=== PATIENT | female | born 1950 | race Caucasian/White ===

== ENCOUNTER 2016-05-08 12:15 | Observation (INO) | payer MEDICARE ==
[~2016-05-08] VITALS: Ht 160 cm; Wt 77.1 kg
[~2016-05-08 12:15] MED LIST: BUMEX2 MG PO; CYMBALTA60 MG PO; EFFEXOR75 MG PO; METHADONE 10 MG10 MG PO; METHADONE5 MG PO; MS CONTIN30 MG; NEURONTIN600 MG PO; NEXIUM40 MG PO; REGLAN5 MG PO; SENNA LAXATIVE8.6 MG PO; SONATA10 MG PO; SYNTHROID88 MCG PO; VALIUM5 MG PO
[2016-05-08 12:53] LABS: BASOPHILS 0.6 % (0.0-2.0); EOSINOPHILS 1.5 % (0-7); HEMATOCRIT 42.7 % (36.0-48.0); HEMOGLOBIN 14.3 g/dL (12-16); IMMATURE GRANULOCYTES 0.2 % (0-5); LYMPHOCYTES 42.2 % (15-50); MCH 30.4 pg (26.0-34.0); MCHC 33.5 g/dL (31.0-37.0); MCV 90.9 fL (80.0-100.0); MEAN PLATELET VOLUME 10.8 fL (7.4-10.4); MONOCYTES 9.5 % (2-11); RDW 13.1 % (11.5-14.5); WBC 6.5 10x3/uL (4.8-10.8)
[2016-05-08 13:05] LABS: PLATELET COUNT 309 10x3/uL (130-400)
[2016-05-08 13:08] LABS: ALBUMIN 3.4 g/dL (3.4-5.0); ALKALINE PHOSPHATASE 213 U/L (46-116); ALT (SGPT) 34 U/L (10-68); CALC OSMOLALITY 273 mosm/kg (275-300); CALCIUM 8.4 mg/dL (8.5-10.1); CARBON DIOXIDE 25.5 mmol/L (21.0-32.0); CHLORIDE - SERUM 103 mmol/L (98-107); CREATININE - SERUM 0.8 mg/dL (0.6-1.3); GLUCOSE 114 mg/dL (74-106); POTASSIUM - SERUM 5.2 mmol/L (3.5-5.1); SODIUM 135 mmol/L (136-145); UREA NITROGEN 22 mg/dL (7-18); eGFR NON AFRICAN AMERICAN 76 mL/min (90-120)
[2016-05-08 14:37] LABS: APPEARANCE HAZY (CLEAR); BACTERIA FEW /hpf (NONE SEEN); BILIRUBIN NEGATIVE (NEGATIVE); COLOR YELLOW (YELLOW); EPITHELIAL CELLS 0-5 /hpf (0-5); GLUCOSE NEGATIVE (NEGATIVE); KETONE SMALL mg/dL (NEGATIVE); LEUKOCYTE ESTERASE TRACE (NEGATIVE); NITRITE NEGATIVE (NEGATIVE); PROTEIN NEGATIVE (NEGATIVE); UROBILINOGEN NORMAL (NORMAL); WHITE CELLS - URINE 0-5 /hpf (0-5)
[2016-05-08 14:38] LABS: HYALINE CAST 0-5 /lpf (NONE SEEN); MUCUS <1+ /lpf (NONE SEEN)
--- NOTE | 2016-05-08 18:10 | NUR ---
TO ROOM 2216 FROM ER VIA WHEELCHAIR.ASSESSMENT PER ADMIT PACK.ORIENTAION TO ROOM.CALL LIGHT IN REACH.
[2016-05-08] MEDS ORDERED: REMERON15 MG PO (18:16)
[2016-05-08 18:21] VITALS: BMI 30.1
--- NOTE | 2016-05-08 19:30 | NUR ---
ASSESSMENT PER FLOWSHEET. IV TO LEFT UPPER ARM OF NS AT 125CC'S/HR SITE CLEAR. PEG TUBE CLAMPED. PT ABLE TO EAT AND DRINK WITHOUT PROBLEMS. SR UP X2 CALL LIGHT WITHIN REACH.
--- NOTE | 2016-05-08 20:45 | NUR ---
OFFERED PT HER SS ENEMA. PT REFUSED AT THIS TIME. UP WITH MINIMIAL ASSIST TO BR VOIDS WELL.
[2016-05-08 21:00] VITALS: BP 114/64
--- NOTE | 2016-05-08 22:00 | NUR ---
RESTING QUIETLY DENIES NEEDS. SR UP X2 CALL LIGHT WITHIN REACH.
--- NOTE | 2016-05-08 23:48 | NUR ---
PT REQUESTING HER PAIN MEDICATION. STATES TAKES MS CONTIN 30 MG THREE TIMES A DAY. CURRENT ORDER SHOWS DAILY. NOTIFIED DR. MAC OF PT'S REQUEST FOR PAIN MED. ORDERS REC'D AND MS CONTIN 30MG CHANGED TO TID START TONIGHT. NOTIFIED PR INTERNSH[employer] TO PULL MED.
--- NOTE | 2016-05-08 23:49 | NUR ---
DR. MAC MADE AWARE OF PT'S REFUSAL OF SS ENEMA.
--- NOTE | 2016-05-09 00:08 | NUR ---
HEEL CURVER CARON RN HERE TO PULL MEDICATION. MS CONTIN 30MG PO GIVEN FOR PAIN CONTROL. PT RATES PAIN #8 ACHING AND CRAMPING.
[2016-05-09 01:00] VITALS: BP 99/43
[2016-05-09 05:00] VITALS: BP 130/56
--- NOTE | 2016-05-09 07:30 | NUR ---
AWAKE ALERT COLOR ADQ SKIN WARM AND DRY RESP EVEN AND UNLABORED AT PRESENT CONT TO C/O ABD PAIN AT PRESENT.
[2016-05-09 08:08] VITALS: BP 124/46
--- NOTE | 2016-05-09 09:00 | NUR ---
MEDS GIVEN SIDRA WELL AT PRESENT LAYING QUIETLY IN BED AT PRESENT.
--- NOTE | 2016-05-09 10:00 | NUR ---
LAYING QUIETLY IN BED AT PRESENT STATES PAIN STILL A 10 AT PRESENT.
[2016-05-09 11:00] VITALS: Ht 160 cm; Wt 77.1 kg
[2016-05-09 11:52] VITALS: BP 109/50
--- NOTE | 2016-05-09 12:00 | NUR ---
CALLED ABOUT WANTING TO BE CONNECTED TO SUCTION STATES ABD HARD AND CRAMPING .G-TUBE CONNECTED TO LIWS.
--- NOTE | 2016-05-09 13:00 | NUR ---
G/T CONNECTED TO WALL SUCTION LOW RET ORANGE PT STATES ABD CONT TO CRAMP STILL.
--- NOTE | 2016-05-09 14:25 | NUR ---
QUIET IN ROOM AT PRESENT N/C AT PRESENT.
--- NOTE | 2016-05-09 15:26 | NUR ---
Patient Name: SHEFALI MALDONADO Admission Status: ER Accout number: [id number] Admission Date: 05-09-2016 : 1950 Admission Diagnosis: Attending: ISRA Current LOS: 1 Anticipated DC Date: 05-11-2016 Planned Disposition: Home or Self Care Primary Insurance: MEDICARE A & B Discharge Planning Comments: CM MET WITH PATIENT REGARDING D/C NEEDS AND PLANS. PATIENT STATED SHE LIVES ALONE AND HER DAUGHTER WILL DRIVE HER HOME AT DISCHARGE. PATIENT STATED THAT SHE HAS 2 STEPS WITH RAILS TO ENTER HOME AND NO STAIRS INSIDE. PATIENT IS INDEPENDENT WITH HER CARE AND HAS NO DME AT HOME. PATIENTS PCP IS DR. ESCALANTE AND USES [facility]. PATIENT HAD HOME HEALTH ABOUT A YEAR AGO WITH [facility] AND WANTS TO USE THEM IF HOME HEALTH IS NEEDED AT DISCHARGE. CM WILL CONTINUE TO FOLLOW PATIENT WITH D/C NEEDS AND PLANS. PCP [facility]- [phone] GEOVANI CARRILLO (DAUGHTER) [phone] Rover Tender: Digna Isabel Is the patient Alert and Oriented? Yes 0 * How many steps to enter\exit or inside your home? 2 W/RAILS 0 * PCP DR. ESCALANTE 0 * [facility]acy [facility] 0 * Preadmission Environment Home Alone 0 * ADLs Independent 0 * Equipment None 0 * List name and contact numbers for known caregivers / representatives who currently or will assist patient after discharge: GEOVANI CARRILLO (DAUGHTER) [phone] 0 * Community resources currently utilized None 0 * Additional services required to return to the preadmission environment? Yes 0 * Can the patient safely return to the preadmission environment? Yes 0 * Has this patient been hospitalized within the prior 30 days at any hospital? No 0 Grand Total: 0
[2016-05-09 15:40] VITALS: BP 156/49
--- NOTE | 2016-05-09 16:42 | NUR ---
STATUS REMAINS UNCHGD AT PRESENT G-TUBE CONNECTED TO LIWS AT PRESENT PT UP TO B/R STATES HAD SMALLB.
--- NOTE | 2016-05-09 20:00 | NUR ---
ASSESSMENT PER FLOWSHEET. RESTING QUIETLY IN BED IV PATENT LEFT UPPER ARM OF NS AT 125CC'S/HR
[2016-05-09 21:00] VITALS: BP 135/71
--- NOTE | 2016-05-09 22:00 | NUR ---
MEDS GIVEN PER MAR.
--- NOTE | 2016-05-10 | NUR ---
EYES CLOSED RESPIRATIONS WITH EASE AND UNLABORED.
[2016-05-10 05:00] VITALS: BP 137/51
--- NOTE | 2016-05-10 05:30 | NUR ---
MEDS GIVEN PER MAR. NO CHANGES IN ASSESSMENT
[2016-05-10 05:51] LABS: BASOPHILS 0.5 % (0.0-2.0); HEMATOCRIT 41.5 % (36.0-48.0); HEMOGLOBIN 13.7 g/dL (12-16); IMMATURE GRANULOCYTES 0.2 % (0-5); LYMPHOCYTES 39.6 % (15-50); MCH 30.2 pg (26.0-34.0); MCV 91.6 fL (80.0-100.0); MEAN PLATELET VOLUME 12.2 fL (7.4-10.4); NEUTROPHILS 49.7 % (40-80); RBC 4.53 10x6/uL (4.00-5.40); RDW 13.5 % (11.5-14.5); WBC 5.5 10x3/uL (4.8-10.8)
[2016-05-10 05:52] LABS: PLATELET COUNT 152 10x3/uL (130-400)
[2016-05-10 06:14] LABS: CALC OSMOLALITY 281 mosm/kg (275-300); CALCIUM 8.7 mg/dL (8.5-10.1); CARBON DIOXIDE 23.3 mmol/L (21.0-32.0); CHLORIDE - SERUM 109 mmol/L (98-107); CREATININE - SERUM 0.7 mg/dL (0.6-1.3); GLUCOSE 93 mg/dL (74-106); SODIUM 142 mmol/L (136-145); UREA NITROGEN 11 mg/dL (7-18); eGFR NON AFRICAN AMERICAN 88 mL/min (90-120)
[2016-05-10 08:14] VITALS: BP 108/43
--- NOTE | 2016-05-10 08:52 | NUR ---
CM REASSESSMENT NOTE: PATIENT IS DISCHARGING TODAY AND HER DAUGHTER WILL DRIVE HER HOME. PATIENT STATED SHE HAS NO NEEDS FOR DISCHARGE BUT JUST NEEDS HER PAIN MED NOW. CM NOTIFIED PATIENTS NURSE OF THE REQUEST.
--- NOTE | 2016-05-10 10:01 | NUR ---
PT SEEN AND ASSESSED. NO COMPLAINTS AT PRESENT. PEG TUBE NOTED WITH NO DRAINAGE NOTED TO SITE. AMBULATION IN ROOM AND MATUTE. DISCHARGED WITH BELONGINGS
== END 2016-05-10 10:02 | disposition home or self-care (01) ==
LOC: OBSVTIME → D.ER 12:15 → OBSVTIME 16:57 → D.MS 16:57 → OBSVTIME 17:39 → D.MS 17:39 → D.ER 17:39 → OBSVTIME 17:40 → D.MS 05-09 11:22 → D.SDCHOLD 05-09 11:22 → D.MS 05-09 14:55 → OBSVTIME 05-09 14:55 → D.MS 05-10 10:02
PROVIDERS: Emergency Medicine; ADMIT Family Medicine
DX: K56.69 Other intestinal obstruction (principal); K31.84 Gastroparesis; Z93.1 Gastrostomy status

== ENCOUNTER 2016-07-31 11:54 | Inpatient (IN) | payer MEDICARE ==
[~2016-07-31] VITALS: Ht 160 cm; Wt 79.4 kg
[~2016-07-31 11:54] MED LIST changes: -MS CONTIN30 MG; +MS CONTIN30 MG PO; +REMERON15 MG PO
[2016-07-31 14:26] LABS: BASOPHILS 0.5 % (0.0-2.0); EOSINOPHILS 1.5 % (0-7); HEMATOCRIT 41.9 % (36.0-48.0); HEMOGLOBIN 14.2 g/dL (12-16); IMMATURE GRANULOCYTES 0.1 % (0-5); LYMPHOCYTES 47.2 % (15-50); MCH 31.1 pg (26.0-34.0); MCHC 33.9 g/dL (31.0-37.0); MCV 91.9 fL (80.0-100.0); MEAN PLATELET VOLUME 10.2 fL (7.4-10.4); MONOCYTES 7.3 % (2-11); NEUTROPHILS 43.4 % (40-80); RBC 4.56 10x6/uL (4.00-5.40); RDW 13.2 % (11.5-14.5); WBC 7.6 10x3/uL (4.8-10.8)
[2016-07-31 14:34] LABS: PLATELET COUNT 279 10x3/uL (130-400)
[2016-07-31 15:30] LABS: INR 0.98 (0.85-1.17); PROTIME 12.9 SECONDS (11.6-15.0)
[2016-07-31 15:40] LABS: ALBUMIN 3.5 g/dL (3.4-5.0); BILIRUBIN - TOTAL 0.31 mg/dL (0.2-1.3); C-REACTIVE PROTEIN 2.8 mg/dL (0.0-0.9); CALCIUM 8.8 mg/dL (8.5-10.1); CARBON DIOXIDE 28.1 mmol/L (21.0-32.0); MAGNESIUM - SERUM 2.2 mg/dL (1.8-2.4); POTASSIUM - SERUM 4.1 mmol/L (3.5-5.1); PROTEIN - SERUM 7.5 g/dL (6.4-8.2)
--- NOTE | 2016-07-31 20:30 | NUR ---
RECEIVED PATIENT AWAKE AND ALERT FROM ER VIA STRETCHER ACCOMPANIED BY ER NURSE MJ TO ROOM 1221. TRANSFERRED SELF TO BED WITHOUT DIFFICULTY. INTRODUCED SELF. NGT TO Tamra PARK. UP TO THE BATHROOM--VOIDED. DR. MAC HERE TO SEE PT.
--- NOTE | 2016-07-31 20:48 | NUR ---
INITIAL ASSESSMENT AND V/S TAKEN. ADULT HISTORY DONE. MIDLINE IV CATH TO R UPPER ARM. NGT TO LOW INTERMITTENT SUCTION WITH GREENISH GASTRIC SECRETIONS.
[2016-07-31 20:49] VITALS: BP 147/84; BMI 31.0
--- NOTE | 2016-07-31 21:43 | NUR ---
IVF--D5NS+20mEq KCl STARTED @ 100cc/hr. IV SITE OK. REGLAN 5mg IV GIVEN. SEE E-MAR.
--- NOTE | 2016-07-31 22:06 | NUR ---
PAIN LEVEL "10"/10 FROM ABD. DILAUDID 1mg IV GIVEN. ATIVAN 1mg IV GIVEN ALSO FOR SLEEP. SEE E-MAR.
--- NOTE | 2016-08-01 00:30 | NUR ---
CALL LIGHT ANSWERED. ASSISTED TO THE BATHROOM. V/S CHECKED.
[2016-08-01 00:42] VITALS: BP 164/77
--- NOTE | 2016-08-01 02:28 | NUR ---
CALL LIGHT ANSWERED. PAIN LEVEL 8/10 FROM ABD. DILAUDID 1mg IV GIVEN FOR PAIN CONTROL. ZOFRAN 4mg IV GIVEN FOR NAUSEA. NGT TO LIS WITH GREENISH-BROWN GASTRIC SECRETIONS.
--- NOTE | 2016-08-01 03:15 | NUR ---
REGLAN 5mg IV GIVEN ORDERED. SEE E-MAR.
[2016-08-01 03:17] VITALS: BP 133/71
--- NOTE | 2016-08-01 06:23 | NUR ---
HIGH PRESSURE BOILER OPERATOR HERE TO DRAW AM LAB.
[2016-08-01 06:58] LABS: BASOPHILS 0.7 % (0.0-2.0); EOSINOPHILS 2.5 % (0-7); HEMATOCRIT 38.9 % (36.0-48.0); HEMOGLOBIN 12.7 g/dL (12-16); IMMATURE GRANULOCYTES 0.4 % (0-5); LYMPHOCYTES 41.8 % (15-50); MCH 30.3 pg (26.0-34.0); MCHC 32.6 g/dL (31.0-37.0); MCV 92.8 fL (80.0-100.0); MONOCYTES 9.8 % (2-11); NEUTROPHILS 44.8 % (40-80); PLATELET COUNT 232 10x3/uL (130-400); RBC 4.19 10x6/uL (4.00-5.40); RDW 13.1 % (11.5-14.5)
[2016-08-01 07:00] LABS: WBC 5.6 10x3/uL (4.8-10.8)
--- NOTE | 2016-08-01 07:00 | NUR ---
BEDSIDE SHIFT REPORT GIVEN TO PAM BLANKENSHIP.
[2016-08-01 07:30] VITALS: BP 142/59
--- NOTE | 2016-08-01 07:30 | NUR ---
PT WAS RECEIVED THIS AM LYING IN BED. C/O NG TUBE LEAKING. VASILIY AND I BOTH LOOKED AT THIS AND COULD NOT IDENTIFY WHERE IT WAS LEAKING. NG INTACT R NARES AND HOOKED UP TO INTERMITTENT SUCTION. SECURED TO NOSE WITH ATTACHMENT DEVICE. GEN- AWAKE AND ALERT. LUNGS- CLEAR. HEART- RRR. ABD-SOFT, BS-HYPOACTIVE. EXT- WARM AND DRY, NO EDEMA. BED IS LOW, SIDE RAILS UP X 2.
[2016-08-01 07:51] LABS: ANION GAP 10.5 mmol/L (8-16); BILIRUBIN - TOTAL 0.36 mg/dL (0.2-1.3); CALCIUM 8.3 mg/dL (8.5-10.1); CARBON DIOXIDE 29.4 mmol/L (21.0-32.0); CREATININE - SERUM 0.9 mg/dL (0.6-1.3); POTASSIUM - SERUM 3.9 mmol/L (3.5-5.1); PROTEIN - SERUM 6.5 g/dL (6.4-8.2)
[2016-08-01 07:52] LABS: ALBUMIN 2.6 g/dL (3.4-5.0)
--- NOTE | 2016-08-01 09:59 | NUR ---
PT IS RESTING IN BED. 0900 MEDS GIVEN. PT C/O PAIN AND ALSO WANTS SOMETHING FOR NAUSEA. I TOLD HER I WILL GIVE HER THOSE AFTER GIVING THESE IV MEDS AND LETTING THEM INFUSE. SHE AGREED.
--- NOTE | 2016-08-01 10:08 | NUR ---
RECHECKED PTS PAIN LEVEL . SHE STATES IT IS BETTER AND IS A 4/10. DR STANTON HOMICIDE DETECTIVE, IS HERE TO SEE PT. NEW ORDERS NOTED.
--- NOTE | 2016-08-01 10:34 | NUR ---
PT REQUESTED PAIN AND NAUSEA MEDICINE. GIVEN TO HER. STATES HER PAIN IS A 9 IN HER LEFT UPPER ABD. BED IS LOW, SIDE RAILS UP X 2 AND CALL LIGHT IN REACH.
[2016-08-01 10:46] VITALS: Ht 160 cm; Wt 79.4 kg
--- NOTE | 2016-08-01 12:09 | NUR ---
PTS NG WAS CLAMPED AND PT UP WALKING IN HALLWAY. SHE WALKED ABOUT 200 FT. TOLERATED WELL. LINENS WERE CHANGED.
--- NOTE | 2016-08-01 13:57 | NUR ---
PT IS LYING IN BED. OFFERS NO COMPLAINTS NG TUBE INTACT AND ON INTERMITTENT SUCTION. IV PATENT R UPPER ARM. BED IS LOW, SIDE RAILS UP X 2 AND CALL LIGHT IN REACH.
[2016-08-01 14:01] LABS: APPEARANCE HAZY (CLEAR); BILIRUBIN NEGATIVE (NEGATIVE); COLOR YELLOW (YELLOW); GLUCOSE NEGATIVE (NEGATIVE); KETONE NEGATIVE (NEGATIVE); LEUKOCYTE ESTERASE 1+ (NEGATIVE); NITRITE NEGATIVE (NEGATIVE); PROTEIN TRACE mg/dL (NEGATIVE); SPECIFIC GRAVITY 1.015 (1.005-1.020); UROBILINOGEN NORMAL (NORMAL)
[2016-08-01 14:02] LABS: BACTERIA FEW /hpf (NONE SEEN); MUCUS <1+ /lpf (NONE SEEN)
--- NOTE | 2016-08-01 15:34 | NUR ---
PT STATES HER PAIN IS BETTER . RATES PAIN A 4-5.
--- NOTE | 2016-08-01 16:16 | NUR ---
PT CALLED ME TO HER ROOM AND STATES HER NG CAME APART. HANYGED CHRISTINE AND HER GOWN AND HOOKED IT BACK UP.
--- NOTE | 2016-08-01 17:17 | NUR ---
PT ASSISTED UP TO BATHROOM. VOIDED. PT BACK TO BED. REMOVED NOSE CLAMP HOLDING NG AND CLEANED HER NOSE AND REPLACED. NG INTACT R NARES TO INTERMITTENT SUCTION. IV PATENT R UPPER ARM. BED IS LOW, SIDE RAILS UP X 2 AND CALL LIGHT IN REACH.
[2016-08-01 19:10] VITALS: BP 135/72
--- NOTE | 2016-08-01 19:10 | NUR ---
AWAKE DURING INITIAL ROUNDS. RE-INTRODUCED SELF. V/S AND ASSESSMENT DONE. NGT ON R NARE TO LOW INTERMITTENT SUCTION WITH GREENISH GASTRIC SECRETIONS. IVF TO R UPPER ARM WITH MIDLINE CATH. IV SITE OK.
--- NOTE | 2016-08-01 19:55 | NUR ---
NGT CLAMPED. PT AMBULATED IN THE MATUTE UP TO THE NURSERY AND BACK TO HER ROOM. NGT RESUMED TO LOW INTERMITTENT SUCTION.
--- NOTE | 2016-08-01 19:57 | NUR ---
AMBULATING [facility].
--- NOTE | 2016-08-01 20:21 | NUR ---
ATIVAN 1mg IV GIVEN PER PT's REQUEST FOR SLEEP. REGLAN 5mg IV GIVEN ORDERED. SEE E-MAR.
--- NOTE | 2016-08-01 23:15 | NUR ---
SUCTION CANISTER REPLACED.
[2016-08-01 23:16] VITALS: BP 104/60
--- NOTE | 2016-08-01 23:16 | NUR ---
V/S STABLE. DENIES NEEDS AT THIS TIME.
--- NOTE | 2016-08-02 02:04 | NUR ---
EYES CLOSED. LEFT UNDISTURBED.
--- NOTE | 2016-08-02 03:02 | NUR ---
CALL LIGHT ANSWERED. PAIN LEVEL 10/10 FROM ABD. DILAUDID 1mg IV GIVEN FOR PAIN CONTROL.
[2016-08-02 03:08] VITALS: BP 125/64
--- NOTE | 2016-08-02 06:01 | NUR ---
SLEPT FAIRLY WELL DURING THE NIGHT. CONTINUING PLAN OF CARE.
[2016-08-02 06:52] LABS: BASOPHILS 0.4 % (0.0-2.0); HEMATOCRIT 36.3 % (36.0-48.0); HEMOGLOBIN 11.7 g/dL (12-16); IMMATURE GRANULOCYTES 0.3 % (0-5); LYMPHOCYTES 33.2 % (15-50); MCH 30.4 pg (26.0-34.0); MCHC 32.2 g/dL (31.0-37.0); MCV 94.3 fL (80.0-100.0); MEAN PLATELET VOLUME 11.2 fL (7.4-10.4); MONOCYTES 9.1 % (2-11); PLATELET COUNT 217 10x3/uL (130-400); RBC 3.85 10x6/uL (4.00-5.40); RDW 13.3 % (11.5-14.5)
[2016-08-02 07:18] LABS: ALBUMIN 2.6 g/dL (3.4-5.0); ALKALINE PHOSPHATASE 137 U/L (46-116); ALT (SGPT) 25 U/L (10-68); BILIRUBIN - TOTAL 0.31 mg/dL (0.2-1.3); CALC OSMOLALITY 289 mosm/kg (275-300); CALCIUM 7.9 mg/dL (8.5-10.1); CARBON DIOXIDE 28.8 mmol/L (21.0-32.0); CHLORIDE - SERUM 111 mmol/L (98-107); CREATININE - SERUM 0.7 mg/dL (0.6-1.3); GLUCOSE 101 mg/dL (74-106); POTASSIUM - SERUM 4.1 mmol/L (3.5-5.1); PROTEIN - SERUM 5.7 g/dL (6.4-8.2); SODIUM 146 mmol/L (136-145); eGFR NON AFRICAN AMERICAN 88 mL/min (90-120)
[2016-08-02 07:19] LABS: UREA NITROGEN 11 mg/dL (7-18)
[2016-08-02 07:30] VITALS: BP 139/77
--- NOTE | 2016-08-02 07:30 | NUR ---
RECEIVED IN BED. AWAKE. ASKING FOR PAIN MED. NG TUBE TO LOW INTERMIT SUCTION. NOTED 400ML'S IN CANISTER. NIGHT NURSE CHANGED CANISTER BEFORE LEAVING THIS AM. ABD WITH +BS X4. LUNGS AUSCULTATED CLEAR BILAT. MOVES AD MIGUEL IN ROOM/BATHROOM.
--- NOTE | 2016-08-02 09:11 | NUR ---
WAITING ON URINE SPEC FOR CULTURE BEFORE ROCEPHIN GIVEN PER REQUEST OF DR ESCALANTE
--- NOTE | 2016-08-02 09:40 | NUR ---
UP WALKING IN MATUTE AND AROUND TO NURSERY WINDOWS. NOTED 400 IN SUCTION CONTAINER. DARK BROWN APPEARANCE.
[2016-08-02 13:25] VITALS: BP 136/72
--- NOTE | 2016-08-02 13:42 | NUR ---
LYING ON BED. EYES CLOSED. RESP NON-LABORED. NG REMAINS ON LOW INTERMIT SUCTION. IV SITE WITOUT EDEMA OR ERYTHEMA. PT REPORTS SMALL BM FROM SUPPOSITORY
--- NOTE | 2016-08-02 14:18 | NUR ---
Patient Name: SHEFALI MALDONADO Admission Status: ER Accout number: [id number] Admission Date: 07-31-2016 : 1950 Admission Diagnosis: Attending: ISRA Current LOS: 2 Anticipated DC Date: 08-05-2016 Planned Disposition: Home Primary Insurance: MEDICARE A & B Discharge Planning Comments: CM MET WITH PATIENT AND DISCUSSED DISCHARGE PLANNING / NEEDS. PATIENT STATES THAT HER DISCHARGE PLAN IS TO RETURN HOME. STATES THE HOME ENVIORNMENT IS SAFE. STATES THAT SHE HAS TWO STEPS TO ENTER/EXIT THE HOME AND THERE ARE HAND RAILS. STATES SHE WAS INDEPENDENT WITH ALL ADL'S AND IADL'S PRIOR TO HOSPITALIZATION. STATES THE ONLY ASSISTANCE SHE REQUIRED WAS TRANSPORTATION WHICH WAS PROVIDED BY HER DAUGHTER, YUMIKO FOSS [phone] OR HER FRIEND STEVE GUTIERREZ (COULD NOT RECALL HER PHONE NUMBER AT THIS TIME). STATES SHE WILL CALL HER DAUGHTER UPON DISCHARGE FOR TRANSPORTATION HOME. DENIES THE NEED FOR HOME HEALTH SERVICES OR OTHER COMMUNITY RESOURCES AT THIS TIME. CM WILL CONTINUE TO FOLLOW AND ASSIST NEEDED WITH DISCHARGE PLANNING / NEEDS. Is the patient Alert and Oriented? Yes * How many steps to enter\exit or inside your home? 2 w/rails * PCP Keon * Pharmacy [facility] * Preadmission Environment Home Alone * ADLs Independent * Equipment None * List name and contact numbers for known caregivers / representatives who currently or will assist patient after discharge: Daughter, Yumiko Foss [phone] Friend, Steve Gutierrez (did not recall phone number at this time) * Community resources currently utilized None * Additional services required to return to the preadmission environment? No * Can the patient safely return to the preadmission environment? Yes * Has this patient been hospitalized within the prior 30 days at any hospital? No Insurance Agent: Maggy Cowan
--- NOTE | 2016-08-02 14:30 | NUR ---
Called to look at midline. On arrival, right upper arm midline partially pulled out and leaking, Removed remainder of midline with cath intact at 15 cm. Peripheral started in left forearm with 22 gauge. Halima Mcwilliams RN
--- NOTE | 2016-08-02 16:15 | NUR ---
UP TO BATHROOM. NO PROBLEMS NOTED. PT STATES SHE HAS TO GET UP TO WASH HER TEETH. MOVES ABOUT IN ROOM AD MIGUEL
--- NOTE | 2016-08-02 18:14 | NUR ---
NOTED SUCTION CONTAINER HAVING SCHOOL AGE PROGRAM TEACHER COLORED FLUID (GREEN). AMT GREATLY DECREASED FROM 1100 TODAY.
--- NOTE | 2016-08-02 19:30 | NUR ---
PT RADIO DISPATCHER LIGHT, REQUESTS DILAUDID, INFORMED PT THAT I WILL BE IN THERE IN JUST A FEW MINUTES, PT VERBALIZES UNDERSTANDING
[2016-08-02 19:35] VITALS: BP 138/74
--- NOTE | 2016-08-02 19:35 | NUR ---
ASSESSMENT PER FLOW SHEET, VS OBTAINED, IV IN UPPER LEFT ARM INTACT WITH NO REDNESS OR EDEMA INFUSING D5NS WITH KCL AT 100 ML/HR PER MD ORDERS, SEE EMAR, NGT TO LOW INTERMITTENT SUCTION, RETAPED TO NOSE, PT REPORTS SMALL BM EARLIER TODAY, REQUESTS SUPPOSITORY IN THE MORNING, DENIES FLATUS, VOIDING WITH NO DIFFICULTY, STATES "I USUALLY DON'T PEE MUCH ANYWAY", PT C/O ABD AND BACK CRAMPING, ADM DILAUDID SIVP PER MD ORDERS, C/O SLIGHT NAUSEA, ADM ZOFRAN SIVP PER MD ORDERS, SEE EMAR, PT INST TO USE CALL LIGHT WHEN NEEDING TO GET UP TO VOID, PT VERBALIZES UNDERSTANDING, PT ASKED ABOUT THE ATIVAN, INFORMED PT THAT I WILL BE IN AROUND 8:30 PM TO GET HER UP TO WALK, AND THEN I WILL ADM THE ATIVAN WHEN SHE IS BACK IN BED, PT VERBALIZES UNDERSTANDING, DENIES FURTHER NEEDS
--- NOTE | 2016-08-02 20:45 | NUR ---
PT AMB IN MATUTE, GAIT STEADY, WITH THIS NURSE, PT TO NSY WINDOW AND BACK TO ROOM
--- NOTE | 2016-08-02 20:58 | NUR ---
PT BACK IN BED, NGT RECONNECTED AT LOW INTERMITTENT SUCTION, ADM 2100 MED AND ATIVAN SIVP PER MD ORDERS, SEE EMAR, PT REPOSITIONED SELF IN BED, PT LEIGHANN VELIZ NEEDS
--- NOTE | 2016-08-02 21:39 | NUR ---
NEW BAG OF D5NS WITH KCL HUNG IV INFUSING VIA PUMP AT 100 ML/HR, SEE EMAR
--- NOTE | 2016-08-02 22:30 | NUR ---
PT RESTING WITH EYES CLOSED, RESP QUIET, NO DISTRESS NOTED, LEFT UNDISTURBED AT THIS TIME
[2016-08-02 23:27] VITALS: BP 148/68
--- NOTE | 2016-08-02 23:27 | NUR ---
PT AUTO CAMP ATTENDANT LIGHT, C/O BACK PAIN, ADM DILAUDID SIVP PER MD ORDERS, SEE EMAR, VS OBTAINED, PT REQUESTED AIR TO BE ADJ, DENIES FURTHER NEEDS
--- NOTE | 2016-08-03 00:27 | NUR ---
PT RESTING WITH EYES CLOSED, RESP QUIET, NO DISTRESS NOTED, LEFT UNDISTURBED AT THIS TIME
--- NOTE | 2016-08-03 02:00 | NUR ---
PT CITY TAX AUDITOR LIGHT, IV BEEPING, IV PUMP UNPLUGGED, PUMP PLUGGED BACK IN, PT DENIES FURTHER NEEDS
[2016-08-03 03:28] VITALS: BP 160/78
--- NOTE | 2016-08-03 03:28 | NUR ---
PT CAREER RESOURCE TECHNICIAN LIGHT, C/O ABD CRAMPING, ADM DILAUDID AND REGLAN SIVP PER MD ORDERS, SEE EMAR, VS OBTAINED, I&O'S COLLECTED, NGT CONTINUES AT LOW INTERMITTENT SUCTION, PT DENIES FURTHER NEEDS
--- NOTE | 2016-08-03 04:25 | NUR ---
PT RESTING WITH EYES CLOSED, RESP QUIET, NO DISTRESS NOTED, LEFT UNDISTURBED AT THIS TIME
[2016-08-03 06:29] LABS: BASOPHILS 0.3 % (0.0-2.0); EOSINOPHILS 6.4 % (0-7); HEMATOCRIT 34.3 % (36.0-48.0); HEMOGLOBIN 11.2 g/dL (12-16); IMMATURE GRANULOCYTES 0.2 % (0-5); LYMPHOCYTES 37.1 % (15-50); MCH 30.4 pg (26.0-34.0); MCHC 32.7 g/dL (31.0-37.0); MEAN PLATELET VOLUME 10.7 fL (7.4-10.4); MONOCYTES 7.9 % (2-11); NEUTROPHILS 48.1 % (40-80); PLATELET COUNT 234 10x3/uL (130-400); RBC 3.69 10x6/uL (4.00-5.40); WBC 5.9 10x3/uL (4.8-10.8)
--- NOTE | 2016-08-03 06:43 | NUR ---
NEW BAG OF D5NS WITH KCL HUNG VIA PUMP INFUSING AT 100 ML/HR, PT REQUESTS PAIN MED, INFORMED PT THAT IT WAS NOT DUE YET, AND THAT IT WILL BE ADM WHEN DUE, PT VERBALIZES UNDERSTANDING, DENIES FURTHER NEEDS AT THIS TIME
[2016-08-03 06:45] LABS: ALBUMIN 2.4 g/dL (3.4-5.0); ALKALINE PHOSPHATASE 124 U/L (46-116); ALT (SGPT) 21 U/L (10-68); CALC OSMOLALITY 285 mosm/kg (275-300); CALCIUM 8.3 mg/dL (8.5-10.1); CARBON DIOXIDE 28.3 mmol/L (21.0-32.0); CHLORIDE - SERUM 110 mmol/L (98-107); CREATININE - SERUM 0.6 mg/dL (0.6-1.3); GLUCOSE 107 mg/dL (74-106); POTASSIUM - SERUM 3.5 mmol/L (3.5-5.1); PROTEIN - SERUM 5.8 g/dL (6.4-8.2); SODIUM 145 mmol/L (136-145); eGFR NON AFRICAN AMERICAN > 90 mL/min (90-120)
[2016-08-03 06:54] LABS: UREA NITROGEN 5 mg/dL (7-18)
--- NOTE | 2016-08-03 07:00 | NUR ---
SHIFT REPORT TO PATTIE SILVA RN
[2016-08-03 07:30] VITALS: BP 163/84
--- NOTE | 2016-08-03 08:44 | NUR ---
X-RAY IS HERE TO GET PT FOR IMAGING STUDY. TRANSPORTED BY WHEELCHAIR. NG CLAMPED AND IV SALINE LOCKED FOR TRANSPORT.
--- NOTE | 2016-08-03 08:58 | NUR ---
PT IS BACK FROM X-RAY. PT IS INSTRUCTED THAT SHE NEEDS TO WALK. PT IS NOW WALKING IN HALLWAYS.
--- NOTE | 2016-08-03 09:30 | NUR ---
PT'S IV WAS INITIATED AGAIN, HER NG WAS HOOKED BACK UP TO LOW INTERMITTENT SUCTION. 0900 MEDS WERE GIVEN.
--- NOTE | 2016-08-03 10:00 | NUR ---
PT HAD SMALL BOWEL MOVEMENT POST SUPP.
--- NOTE | 2016-08-03 10:20 | NUR ---
PT HAS SOME VISITORS TO COME SEE HER.
--- NOTE | 2016-08-03 10:48 | NUR ---
DUCOLAX SUPP GIVEN.
--- NOTE | 2016-08-03 10:53 | NUR ---
PT IS SLEEPING. BED IS LOW, SIDE RAILS UP X 2 AND CALL LIGHT IN REACH.
--- NOTE | 2016-08-03 11:00 | NUR ---
Nutrition Follow Up: Spoke with nursing who reported that pt continues having increased NGT output. Pt remains NPO x 3 days. I<O. +BM 08/02/16. Labs reviewed. Meds noted including D5NS KCl @ 100 ml/hr providing 408 kcal/d, RegXiomara hilario. NGT to LIS. Pt continues not meeting est. nutritional needs. Rec advancing diet as soon as medically feasible. If diet is unable to advance within 24-48 hours rec start nutrition support. RD will continue to monitor pt progress.
--- NOTE | 2016-08-03 11:47 | NUR ---
PT REQUEST PAIN MED. STATES HER PAIN IS A 10. SHE HAS PAIN IN HER STOMACH AND HER BACK. SHE HAS CHRONIC BACK PAIN AND TAKES 3 MORPHINE TABLETS A DAY.
--- NOTE | 2016-08-03 13:45 | NUR ---
PT STATES FEELING A LITLE SICK AT STOM[place]. MEDICATED SEE EMAR SLOW IV PUSH
--- NOTE | 2016-08-03 13:56 | NUR ---
PT STATES SHE THINKS THE MEDICATION IS WORKING. DENIES FURTHER NEEDS ORANGE CAP PLACED ON IV. CALL LIGHT IN REACH, BED LOW, SIDE RAILS UP X 2
--- NOTE | 2016-08-03 16:00 | NUR ---
PT HAD ANOTHER BM. STATES WAS SMALL.
--- NOTE | 2016-08-03 17:23 | NUR ---
WALKED IN PTS ROOM TO CHANGE THE ADHESIVE HOLDING HER NG IN PLACE AND PT WAS CRYING. SHE STATES THAT SHE HAS A CLOSE FRIEND THAT IS DYING. SHE REQUEST TO HAVE SOMETHING FOR HER NERVES. GAVE HER ATIVAN 1 MG.
--- NOTE | 2016-08-03 18:40 | NUR ---
PT IS RESTING IN BED. PT IS CALM NOW. BED IS LOW SIDE RAILS UP X 2 AND CALL LIGHT IN REACH. IV PATENT LEFT UPPER ARM. NG INTACT R NARES AND SECURED.
[2016-08-03 19:28] VITALS: BP 128/64
--- NOTE | 2016-08-03 19:28 | NUR ---
ASSESSMENT PER FLOW SHEET, VS OBTAINED, IV IN UPPER LEFT ARM INTACT INFUSING D5NS WITH KCL AT 100 ML/HR, NGT IN PLACE AT LOW INTERMITTENT SUCTION, PT REPORTS A YELLOWISH LOOSE BM TODAY, DENIES FLATUS, VOIDING WITH NO DIFFICULTY, PT C/O ABD AND BACK CRAMPING, WILL ADM PAIN MED
--- NOTE | 2016-08-03 19:42 | NUR ---
ADM SRAVANTHI SOLIZ PER MD ORDERS, SEE EMAR, PT DENIES FURTHER NEEDS AT THIS TIME
--- NOTE | 2016-08-03 20:33 | NUR ---
PT TALKING ON CELL PHONE AT THIS TIME, INFORMED PT THAT I WILL BE BACK IN A FEW MINUTES TO GET HER UP TO AMB, PT VERBALIZES UNDERSTANDING
--- NOTE | 2016-08-03 20:48 | NUR ---
NGT CLAMPED OFF, PT UP WITH ASSISTANCE, AMB TO NSY WINDOW AND BACK TO ROOM, PT BACK TO BED, NGT UNCLAMPED AND RECONNECTED, PT INQUIRES ABOUT THE ATIVAN, INFORMED PT THAT IT WILL NOT BE DUE TILL AROUND 11:30 PM SINCE SHE TOOK IT EARLIER WHEN SHE FOUND OUT HER BEST FRIEND WASN'T DOING TOO WELL, PT VERBALIZES UNDERSTANDING, DENIES FURTHER NEEDS
--- NOTE | 2016-08-03 21:31 | NUR ---
MARISSA GAY RN TO ROOM, ADM BRADLEY PER MD ORDERS, SEE EMAR
--- NOTE | 2016-08-03 22:23 | NUR ---
PT RESTING WITH EYES CLOSED, RESP QUIET, NO DISTRESS NOTED, LEFT UNDISTURBED AT THIS TIME
[2016-08-03 23:29] VITALS: BP 141/81
--- NOTE | 2016-08-03 23:29 | NUR ---
PT CANOE BUILDER LIGHT, PT REQUESTED ATIVAN, ADM ATIVAN SIVP PER MD ORDERS, VS OBTAINED, PT DENIES FURTHER NEEDS
--- NOTE | 2016-08-04 00:27 | NUR ---
PT RESTING WITH EYES CLOSED, RESP QUIET, NO DISTRESS NOTED, LEFT UNDISTURBED AT THIS TIME
--- NOTE | 2016-08-04 02:19 | NUR ---
PT RESTING WITH EYES CLOSED, RESP QUIET, NO DISTRESS NOTED, LEFT UNDISTURBED AT THIS TIME
--- NOTE | 2016-08-04 03:05 | NUR ---
CURRENT POTASSIUM CH. INFUSION COMPLETE. OLD BAG DOWN, NEW BAG UP TO PRESENT TUBING. REGLAN 5MG/1ML GIVEN PER ORDERS. SEE EMAR. PT REQUESTS PAIN MEDICATION @ 0330 WHEN AVAILABLE. ADV PT NURSE WILL RETURN WITH MEDICATION AT THAT TIME. PT UP TO VOID WITH NO ASSISTANCE AND BACK TO BED. PT DENIES FURTHER NEEDS. WILL CONT. POC.
[2016-08-04 03:39] VITALS: BP 122/51
--- NOTE | 2016-08-04 03:39 | NUR ---
PT ARTIST AND REPERTOIRE MANAGER LIGHT, C/O ABD AND BACK CRAMPING, VS OBTAINED, ADM DILAUDID SIVP PER MD ORDERS, SEE EMAR, I&O'S COLLECTED, DENIES FURTHER NEEDS
--- NOTE | 2016-08-04 04:22 | NUR ---
PT RESTING WITH EYES CLOSED, RESP QUIET, NO DISTRESS NOTED, LEFT UNDISTURBED AT THIS TIME
--- NOTE | 2016-08-04 06:08 | NUR ---
PT AWAKE, LAB JUST FINISHED BLOOD DRAW, PT DENIES NEEDS AT THIS TIME
[2016-08-04 06:17] LABS: BASOPHILS 0.6 % (0.0-2.0); EOSINOPHILS 7.7 % (0-7); HEMATOCRIT 34.5 % (36.0-48.0); HEMOGLOBIN 11.4 g/dL (12-16); IMMATURE GRANULOCYTES 0.2 % (0-5); LYMPHOCYTES 39.8 % (15-50); MCH 30.2 pg (26.0-34.0); MCV 91.5 fL (80.0-100.0); MEAN PLATELET VOLUME 10.3 fL (7.4-10.4); MONOCYTES 6.8 % (2-11); NEUTROPHILS 44.9 % (40-80); PLATELET COUNT 227 10x3/uL (130-400); RBC 3.77 10x6/uL (4.00-5.40); RDW 12.8 % (11.5-14.5); WBC 5.3 10x3/uL (4.8-10.8)
[2016-08-04 06:53] LABS: ALBUMIN 2.3 g/dL (3.4-5.0); ALKALINE PHOSPHATASE 123 U/L (46-116); ALT (SGPT) 19 U/L (10-68); CALC OSMOLALITY 277 mosm/kg (275-300); CALCIUM 8.3 mg/dL (8.5-10.1); CARBON DIOXIDE 26.2 mmol/L (21.0-32.0); CHLORIDE - SERUM 109 mmol/L (98-107); CREATININE - SERUM 0.7 mg/dL (0.6-1.3); GLUCOSE 107 mg/dL (74-106); POTASSIUM - SERUM 3.5 mmol/L (3.5-5.1); PROTEIN - SERUM 5.7 g/dL (6.4-8.2); SODIUM 141 mmol/L (136-145); UREA NITROGEN 4 mg/dL (7-18); eGFR NON AFRICAN AMERICAN 88 mL/min (90-120)
--- NOTE | 2016-08-04 06:58 | NUR ---
DR ESCALANTE TO ROOM FOR EVALUATION
--- NOTE | 2016-08-04 07:00 | NUR ---
SHIFT REPORT TO PATTIE SILVA RN
[2016-08-04 07:15] VITALS: BP 149/69
--- NOTE | 2016-08-04 07:30 | NUR ---
DR ESCALANTE HERE TO SEE PT. ORDERED NG TO BE CLAMPED. CONTINUE NPO. CONTINUE AMBULATION AND SENNA LAXATIVE THAT PT STATES WORKS FOR HER.
--- NOTE | 2016-08-04 07:40 | NUR ---
PT WAS RECEIVED LYING IN BED. SHE IS REQUESTING HER DILAUDID PAIN MED. SHE STATES HER PAIN IS A 10. THIS WAS GIVEN. GEN- AWAKE AND ALERT. NG TUBE INTACT IN R NARES. NG IS TO LIS. BROWN DRAINAGE NOTED. ONLY 350 CC NOTE IN LAST 12 H. LUNGS- CLEAR. HEART- RRR. ABD- SOFT WITH GENERALIZED TENDERNESS. FEW BS+. EXT- NO EDEMA. PT IS AMBULATORY IN HER ROOM AND IN HALLWAY. NG WAS CLAMPED PER DR ROWLEY ORDERS. PT IS VOIDING WITHOUT DIFFICULTY. HAS HAD SEVERAL SMALL BOWEL MOVEMENTS. BED IS LOW, SIDE RAILS UP X 2 AND CALL LIGHT IN REACH.
--- NOTE | 2016-08-04 10:25 | NUR ---
up walking in bhagat after sponge bath and linen change.
--- NOTE | 2016-08-04 11:07 | NUR ---
PT UP AMBULATING IN HALLWAY. TOLERATED WELL. PT IS BACK TO BED.
--- NOTE | 2016-08-04 11:24 | NUR ---
PT REQUEST PAIN MED. STATES SHE IS HURTING REALLY BAD. PAIN IS RATED A 10. PAIN IS IN BACK AND STOMACH.
--- NOTE | 2016-08-04 12:00 | NUR ---
PT ATE A REGULAR SOFT DIET. TOLERATED WELL. SHE IS SITTING UP ON SIDE OF THE BED.
--- NOTE | 2016-08-04 12:15 | NUR ---
PT TRIED TO VOID. SHE COULD NOT VOID AT THIS TIME.
--- NOTE | 2016-08-04 12:30 | NUR ---
AMBULATING IN HALLWAY. SHE STATES SHE IS DRINKING FLUID AND WALKING SO SHE WILL HOPEFULLY GO TO THE BATHROOM.
--- NOTE | 2016-08-04 13:10 | NUR ---
PT IS AMBULATING IN THE HALLWAY AGAIN. HOPING SHE WILL HAVE A BM.
--- NOTE | 2016-08-04 15:20 | NUR ---
RECEIVED TO ROOM 2217 FROM [facility] FROM . ORIENTED TO ROOM AND CALL LIGHT SYSTEM. CALL LIGHT IN REACH. WILL CONTINUE WITH PLAN OF CARE.
--- NOTE | 2016-08-04 15:39 | NUR ---
MRS MALDONADO WAS GIVEN HER REGLAN AND HER DILAUDID BEFORE TRANSFER. PT WAS TAKEN BY WHEELCHAIR WITH ALL OF HER BELONGINGS TO 2216.
--- NOTE | 2016-08-04 17:19 | NUR ---
SPOKE WITH DR. MAC ABOUT PATIENT'S CONCERN FOR A BOWEL MOVEMENT AND HER REQUEST FOR A SUPPOSIORY. NEW ORDERS RECEIVED.
--- NOTE | 2016-08-04 18:50 | NUR ---
IV SITED TO THE RIGHT UPPER ARM. 22G IV FLUSHED WITH 10CC OF NS, SECURED WITH OP-SITE AND TAPE. BED IN LOW POSITION AND CALL LIGHT WITHIN REACH. WILL CONTINUE TO MONITOR.
--- NOTE | 2016-08-04 18:59 | NUR ---
IV TO LEFT UPPERARM WITH REDNESS AND SWELLING. DC'D WITH TIP INTACT. RESITED TO RIGHT UPPERARM WITH 22 GA X1 STICK PER CARLOS VANESSA.
[2016-08-04 20:00] VITALS: BP 142/58
[2016-08-05] VITALS: BP 128/55
--- NOTE | 2016-08-05 00:08 | NUR ---
UP TO RESTROOM, SIDRA WELL, DENIES NEEDS, SAFETY MEASURES IN PLACE, CL IN REACH
--- NOTE | 2016-08-05 03:39 | NUR ---
PATIENT RESTING WITH EYES CLOSED, BUT AWAKE. STATES PAIN IS A 7/10 BUT SQL SERVER DBA DEVELOPER JUST PROVIDED PAIN MEDICATION. NG TUBE TO LEFT NARE. IV TO RIGHT UPPER ARM PATENT WITH NO REDNESS OR SWELLING. HOB 10 DEGREES. SRX1. CALL LIGHT WITHIN REACH.
[2016-08-05 04:00] VITALS: BP 147/64
[2016-08-05 07:08] LABS: BASOPHILS 0.6 % (0-2); EOSINOPHILS 9.9 % (0-7); HEMATOCRIT 36.2 % (36.0-48.0); HEMOGLOBIN 12.3 g/dL (12-16); IMMATURE GRANULOCYTES 0.4 % (0-5); LYMPHOCYTES 40.7 % (15-50); MCH 30.8 pg (26.0-34.0); MCV 90.5 fL (80.0-100.0); MEAN PLATELET VOLUME 10.3 fL (7.4-10.4); MONOCYTES 6.3 % (2-11); NEUTROPHILS 42.1 % (40-80); PLATELET COUNT 233 10x3/uL (130-400); RDW 12.8 % (11.5-14.5)
--- NOTE | 2016-08-05 07:10 | NUR ---
REPORT RECEIVED FROM AADC PLANS STAFF OFFICER NURSE. CALL LIGHT IN REACH.
[2016-08-05 07:20] LABS: ALBUMIN 2.6 g/dL (3.4-5.0); ALKALINE PHOSPHATASE 141 U/L (46-116); ALT (SGPT) 23 U/L (10-68); BILIRUBIN - TOTAL 0.54 mg/dL (0.2-1.3); CALC OSMOLALITY 275 mosm/kg (275-300); CALCIUM 8.3 mg/dL (8.5-10.1); CARBON DIOXIDE 28.5 mmol/L (21.0-32.0); CHLORIDE - SERUM 107 mmol/L (98-107); CREATININE - SERUM 0.6 mg/dL (0.6-1.3); GLUCOSE 103 mg/dL (74-106); POTASSIUM - SERUM 3.4 mmol/L (3.5-5.1); PROTEIN - SERUM 6.2 g/dL (6.4-8.2); SODIUM 140 mmol/L (136-145); UREA NITROGEN 4 mg/dL (7-18); eGFR NON AFRICAN AMERICAN > 90 mL/min (90-120)
[2016-08-05 08:17] VITALS: BP 137/65
--- NOTE | 2016-08-05 09:22 | NUR ---
ASSESSMENT COMPLETED. AM MEDS ADMINISTERED PER ORDER. [place] HAT PLACED IN BR FOR MEASUREMENT OF URINE. NGT DC'D WITH TIP INTACT. DR. ESCALANTE WAS IN ROOM TO ASSESS AND SPEAK WITH PATIENT. EXPRESSED IMPORTANCE OF WALKING HALLS AT LEAST 3 TIMES A DAY. VERBALIZED UNDERSTANDING. CALL LIGHT IN REACH. PASSWORD OBTAINED. WILL CONTINUE WITH PLAN OF CARE.
--- NOTE | 2016-08-05 11:26 | NUR ---
DILAUDID IV PER C/O PAIN OF 10. ORAL MEDS ALSO ADMINISTERED.
[2016-08-05 11:45] VITALS: BP 129/62
--- NOTE | 2016-08-05 12:10 | NUR ---
DC INSTRUCTIONS EXPLAINED TO PATIENT AND . VERBALIZED UNDERSTANDING. RX FOR ASPIRIN CALLED IN TO [facility] [address]. DC'D TO VEHICLE WITH . REFUSED WC.
--- NOTE | 2016-08-05 13:12 | NUR ---
REGLAN PO. AMBULATED IN HALLWAY AGAIN.
--- NOTE | 2016-08-05 15:10 | NUR ---
PATIENT IN BED WITH NO COMPLAINTS AT THIS TIME. IV INTACT. CALL LIGHT WITHIN REACH.
--- NOTE | 2016-08-05 15:15 | NUR ---
MORPHINE AND REGLAN PO PER ORDER. CALL LIGHT IN REACH.
[2016-08-05 15:54] VITALS: BP 146/55
--- NOTE | 2016-08-05 17:06 | NUR ---
STATES PAIN HAS DECREASED TO A 7. ALSO STATES SHE HAD A LOOSE STOOL. SUPPER IN ROOM.
--- NOTE | 2016-08-05 18:45 | NUR ---
NO CHANGES IN INITIAL ASSESSMENT. AMBULATING IN HALLWAY. WILL CONTINUE WITH PLAN OF CARE.
[2016-08-05 20:00] VITALS: BP 156/70
--- NOTE | 2016-08-05 20:00 | NUR ---
ASSESSMENT COMPLETED, NO ACUTE DISTRESS NOTED, DENIES NEEDS AT THIS TIME,FALL PRECAUTIONS IN PLACE, CL IN REACH, WILL MONITOR
--- NOTE | 2016-08-05 20:38 | NUR ---
MEDS GIVEN PER MAR ALONG WITH PRN ATIVAN PER REQUEST FOR ANXIETY/SLEEP, SIDRA WELL, DENIES OTHER NEEDS, SR'S UP, CL IN REACH
--- NOTE | 2016-08-05 22:10 | NUR ---
RESTING WITH EYES CLOSED, NO DISTRESS NOTED, FALL PRECAUTIONS IN PLACE, CL IN REACH
[2016-08-06] VITALS: BP 157/68
--- NOTE | 2016-08-06 01:11 | NUR ---
RESTING WITH EYES CLOSED, RESP WITH EASE, CL IN REACH
--- NOTE | 2016-08-06 03:30 | NUR ---
RESTING WITH EYES CLOSED, RESP WITH EASE, NO DISTRESS NOTED, SR'S UP, CL IN REACH
[2016-08-06 04:00] VITALS: BP 161/60
--- NOTE | 2016-08-06 05:36 | NUR ---
MEDS GIVEN PER MAR, SIDRA WELL, DENIES NEEDS, CL IN REACH
--- NOTE | 2016-08-06 07:00 | NUR ---
REPORT RECEIVED FROM NURSE CLINICAL NURSE. CALL LIGHT IN REACH.
[2016-08-06 08:55] VITALS: BP 156/79
--- NOTE | 2016-08-06 09:13 | NUR ---
ASSESSMENT COMPLETED. AM MEDS ADMINISTERED. HAS AMBULATED IN HALLWAY. CALL LIGHT IN REACH. WILL CONTINUE WITH PLAN OF CARE.
--- NOTE | 2016-08-06 11:05 | NUR ---
AMBULATING IN HALLWAY AND TOLERATING IT WELL. NO DISTRESS NOTES.
--- NOTE | 2016-08-06 12:42 | NUR ---
MIRNA SAENZ. WAITING ON DOCTOR SO SHE CAN SEE IF SHE WILL BE ABLE TO GET DC'D.
[2016-08-06 12:48] VITALS: BP 157/73
--- NOTE | 2016-08-06 14:45 | NUR ---
PATIENT IN BED WITH IV INTACT. ASKING ABOUT PHYSICIAN DISCHARGING HER. EXPLAINED THAT WE WOULD HAVE TO WAIT UNTIL PHYSICIAN COMES IN AND ORDERS HER DISCHARGE. VERBALIZED UNDERSTANDING. CALL LIGHT WITHIN REACH.
--- NOTE | 2016-08-06 16:16 | NUR ---
IV DC'D WITH TIP INTACT.
--- NOTE | 2016-08-06 16:39 | NUR ---
DC INSTRUCTIONS EXPLAINED TO PATIENT. MORPHINE AND REGLAN PO. VERBALIZED UNDERSTANDING. DC'D TO VEHICLE. REFUSES WC.
== END 2016-08-06 16:42 | disposition home or self-care (01) | DRG 390 ==
LOC: D.ER 11:54 → D.WS 18:52 → D.MS 08-04 15:21
PROVIDERS: Emergency Medicine; Family Medicine; Nurse Practitioner Family; ADMIT Family Medicine
PROC: 0D9670Z Drainage of Stomach with Drainage Device, Via Natural or Artificial Opening (ICD-10-PCS; principal; 2016-07-31)
PROC: 05HB33Z Insertion of Infusion Device into Right Basilic Vein, Percutaneous Approach (ICD-10-PCS; 2016-07-31)
PROC: B54MZZA Ultrasonography of Right Upper Extremity Veins, Guidance (ICD-10-PCS; 2016-07-31)
DX: K56.7 Ileus, unspecified (principal); F11.90 Opioid use, unspecified, uncomplicated; K56.60 Unspecified intestinal obstruction; K31.84 Gastroparesis; E03.9 Hypothyroidism, unspecified; G89.29 Other chronic pain

== ENCOUNTER 2016-09-01 13:05 | Inpatient (IN) | payer MEDICARE ==
[~2016-09-01] VITALS: Ht 160 cm; Wt 79.4 kg
[2016-09-01 14:39] LABS: BASOPHILS 0.4 % (0-2); EOSINOPHILS 1.1 % (0-7); HEMATOCRIT 48.4 % (36.0-48.0); HEMOGLOBIN 16.3 g/dL (12-16); IMMATURE GRANULOCYTES 0.4 % (0-5); MCH 30.4 pg (26.0-34.0); MCHC 33.7 g/dL (31.0-37.0); MCV 90.1 fL (80.0-100.0); MEAN PLATELET VOLUME 10.7 fL (7.4-10.4); MONOCYTES 6.8 % (2-11); NEUTROPHILS 61.3 % (40-80); RBC 5.37 10x6/uL (4.00-5.40); WBC 8.2 10x3/uL (4.8-10.8)
[2016-09-01 14:40] LABS: PLATELET COUNT 304 10x3/uL (130-400)
[2016-09-01 15:23] LABS: ALBUMIN 3.5 g/dL (3.4-5.0); ALKALINE PHOSPHATASE 293 U/L (46-116); ALT (SGPT) 38 U/L (10-68); CALC OSMOLALITY 281 mosm/kg (275-300); CALCIUM 9.6 mg/dL (8.5-10.1); CARBON DIOXIDE 27.3 mmol/L (21.0-32.0); CHLORIDE - SERUM 105 mmol/L (98-107); CREATININE - SERUM 0.8 mg/dL (0.6-1.3); GLUCOSE 115 mg/dL (74-106); PROTEIN - SERUM 8.1 g/dL (6.4-8.2); SODIUM 140 mmol/L (136-145); UREA NITROGEN 18 mg/dL (7-18); eGFR NON AFRICAN AMERICAN 76 mL/min (90-120)
[2016-09-01] MEDS ORDERED: TEMAZEPAM30 MG PO (19:28)
[2016-09-01 20:00] VITALS: BP 129/74
--- NOTE | 2016-09-01 21:00 | NUR ---
PRN ZOFRAN GIVEN FOR C/O NAUSEA ALONG WITH ROUTINE MEDS, SIDRA WELL, CL IN REACH
[2016-09-02] VITALS (7 sets, daily range): BP systolic 101–151; BP diastolic 56–74; Ht 160 cm; Wt 79.4 kg
[2016-09-02 07:02] LABS: HEMATOCRIT 42.6 % (36.0-48.0); HEMOGLOBIN 14.2 g/dL (12-16); MCH 30.2 pg (26.0-34.0); MCHC 33.3 g/dL (31.0-37.0); MCV 90.6 fL (80.0-100.0); MEAN PLATELET VOLUME 11.1 fL (7.4-10.4); PLATELET COUNT 307 10x3/uL (130-400)
[2016-09-02 07:07] LABS: WBC 5.6 10x3/uL (4.8-10.8)
[2016-09-02 07:15] LABS: APPEARANCE CLEAR (CLEAR); BILIRUBIN NEGATIVE (NEGATIVE); COLOR DK YELLOW (YELLOW); GLUCOSE NEGATIVE (NEGATIVE); KETONE NEGATIVE (NEGATIVE); LEUKOCYTE ESTERASE TRACE (NEGATIVE); NITRITE NEGATIVE (NEGATIVE); PROTEIN TRACE mg/dL (NEGATIVE); SPECIFIC GRAVITY 1.015 (1.005-1.020); UROBILINOGEN NORMAL (NORMAL)
[2016-09-02 07:16] LABS: BACTERIA FEW /hpf (NONE SEEN); EPITHELIAL CELLS 0-5 /hpf (0-5); RED CELLS - URINE 0-5 /hpf (0-5)
[2016-09-02 07:29] LABS: ANION GAP 11.2 mmol/L (8-16); BILIRUBIN - TOTAL 0.85 mg/dL (0.2-1.3); CALCIUM 8.9 mg/dL (8.5-10.1); POTASSIUM - SERUM 4.2 mmol/L (3.5-5.1); PROTEIN - SERUM 7.1 g/dL (6.4-8.2)
--- NOTE | 2016-09-02 07:50 | NUR ---
PT AOX4 RESP EVEN AND NONLABORED IV TO RIGHT UPPER ARM PATENT AND INTACT PT DENIES NEEDS AT THIS TIME. SRX2 BED AT LOWEST SETTING CALL LIGHT WITHIN REACH WILL CONTINUE TO MONITOR
[2016-09-02 07:57] LABS: LYMPHOCYTES 73 % (15-50); MONOCYTES 2 % (2-11); NEUTROPHILS 25 % (40-80); PLATELET ESTIMATE NORMAL
--- NOTE | 2016-09-02 19:45 | NUR ---
PATIENT C/O 01/23 HEADACHE AND STATED THAT THE "MEDICINE IS NOT WORKING" PATIENT REQUESTED HER SLEEPING PILL THAT SHE USUALLY TAKES AT HOME. PATIENT'S BED IS IN THE LOWEST POSITION AND HER CALL LIGHT IS WITHIN REACH. I TOLD THE PATIENT THAT I WOULD PAGE THE DOCTOR PROGRAM MANAGER SLP AND ENCOURAGED HER TO CALL IF SHE HAS FURTHER NEEDS.
--- NOTE | 2016-09-02 20:15 | NUR ---
REQUESTED PERMISSION FROM [employer]ARD[employer] SALES REPRESENTATIVE TO CALL PHYSICAIN REGUARDING PATIENT'S SLEEPING PILL. PAGED DR. MAC (PHOTO RETOUCHER FOR DR. ESCALANTE) IN REGUARDS TO PATIENT'S MEDICATION.
[2016-09-03] VITALS: BP 155/69
--- NOTE | 2016-09-03 01:29 | NUR ---
ADMINSITERED METER RECORD CLERK 0.4 BOLUS DOSE TO PATIENT FOR 10/10 PAIN.
[2016-09-03 04:00] VITALS: BP 146/62
[2016-09-03 05:39] LABS: BASOPHILS 0.7 % (0-2); EOSINOPHILS 1.4 % (0-7); HEMATOCRIT 36.2 % (36.0-48.0); HEMOGLOBIN 11.9 g/dL (12-16); IMMATURE GRANULOCYTES 0.4 % (0-5); MCH 29.9 pg (26.0-34.0); MCHC 32.9 g/dL (31.0-37.0); MEAN PLATELET VOLUME 10.9 fL (7.4-10.4); MONOCYTES 6.1 % (2-11); NEUTROPHILS 58.4 % (40-80); PLATELET COUNT 251 10x3/uL (130-400); RBC 3.98 10x6/uL (4.00-5.40); WBC 5.6 10x3/uL (4.8-10.8)
[2016-09-03 06:02] LABS: ALBUMIN 2.5 g/dL (3.4-5.0); ALKALINE PHOSPHATASE 462 U/L (46-116); ALT (SGPT) 201 U/L (10-68); BILIRUBIN - TOTAL 0.58 mg/dL (0.2-1.3); CALC OSMOLALITY 287 mosm/kg (275-300); CHLORIDE - SERUM 109 mmol/L (98-107); CREATININE - SERUM 0.6 mg/dL (0.6-1.3); GLUCOSE 77 mg/dL (74-106); POTASSIUM - SERUM 4.1 mmol/L (3.5-5.1); PROTEIN - SERUM 5.7 g/dL (6.4-8.2); SODIUM 144 mmol/L (136-145); UREA NITROGEN 17 mg/dL (7-18); eGFR NON AFRICAN AMERICAN > 90 mL/min (90-120)
--- NOTE | 2016-09-03 08:00 | NUR ---
PT AOX4 RESP EVEN AND NONLABORED PT DENIES NEEDS AT THIS TIME IV TO RIGHT UPPER ARM PATENT AND INTACT NG TUBE TO RIGHT NARE PATENT AND INTACT AT THIS TIME SRX2 BED AT LOWEST SETTING CALL LIGHT WITHIN REACH WILL CONTINUE TO MONITOR
[2016-09-03 08:14] VITALS: BP 148/77
[2016-09-03 12:41] VITALS: BP 162/69
[2016-09-03 15:20] VITALS: BP 146/72
[2016-09-03 20:00] VITALS: BP 150/69
[2016-09-04 04:00] VITALS: BP 155/60
--- NOTE | 2016-09-04 04:10 | NUR ---
EYES CLOSED RESPPIRATIONS WITH EASE AND UNLABORED. SR UP X2 CALL LIGHT WITHIN REACH.
[2016-09-04 05:38] LABS: EOSINOPHILS 4.1 % (0-7); HEMATOCRIT 36.9 % (36.0-48.0); HEMOGLOBIN 12.3 g/dL (12-16); IMMATURE GRANULOCYTES 0.3 % (0-5); LYMPHOCYTES 35.4 % (15-50); MCHC 33.3 g/dL (31.0-37.0); MEAN PLATELET VOLUME 10.8 fL (7.4-10.4); MONOCYTES 6.5 % (2-11); NEUTROPHILS 52.7 % (40-80); PLATELET COUNT 231 10x3/uL (130-400); WBC 5.9 10x3/uL (4.8-10.8)
[2016-09-04 06:07] LABS: ALBUMIN 2.7 g/dL (3.4-5.0); ALKALINE PHOSPHATASE 417 U/L (46-116); CALCIUM 8.2 mg/dL (8.5-10.1); CARBON DIOXIDE 22.8 mmol/L (21.0-32.0); CHLORIDE - SERUM 107 mmol/L (98-107); CREATININE - SERUM 0.5 mg/dL (0.6-1.3); GLUCOSE 78 mg/dL (74-106); POTASSIUM - SERUM 3.6 mmol/L (3.5-5.1); PROTEIN - SERUM 5.8 g/dL (6.4-8.2); SODIUM 143 mmol/L (136-145); eGFR NON AFRICAN AMERICAN > 90 mL/min (90-120)
[2016-09-04 06:19] LABS: ALT (SGPT) 145 U/L (10-68); CALC OSMOLALITY 282 mosm/kg (275-300); UREA NITROGEN 10 mg/dL (7-18)
[2016-09-04 09:45] VITALS: BP 148/70
--- NOTE | 2016-09-04 09:57 | NUR ---
Patient Name: SHEFALI MALDONADO Admission Status: ER Accout number: [id number] Admission Date: 09-01-2016 : 1950 Admission Diagnosis: Attending: ISRA Current LOS: 3 Anticipated DC Date: 09-07-2016 Planned Disposition: Home Primary Insurance: MEDICARE A & B Discharge Planning Comments: CM MET WITH PATIENT REGARDING D/C NEEDS AND PLANS. PATIENT STATED SHE LIVES ALONE AND IT IS SAFE. PATIENTS SON (SHAHLA) LIVES NEXT DOOR. THERE ARE 2 STEPS W/RAILS TO ENTER HER HOME AND NO STAIRS ONCE INSIDE. PATIENTS DAUGHTER (GEOVANI) WILL DRIVE HER HOME AT DISCHARGE. PATIENT IS INDEPENDENT WITH HER CARE AND HAS NO DME AT HOME. PATIENTS PCP IS DR. ESCALANTE AND PHARMACY IS [facility] AT [place]. PATIENT DOES NOT WANT HOME HEALTH AT THIS TIME. CM WILL CONTINUE TO FOLLOW PATIENT WITH D/C NEEDS AND PLANS. PCP DR[facility] [place]- [phone] GEOVANI COOPER (DAUGHTER) [phone] Frame Wirer: Digna Isabel
[2016-09-04 12:59] VITALS: BP 145/71
--- NOTE | 2016-09-04 14:40 | NUR ---
LYING SUPINE WITH EYES CLOSED. NG TUBE PATENT AND CLAMPED. DOOR OPEN AND CALL LIGHT IN REACH. RESPIRATIONS EVEN AND NON LABORED. WILL CONTINUE WITH PLAN OF CARE.
[2016-09-04 17:02] VITALS: BP 152/65
[2016-09-04 19:00] VITALS: BP 154/72
--- NOTE | 2016-09-04 19:45 | NUR ---
ASSISTED PATIENT TO THE RESTROOM. PATIENT IS STABLE AND GAIT WNL. PATIENT DENIES OTHER NEEDS AT THIS TIME. ASSESSMENT COMPLETE. BED IN LOWEST POSITION AND CALL LIGHT WITHIN REACH. ENCOURAGED THE PATIENT TO CALL IF SHE HAS FURTHER NEEDS.
[2016-09-05 04:00] VITALS: BP 149/73
[2016-09-05 06:33] LABS: ALBUMIN 2.6 g/dL (3.4-5.0); ALKALINE PHOSPHATASE 353 U/L (46-116); BILIRUBIN - TOTAL 0.59 mg/dL (0.2-1.3); CHLORIDE - SERUM 104 mmol/L (98-107); CREATININE - SERUM 0.4 mg/dL (0.6-1.3); GLUCOSE 92 mg/dL (74-106); POTASSIUM - SERUM 3.3 mmol/L (3.5-5.1); PROTEIN - SERUM 5.9 g/dL (6.4-8.2); SODIUM 143 mmol/L (136-145); eGFR NON AFRICAN AMERICAN > 90 mL/min (90-120)
[2016-09-05 06:34] LABS: ALT (SGPT) 100 U/L (10-68); CALC OSMOLALITY 281 mosm/kg (275-300); CARBON DIOXIDE 29.5 mmol/L (21.0-32.0); UREA NITROGEN 5 mg/dL (7-18)
--- NOTE | 2016-09-05 07:45 | NUR ---
SLEEPING AT THIS TIME WITH RESPIRATIONS EVEN AND NON LABORED. NG TUBE REMAINS CLAMPED. SURVEY RODMAN IN USE FOR PAIN CONTROL. CALL LIGHT IN REACH AND DOOR OPEN. WILL CONTINUE WITH PLAN OF CARE.
[2016-09-05 07:58] LABS: BASOPHILS 0.6 % (0-2); EOSINOPHILS 3.5 % (0-7); HEMATOCRIT 36.1 % (36.0-48.0); HEMOGLOBIN 12.3 g/dL (12-16); IMMATURE GRANULOCYTES 0.2 % (0-5); LYMPHOCYTES 40.3 % (15-50); MCH 30.2 pg (26.0-34.0); MCHC 34.1 g/dL (31.0-37.0); MCV 88.7 fL (80.0-100.0); MEAN PLATELET VOLUME 10.5 fL (7.4-10.4); NEUTROPHILS 45.4 % (40-80); PLATELET COUNT 227 10x3/uL (130-400); RBC 4.07 10x6/uL (4.00-5.40); RDW 12.7 % (11.5-14.5); WBC 5.2 10x3/uL (4.8-10.8)
[2016-09-05] MEDS ORDERED: MILK OF MAGNESI30 ML PO (08:15)
[2016-09-05 08:32] VITALS: BP 132/56
--- NOTE | 2016-09-05 08:36 | NUR ---
SCHEDULED MEDICATIONS ADMINISTERED AT THIS TIME AND ELECTROLYTE PROTOCOL INITIATED FOR A POTASSIUM OF 3.1. MEDICATIONS TAKEN WITHOUT DIFFICULTY AND ASSESSMENT PERFORMED. NG REMOVED PER ORDER AND PT TOLERATED WITHOUT COMPLAINTS. CALL LIGHT IN REACH. WILL CONTINUE WITH PLAN OF CARE.
--- NOTE | 2016-09-05 08:53 | NUR ---
CM REASSESSMENT NOTE: PATIENT IS DISCHARGING HOME TODAY-DAUGHTER DRIVING HER. PATIENT REFUSED HOME HEALTH AND STATED SHE HAD NO OTHER NEEDS FOR DISCHARGE.
--- NOTE | 2016-09-05 09:40 | NUR ---
AMBULATED WITH PT AROUND NURSES STATION. PT REQUIRED MINIMAL ASSISTANCE. WILL CONTINUE WITH PLAN OF CARE.
[2016-09-05 12:30] VITALS: BP 142/74
== END 2016-09-05 14:15 | disposition home or self-care (01) | DRG 390 ==
LOC: D.ER 13:05 → D.MS 18:35
PROVIDERS: Emergency Medicine; Family Medicine; ADMIT Family Medicine
PROC: 0D9670Z Drainage of Stomach with Drainage Device, Via Natural or Artificial Opening (ICD-10-PCS; principal; 2016-09-01)
DX: K56.69 Other intestinal obstruction (principal)

== ENCOUNTER 2016-09-27 12:12 | Inpatient (IN) | payer MEDICARE ==
[~2016-09-27] VITALS: Ht 160 cm; Wt 76.0 kg
[~2016-09-27 12:12] MED LIST changes: +MILK OF MAGNESI30 ML PO; +TEMAZEPAM30 MG PO
[2016-09-27 13:35] LABS: BASOPHILS 0.6 % (0-2); EOSINOPHILS 0.5 % (0-7); HEMATOCRIT 51.8 % (36.0-48.0); HEMOGLOBIN 17.4 g/dL (12-16); IMMATURE GRANULOCYTES 0.5 % (0-5); LYMPHOCYTES 24.7 % (15-50); MCH 30.1 pg (26.0-34.0); MCHC 33.6 g/dL (31.0-37.0); MCV 89.6 fL (80.0-100.0); MEAN PLATELET VOLUME 11.5 fL (7.4-10.4); MONOCYTES 7.4 % (2-11); NEUTROPHILS 66.3 % (40-80); PLATELET COUNT 273 10x3/uL (130-400); RBC 5.78 10x6/uL (4.00-5.40); RDW 13.1 % (11.5-14.5); WBC 10.8 10x3/uL (4.8-10.8)
[2016-09-27 14:00] LABS: ALBUMIN 3.7 g/dL (3.4-5.0); ANION GAP 17.2 mmol/L (8-16); BILIRUBIN - TOTAL 0.6 mg/dL (0.2-1.3); CARBON DIOXIDE 23.6 mmol/L (21.0-32.0); CREATININE - SERUM 1.6 mg/dL (0.6-1.3); POTASSIUM - SERUM 4.8 mmol/L (3.5-5.1); PROTEIN - SERUM 7.9 g/dL (6.4-8.2)
[2016-09-27 18:51] LABS: APPEARANCE CLEAR (CLEAR); BACTERIA MODERATE /hpf (NONE SEEN); BILIRUBIN NEGATIVE (NEGATIVE); COLOR DK YELLOW (YELLOW); EPITHELIAL CELLS 0-5 /hpf (0-5); GLUCOSE NEGATIVE (NEGATIVE); KETONE NEGATIVE (NEGATIVE); LEUKOCYTE ESTERASE TRACE (NEGATIVE); NITRITE NEGATIVE (NEGATIVE); PROTEIN TRACE mg/dL (NEGATIVE); RED CELLS - URINE 0-5 /hpf (0-5); SPECIFIC GRAVITY 1.025 (1.005-1.020); UROBILINOGEN NORMAL (NORMAL); WHITE CELLS - URINE 0-5 /hpf (0-5)
--- NOTE | 2016-09-27 19:56 | NUR ---
ADMITTED TO ROOM 2218 A 66 Y/O W/FE PER SERVICES DR. REED WITH DX.SBO/ARF. ALLERGY=STEROIDS AND IMITREX. IV SALINE LOCKED TO RT UPPER ARM INTACT.ZAVALA TO BS DRAINAGE NGT PATENT AND CLAMPED.
[2016-09-27 20:00] VITALS: BP 165/83
--- NOTE | 2016-09-27 20:15 | NUR ---
ASSESSMENT PER ADMIT PACKET.
--- NOTE | 2016-09-27 20:49 | NUR ---
IV FLUIDS OF NS HUNG TO RUN PIANO MACHINE OPERATOR. PIANO MACHINE OPERATOR OF MORPHINE STARTED WITH SETTINGS AT 1MG Q10MIN W/10MG Q4H L/O INSTRUCTED PT ON USEAGE. CONNECTED NGT TO LIWS. YELLOW BROWN DRAINAGE WITH SEDIMENTS RETURNED. C/O NAUSEA. ZOFRAN 4MG IVP GIVEN FOR NAUSEA. NOTIFIED PHARMACY NEED FOR CORRECT IV FLUIDS D5LR W/20MEQ KCL. NONE MADE FOR PATIENT RE FAXED ORDERS TO PHARMACY AND STARTED ORDERS NEEDED.
--- NOTE | 2016-09-27 22:30 | NUR ---
PT C/O OF PAIN AT IV SITE. IV SWOLLEN IV REMOVED NUMEROUS ATTEMPTS MADE TO RESITE WITHOUT SUCCESS.NOTIFIED LOTTERY MANAGER AND ICU AND MED FOR HELP WITH IV. LOTTERY MANAGER CANDACE OROZCO MADE ONE ATTEMPT UNSUCCESSFUL.
--- NOTE | 2016-09-27 23:00 | NUR ---
A NURSE FROM ER DPET FINALLY CAME AND STARTED IV IN LEFT CHEST AREA #22G. IV FLUIDS AND FOOD SERVICE TECHNICIAN RESUMED.
[2016-09-27 23:16] VITALS: BP 165/83; BMI 29.6
[2016-09-28] VITALS: BP 156/72
[2016-09-28 04:00] VITALS: BP 149/67
[2016-09-28 06:12] LABS: BASOPHILS 0.7 % (0-2); EOSINOPHILS 1.2 % (0-7); HEMATOCRIT 42.1 % (36.0-48.0); HEMOGLOBIN 14.2 g/dL (12-16); IMMATURE GRANULOCYTES 0.3 % (0-5); LYMPHOCYTES 33.2 % (15-50); MCH 30.1 pg (26.0-34.0); MCHC 33.7 g/dL (31.0-37.0); MCV 89.2 fL (80.0-100.0); MEAN PLATELET VOLUME 11.4 fL (7.4-10.4); MONOCYTES 11.2 % (2-11); NEUTROPHILS 53.4 % (40-80); PLATELET COUNT 263 10x3/uL (130-400); RBC 4.72 10x6/uL (4.00-5.40); RDW 13.3 % (11.5-14.5)
[2016-09-28 06:13] LABS: APTT 25.1 SECONDS (22.8-39.4); INR 1.14 (0.85-1.17); PROTIME 14.5 SECONDS (11.6-15.0)
[2016-09-28 06:13] LABS: WBC 6.8 10x3/uL (4.8-10.8)
[2016-09-28 06:14] LABS: CALCIUM 8.4 mg/dL (8.5-10.1); CARBON DIOXIDE 24.1 mmol/L (21.0-32.0)
[2016-09-28 06:19] LABS: CREATININE - SERUM 1.1 mg/dL (0.6-1.3)
[2016-09-28 06:22] LABS: ANION GAP 15.1 mmol/L (8-16); POTASSIUM - SERUM 4.2 mmol/L (3.5-5.1)
--- NOTE | 2016-09-28 07:40 | NUR ---
ASSESSMENT PER FLOW SHEET.PT WITHOUT DISTRESS.STATES PAIN 6/10 SCALE TO ABDOMEN,ALLERGIST USE INSTRUCTED.NGT LIWS WITH BROWNISH ,GREEN DRAINAGE IN CANISTER.ZAVALA TO GRAVITY WITH CLEAR,YELLOW URINE IN DRAINAGE BAG.CALL LIGHT IN REACH
[2016-09-28 08:05] VITALS: BP 155/64
--- NOTE | 2016-09-28 11:16 | NUR ---
* Is the patient Alert and Oriented? Yes 0 * How many steps to enter\\exit or inside your home? 2 0 * PCP [facility] 0 * Pharmacy [facility] 0 * Preadmission Environment Home Alone 0 * ADLs Independent 0 * Equipment None 0 * List name and contact numbers for known caregivers / representatives who currently or will assist patient after discharge: "FRIENDS" 0 * Community resources currently utilized None 0 * Additional services required to return to the preadmission environment? No 0 * Can the patient safely return to the preadmission environment? Yes 0 * Has this patient been hospitalized within the prior 30 days at any hospital? No 0 Grand Total: 0 Patient Name: SHEFALI MALDONADO Admission Status: ER Accout number: [id number] Admission Date: 09-27-2016 : 1950 Admission Diagnosis: Attending: MARGUERITE Current LOS: 1 Anticipated DC Date: Planned Disposition: Home Primary Insurance: MEDICARE A & B Discharge Planning Comments: CM met with patient to assess discharge planning needs. Patient states her discharge plan is to return home where she lives alone. She states she has 3 friends who can take her home. She states her home is safe to return too. She has 2 stairs with a rail. She denies she needs at this time. CM will continue to follow and assist as needed. PCP: [facility] Pharmacy: [facility] Counter Manager: Elsy Enriquez
--- NOTE | 2016-09-28 11:30 | NUR ---
AGREEABLE TO SHAHIDA ENEMA NOW.SHE STILL WANTING BARRIUM ENEMA.STATES THAT FLEETS DO NOT WORK.MONITOR FOR STOOLS.
--- NOTE | 2016-09-28 12:00 | NUR ---
SOFT FROTHY ORANGE/ YELLOW STOOL,MODERATE [place].
--- NOTE | 2016-09-28 12:01 | HP ---
PATIENT: SHEFALI GASPAR MEDICAL RECORD: [id number] ACCOUNT: [id number] LOCATION:[facility] : [birth year] ADMISSION DATE: 09/27/16 HISTORY AND PHYSICAL EXAMINATION DATE OF ADMISSION: 09/27/2016. SURGEON: Margie Reed MD CHIEF COMPLAINT: Abdominal pain and vomiting. HISTORY OF PRESENT ILLNESS: Ms. Gaspar is a 66-year-old female who is well known to my service. She has had multiple admissions in the past for small bowel obstruction. She started having similar symptoms 2 days prior, acute onset of abdominal pain with nausea, vomiting, intolerance to p.o. intake. Her pain is diffuse across the abdomen. She described it as sharp and stabbing. It is nonradiating, currently 09/23. The patient has a long complex history of multiple abdominal surgeries, now ultimately with a total abdominal colectomy and ileorectal anastomosis. PAST MEDICAL HISTORY: Hypothyroidism, gastric ulcer disease, constipation, recurrent partial small-bowel obstruction, depression and chronic pain. PAST SURGICAL HISTORY: Cholecystectomy, total abdominal hysterectomy, bilateral salpingo-oophorectomy, appendectomy, multiple exploratory laparotomies with adhesiolysis, total abdominal colectomy, history of PEG tube, history of neck surgery and back surgery. ALLERGIES: TO SUMATRIPTAN AND STEROIDS. HOME MEDICATIONS: Include Cymbalta, senna, Reglan, Neurontin, Synthroid, Nexium, MS Contin, Remeron, temazepam. FAMILY HISTORY: Cardiovascular disease in her parents, her mother also had cancer. Her sister has lung disease. SOCIAL HISTORY: She is a nonsmoker, nondrinker. REVIEW OF SYSTEMS: A 10-point review of systems was obtained. Pertinent positives and negatives as per the HPI. PHYSICAL EXAMINATION: VITAL SIGNS: Temperature 98.4, respirations 16, heart rate 103, blood pressure 165/83, satting 96% on room air. GENERAL: This is a well-developed, well-nourished female in moderate distress. PSYCHIATRIC: She is alert and oriented times 3. EYES: Extraocular muscles intact. Conjunctivae are pale. EARS, NOSE AND THROAT: She has poor dentition. Mucous membranes dry. CARDIOVASCULAR: Normal sinus rhythm. RESPIRATORY: Clear to auscultation bilaterally. ABDOMEN: Firm, moderately distended and tympanitic. No guarding. No rebound. No peritoneal signs. No palpable hernia defects. SKIN: Warm and dry with normal turgor. MUSCULOSKELETAL: She has got normal movement of all extremities. She is neurovascularly intact. Skin is warm and dry. Normal turgor. HISTORY AND PHYSICAL [id number] SHEFALI GASPAR NEUROLOGIC: GCS 15. No focal deficits. LABORATORY DATA: White count 10,000, hemoglobin 17, hematocrit 52, platelet count 273. Sodium 137, potassium 4.8, chloride 101, CO2 of 23, BUN 38, creatinine 1.6. IMAGING: Abdominal x-ray was personally reviewed. There are air-filled loops of bowel dilated throughout the abdomen. The patient has an ileorectal anastomosis. I believe, there is air-fluid levels all the way to the ileorectal anastomosis consistent with ileus versus partial small-bowel obstruction. IMPRESSION: A 66-year-old female with recurrent partial small-bowel obstruction and acute renal failure. PLAN: 1. Admit to med-surg, Dr. Reed. 2. IV fluid resuscitation. 3. NG tube to low intermittent wall suction. 4. Insert Knapp to monitor ins and outs as well as monitor creatinine for acute renal failure. 5. IV antiemetics. 6. IV narcotics for pain control. 7. Serial abdominal exams. 8. Repeat abdominal x-ray. TRANSINT:[id number] Voice Confirmation ID: [id number] DOCUMENT ID: [id number] MARGIE REED MD at 1201 CC: [id number] DICTATION DATE: 09/28/16 0952 CORE JAVA SOFTWARE ENGINEER: 09/28/16 1119 ADM IN [place] [id number] [place] [address]
[2016-09-28 12:55] VITALS: BP 154/57
[2016-09-28 13:18] VITALS: Ht 160 cm; Wt 76.0 kg
[2016-09-28 15:53] VITALS: BP 144/54
--- NOTE | 2016-09-28 17:17 | NUR ---
PAIN CONTROLLED WITH ROR ENGINEER.STILL ONLY 1 STOOL AFTER FLEETS ENEMA. 350CC OF GREEN/YELLOW DRAINAGE IN NGT CANISTER.REMAINS WITHOUT CHANGE.CONT PLAN OF CARE
[2016-09-28 19:00] VITALS: BP 158/63
--- NOTE | 2016-09-29 01:41 | NUR ---
PT RESTING QUIETLY, EYES CLOSED. RESP EVEN, UNLABORED. NO DISTRESS NOTED. CONTINUE PATIENT SERVICE ASSOCIATE'S PLAN OF CARE.
[2016-09-29 04:00] VITALS: BP 160/69
--- NOTE | 2016-09-29 05:15 | NUR ---
PATIENT LAYING IN BED, COMPLAINT OF HEADACHE. COOL RAG PLACED ON FOREHEAD.
[2016-09-29 05:20] LABS: BASOPHILS 0.4 % (0-2); EOSINOPHILS 2.7 % (0-7); HEMOGLOBIN 12.7 g/dL (12-16); IMMATURE GRANULOCYTES 0.2 % (0-5); LYMPHOCYTES 37.3 % (15-50); MCH 29.7 pg (26.0-34.0); MCHC 32.6 g/dL (31.0-37.0); MEAN PLATELET VOLUME 11.5 fL (7.4-10.4); MONOCYTES 9.4 % (2-11); RBC 4.27 10x6/uL (4.00-5.40); RDW 13.2 % (11.5-14.5)
[2016-09-29 05:28] LABS: MCV 91.3 fL (80.0-100.0); PLATELET COUNT 210 10x3/uL (130-400); WBC 4.8 10x3/uL (4.8-10.8)
[2016-09-29 05:31] LABS: INR 1.14 (0.85-1.17); PROTIME 14.5 SECONDS (11.6-15.0)
[2016-09-29 05:40] LABS: CALC OSMOLALITY 284 mosm/kg (275-300); CALCIUM 8.4 mg/dL (8.5-10.1); CARBON DIOXIDE 30.4 mmol/L (21.0-32.0); CHLORIDE - SERUM 107 mmol/L (98-107); CREATININE - SERUM 0.7 mg/dL (0.6-1.3); GLUCOSE 109 mg/dL (74-106); POTASSIUM - SERUM 3.8 mmol/L (3.5-5.1); SODIUM 142 mmol/L (136-145); UREA NITROGEN 16 mg/dL (7-18); eGFR NON AFRICAN AMERICAN 88 mL/min (90-120)
--- NOTE | 2016-09-29 06:07 | NUR ---
PAGED DR ESCALANTE FOR TYLENOL REQUEST FOR HEADACHE
--- NOTE | 2016-09-29 07:20 | NUR ---
ASSESSMENT PER FLOW SHEET.STATES SHE DIDNT SLEEP LAST NIGHT.SHE ALSO C/O HEADACHE 9/10 SCALE AND REQUEST ATIVAN ORDERED.NGT TO RIGHT NARE IN PLACE WITH MINIMAL GREEN DRAINAGE IN CANISTER.ZAVALA TO GRAVITY WITH YELLOW URINE IN COLLECTION CANISTER.CALL LIGHT IN REACH
[2016-09-29 08:00] VITALS: BP 134/54
--- NOTE | 2016-09-29 10:48 | NUR ---
ZAVALA CATHETER DC ORDERED.400 CC OF YELLOW URINE IN DRAINAGE BAG.CATH TIP INTACT.PT TOLERATED WELL.
[2016-09-29 11:03] VITALS: BP 134/55
[2016-09-29 15:01] VITALS: BP 141/69
--- NOTE | 2016-09-29 15:26 | NUR ---
REMAINS WITHOUT NEEDS.C/O SOME NAUSEA AND HEADACHE.MONITOR FOR NEEDS
--- NOTE | 2016-09-29 16:57 | NUR ---
WANTING ATIVAN WHEN AVAILABLE.STATES SHE WANTS TO SLEEP TONIGHT.SHE IS WITHOUT SIGNS OF PAIN.250CC OF GREEN DRAINAGE IN NGT CANISTER.WITHOUT CHANGE FROM INITIAL ASSESSMENT.CONT PLAN OF CARE.
--- NOTE | 2016-09-29 18:31 | NUR ---
PT VOIDED 300CC OF YELLOW URINE IN BEDPAN.
[2016-09-29 20:00] VITALS: BP 122/71
--- NOTE | 2016-09-29 22:55 | NUR ---
PATIENT HAD PULLED OUT HER IV FROM HER RIGHT BREAST AND HAD THE NG TUBE UNSECURED. NG TUBE RESECURED AND 3 ATTEMPTS TO START A NEW PIV UNSUCCESSFULLY. ICU WAS CALLED AND A NURSE WAS REQUESTED FOR STARTING A NEW PIV
[2016-09-30 00:11] VITALS: BP 155/64
--- NOTE | 2016-09-30 01:06 | NUR ---
NEW PIV IN RIGHT AUX/BREAST. 22G
--- NOTE | 2016-09-30 03:56 | NUR ---
PATIENT RESTING WITH EYES CLOSED AND NO VISIBLE SIGNS OF DISTRESS. BED IN LOWEST POSITION AND CALL LIGHT WITHIN REACH.
[2016-09-30 04:00] VITALS: BP 149/68
[2016-09-30 06:38] LABS: BASOPHILS 0.4 % (0-2); EOSINOPHILS 5.2 % (0-7); HEMATOCRIT 38.8 % (36.0-48.0); HEMOGLOBIN 12.9 g/dL (12-16); IMMATURE GRANULOCYTES 0.2 % (0-5); LYMPHOCYTES 37.5 % (15-50); MCH 29.8 pg (26.0-34.0); MCHC 33.2 g/dL (31.0-37.0); MCV 89.6 fL (80.0-100.0); MEAN PLATELET VOLUME 11.3 fL (7.4-10.4); MONOCYTES 8.6 % (2-11); NEUTROPHILS 48.1 % (40-80); PLATELET COUNT 144 10x3/uL (130-400); RBC 4.33 10x6/uL (4.00-5.40); RDW 12.8 % (11.5-14.5); WBC 5.6 10x3/uL (4.8-10.8)
[2016-09-30 06:47] LABS: CALC OSMOLALITY 275 mosm/kg (275-300); CALCIUM 8.3 mg/dL (8.5-10.1); CARBON DIOXIDE 27.6 mmol/L (21.0-32.0); CHLORIDE - SERUM 104 mmol/L (98-107); CREATININE - SERUM 0.6 mg/dL (0.6-1.3); GLUCOSE 104 mg/dL (74-106); POTASSIUM - SERUM 3.8 mmol/L (3.5-5.1); SODIUM 139 mmol/L (136-145); eGFR NON AFRICAN AMERICAN > 90 mL/min (90-120)
[2016-09-30 06:50] LABS: UREA NITROGEN 7 mg/dL (7-18)
--- NOTE | 2016-09-30 07:10 | NUR ---
REPORT RECEIVED FROM CHANNEL DEVELOPMENT DIRECTOR NURSE. CALL LIGHT IN REACH.
--- NOTE | 2016-09-30 08:07 | NUR ---
ASSESSMENT COMPLETED. NGT CANNISTER REPLACED D/T IT BEING FULL. ATTEMPTING TO PULL AND PUSH ON NGT. EXPLAINED TO PATIENT THAT SHE CANNOT MESS WITH THE TUBE BECAUSE SHE CAN MESS SOMETHING UP. I CHECKED THE PLACEMENT OF THE NGT TUBE AND IT WAS IN PLACE. EXPLAINED THIS TO PATIENT BUT SHE CONTINUED TO SAY THAT SHE WAS GOING TO TAKE THE TAPE OFF AND MOVE IT. I TOLD THE PATIENT I WOULD HAVE TO CALL THE PHYSICIAN IF SHE CONTINUED TO TRY TO MANIPULATE TUBING AND SHE STATED "I DON'T CARE." I ATTEMPTED TO EXPLAIN THE IMPORTANCE OF HER NOT BOTHERING THE TUBE ONE MORE TIME BUT PATIENT DID NOT EVEN ACKNOWLEDGE ME AT THIS TIME. ALSO EXPLAINED IMPORTANCE OF SCDs BUT SHE REFUSED. WILL CONTINUE TO MONITOR PATIENT. CALL LIGHT IN REACH. WILL CONTINUE WITH PLAN OF CARE.
--- NOTE | 2016-09-30 08:38 | NUR ---
AM MEDS ADMINISTERED. ATIVAN 1 MG SIVP PER C/O ANXIETY. IV TUBING CHANGED PER HOSPITAL POLICY.
[2016-09-30 08:59] VITALS: BP 147/63
--- NOTE | 2016-09-30 09:40 | NUR ---
LYING IN BED WITH EYES CLOSED. RESP EVEN AND UNLABORED. CALL LIGHT IN REACH.
--- NOTE | 2016-09-30 11:21 | NUR ---
WILL NOT GIVE TYLENOL BECAUSE PATIENT HAS EXCEEDED LIMIT FOR 24 HOURS. CALL LIGHT IN REACH.
--- NOTE | 2016-09-30 13:00 | NUR ---
RESTING QUIETLY IN BED WITH EYES CLOSED HOLDING ONTO NG TUBE. NG TUBE TO LIS.
[2016-09-30 13:13] VITALS: BP 149/78
--- NOTE | 2016-09-30 13:27 | NUR ---
RESTING WITH EYES CLOSED. RESP EVEN AND UNLABORED. CALL LIGHT IN REACH.
--- NOTE | 2016-09-30 15:33 | NUR ---
CONTINUES TO PULL NGT OUT MORE AND MORE. I ADVANCED IT BACK. VERY ANXIOUS. ATIVAN 1 MG SIVP. CALL LIGHT IN REACH.
--- NOTE | 2016-09-30 16:53 | NUR ---
IV ABX NFUSING. NEW BAG OF PRIMARY FLUIDS ALSO INITIATED.
[2016-09-30 17:43] VITALS: BP 153/72
--- NOTE | 2016-09-30 18:01 | NUR ---
NO CHANGES IN INITIAL ASSESSMENT. STILL REFUSES SCDs. CALL LIGHT IN REACH. WILL CONTINUE WITH PLAN OF CARE.
--- NOTE | 2016-09-30 18:55 | NUR ---
HAS HEARING AIDE BATTERY STUCK IN HER LEFT EAR. TOO FAR DOWN TO TRY TO SCOOP OUT. DR. NILESH SMITH. WAITING HEEL BRUSHER BACK.
[2016-09-30 20:00] VITALS: BP 149/83
--- NOTE | 2016-09-30 20:22 | NUR ---
DR GALLOWAY INFORMED OF BATTERY IN LEFT EAR. HE STATED HE WILL BE LOOK AT IT IN THE MORNING.
--- NOTE | 2016-09-30 22:57 | NUR ---
2240-SEEN FOR STOREKEEPER ENGINEERING NOTE. NG TO NARE STILL TO LIS. STATES NOT PASSING GAS. BOWEL SOUNDS HYPOACTIVE. STATES LITTLE NAUSEA TODAY BUT NO EMESIS. CALL LIGHT IN REACH
[2016-10-01] VITALS: BP 154/69
[2016-10-01 04:00] VITALS: BP 131/64
[2016-10-01 07:13] LABS: BASOPHILS 0.5 % (0-2); EOSINOPHILS 9.9 % (0-7); HEMATOCRIT 36.4 % (36.0-48.0); HEMOGLOBIN 12.1 g/dL (12-16); LYMPHOCYTES 44.7 % (15-50); MCH 29.8 pg (26.0-34.0); MCHC 33.2 g/dL (31.0-37.0); MCV 89.7 fL (80.0-100.0); MEAN PLATELET VOLUME 10.9 fL (7.4-10.4); MONOCYTES 9.1 % (2-11); NEUTROPHILS 35.8 % (40-80); RBC 4.06 10x6/uL (4.00-5.40); RDW 12.8 % (11.5-14.5)
[2016-10-01 07:14] LABS: PLATELET COUNT 188 10x3/uL (130-400); WBC 3.9 10x3/uL (4.8-10.8)
--- NOTE | 2016-10-01 07:15 | NUR ---
REPORT RECEIVED FROM ADMINISTRATION PROFESSIONAL NURSE. CALL LIGHT IN REACH.
[2016-10-01 07:26] LABS: CALC OSMOLALITY 280 mosm/kg (275-300); CALCIUM 8.3 mg/dL (8.5-10.1); CARBON DIOXIDE 28.6 mmol/L (21.0-32.0); CHLORIDE - SERUM 108 mmol/L (98-107); CREATININE - SERUM 0.6 mg/dL (0.6-1.3); GLUCOSE 108 mg/dL (74-106); POTASSIUM - SERUM 3.8 mmol/L (3.5-5.1); SODIUM 142 mmol/L (136-145); eGFR NON AFRICAN AMERICAN > 90 mL/min (90-120)
[2016-10-01 07:27] LABS: UREA NITROGEN 4 mg/dL (7-18)
[2016-10-01 09:02] VITALS: BP 166/56
--- NOTE | 2016-10-01 09:15 | NUR ---
ASSESSMENT COMPLETED. REFUSES SCDs. NGT TO SUCTION. CALL LIGHT IN REACH. WILL CONTINUE WITH PLAN OF CARE.
--- NOTE | 2016-10-01 10:37 | NUR ---
AM MEDS ADMINISTERED. CALL LIGHT IN REACH.
--- NOTE | 2016-10-01 11:40 | NUR ---
ZOFRAN AND ATIVAN PER C/O NAUSEA AND ANXIETY. ALSO IV TYLENOL ADMINISTERED PER ORDER. CALL LIGHT IN REACH.
--- NOTE | 2016-10-01 12:06 | NUR ---
NEW VIAL OF MORPHINE INITIATED FOR FIRST PRESS OPERATOR FOR PAIN CONTROL.
[2016-10-01 12:44] VITALS: BP 167/71
--- NOTE | 2016-10-01 13:27 | NUR ---
RESTING QUIETLY ON RIGHT SIDE WITH EYES CLOSED. NG TO LIS. COLLEGE OR UNIVERSITY BUSINESS MANAGER MORPHINE IN USE FOR PAIN CONTROL.
--- NOTE | 2016-10-01 14:04 | NUR ---
DR. GALLOWAY ON FLOOR TO SEE PATIENT.
--- NOTE | 2016-10-01 16:03 | NUR ---
DR. GALLOWAY ATTEMPTED TO REMOVE BATTERY FROM LEFT EAR BUT UNABLE TO. WILL CONSULT DR. BLANCO.
[2016-10-01 17:19] VITALS: BP 151/99
--- NOTE | 2016-10-01 17:39 | NUR ---
TO HOLDING AREA VIA BED. BATTERY OUT OF EAR PER DR. BLANCO. BACK TO ROOM. ATIVAN IVP. OTHER EVENING MEDS ADMINISTERED ALSO. CALL LIGHT IN REACH.
--- NOTE | 2016-10-01 18:16 | NUR ---
NO CHANGES IN INITIAL ASSESSMENT. CALL LIGHT IN REACH. STILL REFUSES SCDs. WILL CONTINUE WITH PLAN OF CARE.
[2016-10-01 20:00] VITALS: BP 160/65
[2016-10-02] VITALS: BP 155/67
[2016-10-02 04:00] VITALS: BP 158/67
--- NOTE | 2016-10-02 04:48 | NUR ---
PAGED DR. MAC (DIE TRIMMER FOR DR. ESCALANTE) IN REGARDS TO PAIN MEDICATION FOR PATIENT.
--- NOTE | 2016-10-02 04:58 | NUR ---
PAGED DR. GALLOWAY (ELECTRICAL AND RADIO MOCK UP MECHANIC FOR DR. REED) IN REGARDS TO PATIENT'S PAIN MEDICATION.
[2016-10-02 06:39] LABS: BASOPHILS 0.6 % (0-2); EOSINOPHILS 10.9 % (0-7); HEMATOCRIT 36.7 % (36.0-48.0); HEMOGLOBIN 12.4 g/dL (12-16); IMMATURE GRANULOCYTES 0.2 % (0-5); LYMPHOCYTES 46.8 % (15-50); MCH 29.9 pg (26.0-34.0); MCHC 33.8 g/dL (31.0-37.0); MCV 88.4 fL (80.0-100.0); MEAN PLATELET VOLUME 11.1 fL (7.4-10.4); MONOCYTES 8.7 % (2-11); NEUTROPHILS 32.8 % (40-80); PLATELET COUNT 212 10x3/uL (130-400); RBC 4.15 10x6/uL (4.00-5.40); RDW 12.8 % (11.5-14.5)
[2016-10-02 06:40] LABS: WBC 4.9 10x3/uL (4.8-10.8)
[2016-10-02 06:51] LABS: CALC OSMOLALITY 277 mosm/kg (275-300); CALCIUM 8.1 mg/dL (8.5-10.1); CARBON DIOXIDE 28.2 mmol/L (21.0-32.0); CHLORIDE - SERUM 108 mmol/L (98-107); CREATININE - SERUM 0.6 mg/dL (0.6-1.3); GLUCOSE 98 mg/dL (74-106); SODIUM 141 mmol/L (136-145); UREA NITROGEN 5 mg/dL (7-18); eGFR NON AFRICAN AMERICAN > 90 mL/min (90-120)
--- NOTE | 2016-10-02 07:20 | NUR ---
PATIENT RECEIVED IN MID PATEL POSITION RESTING WITH EYES CLOSED. RESPIRATIONS EVEN AND UNLABORED. SIDE RAILS UP X2. BED IN LOW POSITION. CALL LIGHT IN REACH.
--- NOTE | 2016-10-02 07:50 | NUR ---
NGT TUBE D/C PER ORDER. TIP INTACT. FLEET ENEMA ADMINISTERED PER ORDERS. PATEINT TOLERATED BOTH WELL. DENIES NEEDS. SIDE RAILS UP X2. BED IN LOW POSITION. CALL LIGHT IN REACH.
[2016-10-02 08:00] VITALS: BP 147/68
--- NOTE | 2016-10-02 08:19 | NUR ---
SCHEDULED MEDICATION ADMINISTERED. SIDE RAILS UP X2. BED IN LOW POSITION. CALL LIGHT IN REACH.
--- NOTE | 2016-10-02 10:35 | NUR ---
PATIENT OFF FLOOR TO CT VIA WHEELCHAIR
--- NOTE | 2016-10-02 10:49 | NUR ---
PATIENT BACK TO ROOM FROM CT VIA WHEELCHAIR
--- NOTE | 2016-10-02 11:06 | NUR ---
ATIVAN ADMINISTERED PER PRN ORDER PER PATIENT REQUEST. IVF INFUSING TO LEFT MIDLINE WITHOUT DIFFICULTY. SIDE RAILS UP X2. BED IN LOW POSITION. CALL LIGHT IN REACH.
[2016-10-02 11:35] VITALS: BP 145/72
--- NOTE | 2016-10-02 11:35 | NUR ---
PATIENT IN MID PATEL POSITION RESTING WITH EYES CLOSED. RESPIRATIONS EVEN AND UNLABORED. SIDE RAILS UP X2. BED IN LOW POSITION. CALL LIGHT IN REACH.
--- NOTE | 2016-10-02 12:50 | NUR ---
PATIENT IN BED CRYING STATES "I HURT SO BAD." MORPHINE ADMINISTERED PER PRN ORDER. REFUSES SCDS. NO FURTHER NEEDS VOICED. SIDE RAILS UP X2. BED IN LOW POSITION. CALL LIGHT IN REACH.
--- NOTE | 2016-10-02 14:50 | NUR ---
PATIENT IN BED CRYING STATES "I HURT REAL BAD." 2MG MORPHINE ADMINISTERED IM PER PRN ORDER. STATES "THIS SHOT ISN'T WORKING GOOD THE IV MEDICINE DID. WHY CAN'T IT GO THROUGH MY IV?" INFORMED PATIENT NURSES COULD ONLY ADMINISTER THE MEDICATIONS THE WAY THE DOCTORS ORDER IT. REQUESTING PHYSICIAN BE PAGED IN REGARDS TO CHANGING PAIN MEDICATION. WILL NOTIFY PHYSICIAN PER PATIENT REQUEST.
--- NOTE | 2016-10-02 15:00 | NUR ---
PHYSICIAN NOTIFIED OF PATIENT REQUEST TO CHANGE PAIN MEDICATION. NO NEW ORDERS AT THIS TIME.
[2016-10-02 15:24] VITALS: BP 136/68
--- NOTE | 2016-10-02 15:30 | NUR ---
PATIENT CRYING, STATES " I WANT MY DILAUDID IV " D/W PATIENT OTHER METHODS OF PAIN MANAGEMENT SUCH DISTRACTION, MUSIC, READING, ETC. ALSO D/W PATIENT IMPORTANCE OF AMBULATION. AFTER SPENDING APPROX 10 MINUTES IN ROOM PATIENT AGREES TO AMBULATE WITH NURSE.SHE THEN AMBULATED 500 FEET REQUIRING STANDBY ASSIST ONLY. NO GUARDING OR C/O ABDOMINAL PAIN DURING AMBULATION. UPON RETURN TO PATIENT'S ROOM SHE BEGAN SOBBING AGAIN STATING "JUST WANT MY DILAUDID BACK". AFTER LONG DISCUSSION WITH PATIENT SHE VERBALIZED UNDERSTANDING PLAN OF CARE AND STOPPED SOBBING. SHE THEN RATED HER PAIN A 3 ON A 0-10 SCALE. BED LOW, CL IN REACH.
--- NOTE | 2016-10-02 16:10 | NUR ---
ORDERED MS CONTIN ADMINISTERED PER PRN ORDER. EXPLAINED TO PATIENT THAT HER NORMAL HOME PAIN MEDICATION HAD BEEN RESTARTED. STATES UNDERSTANDING. SIDE RAILS UP X2. BED IN LOW POSITION. CALL LIGHT IN REACH.
--- NOTE | 2016-10-02 20:00 | NUR ---
ASSESSMENT PER FLOWSHEET. IV PATENT LEFT AC MIDLINE WITH D5LR W/20MEQ KCL INFUSING AT 75CC'S/HR. SITE A LITTLE RED WITH DRIED BLOOD. REFUSES SCD'S.
[2016-10-02 21:00] VITALS: BP 132/60
--- NOTE | 2016-10-02 21:18 | NUR ---
REQUESTING NERVE MED. ATIVAN 1MG IVP GIVEN FOR ANXIETY. SCHEDULED MS CONTIN 30MG PO GIVEN SEE JUN.
[2016-10-03] VITALS: BP 113/54
--- NOTE | 2016-10-03 | NUR ---
EYES CLOSED RESPIRATIONS WITH EASE AND UNLABORED. REQUESTING MORE ATIVAN INFORMED TIME LIMIT TOO EARLY FOR ATIVAN.
--- NOTE | 2016-10-03 03:31 | NUR ---
TEARFUL ANXIOUS. ATIVAN 1MG IVP GIVEN FOR ANXIETY.
[2016-10-03 04:00] VITALS: BP 144/72
--- NOTE | 2016-10-03 05:07 | NUR ---
EYES CLOSED RESPIRATIONS WITH EASE AND UNLABORED.
[2016-10-03 06:44] LABS: BASOPHILS 0.5 % (0-2); EOSINOPHILS 10.9 % (0-7); HEMATOCRIT 39.2 % (36.0-48.0); IMMATURE GRANULOCYTES 0.2 % (0-5); LYMPHOCYTES 46.6 % (15-50); MCH 30.2 pg (26.0-34.0); MCHC 33.2 g/dL (31.0-37.0); MEAN PLATELET VOLUME 11.1 fL (7.4-10.4); MONOCYTES 7.5 % (2-11); NEUTROPHILS 34.3 % (40-80); PLATELET COUNT 183 10x3/uL (130-400); RBC 4.31 10x6/uL (4.00-5.40); RDW 13.1 % (11.5-14.5); WBC 4.1 10x3/uL (4.8-10.8)
[2016-10-03 07:10] LABS: CALC OSMOLALITY 280 mosm/kg (275-300); CALCIUM 8.4 mg/dL (8.5-10.1); CARBON DIOXIDE 29.5 mmol/L (21.0-32.0); CHLORIDE - SERUM 106 mmol/L (98-107); CREATININE - SERUM 0.5 mg/dL (0.6-1.3); GLUCOSE 107 mg/dL (74-106); SODIUM 142 mmol/L (136-145); UREA NITROGEN 8 mg/dL (7-18); eGFR NON AFRICAN AMERICAN > 90 mL/min (90-120)
--- NOTE | 2016-10-03 08:00 | NUR ---
PT AOX4 RESP EVEN AND NONLABORED PT DENIES NEEDS AT THIS TIME IV TO RIGHT ARM PATENT AND INTACT SRX2 BED AT LOWEST SETTING CALL LIGHT WITHIN REACH WILL CONTINUE TO MONITOR
[2016-10-03 08:17] VITALS: BP 128/62
--- NOTE | 2016-10-03 10:04 | PN ---
PATIENT:SHEFALI MALDONADO MEDICAL RECORD: [id number] LOCATION:D.MS [facility] ADMISSION DATE: 09/27/16 PROGRESS NOTE DATE OF SERVICE: 10/01/2016 CHIEF COMPLAINT: "There is a battery stuck on my ear." SUBJECTIVE: The patient has 2 separate issues, one is bowel obstruction. The NG tube is sumping. She had a bowel movement 2 days ago. She has not passed any flatus or had a bowel movement since then. The pain is in the left upper quadrant. Palpation aggravates. Nothing alleviates. Her symptoms are mild. This is a progress note addendum. For the typed portion of the progress note including the past medical and surgical history, allergies, home medications and social history, please see the typed portion in the chart. She had a hearing aid battery stuck in her left ear. I tried to remove it with some tweezers and was unable to do so. I then put some Dermabond on a Q-tip and stuck it in there and tried to get the Dermabond and the Q-tip to stick to the battery so that I could withdraw the battery. I tried this several times and this was unsuccessful. We will consult Dr. Nuñez tomorrow. PHYSICAL EXAMINATION: GENERAL: The patient does not appear acutely ill. She does not appear chronically ill. VITAL SIGNS: Reviewed. HEAD: External ears appear normal. EYES: Extraocular movements are intact. NECK: Trachea is midline. CHEST: No intercostal retractions. PULMONARY: Nonlabored, no stridor. ABDOMEN: Nontender. EXTREMITIES: No peripheral cyanosis. INTEGUMENT: No rash. No ulcerations. PSYCHIATRIC: Normal affect. NEUROLOGIC: Nonfocal. No lethargy. The patient answers questions appropriately. Moves all extremities well. BACK: No thoracic kyphosis. LYMPHATIC: No lymphangitic streaking of the exposed extremities. IMPRESSION: 1. Hearing aid battery in the left ear. 2. Small bowel obstruction. PLAN: Continue NG suction. Consult Dr. Nuñez tomorrow. TRANSINT:[id number] Voice Confirmation ID: [id number] DOCUMENT ID: [id number] PROGRESS NOTE [id number] JOELSHEFALI Penny JOSE M GALLOWAY MD at 1004 CC: [id number] DICTATION DATE: 10/01/16 161 BARRER AND TACKER: 10/01/16 2131 ADM IN [facility] [address] [facility], [facility]
[2016-10-03 12:32] VITALS: BP 135/68
--- NOTE | 2016-10-03 15:18 | NUR ---
NUTRITION MONITORING & EVAL CHART REVIEWED. PT NPO AFTER MN FOR PROCEDURE. WILL MONITOR DIET ADVANCEMENT WHEN RESUMED. RD FOLLOWING
[2016-10-03 16:03] VITALS: BP 126/64
[2016-10-03 20:00] VITALS: BP 127/67
--- NOTE | 2016-10-03 20:00 | NUR ---
ASSESSMENT PER FLOWSHEET. LEFT AC MIDLINE IV PORT SALINE LOCKED. BED ALARM BOX ON SR UP X2 CALL LIGHT WITHIN REACH.
--- NOTE | 2016-10-03 20:46 | NUR ---
PATIENT TEARFUL STATES I AM GOING TO SURGERY IN THE MORNING AND NO ONE WILL BE WITH ME. MY FAMILY IS ON A CRUISE AND CAN'T BE HERE. PT REQUESTING ANXIETY MED. ATIVAN 1MG IVP GIVEN FOR ANXIETY. INFORMED ABOUT NPO STATUS AFTER MIDNIGHT. PERMITS ARE SIGNED AND ON CHART. MEDS GIVEN PER JUN.
--- NOTE | 2016-10-03 22:00 | NUR ---
PATIENT TOOK BATH AND LINENS WERE CHANGED.
[2016-10-04] VITALS: BP 146/72
--- NOTE | 2016-10-04 | NUR ---
EYES CLOSED RESPIRATIONS WITH EASE AND UNLABORED. NPO AT THIS TIME FOR SURGERY IN AM.
--- NOTE | 2016-10-04 02:00 | NUR ---
EYES CLOSED RESPIRATIONS WITH EASE AND UNLABORED.
[2016-10-04 04:00] VITALS: BP 109/57
--- NOTE | 2016-10-04 07:55 | NUR ---
PT AOX4 RESP EVEN AND NONLABORED PT DENIES NEEDS AT THIS TIME IV TO LEFT AC PATENT AND INTACT SRX2 BED AT LOWEST SETTING CALL LIGHT WITHIN REACH WILL CONTINUE TO MONITOR
[2016-10-04 09:04] VITALS: BP 124/70
--- NOTE | 2016-10-04 12:52 | NUR ---
PT FALLING ASLEEP DURING PAIN ASSESMENT AFTER DILAUDID ADMIN
--- NOTE | 2016-10-04 13:06 | NUR ---
ANESTHESIA CONSULTED ABOUT THE PATIENTS THROAT PAIN. NO MORE TREATMENT ORDERED IN RR
[2016-10-04 13:20] VITALS: BP 118/50
--- NOTE | 2016-10-04 13:45 | NUR ---
MIDLINE IV CATHETER REMOVED WITH 15CM CATHETER INTACT AT THIS TIME PRESSURE BANDAGE APPLIED AT SITE AT THIS TIME
[2016-10-04 16:30] VITALS: BP 138/63
[2016-10-04 20:00] VITALS: BP 147/84
[2016-10-05 04:39] VITALS: BP 123/64
[2016-10-05 05:27] LABS: BASOPHILS 0.3 % (0-2); EOSINOPHILS 5.5 % (0-7); HEMATOCRIT 38.1 % (36.0-48.0); HEMOGLOBIN 12.7 g/dL (12-16); LYMPHOCYTES 27.5 % (15-50); MCH 30.2 pg (26.0-34.0); MCHC 33.3 g/dL (31.0-37.0); MCV 90.7 fL (80.0-100.0); MEAN PLATELET VOLUME 10.9 fL (7.4-10.4); MONOCYTES 8.3 % (2-11); NEUTROPHILS 58.4 % (40-80); PLATELET COUNT 221 10x3/uL (130-400); RDW 13.5 % (11.5-14.5); WBC 6.5 10x3/uL (4.8-10.8)
[2016-10-05 05:32] LABS: CALC OSMOLALITY 277 mosm/kg (275-300); CALCIUM 8.2 mg/dL (8.5-10.1); CARBON DIOXIDE 33.4 mmol/L (21.0-32.0); CHLORIDE - SERUM 103 mmol/L (98-107); GLUCOSE 114 mg/dL (74-106); MAGNESIUM - SERUM 1.9 mg/dL (1.8-2.4); SODIUM 140 mmol/L (136-145); UREA NITROGEN 6 mg/dL (7-18)
[2016-10-05 05:35] LABS: CREATININE - SERUM 0.7 mg/dL (0.6-1.3); POTASSIUM - SERUM 3.2 mmol/L (3.5-5.1); eGFR NON AFRICAN AMERICAN 88 mL/min (90-120)
--- NOTE | 2016-10-05 07:50 | NUR ---
PT AOX4 RESP EVEN AND NONLABORED PT DENIES NEEDS AT THIS TIME IV TO LEFT INFUSIPORT PATENT AND INTACT AT THIS TIME SRX2 BED AT LOWEST SETTING CALL LIGHT WITHIN REACH WILL CONTINUE TO MONITOR
--- NOTE | 2016-10-05 08:32 | OP ---
PATIENT NAME: SHEFALI MALDONADO MEDICAL RECORD: [id number] :48 LOCATION:D.MS [facility] ADMISSION DATE:09/27/16 SURGEON: MARGIE REED MD DATE OF OPERATION: 10/04/2016 SURGEON: Margie Reed MD. PREOPERATIVE DIAGNOSES: 1. Vascular access insufficiency. 2. Small bowel obstruction. 3. History of total abdominal colectomy. POSTOPERATIVE DIAGNOSES: 1. Vascular access insufficiency. 2. Small bowel obstruction. 3. History of total abdominal colectomy. PROCEDURES PERFORMED: 1. Ultrasound-guided left internal jugular tunneled PowerPort. 2. Immediate interpretation of fluoroscopy. 3. Flexible sigmoidoscopy. ANESTHESIA: General. COMPLICATIONS: None. SPECIMENS: None. First case is clean. Second case is contaminated. OPERATIVE COURSE: After consent was obtained, the patient was taken to the operating room and placed in the supine position on the operating table. Next, general anesthesia was given via endotracheal intubation after timeout was performed that confirmed the correct patient and procedure. The left chest and neck were prepped and draped in typical sterile fashion. A 30 cc of local anesthetic was injected in the left chest wall and neck. Left subclavian vein could not be cannulated. At this time, the ultrasound probe was used. The internal jugular vein was identified and under ultrasound guidance, the internal jugular vein was cannulated, blood was aspirated. Under fluoroscopy, a wire was advanced through the needle and placed at the atriocaval junction. The needle was removed. A stab incision was made with 11-blade scalpel. Skin incision was made on the left chest wall. Dissection continued to the level of the pectoralis fascia using electrocautery. A pocket was created. The tunneler was then used to tunnel from the incision site to the needle stick site. Under fluoroscopy, the guidewire and breakaway sheath were advanced over the wire. The wire and dilator were removed. The catheter was advanced to the atriocaval junction under fluoroscopy, the breakaway sheath was removed. The catheter was secured to the pectoralis fascia using interrupted 2-0 Prolene suture. The port was accessed, blood was aspirated, it was then flushed with 5000 units of heparin and 30 cc of saline. Subcutaneous tissue was then closed using 3-0 Vicryl sutures. Skin was closed with 4-0 Stratafix, Mastisol and Steri-Strips. The port was accessed and sterile Tegaderm dressing was placed. At this time, this procedure was terminated. All needle and instrument counts were correct. No complications occurred. The patient was repositioned in lithotomy. Flexible sigmoidoscopy was performed. The scope was advanced into the rectum and the OPERATIVE REPORT [id number] SHEFALI MALDONADO rectum was insufflated. The scope was advanced to the ileorectal anastomosis. There was an obvious J pouch construction, the blind end with no obstruction. The anastomosis was patent. The small bowel was intubated for several centimeters and there did not appear any recurrence of mass consistent with the CT scan findings. No biopsies were obtained. The rectum was decompressed. The scope was removed. At this time, the procedure was terminated. At the end of the case, all needle and instrument counts were correct. No complications occurred. The patient was extubated and transferred to the PACU in stable condition. TRANSINT:[id number] Voice Confirmation ID: [id number] DOCUMENT ID: [id number] MARGIE REED MD at 0832 CC: [id number] DICTATION DATE: 10/04/16 1227 BLOW MOLDER: 10/04/161954 [facility] IN [facility] [address] [place] [address]
[2016-10-05 09:36] VITALS: BP 135/64
[2016-10-05 11:39] LABS: PHOSPHOROUS 3.1 mg/dL (2.5-4.9)
[2016-10-05 11:49] VITALS: BP 132/66
--- NOTE | 2016-10-05 12:33 | NUR ---
NUTRITION MONITORING & EVAL CHART REVIEWED. TPN STARTED PER MD CONSULT. PHOS ADDED TO AM LABS. RD FOLLOWING
--- NOTE | 2016-10-05 12:48 | NUR ---
CM REASSESSMENT NOTE: CHRIS CALLED [facility] FOR TRANSFER PER DR. REED. DR. REED STATED IT IS PATIENTS REQUEST FOR DR. BLACK. CHRIS SPOKE WITH PHOEBE (ACCESS NURSE) REGARDING TRANSFER. PHOEBE TOOK DR. ENCINAS PHONE NUMBER WELL CHRIS AND STATED SHE WOULD CALL BACK WITH AN ANSWER.
--- NOTE | 2016-10-05 15:42 | NUR ---
CM REASSESSMENT NOTE: DR. BLACK'S NURSE SPOKE WITH CONSTANCE REGARDING PATIENTS ACCEPTANCE FOR SURGERY. NURSE STATED A HOSPITALIST WOULD HAVE TO ACCEPT PATIENT FIRST. CM SPOKE WITH PHOEBE (ACCESS NURSE) AND SHE STATED HOSPITALIST USUALLY DOES NOT ACCEPT SURGERY PATIENTS BUT SHE WOULD ASK AND TOOK CALL BACK NUMBER TO OUR FLOOR. PHOEBE CALLED BACK AND SPOKE WITH CONSTANCE AND STATED THE HOSPITALIST WOULD NOT ACCEPT PATIENT THAT SHE (PHOEBE) WOULD CALL DR. BLACK'S OFFICE AND SPEAK TO CONSULTING MARINE ENGINEER.
--- NOTE | 2016-10-05 16:10 | NUR ---
RECEIVED CALL FROM Chano OLIVEIRA FOR DR. BLACK [facility]. STATES THEY ARE VERY FAMILIAR WITH THIS PATIENT AND AT THIS TIME WOULD RECOMMEND COMFORT CARE AND NO OPERATION. DUE TO THIS REASON DR. BLACK AND HOSPITALIST DECLINED ACCEPTANCE OF TRANSFER TO [facility]. D/W DR. REED AND PATIENT.
--- NOTE | 2016-10-05 16:49 | NUR ---
CM REASSESSMENT NOTE: DR. BLACK AND DR. REED AGREED PATIENT NEEDED HOSPICE. DR. REED ORDERED HOSPICE CONSULT FOR AM. [facility] WAS NOTIFIED AND REFERRAL SENT. AIRPLANE ELECTRICAL REPAIRER (CONSTANCE OROZCO) CALLED FAMILY AND LEFT MESSAGE TO CALL HER.
--- NOTE | 2016-10-05 18:10 | NUR ---
NG TUBE INSERTED BY ROWAN, RECEIVING 4OOML OF COFFEE BROWN GASTRIC CONTENTS AT THIS TIME. PT TOLERATED WITHOUT DIFFICULTY AT THIS TIME
[2016-10-05 20:54] VITALS: BP 138/63
[2016-10-06] VITALS: BP 92/37
--- NOTE | 2016-10-06 02:45 | NUR ---
ASSESSED AT THE BEGINNING OF THE SHIFT. SHE IS ALERT AND CALLS THE NURSES STATION BUT DOES HAVE SOME CONFUSION PER HER ANSWERS. THERE IS AN NG TUBE TO LIS WHICH IS WORKING WELL. AT HS WHEN HER PAIN MED AND MOM WERE GIVEN IT WAS TRROUGH THE TUBE AND THE SUCTION WAS CUT OFF FOR ABUT 45 MIN. THE HOB IS 30 DEGREES. THERE IS A PAIN PATCH ON HER SHOULDER. WE ARE ASSITING HER FOR THE BATHROOM WHEN SHE CALLS. HER LEFT PORT HAS ALL HER IV'S GING TO IT. THERE IS TPN, D5LR WITH K AND LIPIDS. THE BED IS LOW, RAILS UP X'S 2 WITH THE CALL LIGHT AT HAND.
[2016-10-06 04:00] VITALS: BP 111/48
[2016-10-06 06:25] LABS: BASOPHILS 0.2 % (0-2); EOSINOPHILS 8.7 % (0-7); HEMATOCRIT 36.5 % (36.0-48.0); HEMOGLOBIN 12.2 g/dL (12-16); IMMATURE GRANULOCYTES 0.2 % (0-5); MCH 30.2 pg (26.0-34.0); MCHC 33.4 g/dL (31.0-37.0); MCV 90.3 fL (80.0-100.0); MEAN PLATELET VOLUME 11.1 fL (7.4-10.4); MONOCYTES 10.3 % (2-11); NEUTROPHILS 45.6 % (40-80); PLATELET COUNT 215 10x3/uL (130-400); RBC 4.04 10x6/uL (4.00-5.40); RDW 13.5 % (11.5-14.5); WBC 5.2 10x3/uL (4.8-10.8)
[2016-10-06 07:03] LABS: CALC OSMOLALITY 277 mosm/kg (275-300); CALCIUM 8.1 mg/dL (8.5-10.1); CHLORIDE - SERUM 103 mmol/L (98-107); CREATININE - SERUM 0.8 mg/dL (0.6-1.3); GLUCOSE 114 mg/dL (74-106); MAGNESIUM - SERUM 2.1 mg/dL (1.8-2.4); POTASSIUM - SERUM 3.5 mmol/L (3.5-5.1); SODIUM 140 mmol/L (136-145); UREA NITROGEN 7 mg/dL (7-18); eGFR NON AFRICAN AMERICAN 76 mL/min (90-120)
--- NOTE | 2016-10-06 07:25 | NUR ---
PATIENT RECEIVED ALERT IN MID PATEL POSITION. NO SIGNS OF DISTRESS NOTED. NGT TO LIWS. DENIES NEEDS. SIDE RAILS UP X2. BED IN LOW POSITION. CALL LIGHT IN REACH.
--- NOTE | 2016-10-06 08:20 | NUR ---
ALERT IN BED RESTING QUIETLY. NO SIGNS OF DISTRESS NOTED. NGT CLAMPED. SCHEDULED MEDICATION ADMINISTERED. SIDE RAILS UP X2. BED IN LOW POSITION. CALL LIGHT IN REACH.
[2016-10-06 08:56] VITALS: BP 103/55
--- NOTE | 2016-10-06 09:05 | NUR ---
NGT TO OTIS
[2016-10-06 12:36] VITALS: BP 139/62
--- NOTE | 2016-10-06 12:52 | NUR ---
ALERT IN BED. NO SIGNS OF DISTRESS NOTED. ATIVAN ADMINISTERED PER PRN ORDER PER PATIENT REQUEST. NO FURTHER NEEDS VOICED. SIDE RAILS UP X2. BED IN LOW POSITION. CALL LIGHT IN REACH.
--- NOTE | 2016-10-06 15:09 | NUR ---
ALERT IN BED WITH GUEST AT BEDSIDE. NO SIGNS OF DISTRESS NOTED. SCHEDULED MEDICATION ADMINISTERED. NGT CLAMPED FOR PO MEDICATION. DENIES FURTHER NEEDS. SIDE RAILS UP X2. BED IN LOW POSITION. CALL LIGHT IN REACH.
[2016-10-06 16:15] VITALS: BP 131/52
--- NOTE | 2016-10-06 17:30 | NUR ---
ALERT IN BED. NO SIGNS OF DISTRESS NOTED. STATES SHE JUST HAD A BM. DENIES NEEDS. BED IN LOW POSITION. CALL LIGHT IN REACH.
[2016-10-07] VITALS: BP 111/60
[2016-10-07 04:00] VITALS: BP 114/66
--- NOTE | 2016-10-07 05:13 | NUR ---
PATIENT SLEEPING SUPINE IN BED. HOB 20 DEGREES. RR EVEN AND UNLABORED. 0 S/S OF DISTRESS. NG TUBE TO RIGHT NARE. SRX1. BED LOW. CALL LIGHT WITHIN REACH.
[2016-10-07 06:17] LABS: BASOPHILS 0.2 % (0-2); EOSINOPHILS 15.5 % (0-7); HEMATOCRIT 35.7 % (36.0-48.0); HEMOGLOBIN 11.7 g/dL (12-16); IMMATURE GRANULOCYTES 0.2 % (0-5); LYMPHOCYTES 41.5 % (15-50); MCH 29.8 pg (26.0-34.0); MCHC 32.8 g/dL (31.0-37.0); MCV 90.8 fL (80.0-100.0); MEAN PLATELET VOLUME 10.5 fL (7.4-10.4); MONOCYTES 8.4 % (2-11); NEUTROPHILS 34.2 % (40-80); PLATELET COUNT 225 10x3/uL (130-400); RBC 3.93 10x6/uL (4.00-5.40); RDW 13.5 % (11.5-14.5); WBC 4.2 10x3/uL (4.8-10.8)
[2016-10-07 06:36] LABS: CALC OSMOLALITY 281 mosm/kg (275-300); CALCIUM 8.1 mg/dL (8.5-10.1); CARBON DIOXIDE 31.2 mmol/L (21.0-32.0); CHLORIDE - SERUM 105 mmol/L (98-107); CREATININE - SERUM 0.8 mg/dL (0.6-1.3); GLUCOSE 126 mg/dL (74-106); MAGNESIUM - SERUM 2.2 mg/dL (1.8-2.4); PHOSPHOROUS 4.8 mg/dL (2.5-4.9); POTASSIUM - SERUM 3.8 mmol/L (3.5-5.1); SODIUM 141 mmol/L (136-145); UREA NITROGEN 9 mg/dL (7-18); eGFR NON AFRICAN AMERICAN 76 mL/min (90-120)
--- NOTE | 2016-10-07 07:35 | NUR ---
PATIENT RECEIVED ALERT IN RIGHT LATERAL POSITION. NO SIGNS OF DISTRESS NOTED. DENIES NEEDS. SIDE RAILS UP X2. BED IN LOW POSITION. CALL LIGHT IN REACH.
--- NOTE | 2016-10-07 08:40 | NUR ---
ALERT IN BED. NO SIGNS OF DISTRESS NOTED. SCHEDULED MEDICATION ADMINISTERED. NGT CLAMPED. DENIES NEEDS. SIDE RAILS UP X1. BED IN LOW POSITION. CALL LIGHT IN REACH.
[2016-10-07 09:48] VITALS: BP 143/70
--- NOTE | 2016-10-07 12:30 | NUR ---
ALERT IN HIGH PATEL POSITION. NO SIGNS OF DISTRESS NOTED. TOLERATING CLEAR LIQUID DIET. SIDE RAILS UP X2. BED IN LOW POSITION. CALL LIGHT IN REACH.
[2016-10-07 13:02] VITALS: BP 153/94
--- NOTE | 2016-10-07 14:50 | NUR ---
ALERT IN BED. SCHEDULED MEDICATION ADMINISTERED. PRN ATIVAN ADMINISTERED PER PATIENT REQUEST. NO FURTHER NEEDS VOICED. SIDE RAILS UP X2. BED IN LOW POSITION. CALL LIGHT IN REACH.
--- NOTE | 2016-10-07 16:00 | NUR ---
PATIENT IN RIGHT LATERAL POSITION RESTING WITH EYES CLOSED. RESPIRATIONS EVEN AND UNLABORED. SIDE RAILS UP X1. BED IN LOW POSITION. CALL LIGHT IN REACH.
[2016-10-07 16:02] VITALS: BP 142/47
--- NOTE | 2016-10-07 18:15 | NUR ---
PATIENT IN LOW PATEL POSITION RESTING WITH EYES CLOSED. RESPIRATIONS EVEN AND UNLABORED. SIDE RAILS UP X1. BED IN LOW POSITION. CALL LIGHT IN REACH.
[2016-10-07 23:14] VITALS: BP 125/49
--- NOTE | 2016-10-08 04:22 | NUR ---
PT IS SITTING WITH HOB UP AT 30 DEGREES ASLEEP WITH EASY RESPIRTIONS AND NO DISTRESS NOTED. THE BED IS LOW, RAILS UP X'S 2 WITH THE CALL LIGHT AT HAND.
[2016-10-08 05:06] VITALS: BP 113/49
[2016-10-08 05:35] LABS: BASOPHILS 0.2 % (0-2); EOSINOPHILS 8.8 % (0-7); HEMATOCRIT 38.3 % (36.0-48.0); HEMOGLOBIN 12.5 g/dL (12-16); IMMATURE GRANULOCYTES 0.2 % (0-5); LYMPHOCYTES 25.2 % (15-50); MCH 29.6 pg (26.0-34.0); MCHC 32.6 g/dL (31.0-37.0); MCV 90.8 fL (80.0-100.0); MEAN PLATELET VOLUME 10.8 fL (7.4-10.4); MONOCYTES 8.9 % (2-11); NEUTROPHILS 56.7 % (40-80); PLATELET COUNT 225 10x3/uL (130-400); RBC 4.22 10x6/uL (4.00-5.40); RDW 13.5 % (11.5-14.5); WBC 6.3 10x3/uL (4.8-10.8)
[2016-10-08 05:42] LABS: CALC OSMOLALITY 277 mosm/kg (275-300); CALCIUM 8.3 mg/dL (8.5-10.1); CARBON DIOXIDE 32.6 mmol/L (21.0-32.0); CHLORIDE - SERUM 103 mmol/L (98-107); CREATININE - SERUM 0.7 mg/dL (0.6-1.3); GLUCOSE 122 mg/dL (74-106); SODIUM 139 mmol/L (136-145); UREA NITROGEN 9 mg/dL (7-18); eGFR NON AFRICAN AMERICAN 88 mL/min (90-120)
--- NOTE | 2016-10-08 07:25 | NUR ---
PATIENT RECEIVED IN MID PATEL POSITION ALERT AND RESTING QUIETLY. RESPIRATIONS EVEN AND UNLABORED. SIDE RAILS UP X2. BED IN LOW POSITION. CALL LIGHT IN REACH.
--- NOTE | 2016-10-08 08:55 | NUR ---
PATIENT ALERT IN BED. NO SIGNS OF DISTRESS NOTED. SCHEDULED MEDICATION ADMINISTERED. NGT D/C PER ORDERS. TIP INTACT. WELL TOLERATED. SIDE RAILS UP X1. BED IN LOW POSITION. CALL LIGHT IN REACH.
[2016-10-08 09:11] VITALS: BP 156/59
--- NOTE | 2016-10-08 11:30 | NUR ---
ALERT IN HIGH PATEL POSITION. NO SIGNS OF DISTRESS NOTED. ICE WATER PROVIDED. RATES PAIN 2/10. DENIES NAUSEA. SIDE RAILS UP X1. BED IN LOW POSITION. CALL LIGHT IN REACH.
[2016-10-08 12:20] VITALS: BP 98/45
--- NOTE | 2016-10-08 16:05 | NUR ---
PATIENT ALERT IN BED WATCHING TV. NO SIGNS OF DISTRESS NOTED. SCHEDULED MEDICATION ADMINISTERED. DENIES NEEDS. SIDE RAILS UP X1. BED IN LOW POSITION. CALL LIGHT IN REACH.
[2016-10-08 16:23] VITALS: BP 140/60
[2016-10-08 19:00] VITALS: BP 132/58
--- NOTE | 2016-10-08 19:34 | NUR ---
PATIENT HAS REFUSED HER TREATMENT FOR 1900, SHE HAS REFUSED FOR SEVERAL DAYS.
--- NOTE | 2016-10-08 22:31 | NUR ---
ASSISTED TO RESTROOM, NO DISTRESS NOTED, IV INFUSING, DENIES PAIN OR NEEDS, SR'S UP, CL IN REACH
--- NOTE | 2016-10-09 00:25 | NUR ---
PATIENT IS STILL REFUSING TXS
[2016-10-09 04:00] VITALS: BP 115/42
--- NOTE | 2016-10-09 04:01 | NUR ---
CAME IN TO DRAW BLOOD FROM PORT. RETURN WAS A LIGHT PINK COLOR. FELT AROUND PORT AREA, SOME MINIMAL BUBBLE/CRACKLES WAS NOTED, THE SUROUNDING AREA WAS WAS SPONGY. NO DISCOMFORT WAS NOTED BY THE PATIENT BEFORE HAND. RN'S WERE NOTIFIED AND GEOVANI DEACCESSED THE SITE. D5LR+20mEq KCl@35 AND TPN@40 WERE INFUSING AT THE TIME. ALL FLUIDS WERE STOPPED IMMEDIATELY. RN WANTED TO WAIT AND RECHECK THE SITE IN 30 MINUTES TO INSURE SOME OF THE FLUID HAS ABSORBED IN.
[2016-10-09 06:50] LABS: BASOPHILS 0.6 % (0-2); EOSINOPHILS 14.6 % (0-7); HEMATOCRIT 37.8 % (36.0-48.0); HEMOGLOBIN 12.4 g/dL (12-16); IMMATURE GRANULOCYTES 0.2 % (0-5); LYMPHOCYTES 42.9 % (15-50); MCH 29.9 pg (26.0-34.0); MCHC 32.8 g/dL (31.0-37.0); MCV 91.1 fL (80.0-100.0); MEAN PLATELET VOLUME 11.1 fL (7.4-10.4); MONOCYTES 10.6 % (2-11); NEUTROPHILS 31.1 % (40-80); PLATELET COUNT 245 10x3/uL (130-400); RBC 4.15 10x6/uL (4.00-5.40); RDW 13.4 % (11.5-14.5)
[2016-10-09 06:55] LABS: WBC 4.7 10x3/uL (4.8-10.8)
[2016-10-09 06:59] LABS: CALC OSMOLALITY 275 mosm/kg (275-300); CALCIUM 8.1 mg/dL (8.5-10.1); CHLORIDE - SERUM 104 mmol/L (98-107); CREATININE - SERUM 0.7 mg/dL (0.6-1.3); GLUCOSE 110 mg/dL (74-106); POTASSIUM - SERUM 4.4 mmol/L (3.5-5.1); SODIUM 138 mmol/L (136-145); UREA NITROGEN 10 mg/dL (7-18); eGFR NON AFRICAN AMERICAN 88 mL/min (90-120)
--- NOTE | 2016-10-09 08:21 | NUR ---
SCHEDULED MEDICATIONS ADMINISTERED AT THIS TIME. ASSESSMENT PERFORMED PER FLOWSHEET. PORT TO LEFT CHEST WITH SWELLING AROUND SITE DUE TO PORT INFILTRATION DURING PROTEIN PURIFICATION SCIENTIST. PORT RE-ACCESSED BY PROTEIN PURIFICATION SCIENTIST AND FLUSHES WITHOUT DIFFICULTY OR PAIN, BUT WILL NOT DRAW. PT IS UP AD MIGUEL. CALL LIGHT IN REACH, WILL CONTINUE WITH PLAN OF CARE.
[2016-10-09 08:31] VITALS: BP 131/42
[2016-10-09 12:32] VITALS: BP 140/63
--- NOTE | 2016-10-09 14:49 | NUR ---
Patient Name: SHEFALI MALDONADO Admission Status: ER Accout number: [id number] Admission Date: 09-27-2016 : 1950 Admission Diagnosis:UNSPECIFIED INTESTINAL OBSTRUCTION Attending: MARGUERITE Current LOS: 12 Anticipated DC Date: Planned Disposition: Home Primary Insurance: MEDICARE A & B Discharge Planning Comments: hospice met with patient today and patient stated "NO" Patient being discharged home today with her son (Reese) to drive her home. Patient states that her granddaughter will be staying with her and her son lives right down the road. Patient denies any HH or CM needs. Copyright Manager: Elsy Enriquez
--- NOTE | 2016-10-09 16:10 | NUR ---
DISCHARGE PAPERWORK REVIEWED WITH PT AT THIS TIME. LEFT CHEST PORT DE-ACCESSED. WILL D/C HOME WITH SON.
== END 2016-10-09 16:15 | disposition home or self-care (01) | DRG 389 ==
LOC: D.ER 12:12 → D.MS 17:19
PROVIDERS: Emergency Medicine; ADMIT Surgery
PROC: 0D9670Z Drainage of Stomach with Drainage Device, Via Natural or Artificial Opening (ICD-10-PCS; principal; 2016-09-27)
PROC: 0T9B70Z Drainage of Bladder with Drainage Device, Via Natural or Artificial Opening (ICD-10-PCS; 2016-09-27)
PROC: 09C4XZZ Extirpation of Matter from Left External Auditory Canal, External Approach (ICD-10-PCS; 2016-10-01)
PROC: 0JHF3XZ Insertion of Tunneled Vascular Access Device into Left Upper Arm Subcutaneous Tissue and Fascia, Percutaneous Approach (ICD-10-PCS; 2016-10-04)
PROC: 05HA33Z Insertion of Infusion Device into Left Brachial Vein, Percutaneous Approach (ICD-10-PCS; 2016-10-04)
PROC: B51N1ZA Fluoroscopy of Left Upper Extremity Veins using Low Osmolar Contrast, Guidance (ICD-10-PCS; 2016-10-04)
PROC: 0DJD8ZZ Inspection of Lower Intestinal Tract, Via Natural or Artificial Opening Endoscopic (ICD-10-PCS; 2016-10-04)
PROC: B54NZZA Ultrasonography of Left Upper Extremity Veins, Guidance (ICD-10-PCS; 2016-10-04)
DX: K56.69 Other intestinal obstruction (principal); N17.9 Acute kidney failure, unspecified; F41.8 Other specified anxiety disorders; G89.29 Other chronic pain; E03.9 Hypothyroidism, unspecified; K31.84 Gastroparesis; F17.200 Nicotine dependence, unspecified, uncomplicated; T16.2XXA Foreign body in left ear, initial encounter; X58.XXXA Exposure to other specified factors, initial encounter

== ENCOUNTER 2016-10-18 07:46 | Observation (INO) | payer MEDICARE ==
[2016-10-18] VITALS (11 sets, daily range): BP systolic 122–147; BP diastolic 50–102; Ht 160 cm; Wt 78.5 kg
[~2016-10-18] VITALS: Ht 160 cm; Wt 78.5 kg
--- NOTE | ~2016-10-18 | HEMODYNAMI ---
PATIENT:SHEFALI MALDONADO MEDICAL RECORD: [id number] : 48 LOCATION:DFRANCIS ADMISSION DATE: 10/18/16 Generatedon:10/18/201611:06 Patient name: SHEFALI MALDONADO Patient #: [id number] SSN: : 1 04/20/1949 Date of study: 10/18/2016 Page: Of Hemodynamic Procedure Report Patient Data Patient Demographics Procedure consent was obtained First Name: SHEFALI Gender: Female Last Name: JOEL : 1950 [facility] Initial: G Age: 66 year(s) Patient #: [id number] Race: Unknown Additional ID: [id number] Contact details [address]: [address] [place] [address] State: [place] City: [place] Zip code: [address] Admission Admission Data Admission Date: 10/18/2016 Admission Time: 7:46 Weight (lbs.): 165 Weight (kg.): 74.84 Procedure Procedure Types Cath Procedure Peripheral Cath Diagnostic Procedure Cath Peripheral Gastric G Tube Placement Procedure Description Procedure Date Procedure Date: 10/18/2016 Procedure Start Time: 10:21 Procedure Staff Name Function Martín Ozuna MD Performing Physician Lokesh Johnson RT Scrub Sallie Santana RN Nurse Christina Jerez RT Cement Sack Breaker Christina Jerez RT Monitor Bharathi Gavin MD Additional personnel Procedure Data Cath Procedure Fluoroscopy Diagnostic fluoroscopy Total fluoroscopy Time: 0 time: 0 min min Diagnostic fluoroscopy Total fluoroscopy dose: 191 dose: 191 mGy mGy Contrast Material Contrast Material Type Amount (ml) Isovue 300 35 Procedure Medications Medication Administration Route Dosage Glucagon I.V. 1 mg Oxygen NC 6 l/min Hemodynamics Rest Heart Rate: 80 (bpm) Snapshots Pre Cath Intra NCS Post Cath Vital Signs Time Heart Resp SPO2 NIBP (mmHg) Rhythm Pain Sedation Rate (ipm) (%) Status Level (bpm) 10:04:48 79 14 100 153/66(85) NSR 0 (11) 10(A) , No pain 10:09:12 85 14 100 137/62(101) NSR 0 (11) 10(A) , No pain 10:13:37 82 11 100 146/63(111) NSR 0 (11) 10(A) , No pain 10:17:51 81 12 98 119/61(86) NSR 0 (11) 10(A) , No pain 10:22:03 81 11 98 126/73(85) NSR 0 (11) 10(A) , No pain 10:26:19 82 14 98 126/60(86) NSR 0 (11) 10(A) , No pain 10:30:39 91 12 94 126/61(89) NSR 0 (11) 10(A) , No pain 10:34:53 90 13 98 110/56(86) NSR 0 (11) 10(A) , No pain 10:39:11 87 13 98 123/48(77) NSR 0 (11) 10(A) , No pain 10:43:25 88 13 98 118/64(92) NSR 0 (11) 10(A) , No pain 10:47:39 89 12 98 134/70(95) NSR 0 (11) 10(A) , No pain 10:51:59 88 12 99 117/52(112) NSR 0 (11) 10(A) , No pain 10:57:10 86 12 99 135/62(105) NSR 0 (11) 10(A) , No pain 11:01:30 82 8 137/67(97) NSR 0 (11) 10(A) , No pain 11:05:49 83 11 140/73(118) NSR 0 (11) 10(A) , No pain Medications Time Medication Route Dose Verified Delivered Reason Notes Effective ness by by 10:05:46 Oxygen NC 6 Bharathi Rigginsrell l/min Romaine Gavin MD 10:25:55 Glucagon I.V. 1 mg Sallie Sallie for smooth Esther Esther muscle RN RN relaxation Procedure Log Time Note 9:38:16 Patient Weight : 165 kg 9:51:18 Time tracking: Regular hours 9:51:34 Patient received from Outpatients to IR Alert and oriented. Tansferred to table in Supine position. 9:51:37 Correct patient and procedure confirmed by team. 9:51:39 Signed procedure consent form obtained from patient. 9:51:58 H&P Date Dictated: 10/18/2016 Within 30 days and on chart.. 9:52:04 Pre-procedure instructions explained to patient. 9:52:05 Pre-op teaching completed and patient verbalized understanding. 9:52:08 Family in waiting room. 9:52:11 Patient NPO since Midnight. 9:52:25 - 9:52:36 Use device set IR Diagnostic 9:52:40 Sterile Angiographic Pack opened to sterile field. 9:52:42 Bag Decanter opened to sterile field. 10:03:25 ECG and BP/O2 sat monitors applied to patient. 10:03:25 Vital chart was started 10:03:26 Baseline sample Acquired. 10:03:29 Full Disclosure recording started 10:03:33 - 10:04:49 see anesthesia notes for monitoring of patient during procedure 10:04:53 - 10:05:46 Oxygen 6 l/min NC was administered by Bharathi Gavin MD; ; 10:17:01 Terumo 5FR ANGLED 65CM glide catheter opened to sterile field. 10:18:54 Physician arrived 10:19:50 --------ALL STOP TIME OUT------ 10:19:51 Final Timeout: patient, procedure, and site verified with staff and physician. All members of the team are in agreement. 10:21:31 Physical assessment completed. ASA score P 3 - A patient with severe systemic disease as per Bharathi Gavin MD. 10:21:39 Sedation plan: TIVA Propofol 10:21:47 Procedure started. 10:22:06 Terumo ANGLE 180L glide wire opened to sterile field. 10:25:55 Glucagon 1 mg I.V. was administered by Sallie Santana RN; for smooth muscle relaxation; 10:43:07 DILATOR, VESSEL 14/20 opened to sterile field. 10:43:08 STOPCOCK 3-WAY LARGE BORE opened to sterile field. 10:43:23 Sycamore Sci Amplatz Super Stiff 75CM guide wire opened to sterile field. 10:45:[address] Peel-A-Way Introducer 22Fr opened to sterile field. 10:53:39 Procedure ended.(Physican Out) 10:55:30 Contrast amount:Isovue 300 35ml. 10:55:41 Fluoroscopy time 00.00 minutes. 10:55:47 Fluoroscopy dose: 191 mGy 10:55:47 Flurop Dose total: 191 10:55:49 Sharps counted by scrub and verified by R.N. 10:55:51 Procedure and supply charges have been captured, reviewed, submitted an d are correct. 11:06:13 Vital chart was stopped Device Usage Item Name Manufacture Quantity Catalog Hospital Part Current Minimal Lot# / Number Charge Number Stock Stock Serial# Code Sterile Cardinal 1 [id number] 5 Angiographic Health Pack Bag Decanter Microtek 1 [id number] 05667 [id number] 5 [employer] Terumo 5FR Terumo 1 [id number] 038560 5 ANGLED 65CM glide catheter Terumo ANGLE Terumo 1 [id number] 254439 138426 5 180L glide wire DILATOR, [employer] 1 [id number] 691677 032444 225009 5 [id number] VESSEL 14/20 STOPCOCK [employer] 1 [id number] 010400 2621 452164 5 [id number] 3-WAY LARGE BORE Sycamore Sci Sycamore 1 [id number] 832972 278977 640662 5 Amplatz Scientific Super Stiff 75CM guide wire Peel-A-Way [employer] 1 [id number] 169637 322719 620924 5 Introducer 22Fr Signature Audit [place] Stage Time Signature Unsigned Intra-Procedure 10/18/2016 Christina Jerez 11:06:10 AM RT(R) Signatures Monitor : Christina Jerez RT Signature : Date : Time : [facility] [address] [place] [address]
[2016-10-18 08:53] LABS: BASOPHILS 0.8 % (0-2); EOSINOPHILS 2.7 % (0-7); HEMATOCRIT 41.2 % (36.0-48.0); HEMOGLOBIN 13.8 g/dL (12-16); IMMATURE GRANULOCYTES 0.2 % (0-5); LYMPHOCYTES 38.7 % (15-50); MCH 29.9 pg (26.0-34.0); MCHC 33.5 g/dL (31.0-37.0); MCV 89.4 fL (80.0-100.0); MEAN PLATELET VOLUME 10.9 fL (7.4-10.4); NEUTROPHILS 48.6 % (40-80); RBC 4.61 10x6/uL (4.00-5.40); RDW 13.8 % (11.5-14.5)
[2016-10-18 08:58] LABS: PLATELET COUNT 319 10x3/uL (130-400)
[2016-10-18 09:02] LABS: ANION GAP 11.8 mmol/L (8-16); APTT 30.6 SECONDS (22.8-39.4); CALCIUM 9.1 mg/dL (8.5-10.1); CREATININE - SERUM 0.9 mg/dL (0.6-1.3); INR 0.99 (0.85-1.17); POTASSIUM - SERUM 3.8 mmol/L (3.5-5.1); PROTIME 12.9 SECONDS (11.6-15.0)
--- NOTE | 2016-10-18 11:26 | NUR ---
RECEIVED PT VIA BED ACCOMPANIED BY FAMILY MEMBER. PT IS LETHARGIC. ON O2 AT 2L VIA NC. IV SEEN TO LEFT CHEST INFUSAPORT. CLEAN, DRY, AND INTACT DRESSING SEEN TO LEFT UPPER ABDOMEN AREA WHERE PT HAD PROCEDURE THIS AM. PT IS ABLE TO STATE NAME, , WHERE SHE IS, AND WHAT YEAR IT IS. FREQUENT VITAL SIGNS STARTED ORDERED. WILL CONTINUE TO MONITOR AND CONTINUE WITH PLAN OF CARE.
--- NOTE | 2016-10-18 11:26 | NUR ---
1100- RECEIVED REPORT FROM YOAN. AWAITING PT ARRIVAL.
--- NOTE | 2016-10-18 12:04 | NUR ---
ISABEL FIORE RN WITH DR. CUNNINGHAM IS HERE ON UNIT. NEW VERBAL ORDERS RECEIVED PER DR. CUNNINGHAM. ORDERS PUT IN DIRECTED. WILL CONTINUE TO MONITOR.
--- NOTE | 2016-10-18 17:15 | NUR ---
IDANIA GARCIA, NEWSPAPER VENDOR AND TOM PARDO RN PLACED ZAVALA BAG HOOKED TO G-TUBE FOR DECOMPRESSION ORDERED. WILL CONTINUE TO MONITOR.
--- NOTE | 2016-10-18 17:41 | NUR ---
1630- ISABEL WITH DR. CUNNINGHAM IS ON UNIT STATING PT CAN HAVE FULL LIQUID DIET.
--- NOTE | 2016-10-18 19:20 | NUR ---
PT RESTING IN ROOM. C/O PAIN IN STOMACH FROM G TUBE PLACEMENT. MORPHINE 4MG GIVEN. NO S/S OF DISTRESS WILL CONTINUE TO MONITOR
--- NOTE | 2016-10-18 21:39 | NUR ---
PT ASKING FOR ATIVAN IV TO HELP HER SLEEP. TEMAZEPAN 30MG PO QHS PRN IS WHAT SHE TAKES AT HOME. SPOKE TO DR. REED AND HE SAID RESUME HOME MEDS. ORDER FOR TEMAZEPAM 30 MG PO QHS PRN FOR SLEEP PUT IN.
[2016-10-19] VITALS: BP 120/57
--- NOTE | 2016-10-19 03:12 | NUR ---
PT SLEEPING ON HER BACK RESPIRATIONS EVEN AND UNLABORED. NO S/S OF DISTRESS. WILL CONTINUE TO MONITOR
[2016-10-19 04:34] VITALS: BP 137/52
--- NOTE | 2016-10-19 07:01 | NUR ---
PT RESTING IN BED. INFORMED PT MY SHIFT IS OVER. PT DENIES ANY NEEDS
--- NOTE | 2016-10-19 07:44 | NUR ---
AM ROUNDING DONE WITH PATIENT APPEARING TO BE ASLEEP. RESP ARE EVEN AND NON LABORED. ON ROOM AIR. WILL ASSESS PATIENT SHORTLY.
[2016-10-19 08:19] VITALS: BP 135/59
--- NOTE | 2016-10-19 12:27 | NUR ---
1145-SALINE FLUSH THEN HEPARIN FLUSH TO LEFT IP. COOMBS NEEDLE REMOVED WITHOUT PROBLEMS, COVERED WITH CLEAN 2 X 2 AND OPSITE. VERBRAL AND WRITTEN DISCHARGE INST. GIVEN TO PATIENT. D/C PER WHEELCHAIR.
== END 2016-10-19 11:50 | disposition home or self-care (01) ==
LOC: D.OPS 07:46 → D.RAD 10:00 → D.OPS 10:00 → OBSVTIME 11:21 → D.M2 11:21
PROVIDERS: ADMIT General Practice
DX: R13.10 Dysphagia, unspecified (principal); G89.18 Other acute postprocedural pain; M54.9 Dorsalgia, unspecified; G89.29 Other chronic pain

== ENCOUNTER 2016-11-22 08:42 | Inpatient (IN) | payer MEDICARE ==
[~2016-11-22] VITALS: Ht 160 cm; Wt 74.8 kg
[2016-11-22 11:31] LABS: EOSINOPHILS 1.4 % (0-7); HEMATOCRIT 41.5 % (36.0-48.0); HEMOGLOBIN 14.3 g/dL (12-16); IMMATURE GRANULOCYTES 0.2 % (0-5); MCH 30.6 pg (26.0-34.0); MCHC 34.5 g/dL (31.0-37.0); MCV 88.9 fL (80.0-100.0); MEAN PLATELET VOLUME 11.2 fL (7.4-10.4); MONOCYTES 8.8 % (2-11); NEUTROPHILS 43.6 % (40-80); RBC 4.67 10x6/uL (4.00-5.40); RDW 14.3 % (11.5-14.5); WBC 5.1 10x3/uL (4.8-10.8)
[2016-11-22 11:32] LABS: PLATELET COUNT 251 10x3/uL (130-400)
[2016-11-22 11:38] LABS: INR 1.06 (0.85-1.17); PROTIME 13.7 SECONDS (11.6-15.0)
[2016-11-22] MEDS ORDERED: MIRALAX17 GM PO (11:42)
[2016-11-22 11:54] LABS: ALBUMIN 3.2 g/dL (3.4-5.0); ALKALINE PHOSPHATASE 249 U/L (46-116); ALT (SGPT) 36 U/L (10-68); BILIRUBIN - TOTAL 0.36 mg/dL (0.2-1.3); MAGNESIUM - SERUM 1.9 mg/dL (1.8-2.4); PROTEIN - SERUM 7.5 g/dL (6.4-8.2)
[2016-11-22 11:59] LABS: CALC OSMOLALITY 270 mosm/kg (275-300); CARBON DIOXIDE 18.8 mmol/L (21.0-32.0); CHLORIDE - SERUM 101 mmol/L (98-107); CREATININE - SERUM 0.5 mg/dL (0.6-1.3); GLUCOSE 100 mg/dL (74-106); POTASSIUM - SERUM 4.2 mmol/L (3.5-5.1); SODIUM 135 mmol/L (136-145); UREA NITROGEN 16 mg/dL (7-18); eGFR NON AFRICAN AMERICAN > 90 mL/min (90-120)
[2016-11-22 12:00] LABS: CALCIUM 8.9 mg/dL (8.5-10.1)
[2016-11-22 12:24] VITALS: BP 123/58
[2016-11-22 13:52] VITALS: BP 123/58; BMI 29.2
[2016-11-22 16:34] VITALS: BP 108/44
[2016-11-22 20:00] VITALS: BP 130/54
--- NOTE | 2016-11-22 20:00 | NUR ---
ASSESSMENT PER FLOWSHEET.IV PATENT LEFT INFUSAPORT OF D5LR INFUSING AT 100CC'S/HR SITE CLEAR. GTUBE CONNECTED TO GRAVITY OF A ZAVALA BAG. PT REMAINS NPO.
--- NOTE | 2016-11-22 22:25 | NUR ---
C/O ABDOMINAL PAIN RATES PAIN LEVEL #8. DILAUDID 1 MG IVP GIVEN FOR PAIN CONTROL
[2016-11-23] VITALS: BP 120/56
--- NOTE | 2016-11-23 | NUR ---
EYES CLOSED RESPIRATIONS WITH EASE AND UNLABORED.
--- NOTE | 2016-11-23 02:20 | NUR ---
AWAKE REQUESTING PAIN MED FOR ABDOMINAL DISCOMFORT RATES PAIN LEVEL #6. DILAUDID 1MG IVP GIVEN FOR PAIN CONTROL.
[2016-11-23 04:00] VITALS: BP 138/51
--- NOTE | 2016-11-23 05:15 | NUR ---
AWAKE UP AD MIGUEL TO BR VOIDS WELL.
--- NOTE | 2016-11-23 05:56 | NUR ---
NO CHANGES IN ASSESSMENT.
--- NOTE | 2016-11-23 06:21 | NUR ---
C/O ABDOMINAL PAIN RATES PAIN LEVEL #5-6. DILAUDID 1MG IVP GIVEN FOR PAIN CONTROL.REMAINS NPO FOR CT SCAN ABDOMEN/PELVIS WITH CONTRAST.
[2016-11-23 06:23] LABS: BASOPHILS 1.2 % (0-2); EOSINOPHILS 3.9 % (0-7); HEMATOCRIT 36.1 % (36.0-48.0); HEMOGLOBIN 12.3 g/dL (12-16); IMMATURE GRANULOCYTES 1.2 % (0-5); LYMPHOCYTES 58.1 % (15-50); MCHC 34.1 g/dL (31.0-37.0); MEAN PLATELET VOLUME 12.3 fL (7.4-10.4); MONOCYTES 9.4 % (2-11); NEUTROPHILS 26.2 % (40-80); PLATELET COUNT 212 10x3/uL (130-400); RDW 14.1 % (11.5-14.5); WBC 4.2 10x3/uL (4.8-10.8)
[2016-11-23 06:34] LABS: ALBUMIN 2.4 g/dL (3.4-5.0); ALKALINE PHOSPHATASE 202 U/L (46-116); ALT (SGPT) 33 U/L (10-68); CALC OSMOLALITY 276 mosm/kg (275-300); CALCIUM 8.2 mg/dL (8.5-10.1); CHLORIDE - SERUM 105 mmol/L (98-107); CREATININE - SERUM 0.6 mg/dL (0.6-1.3); GLUCOSE 97 mg/dL (74-106); PROTEIN - SERUM 5.9 g/dL (6.4-8.2); SODIUM 138 mmol/L (136-145); UREA NITROGEN 15 mg/dL (7-18); eGFR NON AFRICAN AMERICAN > 90 mL/min (90-120)
--- NOTE | 2016-11-23 08:15 | NUR ---
ASSESSMENT PER FLOW SHEET.PT WITHOUT DISTRESS.REQUEST PAIN MEDS WHEN TIME.DOOR OPEN TO MONITOR.CALL LIGHT IN REACH
[2016-11-23 08:26] VITALS: BP 129/53
[2016-11-23 12:57] VITALS: BP 135/61
--- NOTE | 2016-11-23 14:16 | NUR ---
Patient Name: SHEFALI MALDONADO Admission Status: Elective Accout number: [id number] Admission Date: 11-22-2016 : 1950 Admission Diagnosis:OTHER INTESTINAL OBSTRUCTION Attending: ISRA Current LOS: 1 Anticipated DC Date: Planned Disposition: Home Primary Insurance: MEDICARE A & B Discharge Planning Comments: CM met with patient to assess discharge planning needs. Patient lives independently home alone, but her son lives next door on the same property. Patient denies any DME or HH services and states that she does not need anything at the present time. Patient states that her daughter Yumiko Foss will her canal driver home. There are 2 steps into the home and patient denies any trouble with them. CM will continue to follow and assist as needed PCP: Boris Tolbert's Yumiko Foss (daughter) [phone] Commercial Helicopter Pilot: Elsy Enriquez * Is the patient Alert and Oriented? Yes 0 * How many steps to enter\exit or inside your home? 2 0 * PCP BORIS 0 * Pharmacy [facility] 0 * Preadmission Environment Home with Family 0 * ADLs Independent 0 * Equipment None 0 * List name and contact numbers for known caregivers / representatives who currently or will assist patient after discharge: YUMIKO FOSS (DAUGHTER) [phone] SON LIVES ON SAME PROPERTY 0 * Community resources currently utilized None 0 * Additional services required to return to the preadmission environment? No 0 * Can the patient safely return to the preadmission environment? Yes 0 * Has this patient been hospitalized within the prior 30 days at any hospital? No 0 Grand Total: 0
[2016-11-23 14:43] VITALS: Ht 160 cm; Wt 74.8 kg
[2016-11-23 16:11] VITALS: BP 139/56
--- NOTE | 2016-11-23 18:48 | NUR ---
REMAINS WITHOUT CHANGE FROM INITIAL ASSESSMENT.CONT PLAN OF CARE
--- NOTE | 2016-11-23 19:57 | NUR ---
AWAKE, ALERT AND ORIENTED X'S 4. PATIENT DENIES NEEDS. WATCHING TV. ZAVALA CATHETER DRAINING TO GRAVITY. BED IN LOWEST POSITION, CALL LIGHT IN REACH.
[2016-11-23 20:00] VITALS: BP 128/56
[2016-11-24] VITALS: BP 135/54
[2016-11-24 04:00] VITALS: BP 139/86
--- NOTE | 2016-11-24 07:45 | NUR ---
ASSESSMENT PER FLOW SHEET.PT WITHOUT DISTRESS.DENIES NEEDDS,BUT COMPLAINS OF CHRONIC BACK PAIN. SHE STATES WHEN SHE SMALL BACK PAIN IT MAKES HER ABDOMEN HURT. CALL LIGHT IN REACH. PAIN MEDS GIVEN PER MILTON BENNETT NURSE THIS AM.
[2016-11-24 07:53] VITALS: BP 132/56
--- NOTE | 2016-11-24 11:58 | NUR ---
PROT FLUSHED,NEEDLE DC'D.DISCHARGE INSTRUCTIONS,STATES UNDERSTANDING. TOLERATING FL DIET WITHOUT EMESIS.[facility] SOFT REGULAR DIET ORDERED FOR LUNCH.PT DECLINES TO STAY.
--- NOTE | 2016-11-24 12:03 | NUR ---
LEFT UNIT VIA WHEELCHAIR FOR TRANSPORT HOME
== END 2016-11-24 12:03 | disposition home or self-care (01) | DRG 390 ==
LOC: D.RAD 08:42 → D.ER 08:42 → EDSTATUS 09:00 → D.RAD 09:00 → D.MS 10:52
PROVIDERS: Emergency Medicine; ADMIT Family Medicine
DX: K56.69 Other intestinal obstruction (principal); F41.9 Anxiety disorder, unspecified; F32.9 Major depressive disorder, single episode, unspecified

== ENCOUNTER → 2017-06-04 12:04 | Outpatient (CLI) | payer MEDICARE ==
[2016-11-23 14:43] VITALS: BMI 29.2
--- NOTE | ~2017-06-04 | HEMODYNAMI ---
PATIENT:SHEFALI MALDONADO MEDICAL RECORD: [id number] : [birth year] LOCATION:D.OPS ADMISSION DATE: 06/04/17 Generatedon:06/04/201713:35 Patient name: SHEFALI MALDONADO Patient #: [id number] SSN: : 1 04/20/1949 Date of study: 06/04/2017 Page: Of Hemodynamic Procedure Report Patient Data Patient Demographics Procedure consent was obtained First Name: SHEFALI Gender: Female Last Name: JOEL : 1950 Middle Initial: BRENDA Age: 67 year(s) Patient #: [id number] Race: Unknown Additional ID: [id number] Contact details [address]: [address] [place] [address] State: [place] City: [place] Zip code: [address] Admission Admission Data Admission Date: 06/04/2017 Admission Time: 12:04 Procedure Procedure Types Cath Procedure Peripheral Cath Diagnostic Procedure Gastric J- Tube Replacement/Exchange Procedure Description Procedure Date Procedure Date: 06/04/2017 Procedure Start Time: 13:12 Procedure Staff Name Function Lokesh Johnson RT Monitor Martín Ozuna MD Performing Physician Jaqui Velez RT Scrub Kaylynn Mcfarland RN Nurse Carlos Carl Procedure Data Cath Procedure Fluoroscopy Diagnostic fluoroscopy Total fluoroscopy Time: 0.8 time: 0.8 min min Diagnostic fluoroscopy Total fluoroscopy dose: 26 dose: 26 mGy mGy Contrast Material Contrast Material Type Amount (ml) Isovue 300 10 Procedure Medications Medication Administration Route Dosage Zofran 8 mg Hemodynamics Rest Pre Cath Intra NCS Post Cath Medications Time Medication Route Dose Verified Delivered Reason Notes Effectiven ess by by 13:20:58 Zofran IM 8 mg Eileen Pickering MD Procedure Log Time Note 12:47:20 Lokesh Johnson RT (R) (CV) sent for patient. Start room use. 12:47:27 Time tracking: Regular hours 12:47:33 Plan of Care:Hemodynamics will remain stable., Cardiac rhythm will remain stable., Comfort level will be maintained., Respiratory function will remain adequate., Patient/ family verbilizes understanding of procedure., Procedure tolerated without complication., Recovers from procedure without complications.. 12:47:43 Patient received from Outpatients to IR Alert and oriented. Tansferred to table in Supine position. 12:47:45 Correct patient and procedure confirmed by team. 12:47:47 Signed procedure consent form obtained from patient. 12:47:48 ECG and BP/O2 sat monitors applied to patient. 12:47:55 - 12:47:55 Full Disclosure recording started 12:47:58 Pre-op teaching completed and patient verbalized understanding. 12:47:58 Pre-procedure instructions explained to patient. 12:48:01 Family unavailable. 12:48:03 Patient NPO since Midnight. 12:48:09 Use device set IR Diagnostic 12:48:11 Sterile Angiographic Pack opened to sterile field. 12:48:12 Bag Decanter ([id number]) opened to sterile field. 12:48:32 Left abdomen area was prepped with chlora-prep and draped in sterile fashion 13:05:41 Physician arrived 13:05:42 --------ALL STOP TIME OUT------ 13:05:46 Final Timeout: patient, procedure, and site verified with staff and physician. All members of the team are in agreement. 13:05:50 Left abdomen site verified by team. 13:05:57 Sedation plan: Local Anesthetic Medication:Lidocaine 13:11:09 AMPLATZ Super Stiff 75cm wire ([id number]) opened to sterile field. 13:12:10 Procedure started. 13:12:16 Local anesthetic to Abdominal area with Lidocaine 1% by Martín Ozuna MD.INITIAL ACCESS ONLY 13:14:18 GASTROSTOMY 18Fr Tri-Funnel Tube ([id number]) opened to sterile field. 13:19:30 Procedure ended.(Physican Out) 13:20:58 GIVEN RIGHT GLUTEAL 13:20:58 Zofran 8 mg IM was administered by Carlos Arellano; NAUSEA; 13:24:22 Fluoroscopy time 00.80 minutes. 13:24:31 Fluoroscopy dose: 26 mGy 13:24:31 Flurop Dose total: 26 13:27:34 Contrast amount:Isovue 300 10ml. 13:27:36 Sharps counted by scrub and verified by R.N. 13:27:37 Insertion/operative site no bleeding no hematoma. 13:27:43 Post Abdominal area:stable 13:27:47 Post procedure instruction explained to patient.Patient verbalizes understanding. 13:28:01 Report given to Other. 13:28:05 Patient transfered to Other with Ambulatory. 13:28:46 Full Disclosure recording stopped Device Usage Item Name Manufacture Quantity Catalog Hospital Part Current Minimal Lot# / Number Charge Number Stock Stock Serial# Code Sterile [place] 1 [id number] 5 Angiographic Health Pack Bag Decanter Microtek 1 [id number] 5 (2001S) [employer] AMPLATZ Milligan 1 [id number] [id number] 5 [id number] Super Stiff Scientific 75cm wire ([id number]) GASTROSTOMY Bard 1 [id number] 5 18Fr Tri-Funnel Tube ([id number]) Signature Audit [place] Stage Time Signature Unsigned Intra-Procedure 06/04/2017 Lokesh 1:35:21 PM Elizabeth RT (R) (CV) Signatures Monitor : Lokesh Signature : Elizabeth RT Date : Time : [address] [address]
[~2017-06-04 12:04] MED LIST changes: +MIRALAX17 GM PO
== END | disposition home or self-care (01) ==
LOC: D.OPS 12:04 → D.SP 13:00 → D.OPS 13:00
DX: Z43.1 Encounter for attention to gastrostomy (principal); K59.09 Other constipation; Z01.812 Encounter for preprocedural laboratory examination

== ENCOUNTER 2017-06-24 09:09 | Inpatient (IN) | payer MEDICARE ==
[~2017-06-24] VITALS: Ht 160 cm; Wt 74.8 kg
--- NOTE | ~2017-06-24 | HP ---
PATIENT: SHEFALI MALDONADO MEDICAL RECORD: [id number] ACCOUNT: [id number] LOCATION:D.MS [facility] : [birth year] ADMISSION DATE: 06/24/17 HISTORY AND PHYSICAL EXAMINATION DATE OF ADMISSION: 06/24/2017. CHIEF COMPLAINT: Abdominal pain, nausea, and vomiting. HISTORY OF PRESENT ILLNESS: This is a 67-year-old white female with multiple abdominal surgeries and has had a history of small bowel obstructions. She presented to the ER today with acute onset at 2:00 a.m. today with worsening abdominal pain, nausea, and vomiting. She states her PEG tube came out 5 days ago and she put it back in herself. Evaluation in the Emergency Department, CT of abdomen and pelvis shows small-bowel obstruction, most likely due to adhesions and near complete colostomy with small bowel to sigmoid anastomosis. Her lab work looks pretty stable. She is admitted for small-bowel obstruction. PAST MEDICAL AND SURGICAL HISTORY: Degenerative disk disease, irritable bowel syndrome, depression, hypothyroidism, osteoarthritis, and skin cancer. PAST SURGICAL HISTORY: Colon resection, neck surgery, back surgery, G-tube placement, IV port placement, cholecystectomy, hernia repair, appendectomy, hysterectomy, exploratory laparoscopy times 3. ALLERGIES: SUMATRIPTAN and STEROIDS. HOME MEDICATIONS: Duloxetine 60 mg a day, zolpidem 10 mg at bedtime, Synthroid 88 mcg once a day, gabapentin 600 mg twice a day, Nexium 40 mg once a day, Reglan 5 mg t.i.d., morphine IR 30 t.i.d., senna p.r.n. constipation, and milk of magnesia daily. FAMILY HISTORY: Heart disease and cancers. HABITS: No alcohol, tobacco, or drugs. REVIEW OF SYSTEMS: GENERAL: No major weight changes. HEENT: No sinus or allergy problems. RESPIRATORY: No history of emphysema or asthma. CARDIAC: No history of coronary artery disease. GASTROINTESTINAL: See above history with multiple surgeries, adhesions, and small bowel obstructions. GENITOURINARY: No significant problems there. MUSCULOSKELETAL: Has chronic pain in her back and neck. NEUROLOGIC: She has headaches at times. PSYCHIATRIC: Has depression and anxiety. PHYSICAL EXAMINATION: VITAL SIGNS: Temperature 98.5, pulse 105, respirations 17, blood pressure 139/83, no acute distress, but complaining of pain. HEENT: Grossly within normal limits. NECK: Supple. HEART: Regular rate and rhythm. LUNGS: Fairly clear. HISTORY AND PHYSICAL [id number] HILL,SHEFALI GREEN ABDOMEN: With pain across the middle. No guarding, no rebound, no mass. PEG tube is in place and is hooked up to low intermittent suction. EXTREMITIES: No edema. LABORATORY DATA: CBC with a white count of 12,800, hemoglobin 15.2, hematocrit 42.5, and 80% polys. Basic metabolic panel is unremarkable. Alkaline phosphatase is elevated 267, lipase low at 48. Urinalysis unremarkable. ASSESSMENT: 1. Small-bowel obstruction. 2. Chronic pain. 3. Multiple abdominal surgeries with adhesions. PLAN: IV fluids, PEG tube to gravity, pain control, surgery consult, n.p.o. Other tests and procedures as warranted. TRANSINT:[id number] Voice Confirmation ID: [id number] DOCUMENT ID: [id number] DINO WHITE MD at 0826 CC: [id number] DICTATION DATE: 06/24/171955 CALENDER WIND UP TENDER: 06/24/172150 ADM IN [facility] [address] [id number]
[2017-06-24 10:15] LABS: APPEARANCE CLEAR (CLEAR); BILIRUBIN NEGATIVE (NEGATIVE); COLOR YELLOW (YELLOW); GLUCOSE NEGATIVE (NEGATIVE); KETONE NEGATIVE (NEGATIVE); NITRITE NEGATIVE (NEGATIVE); PROTEIN NEGATIVE (NEGATIVE); UROBILINOGEN NORMAL (NORMAL)
[2017-06-24 10:18] LABS: BACTERIA MODERATE /hpf (NONE SEEN); CALCIUM OXALATE CRYSTALS 0-5 /hpf (NONE SEEN); EPITHELIAL CELLS 0-5 /hpf (0-5); MUCUS <1+ /lpf (NONE SEEN); RED CELLS - URINE 0-5 /hpf (0-5); WHITE CELLS - URINE 0-5 /hpf (0-5)
[2017-06-24 10:40] LABS: BASOPHILS 0.2 % (0-2); EOSINOPHILS 0.2 % (0-7); HEMATOCRIT 42.4 % (36.0-48.0); HEMOGLOBIN 15.2 g/dL (12-16); IMMATURE GRANULOCYTES 0.2 % (0-5); LYMPHOCYTES 13.8 % (15-50); MCH 32.8 pg (26.0-34.0); MCHC 35.8 g/dL (31.0-37.0); MCV 91.6 fL (80.0-100.0); MEAN PLATELET VOLUME 10.3 fL (7.4-10.4); MONOCYTES 5.3 % (2-11); NEUTROPHILS 80.3 % (40-80); PLATELET COUNT 249 10x3/uL (130-400); RBC 4.63 10x6/uL (4.00-5.40); RDW 12.7 % (11.5-14.5); WBC 12.8 10x3/uL (4.8-10.8)
[2017-06-24 10:58] LABS: ALKALINE PHOSPHATASE 267 U/L (46-116); ALT (SGPT) 50 U/L (10-68); BILIRUBIN - TOTAL 0.49 mg/dL (0.2-1.3); CALC OSMOLALITY 275 mosm/kg (275-300); CALCIUM 8.7 mg/dL (8.5-10.1); CARBON DIOXIDE 28.1 mmol/L (21.0-32.0); CHLORIDE - SERUM 104 mmol/L (98-107); CREATININE - SERUM 0.6 mg/dL (0.6-1.3); GLUCOSE 116 mg/dL (74-106); POTASSIUM - SERUM 3.5 mmol/L (3.5-5.1); PROTEIN - SERUM 6.2 g/dL (6.4-8.2); SODIUM 137 mmol/L (136-145); UREA NITROGEN 15 mg/dL (7-18); eGFR NON AFRICAN AMERICAN > 90 mL/min (90-120)
[2017-06-24 11:00] LABS: LIPASE 48 U/L (73-393)
[2017-06-24 16:07] VITALS: BP 115/57
[2017-06-24] MEDS ORDERED: AMBIEN10 MG PO (19:49)
[2017-06-24 23:18] VITALS: BP 136/58
[2017-06-25 03:42] VITALS: BP 136/58; BMI 29.2
[2017-06-25 04:00] VITALS: BP 128/60
[2017-06-25] MEDS ORDERED: BUMETANIDE0.5 MG PO (05:10)
[2017-06-25 05:17] LABS: BASOPHILS 0.6 % (0-2); EOSINOPHILS 0.9 % (0-7); HEMATOCRIT 42.2 % (36.0-48.0); HEMOGLOBIN 14.3 g/dL (12-16); IMMATURE GRANULOCYTES 0.2 % (0-5); LYMPHOCYTES 35.9 % (15-50); MCH 31.8 pg (26.0-34.0); MCHC 33.9 g/dL (31.0-37.0); MEAN PLATELET VOLUME 10.8 fL (7.4-10.4); MONOCYTES 6.2 % (2-11); NEUTROPHILS 56.2 % (40-80); PLATELET COUNT 247 10x3/uL (130-400); RBC 4.49 10x6/uL (4.00-5.40)
[2017-06-25 05:28] LABS: WBC 6.4 10x3/uL (4.8-10.8)
[2017-06-25 05:38] LABS: CALC OSMOLALITY 279 mosm/kg (275-300); CALCIUM 8.5 mg/dL (8.5-10.1); CARBON DIOXIDE 26.9 mmol/L (21.0-32.0); CHLORIDE - SERUM 106 mmol/L (98-107); CREATININE - SERUM 0.7 mg/dL (0.6-1.3); GLUCOSE 90 mg/dL (74-106); POTASSIUM - SERUM 3.5 mmol/L (3.5-5.1); SODIUM 140 mmol/L (136-145); UREA NITROGEN 16 mg/dL (7-18); eGFR NON AFRICAN AMERICAN 88 mL/min (90-120)
[2017-06-25 08:25] VITALS: BP 116/58
[2017-06-25 13:51] VITALS: BMI 29.2
[2017-06-25 14:08] VITALS: BP 127/46
[2017-06-25 14:25] VITALS: Ht 160 cm; Wt 74.8 kg
[2017-06-25 16:47] VITALS: BP 149/61
[2017-06-25 20:00] VITALS: BP 139/62
[2017-06-26 04:00] VITALS: BP 146/69
[2017-06-26 05:03] LABS: BASOPHILS 0.6 % (0-2); HEMATOCRIT 39.9 % (36.0-48.0); HEMOGLOBIN 13.5 g/dL (12-16); IMMATURE GRANULOCYTES 0.2 % (0-5); LYMPHOCYTES 24.6 % (15-50); MCH 31.8 pg (26.0-34.0); MCHC 33.8 g/dL (31.0-37.0); MCV 93.9 fL (80.0-100.0); MEAN PLATELET VOLUME 10.5 fL (7.4-10.4); MONOCYTES 4.3 % (2-11); NEUTROPHILS 69.3 % (40-80); PLATELET COUNT 222 10x3/uL (130-400); RBC 4.25 10x6/uL (4.00-5.40); RDW 12.8 % (11.5-14.5); WBC 5.1 10x3/uL (4.8-10.8)
[2017-06-26 05:20] LABS: CALCIUM 8.1 mg/dL (8.5-10.1); CARBON DIOXIDE 23.2 mmol/L (21.0-32.0); CHLORIDE - SERUM 103 mmol/L (98-107); CREATININE - SERUM 0.6 mg/dL (0.6-1.3); POTASSIUM - SERUM 3.3 mmol/L (3.5-5.1); SODIUM 139 mmol/L (136-145); eGFR NON AFRICAN AMERICAN > 90 mL/min (90-120)
[2017-06-26 05:52] LABS: CALC OSMOLALITY 274 mosm/kg (275-300); GLUCOSE 65 mg/dL (74-106); UREA NITROGEN 9 mg/dL (7-18)
[2017-06-26 09:39] VITALS: BP 158/78
[2017-06-26 12:02] VITALS: BP 154/58
[2017-06-26 14:12] LABS: APPEARANCE CLEAR (CLEAR); BILIRUBIN NEGATIVE (NEGATIVE); COLOR YELLOW (YELLOW); GLUCOSE NEGATIVE (NEGATIVE); KETONE LARGE mg/dL (NEGATIVE); NITRITE NEGATIVE (NEGATIVE); PROTEIN NEGATIVE (NEGATIVE); UROBILINOGEN NORMAL (NORMAL)
[2017-06-26 16:17] VITALS: BP 134/70
[2017-06-26 20:00] VITALS: BP 157/68
[2017-06-27 04:00] VITALS: BP 154/77
[2017-06-27 08:08] VITALS: BP 152/64
[2017-06-27 09:33] LABS: BASOPHILS 0.5 % (0-2); HEMATOCRIT 37.9 % (36.0-48.0); HEMOGLOBIN 13.2 g/dL (12-16); IMMATURE GRANULOCYTES 0.2 % (0-5); LYMPHOCYTES 29.6 % (15-50); MCH 32.4 pg (26.0-34.0); MCHC 34.8 g/dL (31.0-37.0); MCV 92.9 fL (80.0-100.0); MEAN PLATELET VOLUME 10.7 fL (7.4-10.4); MONOCYTES 9.5 % (2-11); NEUTROPHILS 58.2 % (40-80); PLATELET COUNT 217 10x3/uL (130-400); RBC 4.08 10x6/uL (4.00-5.40); RDW 12.7 % (11.5-14.5); WBC 4.1 10x3/uL (4.8-10.8)
[2017-06-27 09:50] LABS: ALBUMIN 2.5 g/dL (3.4-5.0); ALKALINE PHOSPHATASE 217 U/L (46-116); ALT (SGPT) 40 U/L (10-68); BILIRUBIN - TOTAL 0.53 mg/dL (0.2-1.3); CALC OSMOLALITY 273 mosm/kg (275-300); CARBON DIOXIDE 28.6 mmol/L (21.0-32.0); CHLORIDE - SERUM 105 mmol/L (98-107); CREATININE - SERUM 0.6 mg/dL (0.6-1.3); GLUCOSE 87 mg/dL (74-106); MAGNESIUM - SERUM 1.8 mg/dL (1.8-2.4); POTASSIUM - SERUM 3.3 mmol/L (3.5-5.1); PROTEIN - SERUM 5.5 g/dL (6.4-8.2); SODIUM 139 mmol/L (136-145); eGFR NON AFRICAN AMERICAN > 90 mL/min (90-120)
[2017-06-27 09:51] LABS: UREA NITROGEN 4 mg/dL (7-18)
[2017-06-27 12:53] VITALS: BP 150/68
[2017-06-27 15:54] VITALS: BP 144/62
[2017-06-27 20:00] VITALS: BP 146/66
[2017-06-28] VITALS: BP 144/66
[2017-06-28 04:00] VITALS: BP 179/67
[2017-06-28 07:55] VITALS: BP 154/74
[2017-06-28 07:55] LABS: BASOPHILS 0.4 % (0-2); EOSINOPHILS 0.8 % (0-7); HEMATOCRIT 41.2 % (36.0-48.0); HEMOGLOBIN 14.4 g/dL (12-16); IMMATURE GRANULOCYTES 0.3 % (0-5); LYMPHOCYTES 25.8 % (15-50); MCH 32.4 pg (26.0-34.0); MCV 92.6 fL (80.0-100.0); MEAN PLATELET VOLUME 10.2 fL (7.4-10.4); MONOCYTES 8.3 % (2-11); NEUTROPHILS 64.4 % (40-80); PLATELET COUNT 221 10x3/uL (130-400); RBC 4.45 10x6/uL (4.00-5.40); RDW 12.6 % (11.5-14.5)
[2017-06-28 08:07] LABS: WBC 7.2 10x3/uL (4.8-10.8)
[2017-06-28 08:09] LABS: CALC OSMOLALITY 272 mosm/kg (275-300); CALCIUM 8.7 mg/dL (8.5-10.1); CARBON DIOXIDE 30.4 mmol/L (21.0-32.0); CHLORIDE - SERUM 101 mmol/L (98-107); CREATININE - SERUM 0.6 mg/dL (0.6-1.3); GLUCOSE 97 mg/dL (74-106); SODIUM 138 mmol/L (136-145); UREA NITROGEN 4 mg/dL (7-18); eGFR NON AFRICAN AMERICAN > 90 mL/min (90-120)
[2017-06-28 08:11] LABS: POTASSIUM - SERUM 2.9 mmol/L (3.5-5.1)
== END 2017-06-28 11:14 | disposition home or self-care (01) | DRG 389 ==
LOC: D.ER 09:09 → D.EDHOLD 15:04 → D.MS 15:04
PROVIDERS: Emergency Medicine; Family Medicine
DX: K56.600 Partial intestinal obstruction, unspecified as to cause (principal); F11.20 Opioid dependence, uncomplicated; G89.29 Other chronic pain; T40.2X5A Adverse effect of other opioids, initial encounter; E03.9 Hypothyroidism, unspecified; K58.1 Irritable bowel syndrome with constipation; M19.90 Unspecified osteoarthritis, unspecified site; Z93.1 Gastrostomy status

== ENCOUNTER 2017-08-01 13:52 | Emergency (ER) | payer MEDICARE ==
[2017-06-25 14:25] VITALS: BMI 29.2
[~2017-08-01 13:52] MED LIST changes: +AMBIEN10 MG PO; +BUMETANIDE0.5 MG PO
[2017-08-01 15:06] LABS: ALBUMIN 3.2 g/dL (3.4-5.0); ALKALINE PHOSPHATASE 181 U/L (46-116); ALT (SGPT) 22 U/L (10-68); AMYLASE - SERUM 39 U/L (25-115); BILIRUBIN - TOTAL 0.31 mg/dL (0.2-1.3); CALC OSMOLALITY 282 mosm/kg (275-300); CALCIUM 8.6 mg/dL (8.5-10.1); CHLORIDE - SERUM 107 mmol/L (98-107); CREATININE - SERUM 0.7 mg/dL (0.6-1.3); GLUCOSE 118 mg/dL (74-106); LIPASE 93 U/L (73-393); POTASSIUM - SERUM 3.9 mmol/L (3.5-5.1); SODIUM 141 mmol/L (136-145); UREA NITROGEN 14 mg/dL (7-18); eGFR NON AFRICAN AMERICAN 88 mL/min (90-120)
[2017-08-01 15:08] LABS: BASOPHILS 0.5 % (0-2); EOSINOPHILS 0.7 % (0-7); HEMATOCRIT 42.9 % (36.0-48.0); HEMOGLOBIN 14.5 g/dL (12-16); IMMATURE GRANULOCYTES 0.5 % (0-5); LYMPHOCYTES 30.2 % (15-50); MCHC 33.8 g/dL (31.0-37.0); MCV 94.7 fL (80.0-100.0); MEAN PLATELET VOLUME 10.6 fL (7.4-10.4); MONOCYTES 4.1 % (2-11); RBC 4.53 10x6/uL (4.00-5.40); RDW 12.6 % (11.5-14.5); WBC 6.2 10x3/uL (4.8-10.8)
[2017-08-01 15:13] LABS: PLATELET COUNT 269 10x3/uL (130-400)
[2017-08-01 17:09] LABS: APPEARANCE CLEAR (CLEAR); BILIRUBIN NEGATIVE (NEGATIVE); COLOR YELLOW (YELLOW); GLUCOSE NEGATIVE (NEGATIVE); KETONE NEGATIVE (NEGATIVE); NITRITE NEGATIVE (NEGATIVE); PROTEIN NEGATIVE (NEGATIVE); SPECIFIC GRAVITY 1.015 (1.005-1.020); UROBILINOGEN NORMAL (NORMAL)
[2017-08-01 17:10] LABS: RED CELLS - URINE 0-5 /hpf (0-5); WHITE CELLS - URINE 0-5 /hpf (0-5)
[2017-08-01 17:11] LABS: BACTERIA FEW /hpf (NONE SEEN); EPITHELIAL CELLS 0-5 /hpf (0-5)
== END 2017-08-01 19:21 | disposition home or self-care (01) ==
LOC: D.ER 13:52
PROVIDERS: Family Medicine
DX: R10.32 Left lower quadrant pain (principal); Z87.09 Personal history of other diseases of the respiratory system; I10 Essential (primary) hypertension

== ENCOUNTER → 2017-08-03 13:03 | Outpatient (CLI) | payer MEDICARE ==
[2017-06-25 14:25] VITALS: BMI 29.2
[~2017-08-03 13:03] MED LIST changes: +ROBAXIN500 MG PO; +VITAMIN D2000 UNIT PO
== END | disposition home or self-care (01) ==
LOC: D.US 13:00
DX: R10.2 Pelvic and perineal pain (principal); N39.43 Post-void dribbling

== ENCOUNTER 2017-08-23 09:16 | Inpatient (IN) | payer MEDICARE ==
[~2017-08-23] VITALS: Ht 160 cm; Wt 74.8 kg
[~2017-08-23 09:16] MED LIST changes: -ROBAXIN500 MG PO; -VITAMIN D2000 UNIT PO
[2017-08-23 10:43] LABS: APPEARANCE HAZY (CLEAR); BACTERIA MODERATE /hpf (NONE SEEN); BILIRUBIN NEGATIVE (NEGATIVE); CALCIUM OXALATE CRYSTALS 0-5 /hpf (NONE SEEN); COLOR DK YELLOW (YELLOW); GLUCOSE NEGATIVE (NEGATIVE); HYALINE CAST 0-5 /lpf (NONE SEEN); KETONE NEGATIVE (NEGATIVE); MUCUS <1+ /lpf (NONE SEEN); NITRITE NEGATIVE (NEGATIVE); PROTEIN NEGATIVE (NEGATIVE); RED CELLS - URINE RARE /hpf (0-5); SPECIFIC GRAVITY 1.025 (1.005-1.020); UROBILINOGEN NORMAL (NORMAL)
[2017-08-23 10:58] LABS: ALBUMIN 3.2 g/dL (3.4-5.0); CALC OSMOLALITY 271 mosm/kg (275-300); CALCIUM 9.2 mg/dL (8.5-10.1); CARBON DIOXIDE 27.1 mmol/L (21.0-32.0); CHLORIDE - SERUM 103 mmol/L (98-107); CREATININE - SERUM 0.7 mg/dL (0.6-1.3); GLUCOSE 108 mg/dL (74-106); PROTEIN - SERUM 7.9 g/dL (6.4-8.2); SODIUM 134 mmol/L (136-145); UREA NITROGEN 20 mg/dL (7-18); eGFR NON AFRICAN AMERICAN 88 mL/min (90-120)
[2017-08-23 11:04] LABS: ALKALINE PHOSPHATASE 227 U/L (46-116); ALT (SGPT) 48 U/L (10-68); POTASSIUM - SERUM 4.4 mmol/L (3.5-5.1)
[2017-08-23 11:05] LABS: BASOPHILS 0.8 % (0-2); EOSINOPHILS 1.1 % (0-7); HEMATOCRIT 42.6 % (36.0-48.0); HEMOGLOBIN 14.8 g/dL (12-16); IMMATURE GRANULOCYTES 0.2 % (0-5); LYMPHOCYTES 25.9 % (15-50); MCH 32.2 pg (26.0-34.0); MCHC 34.7 g/dL (31.0-37.0); MCV 92.6 fL (80.0-100.0); MEAN PLATELET VOLUME 11.4 fL (7.4-10.4); MONOCYTES 7.7 % (2-11); NEUTROPHILS 64.3 % (40-80); RDW 12.8 % (11.5-14.5); WBC 6.5 10x3/uL (4.8-10.8)
[2017-08-23 11:41] LABS: PLATELET COUNT 73 10x3/uL (130-400); PLATELET ESTIMATE NORMAL
[2017-08-23] MEDS ORDERED: VITAMIN D2000 UNIT PO (15:16)
[2017-08-23 15:18] VITALS: BP 127/45; BMI 29.2
[2017-08-23 16:23] VITALS: BP 127/45
[2017-08-23 22:16] VITALS: BP 144/56
[2017-08-24 05:26] VITALS: BP 125/56
[2017-08-24 05:36] LABS: BASOPHILS 1.1 % (0-2); EOSINOPHILS 2.4 % (0-7); HEMATOCRIT 35.6 % (36.0-48.0); HEMOGLOBIN 12.1 g/dL (12-16); IMMATURE GRANULOCYTES 0.2 % (0-5); LYMPHOCYTES 42.5 % (15-50); MCH 32.1 pg (26.0-34.0); MCV 94.4 fL (80.0-100.0); MEAN PLATELET VOLUME 10.3 fL (7.4-10.4); MONOCYTES 8.4 % (2-11); NEUTROPHILS 45.4 % (40-80); RBC 3.77 10x6/uL (4.00-5.40); RDW 12.7 % (11.5-14.5)
[2017-08-24 05:38] LABS: PLATELET COUNT 245 10x3/uL (130-400); WBC 4.5 10x3/uL (4.8-10.8)
[2017-08-24 05:51] LABS: CALC OSMOLALITY 283 mosm/kg (275-300); CALCIUM 7.8 mg/dL (8.5-10.1); CARBON DIOXIDE 26.8 mmol/L (21.0-32.0); CHLORIDE - SERUM 109 mmol/L (98-107); CREATININE - SERUM 0.7 mg/dL (0.6-1.3); GLUCOSE 96 mg/dL (74-106); POTASSIUM - SERUM 4.2 mmol/L (3.5-5.1); SODIUM 142 mmol/L (136-145); UREA NITROGEN 15 mg/dL (7-18); eGFR NON AFRICAN AMERICAN 88 mL/min (90-120)
[2017-08-24 08:03] VITALS: BP 101/48
[2017-08-24 12:17] VITALS: BMI 29.2
[2017-08-24 12:37] VITALS: Ht 160 cm; Wt 74.8 kg
[2017-08-24 12:58] VITALS: BP 130/53
[2017-08-24 16:52] VITALS: BP 110/49
[2017-08-24 21:32] VITALS: BP 134/62
[2017-08-25 05:48] LABS: BASOPHILS 0.6 % (0-2); EOSINOPHILS 1.9 % (0-7); HEMATOCRIT 35.5 % (36.0-48.0); HEMOGLOBIN 12.1 g/dL (12-16); IMMATURE GRANULOCYTES 0.2 % (0-5); LYMPHOCYTES 25.5 % (15-50); MCH 32.1 pg (26.0-34.0); MCHC 34.1 g/dL (31.0-37.0); MCV 94.2 fL (80.0-100.0); MONOCYTES 6.1 % (2-11); NEUTROPHILS 65.7 % (40-80); PLATELET COUNT 232 10x3/uL (130-400); RBC 3.77 10x6/uL (4.00-5.40); RDW 12.9 % (11.5-14.5); WBC 4.8 10x3/uL (4.8-10.8)
[2017-08-25 06:01] LABS: CALC OSMOLALITY 280 mosm/kg (275-300); CALCIUM 7.8 mg/dL (8.5-10.1); CARBON DIOXIDE 25.8 mmol/L (21.0-32.0); CHLORIDE - SERUM 109 mmol/L (98-107); CREATININE - SERUM 0.5 mg/dL (0.6-1.3); GLUCOSE 108 mg/dL (74-106); SODIUM 141 mmol/L (136-145); UREA NITROGEN 9 mg/dL (7-18); eGFR NON AFRICAN AMERICAN > 90 mL/min (90-120)
[2017-08-25 06:02] LABS: POTASSIUM - SERUM 3.4 mmol/L (3.5-5.1)
[2017-08-25 08:59] VITALS: BP 153/64
[2017-08-25 13:09] VITALS: BP 148/65
[2017-08-25 16:14] VITALS: BP 114/55
[2017-08-26 06:15] LABS: BASOPHILS 0.6 % (0-2); EOSINOPHILS 5.5 % (0-7); HEMATOCRIT 34.2 % (36.0-48.0); HEMOGLOBIN 11.7 g/dL (12-16); IMMATURE GRANULOCYTES 0.3 % (0-5); LYMPHOCYTES 45.1 % (15-50); MCH 32.2 pg (26.0-34.0); MCHC 34.2 g/dL (31.0-37.0); MCV 94.2 fL (80.0-100.0); MEAN PLATELET VOLUME 10.2 fL (7.4-10.4); MONOCYTES 11.6 % (2-11); NEUTROPHILS 36.9 % (40-80); PLATELET COUNT 230 10x3/uL (130-400); RBC 3.63 10x6/uL (4.00-5.40); RDW 12.7 % (11.5-14.5)
[2017-08-26 06:31] LABS: WBC 3.4 10x3/uL (4.8-10.8)
[2017-08-26 06:35] LABS: CALC OSMOLALITY 278 mosm/kg (275-300); CALCIUM 7.9 mg/dL (8.5-10.1); CARBON DIOXIDE 28.9 mmol/L (21.0-32.0); CHLORIDE - SERUM 110 mmol/L (98-107); CREATININE - SERUM 0.5 mg/dL (0.6-1.3); GLUCOSE 91 mg/dL (74-106); POTASSIUM - SERUM 3.3 mmol/L (3.5-5.1); SODIUM 141 mmol/L (136-145); eGFR NON AFRICAN AMERICAN > 90 mL/min (90-120)
[2017-08-26 06:43] LABS: UREA NITROGEN 6 mg/dL (7-18)
[2017-08-26 08:28] VITALS: BP 154/64
[2017-08-26 13:25] VITALS: BP 143/60
[2017-08-26 16:13] VITALS: BP 151/68
[2017-08-26 20:00] VITALS: BP 141/64
[2017-08-27] VITALS: BP 144/60
[2017-08-27 04:00] VITALS: BP 155/64
[2017-08-27 05:00] LABS: BASOPHILS 0.7 % (0-2); EOSINOPHILS 3.3 % (0-7); HEMATOCRIT 35.7 % (36.0-48.0); HEMOGLOBIN 12.3 g/dL (12-16); IMMATURE GRANULOCYTES 0.2 % (0-5); LYMPHOCYTES 35.4 % (15-50); MCH 31.9 pg (26.0-34.0); MCHC 34.5 g/dL (31.0-37.0); MCV 92.7 fL (80.0-100.0); MEAN PLATELET VOLUME 10.4 fL (7.4-10.4); MONOCYTES 9.5 % (2-11); NEUTROPHILS 50.9 % (40-80); PLATELET COUNT 249 10x3/uL (130-400); RBC 3.85 10x6/uL (4.00-5.40); RDW 12.6 % (11.5-14.5)
[2017-08-27 05:01] LABS: WBC 4.6 10x3/uL (4.8-10.8)
[2017-08-27 05:22] LABS: CALCIUM 8.2 mg/dL (8.5-10.1); CARBON DIOXIDE 29.5 mmol/L (21.0-32.0); CHLORIDE - SERUM 107 mmol/L (98-107); CREATININE - SERUM 0.5 mg/dL (0.6-1.3); GLUCOSE 95 mg/dL (74-106); SODIUM 143 mmol/L (136-145); eGFR NON AFRICAN AMERICAN > 90 mL/min (90-120)
[2017-08-27 05:25] LABS: CALC OSMOLALITY 281 mosm/kg (275-300); UREA NITROGEN 3 mg/dL (7-18)
[2017-08-27 05:26] LABS: POTASSIUM - SERUM 2.7 mmol/L (3.5-5.1)
[2017-08-27 08:12] VITALS: BP 130/25
[2017-08-27 12:00] VITALS: BP 150/65
[2017-08-27 14:33] LABS: CALC OSMOLALITY 279 mosm/kg (275-300); CALCIUM 8.2 mg/dL (8.5-10.1); CHLORIDE - SERUM 106 mmol/L (98-107); CREATININE - SERUM 0.4 mg/dL (0.6-1.3); GLUCOSE 98 mg/dL (74-106); POTASSIUM - SERUM 4.1 mmol/L (3.5-5.1); SODIUM 142 mmol/L (136-145); UREA NITROGEN 3 mg/dL (7-18); eGFR NON AFRICAN AMERICAN > 90 mL/min (90-120)
[2017-08-27 16:36] VITALS: BP 155/65
[2017-08-27 21:45] VITALS: BP 159/78
[2017-08-28 01:01] VITALS: BP 164/74
[2017-08-28 04:36] LABS: BASOPHILS 0.8 % (0-2); EOSINOPHILS 3.7 % (0-7); HEMATOCRIT 36.4 % (36.0-48.0); IMMATURE GRANULOCYTES 0.2 % (0-5); LYMPHOCYTES 32.9 % (15-50); MCH 32.9 pg (26.0-34.0); MCHC 35.7 g/dL (31.0-37.0); MCV 92.2 fL (80.0-100.0); MEAN PLATELET VOLUME 10.6 fL (7.4-10.4); MONOCYTES 9.1 % (2-11); NEUTROPHILS 53.3 % (40-80); PLATELET COUNT 240 10x3/uL (130-400); RBC 3.95 10x6/uL (4.00-5.40); RDW 12.4 % (11.5-14.5); WBC 4.9 10x3/uL (4.8-10.8)
[2017-08-28 04:51] LABS: CALCIUM 8.2 mg/dL (8.5-10.1); CARBON DIOXIDE 30.7 mmol/L (21.0-32.0); CHLORIDE - SERUM 106 mmol/L (98-107); CREATININE - SERUM 0.5 mg/dL (0.6-1.3); GLUCOSE 100 mg/dL (74-106); SODIUM 144 mmol/L (136-145); eGFR NON AFRICAN AMERICAN > 90 mL/min (90-120)
[2017-08-28 05:30] LABS: CALC OSMOLALITY 283 mosm/kg (275-300); POTASSIUM - SERUM 2.8 mmol/L (3.5-5.1); UREA NITROGEN 4 mg/dL (7-18)
[2017-08-28 08:16] VITALS: BP 145/54
[2017-08-28 13:02] VITALS: BP 144/61
[2017-08-28 16:50] VITALS: BP 143/69
[2017-08-28 21:07] VITALS: BP 145/64
[2017-08-29 01:17] VITALS: BP 154/74
[2017-08-29 04:44] VITALS: BP 134/64
[2017-08-29 05:01] LABS: BASOPHILS 0.5 % (0-2); EOSINOPHILS 3.4 % (0-7); HEMATOCRIT 39.2 % (36.0-48.0); HEMOGLOBIN 13.6 g/dL (12-16); IMMATURE GRANULOCYTES 0.2 % (0-5); LYMPHOCYTES 29.7 % (15-50); MCH 32.1 pg (26.0-34.0); MCHC 34.7 g/dL (31.0-37.0); MCV 92.5 fL (80.0-100.0); NEUTROPHILS 58.2 % (40-80); PLATELET COUNT 262 10x3/uL (130-400); RBC 4.24 10x6/uL (4.00-5.40); RDW 12.7 % (11.5-14.5)
[2017-08-29 05:15] LABS: CALC OSMOLALITY 283 mosm/kg (275-300); CALCIUM 8.5 mg/dL (8.5-10.1); CHLORIDE - SERUM 104 mmol/L (98-107); CREATININE - SERUM 0.6 mg/dL (0.6-1.3); GLUCOSE 104 mg/dL (74-106); SODIUM 144 mmol/L (136-145); UREA NITROGEN 5 mg/dL (7-18); eGFR NON AFRICAN AMERICAN > 90 mL/min (90-120)
[2017-08-29 05:16] LABS: WBC 6.2 10x3/uL (4.8-10.8)
[2017-08-29 05:28] LABS: POTASSIUM - SERUM 2.6 mmol/L (3.5-5.1)
[2017-08-29 08:00] VITALS: BP 159/68
[2017-08-29 12:53] VITALS: BP 149/78
[2017-08-29 15:10] LABS: CALC OSMOLALITY 284 mosm/kg (275-300); CALCIUM 8.3 mg/dL (8.5-10.1); CARBON DIOXIDE 31.5 mmol/L (21.0-32.0); CHLORIDE - SERUM 107 mmol/L (98-107); CREATININE - SERUM 0.6 mg/dL (0.6-1.3); GLUCOSE 121 mg/dL (74-106); SODIUM 144 mmol/L (136-145); UREA NITROGEN 4 mg/dL (7-18); eGFR NON AFRICAN AMERICAN > 90 mL/min (90-120)
[2017-08-29 15:20] LABS: POTASSIUM - SERUM 3.1 mmol/L (3.5-5.1)
[2017-08-29 16:04] VITALS: BP 132/67
[2017-08-29 20:15] VITALS: BP 145/68
[2017-08-30 01:48] VITALS: BP 154/64
[2017-08-30 04:53] VITALS: BP 153/70
[2017-08-30 06:05] LABS: BASOPHILS 0.7 % (0-2); EOSINOPHILS 6.2 % (0-7); HEMOGLOBIN 12.7 g/dL (12-16); IMMATURE GRANULOCYTES 0.2 % (0-5); LYMPHOCYTES 46.4 % (15-50); MCH 31.6 pg (26.0-34.0); MCHC 33.4 g/dL (31.0-37.0); MEAN PLATELET VOLUME 11.1 fL (7.4-10.4); MONOCYTES 8.2 % (2-11); NEUTROPHILS 38.3 % (40-80); PLATELET COUNT 262 10x3/uL (130-400); RBC 4.02 10x6/uL (4.00-5.40); RDW 13.4 % (11.5-14.5)
[2017-08-30 06:06] LABS: MCV 94.5 fL (80.0-100.0); WBC 4.5 10x3/uL (4.8-10.8)
[2017-08-30 06:26] LABS: CALC OSMOLALITY 286 mosm/kg (275-300); CALCIUM 8.5 mg/dL (8.5-10.1); CARBON DIOXIDE 27.4 mmol/L (21.0-32.0); CHLORIDE - SERUM 111 mmol/L (98-107); CREATININE - SERUM 0.6 mg/dL (0.6-1.3); GLUCOSE 87 mg/dL (74-106); SODIUM 146 mmol/L (136-145); UREA NITROGEN 4 mg/dL (7-18); eGFR NON AFRICAN AMERICAN > 90 mL/min (90-120)
[2017-08-30 06:27] LABS: POTASSIUM - SERUM 3.9 mmol/L (3.5-5.1)
[2017-08-30] MEDS ORDERED: ROBAXIN500 MG PO (07:42)
[2017-08-30 08:32] VITALS: BP 130/67
== END 2017-08-30 13:16 | disposition home or self-care (01) | DRG 389 ==
LOC: D.ER 09:16 → D.MS 13:54 → D.EDHOLD 13:54 → D.MS 14:36
PROVIDERS: Emergency Medicine; Family Medicine
DX: K56.7 Ileus, unspecified (principal); S32.059A Unspecified fracture of fifth lumbar vertebra, initial encounter for closed fracture; F11.20 Opioid dependence, uncomplicated; K21.9 Gastro-esophageal reflux disease without esophagitis; F41.8 Other specified anxiety disorders; G89.29 Other chronic pain; M54.5 Low back pain; Z93.1 Gastrostomy status; X50.0XXA Overexertion from strenuous movement or load, initial encounter

== ENCOUNTER 2017-09-09 16:53 | Inpatient (IN) | payer MEDICARE ==
[~2017-09-09] VITALS: Ht 160 cm; Wt 75.8 kg
--- NOTE | ~2017-09-09 | OP ---
PATIENT NAME: SHEFALI MALDONADO MEDICAL RECORD: [id number] :[birth year] LOCATION:D.MS [facility]2223 ADMISSION DATE:09/09/17 SURGEON: MJ STEEL MD DATE OF OPERATION: 09/14/2017 PREOPERATIVE DIAGNOSES: Lumbar spinal stenosis and foraminal stenosis at L4-L5 bilaterally. PROCEDURE: Lumbar laminectomy, medial facetectomy and foraminotomy, sublaminar decompression with bilateral foraminotomies with METRx retractor. DESCRIPTION AND TECHNIQUE: After induction of general endotracheal anesthesia, the patient was rolled prone on Go frame. Lumbar spine was prepped and draped in usual sterile fashion. Fluoroscopic x-ray and spinal needle localized the L4-L5 interspace. A stab incision was created with #11 blade. A series of dilators were used to advance a METRx retractor to the L4-L5 interspace. Flow was confirmed with fluoroscopic x-ray. A Midas Javier drill and microscope were used to perform laminotomy, medial facetectomy and foraminotomy at L4-L5. Next, hypertrophied ligamentum flavum was removed with Cloward rongeurs and the foraminotomy was carried out as well. The METRx was tilted to the opposite side. The spinous process was undermined with Midas-Javier drill and hypertrophied ligamentum flavum was removed within the central canal. This was within the opposite foramen. L4 and L5 nerve roots were decompressed well on both sides. Meticulous hemostasis was maintained throughout the wound. Wound was irrigated with copious amounts of lukewarm saline irrigant solution. The retractors removed. The fascia was closed with 2-0 Vicryl suture. Subdermal layer was closed with 3-0 Vicryl suture. Skin was closed with missael. A sterile dressing was applied to the wound. The patient was awakened in good condition and taken to recovery. All counts were reported as correct. Estimated blood loss was minimal. TRANSINT:[id number] Voice Confirmation ID: [id number] DOCUMENT ID: [id number] MJ STEEL MD at 2234 CC: [id number] DICTATION DATE: 11/05/17 1122 CREATIVE ASSISTANT: 11/05/17 1153 DIS IN 09/16/[address] [place] [address]
--- NOTE | ~2017-09-09 | HP ---
PATIENT: SHEFALI MALDONADO MEDICAL RECORD: [id number] ACCOUNT: [id number] LOCATION:D.MS De And[facility]2223 : [birth year] ADMISSION DATE: 09/09/17 HISTORY AND PHYSICAL EXAMINATION ADMITTING PHYSICIAN: Freddie Herbert MD REASON FOR ADMISSION: Abdominal pain, nausea, and leg pains. HISTORY OF PRESENT ILLNESS: The patient is a 67-yearold female who was discharged a week ago coming into the hospital for recurrent ileus. States she had multiple these. Says that she has a G-tube placed to allow suction when this occurs. She had multiple abdominal surgeries and states that she developed onset of discomfort in her mid abdomen this morning, she tried to tough it out. It became worse, developed nausea. States she also has a compression fracture of lumbar spine that occurred [address] Johnson planned a kyphoplasty this week. She has had no fever or dysuria. She denies shortness of breath or chest pain. PAST MEDICAL HISTORY: Multiple small bowel obstructions and the last was on 06/24/2017 and then 08/28/2017, degenerative disc disease, osteoporosis, recent lumbar compression fracture, IBS, depression, hypothyroidism, osteoarthritis, and history of skin cancer. PAST SURGICAL HISTORY: ACF, colon resection. She has had back surgery, lumbar disc. G-tube placement, IV port placement, history of cholecystectomy, hernia repair, appendectomy, exploratory laparotomy times 3, and hysterectomy. ALLERGIES: STEROIDS AND SUMATRIPTAN. HOME MEDICATIONS: Zolpidem 10 mg at bedtime for sleep, Synthroid 0.088 mg daily, Cymbalta 60 mg a day, gabapentin 600 mg b.i.d., Nexium 40 mg a day, Reglan 5 mg t.i.d., morphine IR 30 mg t.i.d., Senokot p.r.n. constipation, milk of magnesia daily. FAMILY HISTORY: Positive for father having multiple bowel obstructions, has a history of colon cancer in the family and heart disease. SOCIAL HISTORY: She is a nonsmoker and a nondrinker, does not use illicit drugs. REVIEW OF SYSTEMS: GENERAL: No fever or fatigue. HEENT: No recent visual change, sinus congestion. RESPIRATORY: Severe cough. CARDIAC: No chest pain, claudication or edema. GASTROINTESTINAL: Nausea as mentioned above with no recent stooling. Denies vomiting, has had some vague abdominal pain periumbilically. GENITOURINARY: No dysuria. MUSCULOSKELETAL: Has chronic cervical and lumbar back pain, which has been worse recently after her compression fracture. NEUROLOGICAL: She has chronic headaches but no recent motor or sensory deficits. No history of stroke or seizures. PSYCHIATRIC: Has depression and anxiety. HISTORY AND PHYSICAL [id number] SHEFALI MALDONADO PHYSICAL EXAMINATION: VITAL SIGNS: Weight of 165 pounds, height 160 cm, BMI is 29.2, temperature is 98 degrees Fahrenheit orally, pulse 89 and regular, respirations 20, blood pressure 102/77 with a sat 97% on room air. GENERAL: She is alert and oriented, in no acute distress. EYES: Clear. NECK: No bruits or masses. CHEST: Clear without wheeze or rales. HEART: Regular rate and rhythm. ABDOMEN: Mildly distended with G-tube in place at suction, has brisk return of gastric contents. She does have active bowel sounds. EXTREMITIES: No CC&E. NEUROLOGICAL: Grossly intact. Gait was not tested. PSYCHIATRIC: She admits to depressed mood. Denies suicidal ideations. LABORATORY DATA: White count 6400 with normal diff, H&H of 14 and 40.8. Electrolytes are normal. BUN is 19, glucose is 112, BUN is low at 3.0. Lipase is normal. Urinalysis is hazy, blood trace, leukocyte esterase, moderate bacteria. IMAGING: CT abdomen and pelvis shows small-bowel obstruction in the area of the mid abdomen, very similar to her previous exam. Postoperative changes noted. Percutaneous gastrostomy tube in good position. Also, nonobstructing stones in both kidneys. ASSESSMENT: 1. Recurrent small bowel obstruction. 2. Bilateral renal calculi, asymptomatic. 3. Bacteriuria. 4. Depression and anxiety. 5. Osteoarthritis. 6. Lumbar compression fracture. 7. Narcotic dependency. 8. Intractable low back pain. PLAN: The patient will be admitted and NG tube will be placed to suction. Certainly compression fracture may be playing a role on her current ileus. We will consider having Dr. Johnson see the patient while hospitalized. Further workup pending clinical course. TRANSINT:[id number] Voice Confirmation ID: [id number] DOCUMENT ID: [id number] JACINDA GIBBS MD at 0756 CC: [id number] DICTATION DATE: 09/09/172237 GREEN CHAIN MARKER: 09/10/17 0525 ADM IN [facility] [address] [facility], [facility]
[~2017-09-09 16:53] MED LIST changes: +ROBAXIN500 MG PO; +VITAMIN D2000 UNIT PO
[2017-09-09 18:07] LABS: APPEARANCE HAZY (CLEAR); BILIRUBIN NEGATIVE (NEGATIVE); COLOR YELLOW (YELLOW); GLUCOSE NEGATIVE (NEGATIVE); KETONE NEGATIVE (NEGATIVE); NITRITE NEGATIVE (NEGATIVE); PROTEIN NEGATIVE (NEGATIVE); SPECIFIC GRAVITY 1.015 (1.005-1.020); UROBILINOGEN NORMAL (NORMAL)
[2017-09-09 18:11] LABS: EPITHELIAL CELLS 0-5 /hpf (0-5); RED CELLS - URINE 0-5 /hpf (0-5); WHITE CELLS - URINE 0-5 /hpf (0-5)
[2017-09-09 18:12] LABS: AMORPHOUS SEDIMENT >1+ /lpf (NONE SEEN); BACTERIA MODERATE /hpf (NONE SEEN); HYALINE CAST RARE /lpf (NONE SEEN)
[2017-09-09 18:53] LABS: BASOPHILS 0.5 % (0-2); EOSINOPHILS 1.1 % (0-7); HEMATOCRIT 40.8 % (36.0-48.0); IMMATURE GRANULOCYTES 0.6 % (0-5); MCH 31.8 pg (26.0-34.0); MCHC 34.3 g/dL (31.0-37.0); MCV 92.7 fL (80.0-100.0); MONOCYTES 6.5 % (2-11); NEUTROPHILS 55.3 % (40-80); RDW 12.2 % (11.5-14.5); WBC 6.4 10x3/uL (4.8-10.8)
[2017-09-09 18:54] LABS: PLATELET COUNT 150 10x3/uL (130-400)
[2017-09-09 19:09] LABS: ALKALINE PHOSPHATASE 187 U/L (46-116); ALT (SGPT) 22 U/L (10-68); AMYLASE - SERUM 47 U/L (25-115); CALC OSMOLALITY 276 mosm/kg (275-300); CALCIUM 8.5 mg/dL (8.5-10.1); CARBON DIOXIDE 27.8 mmol/L (21.0-32.0); CHLORIDE - SERUM 102 mmol/L (98-107); CREATININE - SERUM 0.7 mg/dL (0.6-1.3); GLUCOSE 112 mg/dL (74-106); LIPASE 65 U/L (73-393); POTASSIUM - SERUM 4.7 mmol/L (3.5-5.1); PROTEIN - SERUM 6.4 g/dL (6.4-8.2); SODIUM 137 mmol/L (136-145); UREA NITROGEN 19 mg/dL (7-18); eGFR NON AFRICAN AMERICAN 88 mL/min (90-120)
[2017-09-09 23:12] VITALS: BP 145/76; BMI 29.6
[2017-09-10 04:00] VITALS: BP 135/59
[2017-09-10 07:21] LABS: BASOPHILS 0.8 % (0-2); EOSINOPHILS 2.5 % (0-7); LYMPHOCYTES 43.9 % (15-50); MCHC 34.1 g/dL (31.0-37.0); MCV 93.6 fL (80.0-100.0); MEAN PLATELET VOLUME 10.8 fL (7.4-10.4); MONOCYTES 8.3 % (2-11); NEUTROPHILS 44.5 % (40-80); RBC 4.38 10x6/uL (4.00-5.40); RDW 12.4 % (11.5-14.5)
[2017-09-10 07:25] LABS: PLATELET COUNT 210 10x3/uL (130-400); WBC 3.6 10x3/uL (4.8-10.8)
[2017-09-10 07:33] LABS: ALBUMIN 2.9 g/dL (3.4-5.0); ALKALINE PHOSPHATASE 178 U/L (46-116); ALT (SGPT) 20 U/L (10-68); CALC OSMOLALITY 278 mosm/kg (275-300); CALCIUM 8.1 mg/dL (8.5-10.1); CARBON DIOXIDE 27.5 mmol/L (21.0-32.0); CHLORIDE - SERUM 106 mmol/L (98-107); CREATININE - SERUM 0.7 mg/dL (0.6-1.3); GLUCOSE 92 mg/dL (74-106); PHOSPHOROUS 3.7 mg/dL (2.5-4.9); POTASSIUM - SERUM 4.6 mmol/L (3.5-5.1); PROTEIN - SERUM 6.1 g/dL (6.4-8.2); SODIUM 139 mmol/L (136-145); UREA NITROGEN 16 mg/dL (7-18); eGFR NON AFRICAN AMERICAN 88 mL/min (90-120)
[2017-09-10 08:00] VITALS: BP 144/72
[2017-09-10 12:27] VITALS: BMI 29.5
[2017-09-10 16:04] VITALS: Ht 160 cm; Wt 75.8 kg
[2017-09-10 17:05] VITALS: BP 159/60
[2017-09-11 01:35] VITALS: BP 140/62
[2017-09-11 04:00] VITALS: BP 137/56
[2017-09-11 13:26] VITALS: BP 157/69
[2017-09-11 18:26] VITALS: BP 110/58
[2017-09-11 20:00] VITALS: BP 149/71
[2017-09-12 04:00] VITALS: BP 156/69
[2017-09-12 10:03] VITALS: BP 120/66
[2017-09-12 13:35] VITALS: BP 118/52
[2017-09-12 16:54] VITALS: BP 165/72
[2017-09-12 20:00] VITALS: BP 157/73
[2017-09-13 04:00] VITALS: BP 151/71
[2017-09-13 05:44] LABS: EOSINOPHILS 1.4 % (0-7); HEMATOCRIT 35.8 % (36.0-48.0); HEMOGLOBIN 12.6 g/dL (12-16); IMMATURE GRANULOCYTES 0.4 % (0-5); LYMPHOCYTES 46.5 % (15-50); MCH 31.5 pg (26.0-34.0); MCHC 35.2 g/dL (31.0-37.0); MCV 89.5 fL (80.0-100.0); MEAN PLATELET VOLUME 10.5 fL (7.4-10.4); MONOCYTES 8.8 % (2-11); NEUTROPHILS 41.9 % (40-80); RDW 11.9 % (11.5-14.5)
[2017-09-13 06:01] LABS: PLATELET COUNT 266 10x3/uL (130-400)
[2017-09-13 06:04] LABS: CALC OSMOLALITY 275 mosm/kg (275-300); CALCIUM 8.2 mg/dL (8.5-10.1); CARBON DIOXIDE 26.4 mmol/L (21.0-32.0); CHLORIDE - SERUM 105 mmol/L (98-107); CREATININE - SERUM 0.5 mg/dL (0.6-1.3); GLUCOSE 92 mg/dL (74-106); POTASSIUM - SERUM 3.2 mmol/L (3.5-5.1); SODIUM 139 mmol/L (136-145); UREA NITROGEN 8 mg/dL (7-18); eGFR NON AFRICAN AMERICAN > 90 mL/min (90-120)
[2017-09-13 08:02] VITALS: BP 156/62
[2017-09-13 15:52] VITALS: BP 150/71
[2017-09-13 20:00] VITALS: BP 151/80
[2017-09-14] VITALS: BP 157/71
[2017-09-14 04:00] VITALS: BP 138/62
[2017-09-14 07:57] VITALS: BP 157/56
[2017-09-14 13:06] VITALS: BP 123/65
[2017-09-14 15:46] VITALS: BP 160/59
[2017-09-14 20:00] VITALS: BP 165/72
[2017-09-15] VITALS: BP 99/63
[2017-09-15 04:00] VITALS: BP 126/74
[2017-09-15 09:04] VITALS: BP 142/54
[2017-09-15 13:23] VITALS: BP 137/58
[2017-09-15 16:58] VITALS: BP 143/73
[2017-09-15 19:36] VITALS: BP 139/89
[2017-09-16] VITALS: BP 131/60
[2017-09-16 04:00] VITALS: BP 135/58
[2017-09-16 08:33] VITALS: BP 143/51
[2017-09-16 11:57] VITALS: BP 131/53
== END 2017-09-16 17:53 | disposition home health service (06) | DRG 516 ==
LOC: D.ER 16:53 → D.EDHOLD 21:04 → D.MS 21:04
PROVIDERS: Emergency Medicine; Family Medicine; Neurological Surgery
PROC: 01NB0ZZ Release Lumbar Nerve, Open Approach (ICD-10-PCS; principal; 2017-09-14 08:30)
DX: M48.061 Spinal stenosis, lumbar region without neurogenic claudication (principal); K56.600 Partial intestinal obstruction, unspecified as to cause; M48.56XA Collapsed vertebra, not elsewhere classified, lumbar region, initial encounter for fracture; N20.0 Calculus of kidney; F41.8 Other specified anxiety disorders; F17.200 Nicotine dependence, unspecified, uncomplicated; K58.9 Irritable bowel syndrome, unspecified; E03.9 Hypothyroidism, unspecified; M81.0 Age-related osteoporosis without current pathological fracture; Z93.1 Gastrostomy status; K59.09 Other constipation; K31.84 Gastroparesis; T40.605A Adverse effect of unspecified narcotics, initial encounter; R51 Headache

== ENCOUNTER 2017-09-25 13:35 | Inpatient (IN) | payer MEDICARE ==
[~2017-09-25] VITALS: Ht 160 cm; Wt 72.6 kg
[2017-09-25] VITALS (12 sets, daily range): BP systolic 117–163; BP diastolic 42–75
--- NOTE | ~2017-09-25 | HP ---
PATIENT: SHEFALI MALDONADO MEDICAL RECORD: [id number] ACCOUNT: [id number] LOCATION:D.MS De Anda2225 : 48 ADMISSION DATE: 09/25/17 HISTORY AND PHYSICAL EXAMINATION DATE OF ADMISSION: 09/25/2017 CHIEF COMPLAINT: Abdominal pain, nausea, and vomiting. HISTORY OF PRESENT ILLNESS: This 67-year-old female with a history of chronic recurrent ileus/obstructions was recently discharged from the hospital after she underwent lumbar laminectomy. She states she only had a small BM after her surgery. She has been having worsening "extreme" abdominal pain, got worse this morning. She reports some blood with BM. She had some nausea and vomiting. She is readmitted now for abdominal pain/obstruction. PAST MEDICAL HISTORY: She has been in and out of the hospital with recurrent ileus/obstruction. She has had a G-tube placed to allow suction when this occurs. She has had multiple abdominal surgeries. She has had multiple small bowel obstructions. She has a history of degenerative disc disease,, osteoporosis, recent lumbar compression fracture, IBS, depression, hypothyroidism, osteoarthritis, and history of skin cancer. PAST SURGICAL HISTORY: Anterior cervical fusion, lumbar laminectomy, colon resection and G-tube placement, IV port placement, history of cholecystectomy, hernia repair, appendectomy, exploratory laparotomy 3 times, and hysterectomy. ALLERGIES: REPORTEDLY TO STEROIDS AND SUMATRIPTAN. HOME MEDICATIONS: Robaxin 500 mg two 4 times a day, Cymbalta 60 mg once a day, gabapentin 600 mg twice a day, MS Contin 30 mg t.i.d., Ambien 10 mg at bedtime, Bumex 0.5 mg once a day, Nexium 40 mg once a day, milk of magnesia 30 mL twice a day, Reglan 5 mg t.i.d., senna laxative 1 at bedtime, levothyroxine 88 mcg once a day, and vitamin D3 2000 units once a day. FAMILY HISTORY: Father had multiple bowel obstructions, history of colon cancer in the family, and heart disease. SOCIAL HISTORY: She denies tobacco, alcohol, or drugs. REVIEW OF SYSTEMS: GENERAL: No fever. HEENT: No significant problems there. RESPIRATORY: She has occasional cough. CARDIAC: No chest pain or palpitations. GASTROINTESTINAL: See above history. GENITOURINARY: No significant problems there. MUSCULOSKELETAL: Chronic neck and back pain. NEUROLOGIC: She reports chronic headaches. No history of stroke or seizures. PSYCHIATRIC: Has depression and anxiety. PHYSICAL EXAMINATION: VITAL SIGNS: Temperature 97.8, pulse 18, respirations 117/42, O2 sat 96%. GENERAL: She is awake, alert, complaining of pain. HEENT: Grossly within normal limits. HISTORY AND PHYSICAL [id number] SHEFALI MALDONADO NECK: Supple. HEART: Regular rate and rhythm. LUNGS: Clear. ABDOMEN: Mildly distended. G-tube in place. She has active bowel sounds. EXTREMITIES: No edema. NEUROLOGIC: Grossly intact. LABORATORY DATA: CBC essentially normal except platelet counts 125,000. Basic metabolic panel is okay. Liver functions okay except alkaline phosphatase elevated. Urinalysis is contaminated. CT abdomen and pelvis, extensive postsurgical changes consistent with prior bowel resections. G-tube is in good position. Findings suggest bowel obstruction/ileus. ASSESSMENT: 1. Recurrent small-bowel obstruction. 2. Chronic pain. 3. Narcotic dependency. PLAN: We will admit. She was given 1 dose of Rocephin in the ER for her urine, but she had 5-10 epithelial cells. We will control her pain. We will set the G-tube up for suction. Other tests and procedures as warranted. TRANSINT:[id number] Voice Confirmation ID: [id number] DOCUMENT ID: [id number] DINO WHITE MD at 1854 CC: [id number] DICTATION DATE: 09/25/172100 CATERING ASSOCIATE: 09/25/17 2330 ADM IN [place] [address] [place] [address]
[2017-09-25 14:06] LABS: APPEARANCE CLEAR (CLEAR); BACTERIA MODERATE /hpf (NONE SEEN); BILIRUBIN NEGATIVE (NEGATIVE); COLOR DK YELLOW (YELLOW); GLUCOSE NEGATIVE (NEGATIVE); KETONE NEGATIVE (NEGATIVE); NITRITE NEGATIVE (NEGATIVE); PROTEIN NEGATIVE (NEGATIVE); SPECIFIC GRAVITY 1.025 (1.005-1.020); UROBILINOGEN NORMAL (NORMAL)
[2017-09-25 14:07] LABS: MUCUS >1+ /lpf (NONE SEEN)
[2017-09-25 15:08] LABS: BASOPHILS 0.9 % (0-2); EOSINOPHILS 9.2 % (0-7); HEMATOCRIT 38.5 % (36.0-48.0); HEMOGLOBIN 13.4 g/dL (12-16); IMMATURE GRANULOCYTES 0.9 % (0-5); LYMPHOCYTES 29.2 % (15-50); MCH 31.1 pg (26.0-34.0); MCHC 34.8 g/dL (31.0-37.0); MCV 89.3 fL (80.0-100.0); MONOCYTES 5.8 % (2-11); RBC 4.31 10x6/uL (4.00-5.40); RDW 11.8 % (11.5-14.5); WBC 5.3 10x3/uL (4.8-10.8)
[2017-09-25 15:16] LABS: PLATELET COUNT 125 10x3/uL (130-400)
[2017-09-25 15:37] LABS: ALBUMIN 2.8 g/dL (3.4-5.0); ALKALINE PHOSPHATASE 150 U/L (46-116); ALT (SGPT) 22 U/L (10-68); AMYLASE - SERUM 46 U/L (25-115); BILIRUBIN - TOTAL 0.23 mg/dL (0.2-1.3); CALC OSMOLALITY 277 mosm/kg (275-300); CALCIUM 8.7 mg/dL (8.5-10.1); CARBON DIOXIDE 28.5 mmol/L (21.0-32.0); CHLORIDE - SERUM 103 mmol/L (98-107); CREATININE - SERUM 0.7 mg/dL (0.6-1.3); GLUCOSE 110 mg/dL (74-106); LIPASE 73 U/L (73-393); POTASSIUM - SERUM 4.2 mmol/L (3.5-5.1); SODIUM 138 mmol/L (136-145); UREA NITROGEN 15 mg/dL (7-18); eGFR NON AFRICAN AMERICAN 88 mL/min (90-120)
[2017-09-26] VITALS (7 sets, daily range): BP systolic 122–158; BP diastolic 41–69; Ht 160 cm; Wt 72.6 kg
[2017-09-26 06:50] LABS: BASOPHILS 0.9 % (0-2); EOSINOPHILS 3.4 % (0-7); HEMATOCRIT 35.7 % (36.0-48.0); HEMOGLOBIN 12.3 g/dL (12-16); IMMATURE GRANULOCYTES 0.5 % (0-5); LYMPHOCYTES 42.9 % (15-50); MCH 31.2 pg (26.0-34.0); MCHC 34.5 g/dL (31.0-37.0); MCV 90.6 fL (80.0-100.0); MEAN PLATELET VOLUME 10.6 fL (7.4-10.4); NEUTROPHILS 44.3 % (40-80); RBC 3.94 10x6/uL (4.00-5.40); RDW 12.1 % (11.5-14.5); WBC 5.5 10x3/uL (4.8-10.8)
[2017-09-26 06:55] LABS: PLATELET COUNT 230 10x3/uL (130-400)
[2017-09-26 07:05] LABS: ALBUMIN 2.5 g/dL (3.4-5.0); ALKALINE PHOSPHATASE 169 U/L (46-116); ALT (SGPT) 27 U/L (10-68); CALC OSMOLALITY 284 mosm/kg (275-300); CARBON DIOXIDE 28.1 mmol/L (21.0-32.0); CHLORIDE - SERUM 108 mmol/L (98-107); CREATININE - SERUM 0.7 mg/dL (0.6-1.3); GLUCOSE 92 mg/dL (74-106); MAGNESIUM - SERUM 2.3 mg/dL (1.8-2.4); PHOSPHOROUS 3.2 mg/dL (2.5-4.9); POTASSIUM - SERUM 4.4 mmol/L (3.5-5.1); PROTEIN - SERUM 5.7 g/dL (6.4-8.2); SODIUM 143 mmol/L (136-145); UREA NITROGEN 12 mg/dL (7-18); eGFR NON AFRICAN AMERICAN 88 mL/min (90-120)
[2017-09-27 00:41] VITALS: BP 119/56
[2017-09-27 04:38] VITALS: BP 154/70
[2017-09-27 05:53] LABS: BASOPHILS 1.4 % (0-2); EOSINOPHILS 3.6 % (0-7); HEMATOCRIT 34.9 % (36.0-48.0); HEMOGLOBIN 11.8 g/dL (12-16); IMMATURE GRANULOCYTES 0.3 % (0-5); LYMPHOCYTES 47.5 % (15-50); MCH 30.8 pg (26.0-34.0); MCHC 33.8 g/dL (31.0-37.0); MCV 91.1 fL (80.0-100.0); MEAN PLATELET VOLUME 10.4 fL (7.4-10.4); MONOCYTES 8.4 % (2-11); NEUTROPHILS 38.8 % (40-80); PLATELET COUNT 284 10x3/uL (130-400); RBC 3.83 10x6/uL (4.00-5.40); RDW 12.2 % (11.5-14.5); WBC 3.6 10x3/uL (4.8-10.8)
[2017-09-27 06:18] LABS: ALBUMIN 2.3 g/dL (3.4-5.0); ALKALINE PHOSPHATASE 149 U/L (46-116); ALT (SGPT) 26 U/L (10-68); BILIRUBIN - TOTAL 0.33 mg/dL (0.2-1.3); CALCIUM 8.3 mg/dL (8.5-10.1); CARBON DIOXIDE 27.8 mmol/L (21.0-32.0); CHLORIDE - SERUM 105 mmol/L (98-107); CREATININE - SERUM 0.6 mg/dL (0.6-1.3); GLUCOSE 84 mg/dL (74-106); PROTEIN - SERUM 5.8 g/dL (6.4-8.2); SODIUM 139 mmol/L (136-145); eGFR NON AFRICAN AMERICAN > 90 mL/min (90-120)
[2017-09-27 06:19] LABS: CALC OSMOLALITY 274 mosm/kg (275-300); POTASSIUM - SERUM 3.7 mmol/L (3.5-5.1); UREA NITROGEN 6 mg/dL (7-18)
[2017-09-27 08:41] VITALS: BP 160/69
[2017-09-27 11:29] VITALS: BP 147/67
[2017-09-27 20:00] VITALS: BP 130/52
[2017-09-28 01:20] VITALS: BP 131/69
[2017-09-28 05:02] LABS: BASOPHILS 1.2 % (0-2); EOSINOPHILS 4.5 % (0-7); HEMATOCRIT 36.2 % (36.0-48.0); HEMOGLOBIN 12.3 g/dL (12-16); IMMATURE GRANULOCYTES 0.3 % (0-5); LYMPHOCYTES 41.8 % (15-50); MCH 30.8 pg (26.0-34.0); MCV 90.5 fL (80.0-100.0); MEAN PLATELET VOLUME 10.2 fL (7.4-10.4); MONOCYTES 7.1 % (2-11); NEUTROPHILS 45.1 % (40-80); PLATELET COUNT 293 10x3/uL (130-400); RDW 12.1 % (11.5-14.5); WBC 3.4 10x3/uL (4.8-10.8)
[2017-09-28 05:27] VITALS: BP 127/49
[2017-09-28 05:33] LABS: ALBUMIN 2.5 g/dL (3.4-5.0); ALKALINE PHOSPHATASE 155 U/L (46-116); ALT (SGPT) 25 U/L (10-68); CALCIUM 8.3 mg/dL (8.5-10.1); CARBON DIOXIDE 25.9 mmol/L (21.0-32.0); CHLORIDE - SERUM 105 mmol/L (98-107); CREATININE - SERUM 0.5 mg/dL (0.6-1.3); POTASSIUM - SERUM 3.4 mmol/L (3.5-5.1); SODIUM 141 mmol/L (136-145); eGFR NON AFRICAN AMERICAN > 90 mL/min (90-120)
[2017-09-28 05:37] LABS: CALC OSMOLALITY 275 mosm/kg (275-300); GLUCOSE 70 mg/dL (74-106); UREA NITROGEN 4 mg/dL (7-18)
[2017-09-28 08:58] VITALS: BP 149/62
[2017-09-28 12:45] VITALS: BP 137/50
[2017-09-28 20:00] VITALS: BP 152/62
[2017-09-29] VITALS: BP 146/64
[2017-09-29 04:00] VITALS: BP 155/65
[2017-09-29 07:52] LABS: BASOPHILS 1.5 % (0-2); EOSINOPHILS 1.5 % (0-7); HEMATOCRIT 37.1 % (36.0-48.0); LYMPHOCYTES 48.9 % (15-50); MCH 31.3 pg (26.0-34.0); MCV 89.2 fL (80.0-100.0); MEAN PLATELET VOLUME 10.1 fL (7.4-10.4); MONOCYTES 8.5 % (2-11); NEUTROPHILS 39.6 % (40-80); PLATELET COUNT 297 10x3/uL (130-400); RBC 4.16 10x6/uL (4.00-5.40); RDW 12.1 % (11.5-14.5); WBC 4.1 10x3/uL (4.8-10.8)
[2017-09-29 08:00] LABS: CALC OSMOLALITY 274 mosm/kg (275-300); CALCIUM 9.5 mg/dL (8.5-10.1); CARBON DIOXIDE 26.8 mmol/L (21.0-32.0); CHLORIDE - SERUM 105 mmol/L (98-107); GLUCOSE 95 mg/dL (74-106); POTASSIUM - SERUM 3.5 mmol/L (3.5-5.1); SODIUM 139 mmol/L (136-145); UREA NITROGEN 3 mg/dL (7-18); eGFR NON AFRICAN AMERICAN 88 mL/min (90-120)
[2017-09-29 08:03] LABS: CREATININE - SERUM 0.7 mg/dL (0.6-1.3)
[2017-09-29 08:45] VITALS: BP 145/45; BP 157/75
[2017-09-29] MEDS ORDERED: CARAFATE1 G/10 ML PO (09:02)
[2017-09-29] MEDS ORDERED: ANUSOL-HC25 MG RC (09:03)
== END 2017-09-29 13:05 | disposition home health service (06) | DRG 389 ==
LOC: D.ER 13:35 → D.MS 18:22 → D.EDHOLD 18:22 → D.MS 19:06
PROVIDERS: Family Medicine; Internal Medicine Gastroenterology
PROC: 0DJD8ZZ Inspection of Lower Intestinal Tract, Via Natural or Artificial Opening Endoscopic (ICD-10-PCS; 2017-09-28)
PROC: 0DB78ZX Excision of Stomach, Pylorus, Via Natural or Artificial Opening Endoscopic, Diagnostic (ICD-10-PCS; principal; 2017-09-28 14:30)
DX: K56.7 Ileus, unspecified (principal); F11.20 Opioid dependence, uncomplicated; K64.8 Other hemorrhoids; F41.9 Anxiety disorder, unspecified; K59.00 Constipation, unspecified; K29.60 Other gastritis without bleeding; K64.4 Residual hemorrhoidal skin tags; K21.9 Gastro-esophageal reflux disease without esophagitis; K44.9 Diaphragmatic hernia without obstruction or gangrene

== ENCOUNTER → 2017-12-18 20:37 | Outpatient (CLI) | payer MEDICARE ==
[2017-09-26 19:01] VITALS: BMI 28.3
[~2017-12-18 20:37] MED LIST changes: +ANUSOL-HC25 MG RC; +CARAFATE1 G/10 ML PO; +PERMETHRIN60 GM TOPICAL
== END | disposition home or self-care (01) ==
LOC: D.MAMMO 15:15
DX: Z12.31 Encounter for screening mammogram for malignant neoplasm of breast (principal)

== ENCOUNTER → 2017-12-19 08:57 | Outpatient (CLI) | payer MEDICARE ==
[2017-09-26 19:01] VITALS: BMI 28.3
--- NOTE | ~2017-12-19 | HEMODYNAMI ---
PATIENT:SHEFALI MALDONADO MEDICAL RECORD: [id number] : 48 LOCATION:[facility] ADMISSION DATE: 12/19/17 Generatedon:12/19/201712:26 Patient name: SHEFALI MALDONADO Patient #: [id number] SSN: : 1 04/20/1949 Date of study: 12/19/2017 Page: Of Hemodynamic Procedure Report Patient Data Patient Demographics Procedure consent was obtained First Name: SHEFALI Gender: Female Last Name: JOEL : 1950 Middle Initial: BRENDA Age: 67 year(s) Patient #: [id number] Race: Unknown Additional ID: [id number] Contact details Address: [address] [place] [address] State: [place] City: [place] Zip code: [address] Past Medical History Allergies: No known allergies Admission Admission Data Admission Date: 12/19/2017 Admission Time: 8:57 Procedure Procedure Types Cath Procedure Peripheral Cath Diagnostic Procedure Miscellaneous Procedure Description Procedure Date Procedure Date: 12/19/2017 Procedure Start Time: 12:21 Procedure Staff Name Function Martín Ozuna MD Performing Physician Lokesh Johnson RT Scrub Christina Jerez RT Monitor Kaylynn Mcfarland RN Nurse Procedure Data Cath Procedure Fluoroscopy Diagnostic fluoroscopy Total fluoroscopy Time: 0.3 time: 0.3 min min Diagnostic fluoroscopy Total fluoroscopy dose: 22 dose: 22 mGy mGy Contrast Material Contrast Material Type Amount (ml) Isovue 300 20 Hemodynamics Rest Pre Cath Intra NCS Post Cath Procedure Log Time Note 12:14:59 Lokesh Johnson RT (R) (CV) sent for patient. Start room use. 12:15:14 Patient received from Other to IR Alert and oriented. Tansferred to table in Supine position. 12:15:16 Correct patient and procedure confirmed by team. 12:15:18 Signed procedure consent form obtained from patient. 12:15:19 Full Disclosure recording started 12:15:21 Pre-procedure instructions explained to patient. 12:15:22 Pre-op teaching completed and patient verbalized understanding. 12:15:41 Patient allergic to No known allergies 12:15:55 Is patient on blood thinner?No 12:20:37 Left abdomen area was prepped with chlora-prep and draped in sterile fashion 12:20:39 Physician arrived 12:20:47 --------ALL STOP TIME OUT------ 12:20:48 Final Timeout: patient, procedure, and site verified with staff and physician. All members of the team are in agreement. 12:21:03 Procedure started. 12:21:08 Local anesthetic to Abdominal area with Lidocaine 1% by Martín Ozuna MD.INITIAL ACCESS ONLY 12:22:38 AMPLATZ Super Stiff 75cm wire ([id number]) opened to sterile field. 12:22:59 GASTROSTOMY 18Fr Tri-Funnel Tube ([id number]) opened to sterile field. 12:23:28 Use device set IR Diagnostic 12:23:30 Sterile Angiographic Pack opened to sterile field. 12:23:31 Bag Decanter () opened to sterile field. 12:25:11 g tube replaced with 18fr tri funnel 12:25:20 Procedure ended.(Physican Out) 12:25:54 Fluoroscopy time 00.30 minutes. 12:25:59 Flurop Dose total: 22 12:25:59 Fluoroscopy dose: 22 mGy 12:26:07 Contrast amount:Isovue 300 20ml. 12:26:11 Procedure and supply charges have been captured, reviewed, submitted and are correct. Device Usage Item Name Manufacture Quantity Catalog Hospital Part Current Minimal Lot# / Number Charge Number Stock Stock Serial# Code AMPLATZ [place] 1 [id number] 5 Super Stiff Scientific 75cm wire ([id number]) GASTROSTOMY Bard 1 [id number] 5 18Fr Tri-Funnel Tube ([id number]) Sterile Cardinal [address] [id number] [id number] 5 Angiographic Health Pack Bag Decanter Microtek [id number] 5 () [employer] Signature Audit [place] Stage Time Signature Unsigned Intra-Procedure 12/19/2017 Christina Jerez 12:26:51 PM RT(R) Signatures Monitor : Christina Jerez RT Signature : Date : Time : [address] [place] [address]
== END | disposition home or self-care (01) ==
LOC: D.SP 08:57 → D.RAD 11:00
DX: K56.609 Unspecified intestinal obstruction, unspecified as to partial versus complete obstruction (principal); Z43.1 Encounter for attention to gastrostomy; Z01.812 Encounter for preprocedural laboratory examination

== ENCOUNTER 2017-12-31 14:52 | Inpatient (IN) | payer MEDICARE ==
[~2017-12-31] VITALS: Ht 160 cm; Wt 72.6 kg
[~2017-12-31 14:52] MED LIST changes: -PERMETHRIN60 GM TOPICAL
[2017-12-31 15:36] LABS: BASOPHILS 0.6 % (0-2); HEMATOCRIT 43.8 % (36.0-48.0); IMMATURE GRANULOCYTES 0.3 % (0-5); LYMPHOCYTES 34.4 % (15-50); MCH 32.6 pg (26.0-34.0); MCHC 34.2 g/dL (31.0-37.0); MCV 95.2 fL (80.0-100.0); MONOCYTES 6.9 % (2-11); NEUTROPHILS 56.8 % (40-80); PLATELET COUNT 265 10x3/uL (130-400); RDW 14.1 % (11.5-14.5); WBC 7.3 10x3/uL (4.8-10.8)
[2017-12-31 15:58] LABS: ALKALINE PHOSPHATASE 138 U/L (46-116); ALT (SGPT) 26 U/L (10-68); AMYLASE - SERUM 39 U/L (25-115); BILIRUBIN - TOTAL 0.54 mg/dL (0.2-1.3); CALC OSMOLALITY 281 mosm/kg (275-300); CALCIUM 9.2 mg/dL (8.5-10.1); CARBON DIOXIDE 31.9 mmol/L (21.0-32.0); CHLORIDE - SERUM 100 mmol/L (98-107); CREATININE - SERUM 0.7 mg/dL (0.6-1.3); GLUCOSE 111 mg/dL (74-106); LIPASE 116 U/L (73-393); POTASSIUM - SERUM 4.5 mmol/L (3.5-5.1); SODIUM 139 mmol/L (136-145); UREA NITROGEN 20 mg/dL (7-18); eGFR NON AFRICAN AMERICAN 88 mL/min (90-120)
[2017-12-31 19:30] VITALS: BP 129/83
[2017-12-31 20:30] VITALS: BP 129/50
[2017-12-31 21:30] VITALS: BP 133/56
[2018-01-01 03:39] VITALS: BP 138/61; BMI 28.4
[2018-01-01 07:32] LABS: BASOPHILS 0.5 % (0-2); EOSINOPHILS 1.4 % (0-7); HEMATOCRIT 40.6 % (36.0-48.0); HEMOGLOBIN 13.4 g/dL (12-16); IMMATURE GRANULOCYTES 0.2 % (0-5); MCH 32.1 pg (26.0-34.0); MCV 97.1 fL (80.0-100.0); MEAN PLATELET VOLUME 10.5 fL (7.4-10.4); MONOCYTES 5.4 % (2-11); NEUTROPHILS 64.5 % (40-80); PLATELET COUNT 252 10x3/uL (130-400); RBC 4.18 10x6/uL (4.00-5.40); RDW 14.5 % (11.5-14.5); WBC 6.3 10x3/uL (4.8-10.8)
[2018-01-01 07:47] LABS: ALBUMIN 2.8 g/dL (3.4-5.0); ALKALINE PHOSPHATASE 135 U/L (46-116); ALT (SGPT) 28 U/L (10-68); CALC OSMOLALITY 284 mosm/kg (275-300); CALCIUM 8.4 mg/dL (8.5-10.1); CARBON DIOXIDE 28.2 mmol/L (21.0-32.0); CHLORIDE - SERUM 107 mmol/L (98-107); CREATININE - SERUM 0.8 mg/dL (0.6-1.3); GLUCOSE 101 mg/dL (74-106); POTASSIUM - SERUM 4.4 mmol/L (3.5-5.1); PROTEIN - SERUM 5.8 g/dL (6.4-8.2); SODIUM 142 mmol/L (136-145); UREA NITROGEN 17 mg/dL (7-18); eGFR NON AFRICAN AMERICAN 75 mL/min (90-120)
[2018-01-01 08:26] VITALS: BP 146/47
[2018-01-01 10:41] LABS: APPEARANCE CLEAR (CLEAR); COLOR DARK YELLOW (YELLOW); NITRITE NEGATIVE (NEGATIVE)
[2018-01-01 10:42] LABS: BILIRUBIN NEGATIVE (NEGATIVE); GLUCOSE NEGATIVE (NEGATIVE); KETONE NEGATIVE (NEGATIVE); PROTEIN NEGATIVE (NEGATIVE); UROBILINOGEN NORMAL (NORMAL)
[2018-01-01 14:56] VITALS: Ht 160 cm; Wt 72.6 kg
[2018-01-01 22:27] VITALS: BP 150/66
[2018-01-02 05:27] VITALS: BP 135/53
[2018-01-02 06:36] LABS: BASOPHILS 0.4 % (0-2); EOSINOPHILS 1.7 % (0-7); HEMATOCRIT 38.6 % (36.0-48.0); IMMATURE GRANULOCYTES 0.2 % (0-5); LYMPHOCYTES 41.1 % (15-50); MCH 32.2 pg (26.0-34.0); MCHC 33.7 g/dL (31.0-37.0); MCV 95.5 fL (80.0-100.0); MEAN PLATELET VOLUME 10.6 fL (7.4-10.4); MONOCYTES 6.8 % (2-11); NEUTROPHILS 49.8 % (40-80); PLATELET COUNT 244 10x3/uL (130-400); RBC 4.04 10x6/uL (4.00-5.40); RDW 13.8 % (11.5-14.5); WBC 4.8 10x3/uL (4.8-10.8)
[2018-01-02 07:13] LABS: ALBUMIN 2.7 g/dL (3.4-5.0); ALKALINE PHOSPHATASE 133 U/L (46-116); ALT (SGPT) 31 U/L (10-68); BILIRUBIN - TOTAL 0.65 mg/dL (0.2-1.3); CALC OSMOLALITY 277 mosm/kg (275-300); CALCIUM 7.9 mg/dL (8.5-10.1); CARBON DIOXIDE 26.2 mmol/L (21.0-32.0); CHLORIDE - SERUM 106 mmol/L (98-107); CREATININE - SERUM 0.6 mg/dL (0.6-1.3); GLUCOSE 70 mg/dL (74-106); POTASSIUM - SERUM 3.9 mmol/L (3.5-5.1); PROTEIN - SERUM 5.7 g/dL (6.4-8.2); SODIUM 141 mmol/L (136-145); UREA NITROGEN 10 mg/dL (7-18); eGFR NON AFRICAN AMERICAN > 90 mL/min (90-120)
[2018-01-02 08:43] VITALS: BP 147/62
[2018-01-02 12:40] VITALS: BP 129/49
[2018-01-02 16:46] VITALS: BP 147/96
[2018-01-02 20:00] VITALS: BP 145/59
[2018-01-03 04:30] VITALS: BP 145/58
[2018-01-03 05:59] LABS: BASOPHILS 0.3 % (0-2); EOSINOPHILS 0.3 % (0-7); HEMATOCRIT 41.1 % (36.0-48.0); HEMOGLOBIN 14.3 g/dL (12-16); IMMATURE GRANULOCYTES 0.1 % (0-5); LYMPHOCYTES 19.4 % (15-50); MCH 32.9 pg (26.0-34.0); MCHC 34.8 g/dL (31.0-37.0); MCV 94.7 fL (80.0-100.0); MEAN PLATELET VOLUME 10.3 fL (7.4-10.4); MONOCYTES 4.6 % (2-11); NEUTROPHILS 75.3 % (40-80); PLATELET COUNT 254 10x3/uL (130-400); RBC 4.34 10x6/uL (4.00-5.40); RDW 13.6 % (11.5-14.5)
[2018-01-03 06:00] LABS: WBC 6.9 10x3/uL (4.8-10.8)
[2018-01-03 06:22] LABS: CARBON DIOXIDE 21.8 mmol/L (21.0-32.0); CHLORIDE - SERUM 103 mmol/L (98-107); CREATININE - SERUM 0.7 mg/dL (0.6-1.3); SODIUM 138 mmol/L (136-145); eGFR NON AFRICAN AMERICAN 88 mL/min (90-120)
[2018-01-03 06:23] LABS: CALC OSMOLALITY 271 mosm/kg (275-300); GLUCOSE 57 mg/dL (74-106); POTASSIUM - SERUM 3.3 mmol/L (3.5-5.1); UREA NITROGEN 7 mg/dL (7-18)
[2018-01-03 09:10] VITALS: BP 151/60
[2018-01-03 11:58] VITALS: BP 164/58
[2018-01-03 17:36] VITALS: BP 130/61
[2018-01-03 20:00] VITALS: BP 112/79
[2018-01-04 03:00] VITALS: BP 151/55
[2018-01-04 07:06] LABS: BASOPHILS 0.3 % (0-2); EOSINOPHILS 0.7 % (0-7); HEMATOCRIT 41.5 % (36.0-48.0); HEMOGLOBIN 14.2 g/dL (12-16); IMMATURE GRANULOCYTES 0.1 % (0-5); LYMPHOCYTES 44.1 % (15-50); MCH 32.2 pg (26.0-34.0); MCHC 34.2 g/dL (31.0-37.0); MCV 94.1 fL (80.0-100.0); MEAN PLATELET VOLUME 10.5 fL (7.4-10.4); MONOCYTES 6.6 % (2-11); NEUTROPHILS 48.2 % (40-80); PLATELET COUNT 231 10x3/uL (130-400); RBC 4.41 10x6/uL (4.00-5.40); RDW 13.7 % (11.5-14.5); WBC 7.4 10x3/uL (4.8-10.8)
[2018-01-04 07:13] LABS: CALC OSMOLALITY 274 mosm/kg (275-300); CALCIUM 8.3 mg/dL (8.5-10.1); CARBON DIOXIDE 17.4 mmol/L (21.0-32.0); CHLORIDE - SERUM 104 mmol/L (98-107); CREATININE - SERUM 0.6 mg/dL (0.6-1.3); POTASSIUM - SERUM 3.4 mmol/L (3.5-5.1); SODIUM 140 mmol/L (136-145); UREA NITROGEN 6 mg/dL (7-18); eGFR NON AFRICAN AMERICAN > 90 mL/min (90-120)
[2018-01-04 07:28] LABS: GLUCOSE 55 mg/dL (74-106)
[2018-01-04 08:48] VITALS: BP 155/88
[2018-01-04 12:30] VITALS: BP 144/61
[2018-01-04 16:56] VITALS: BP 177/84
[2018-01-04 22:31] VITALS: BP 141/59
[2018-01-05 04:00] VITALS: BP 138/63
[2018-01-05 05:20] LABS: BASOPHILS 0.7 % (0-2); HEMATOCRIT 35.9 % (36.0-48.0); HEMOGLOBIN 12.5 g/dL (12-16); IMMATURE GRANULOCYTES 0.2 % (0-5); MCH 32.2 pg (26.0-34.0); MCHC 34.8 g/dL (31.0-37.0); MCV 92.5 fL (80.0-100.0); MEAN PLATELET VOLUME 9.9 fL (7.4-10.4); MONOCYTES 8.5 % (2-11); NEUTROPHILS 52.6 % (40-80); PLATELET COUNT 212 10x3/uL (130-400); RBC 3.88 10x6/uL (4.00-5.40); RDW 13.7 % (11.5-14.5)
[2018-01-05 05:26] LABS: WBC 4.6 10x3/uL (4.8-10.8)
[2018-01-05 05:36] LABS: CALC OSMOLALITY 274 mosm/kg (275-300); CALCIUM 8.1 mg/dL (8.5-10.1); CARBON DIOXIDE 20.8 mmol/L (21.0-32.0); CHLORIDE - SERUM 107 mmol/L (98-107); CREATININE - SERUM 0.6 mg/dL (0.6-1.3); POTASSIUM - SERUM 3.1 mmol/L (3.5-5.1); SODIUM 140 mmol/L (136-145); UREA NITROGEN 6 mg/dL (7-18); eGFR NON AFRICAN AMERICAN > 90 mL/min (90-120)
[2018-01-05 05:43] LABS: GLUCOSE 68 mg/dL (74-106)
[2018-01-05] MEDS ORDERED: PERMETHRIN60 GM TOPICAL (09:05)
[2018-01-05 09:13] VITALS: BP 154/73
== END 2018-01-05 15:06 | disposition home or self-care (01) | DRG 390 ==
LOC: D.ER 14:52 → D.EDHOLD 20:15 → D.MS 20:15
PROVIDERS: Family Medicine
DX: K56.609 Unspecified intestinal obstruction, unspecified as to partial versus complete obstruction (principal); E03.9 Hypothyroidism, unspecified; F41.8 Other specified anxiety disorders; G89.29 Other chronic pain; Z93.1 Gastrostomy status; M54.6 Pain in thoracic spine; K59.00 Constipation, unspecified

== ENCOUNTER 2018-01-31 11:37 | Emergency (ER) | payer MEDICARE ==
[~2018-01-31] VITALS: Ht 160 cm; Wt 72.7 kg
--- NOTE | ~2018-01-31 | HEMODYNAMI ---
PATIENT:SHEFALI MALDONADO MEDICAL RECORD: [id number] : [birth year] LOCATION:[facility] ADMISSION DATE: 01/31/18 Generatedon:01/31/201814:36 Patient name: SHEFALI MALDONADO Patient #: [id number] SSN: : 1 04/20/1949 Date of study: 01/31/2018 Page: Of Hemodynamic Procedure Report Patient Data Patient Demographics Procedure consent was obtained First Name: SHEFALI Gender: Female Last Name: JOEL : 1950 Middle Initial: BRENDA Age: 67 year(s) Patient #: [id number] Race: Unknown Additional ID: [id number] Contact details Address: [address] [place] [address] State: [place] City: [place] Zip code: [address] Past Medical History Allergies: No known allergies Admission Admission Data Admission Date: 01/31/2018 Admission Time: 11:37 Procedure Procedure Types Cath Procedure Peripheral Cath Diagnostic Procedure Gastric Procedure Description Procedure Date Procedure Date: 01/31/2018 Procedure Start Time: 14:18 Procedure Staff Name Function Jerrica Leon MD Performing Physician Lokesh Johnson RT Scrub Lokesh Johnson RT Monitor Amanda Gonzalez RN Nurse Procedure Data Cath Procedure Fluoroscopy Diagnostic fluoroscopy Total fluoroscopy Time: 1.9 time: 1.9 min min Diagnostic fluoroscopy Total fluoroscopy dose: 31 dose: 31 mGy mGy Contrast Material Contrast Material Type Amount (ml) Isovue 300 20 Hemodynamics Rest Pre Cath Intra NCS Post Cath Procedure Log Time Note 14:06:42 Lokesh Johnson RT (R) (CV) sent for patient. Start room use. 14:06:51 Time tracking: Regular hours (M-F 7:00 - 5:00) 14:06:57 Patient received from ED to IR Alert and oriented. Tansferred to table in Supine position. 14:07:00 Correct patient and procedure confirmed by team. 14:07:02 Signed procedure consent form obtained from patient. 14:07:04 Full Disclosure recording started 14:07:04 - 14:07:05 Pre-procedure instructions explained to patient. 14:07:06 Pre-op teaching completed and patient verbalized understanding. 14:07:22 Patient allergic to No known allergies 14:07:32 Left abdomen area was prepped with chlora-prep and draped in sterile fashion 14:13:46 Use device set IR Diagnostic 14:13:47 Bag Decanter (2002S) opened to sterile field. 14:13:48 Sterile Angiographic Pack opened to sterile field. 14:17:44 Physician arrived 14:17:45 --------ALL STOP TIME OUT------ 14:17:46 Final Timeout: patient, procedure, and site verified with staff and physician. All members of the team are in agreement. 14:17:50 Left abdomen site verified by team. 14:17:56 Sedation plan: Local Anesthetic Medication:Lidocaine 14:18:08 Procedure started. 14:18:14 Local anesthetic to Abdominal area with Lidocaine 1% by Jerrica Leon MD.INITIAL ACCESS ONLY 14:18:22 GLIDE WIRE ANGLE 180cm ([id number]) opened to sterile field. 14:33:08 DILATOR, VESSEL 12/20 opened to sterile field. 14:33:09 DILATOR, VESSEL 14/20 opened to sterile field. 14:33:15 GASTROSTOMY 18Fr Tri-Funnel Tube ([id number]) opened to sterile field. 14:33:22 Procedure ended.(Physican Out) 14:35:41 Fluoroscopy time 01.90 minutes. 14:35:45 Fluoroscopy dose: 31 mGy 14:35:45 Flurop Dose total: 31 14:35:50 Contrast amount:Isovue 300 20ml. 14:35:53 Insertion/operative site no bleeding no hematoma. 14:36:01 Post Abdominal area:stable 14:36:03 Post procedure instruction explained to patient.Patient verbalizes understanding. 14:36:05 Procedure and supply charges have been captured, reviewed, submitted an d are correct. 14:36:22 Report given to ED. 14:36:29 Patient transfered to ED with Stretcher. Device Usage Item Name Manufacture Quantity Catalog Hospital Part Current Minimal Lot# / Number Charge Number Stock Stock Serial# Code Bag Decanter Microtek 1 [id number] 5 () Medical Inc. Sterile Cardinal 1 [id number] [id number] 5 Angiographic Health Pack GLIDE WIRE Terumo 1 [id number] 062933 [id number] 5 ANGLE 180cm ([id number]) DILATOR, [employer] 1 [id number] 956876 [id number] 5 VESSEL 12/20 DILATOR, [employer] 1 [id number] [id number] 5 VESSEL 14/20 GASTROSTOMY Bard 1 [id number] [id number] 271116 5 18Fr Tri-Funnel Tube ([id number]) Signature Audit [place] Stage Time Signature Unsigned Intra-Procedure 01/31/2018 Lokesh 2:36:47 PM Libraield RT (R) (CV) Signatures Monitor : Lokesh Signature : Elizabeth RT Date : Time : [place] [place] [address]
[~2018-01-31 11:37] MED LIST changes: +PERMETHRIN60 GM TOPICAL
[2018-01-31 11:50] VITALS: Ht 160 cm; Wt 72.7 kg
[2018-01-31 15:01] VITALS: BP 147/60
== END 2018-01-31 15:01 | disposition home or self-care (01) ==
LOC: D.ER 11:37
DX: K94.3 Esophagostomy complications (principal); E07.9 Disorder of thyroid, unspecified; Z85.828 Personal history of other malignant neoplasm of skin

== ENCOUNTER 2018-04-18 11:14 | Inpatient (IN) | payer MEDICARE ==
[~2018-04-18] VITALS: Ht 160 cm; Wt 75.8 kg
[2018-04-18 12:29] LABS: ALBUMIN 3.5 g/dL (3.4-5.0); BILIRUBIN - TOTAL 0.4 mg/dL (0.2-1.3); CALCIUM 9.7 mg/dL (8.5-10.1); CARBON DIOXIDE 31.1 mmol/L (21.0-32.0); CREATININE - SERUM 1.9 mg/dL (0.6-1.3); POTASSIUM - SERUM 4.1 mmol/L (3.5-5.1); PROTEIN - SERUM 7.6 g/dL (6.4-8.2); TROPONIN-I 0.024 ng/mL (0.000-0.060)
[2018-04-18 12:37] LABS: HEMATOCRIT 50.6 % (36.0-48.0); HEMOGLOBIN 17.7 g/dL (12-16); MCH 32.7 pg (26.0-34.0); MCV 93.4 fL (80.0-100.0); MEAN PLATELET VOLUME 11.6 fL (7.4-10.4); PLATELET COUNT 352 10x3/uL (130-400); RBC 5.42 10x6/uL (4.00-5.40); RDW 12.8 % (11.5-14.5); WBC 14.1 10x3/uL (4.8-10.8)
[2018-04-18 13:06] LABS: BASOPHILS 1 % (0-2); LYMPHOCYTES 34 % (15-50); MONOCYTES 12 % (2-11); NEUTROPHILS 51 % (40-80); PLATELET ESTIMATE NORMAL
[2018-04-18 13:09] LABS: ROULEAUX OCC
[2018-04-18 16:37] VITALS: BP 129/61
[2018-04-18 17:00] VITALS: BP 129/61; BMI 29.6
[2018-04-18 20:00] VITALS: BP 134/62
[2018-04-19 06:14] LABS: BASOPHILS 0.5 % (0-2); EOSINOPHILS 0.7 % (0-7); HEMATOCRIT 43.7 % (36.0-48.0); HEMOGLOBIN 15.4 g/dL (12-16); IMMATURE GRANULOCYTES 0.2 % (0-5); LYMPHOCYTES 30.9 % (15-50); MCH 32.4 pg (26.0-34.0); MCHC 35.2 g/dL (31.0-37.0); MCV 91.8 fL (80.0-100.0); MEAN PLATELET VOLUME 11.9 fL (7.4-10.4); MONOCYTES 11.1 % (2-11); NEUTROPHILS 56.6 % (40-80); RBC 4.76 10x6/uL (4.00-5.40); RDW 12.7 % (11.5-14.5)
[2018-04-19 06:37] LABS: PLATELET COUNT 278 10x3/uL (130-400); WBC 8.3 10x3/uL (4.8-10.8)
[2018-04-19 08:45] VITALS: BP 116/55
[2018-04-19 10:00] LABS: ALBUMIN 2.6 g/dL (3.4-5.0); ANION GAP 10.8 mmol/L (8-16); BILIRUBIN - TOTAL 0.79 mg/dL (0.2-1.3); CALCIUM 8.2 mg/dL (8.5-10.1); CARBON DIOXIDE 36.3 mmol/L (21.0-32.0); CREATININE - SERUM 1.5 mg/dL (0.6-1.3); POTASSIUM - SERUM 3.1 mmol/L (3.5-5.1); PROTEIN - SERUM 6.4 g/dL (6.4-8.2)
[2018-04-19 12:34] VITALS: Ht 160 cm; Wt 75.8 kg
[2018-04-19 12:45] VITALS: BP 117/46
[2018-04-19 16:48] VITALS: BP 102/52; BP 129/50
[2018-04-19 20:04] LABS: APPEARANCE CLEAR (CLEAR); COLOR YELLOW (YELLOW)
[2018-04-19 20:05] LABS: BILIRUBIN NEGATIVE (NEGATIVE); EPITHELIAL CELLS OCC /hpf (0-5); GLUCOSE NEGATIVE (NEGATIVE); KETONE MODERATE mg/dL (NEGATIVE); NITRITE POSITIVE (NEGATIVE); PROTEIN NEGATIVE (NEGATIVE); SPECIFIC GRAVITY 1.015 (1.005-1.020); UROBILINOGEN NORMAL (NORMAL); WHITE CELLS - URINE 0-5 /hpf (0-5)
[2018-04-19 20:06] LABS: BACTERIA MANY /hpf (NONE SEEN)
[2018-04-19 20:28] VITALS: BP 113/40
[2018-04-20 00:46] VITALS: BP 107/62
[2018-04-20 05:24] VITALS: BP 118/61
[2018-04-20 08:31] LABS: BASOPHILS 0.3 % (0-2); HEMATOCRIT 38.9 % (36.0-48.0); IMMATURE GRANULOCYTES 0.2 % (0-5); LYMPHOCYTES 30.7 % (15-50); MCH 31.9 pg (26.0-34.0); MCHC 33.4 g/dL (31.0-37.0); MCV 95.6 fL (80.0-100.0); MEAN PLATELET VOLUME 11.2 fL (7.4-10.4); MONOCYTES 7.2 % (2-11); NEUTROPHILS 60.6 % (40-80); PLATELET COUNT 229 10x3/uL (130-400); RBC 4.07 10x6/uL (4.00-5.40); RDW 12.8 % (11.5-14.5); WBC 6.3 10x3/uL (4.8-10.8)
[2018-04-20 08:41] LABS: ANION GAP 16.4 mmol/L (8-16); CALCIUM 7.8 mg/dL (8.5-10.1); CARBON DIOXIDE 29.5 mmol/L (21.0-32.0)
[2018-04-20 08:50] LABS: CREATININE - SERUM 0.9 mg/dL (0.6-1.3); POTASSIUM - SERUM 2.9 mmol/L (3.5-5.1)
[2018-04-20 09:53] VITALS: BP 118/48
[2018-04-20 16:00] VITALS: BP 116/53
[2018-04-20 20:42] VITALS: BP 127/53
[2018-04-21 04:32] VITALS: BP 106/50
[2018-04-21 09:08] VITALS: BP 109/43
[2018-04-21 10:19] LABS: CALCIUM 7.6 mg/dL (8.5-10.1); CARBON DIOXIDE 29.1 mmol/L (21.0-32.0); CHLORIDE - SERUM 103 mmol/L (98-107); CREATININE - SERUM 0.8 mg/dL (0.6-1.3); SODIUM 137 mmol/L (136-145); eGFR NON AFRICAN AMERICAN 75 mL/min (90-120)
[2018-04-21 10:20] LABS: CALC OSMOLALITY 273 mosm/kg (275-300); GLUCOSE 116 mg/dL (74-106); POTASSIUM - SERUM 4.2 mmol/L (3.5-5.1); UREA NITROGEN 11 mg/dL (7-18)
[2018-04-21 11:26] LABS: BASOPHILS 0.4 % (0-2); EOSINOPHILS 2.6 % (0-7); HEMATOCRIT 37.2 % (36.0-48.0); HEMOGLOBIN 12.6 g/dL (12-16); IMMATURE GRANULOCYTES 0.2 % (0-5); LYMPHOCYTES 32.1 % (15-50); MCH 31.9 pg (26.0-34.0); MCHC 33.9 g/dL (31.0-37.0); MCV 94.2 fL (80.0-100.0); MEAN PLATELET VOLUME 11.1 fL (7.4-10.4); MONOCYTES 8.5 % (2-11); NEUTROPHILS 56.2 % (40-80); PLATELET COUNT 217 10x3/uL (130-400); RBC 3.95 10x6/uL (4.00-5.40); RDW 12.5 % (11.5-14.5)
[2018-04-21 16:10] VITALS: BP 102/37
[2018-04-21 21:13] VITALS: BP 151/42
[2018-04-22] VITALS: BP 106/56
[2018-04-22 03:00] VITALS: BP 100/52
[2018-04-22 07:15] LABS: ALKALINE PHOSPHATASE 175 U/L (46-116); ALT (SGPT) 38 U/L (10-68); BILIRUBIN - TOTAL 0.46 mg/dL (0.2-1.3); CALC OSMOLALITY 278 mosm/kg (275-300); CALCIUM 7.4 mg/dL (8.5-10.1); CHLORIDE - SERUM 108 mmol/L (98-107); CREATININE - SERUM 0.7 mg/dL (0.6-1.3); GLUCOSE 102 mg/dL (74-106); POTASSIUM - SERUM 4.7 mmol/L (3.5-5.1); PROTEIN - SERUM 4.7 g/dL (6.4-8.2); SODIUM 141 mmol/L (136-145); UREA NITROGEN 8 mg/dL (7-18); eGFR NON AFRICAN AMERICAN 88 mL/min (90-120)
[2018-04-22 08:06] VITALS: BP 107/53
[2018-04-22 12:40] VITALS: BP 126/53
[2018-04-22 14:37] LABS: BASOPHILS 0.7 % (0-2); EOSINOPHILS 3.3 % (0-7); HEMATOCRIT 37.7 % (36.0-48.0); HEMOGLOBIN 12.9 g/dL (12-16); IMMATURE GRANULOCYTES 0.7 % (0-5); LYMPHOCYTES 37.4 % (15-50); MCHC 34.2 g/dL (31.0-37.0); MCV 93.5 fL (80.0-100.0); MEAN PLATELET VOLUME 11.8 fL (7.4-10.4); MONOCYTES 7.5 % (2-11); NEUTROPHILS 50.4 % (40-80); PLATELET COUNT 186 10x3/uL (130-400); RBC 4.03 10x6/uL (4.00-5.40); RDW 12.7 % (11.5-14.5); WBC 4.5 10x3/uL (4.8-10.8)
[2018-04-22 16:05] VITALS: BP 141/70
[2018-04-22 19:00] VITALS: BP 130/64
[2018-04-23] VITALS: BP 130/62
[2018-04-23 05:55] VITALS: BP 128/65
[2018-04-23 06:04] LABS: BASOPHILS 0.6 % (0-2); EOSINOPHILS 4.7 % (0-7); HEMATOCRIT 36.6 % (36.0-48.0); HEMOGLOBIN 12.3 g/dL (12-16); IMMATURE GRANULOCYTES 0.2 % (0-5); LYMPHOCYTES 38.6 % (15-50); MCH 31.8 pg (26.0-34.0); MCHC 33.6 g/dL (31.0-37.0); MCV 94.6 fL (80.0-100.0); MEAN PLATELET VOLUME 11.1 fL (7.4-10.4); MONOCYTES 8.8 % (2-11); NEUTROPHILS 47.1 % (40-80); PLATELET COUNT 222 10x3/uL (130-400); RBC 3.87 10x6/uL (4.00-5.40); RDW 12.8 % (11.5-14.5); WBC 5.3 10x3/uL (4.8-10.8)
[2018-04-23 06:34] LABS: CALC OSMOLALITY 276 mosm/kg (275-300); CALCIUM 7.7 mg/dL (8.5-10.1); CARBON DIOXIDE 25.4 mmol/L (21.0-32.0); CHLORIDE - SERUM 106 mmol/L (98-107); CREATININE - SERUM 0.8 mg/dL (0.6-1.3); GLUCOSE 96 mg/dL (74-106); POTASSIUM - SERUM 4.4 mmol/L (3.5-5.1); SODIUM 139 mmol/L (136-145); UREA NITROGEN 9 mg/dL (7-18); eGFR NON AFRICAN AMERICAN 75 mL/min (90-120)
[2018-04-23 08:32] VITALS: BP 134/62
--- NOTE | 2018-04-23 09:14 | MORECARE ---
CASE MANAGEMENT DISCHARGE SUMMARY PATIENT: SHEFALI MALDONADO UNIT: [id number] ADM DATE: 04/18/18 AGE: 68 : 49 SEX: F ROOM/BED: D.2219 AUTHOR: IVONE,DOC PHYSICIAN: REFERRING PHYSICIAN: ERICKSON ESCALANTE MD DATE OF SERVICE: 04/23/18 Discharge Plan Patient Name: SHEFALI MALDONADO Facility: [facility]:[place] : 1950 Planned Disposition: Home Anticipated Discharge Date: Discharge Date: Expected LOS: Initial Reviewer: [email or web address] Initial Review Date: 04/18/2018 Generated: 04/23/18 10:14 am Comments DCP- Discharge Planning Updated by [email or web address]: Elsy Enriquez on 04/23/18 8:[address] Patient Name: SHEFALI MALDONADO Admission Status: ER Accout number: [id number] Admission Date: 04-18-2018 : 1950 Admission Diagnosis: Attending: ERICKSON ESCALANTE Current LOS: 5 Anticipated DC Date: Planned Disposition: Home Primary Insurance: MEDICARE A & B Discharge Planning Comments: CM met with patient to assess discharge planning needs. Patient stated that she lives independently at home where she plans to return today. Her daughter will be her bulk driver home. She does not use any DME and states her home is safe to return. She has 3 steps in her home. De does not want/need home health. CM will continue to follow and assist with DM planning needs as needed. IMM served and explained Distribution Engineer: Elsy Enriquez DCPIA - Discharge Planning Initial Assessment Updated by [email or web address]: Elsy Enriquez on 04/23/18 9:12 am * Is the patient Alert and Oriented? Yes * How many steps to enter\exit or inside your home? * PCP BORIS * Pharmacy [facility] * Preadmission Environment Home Alone * ADLs Independent * Equipment None * List name and contact numbers for known caregivers / representatives who currently or will assist patient after discharge: GEOVANI CARRILLO (DAUGHTER) [phone] * Verbal permission to speak to the caregivers and representatives has been obtained from the patient. N/A * Community resources currently utilized None * Additional services required to return to the preadmission environment? No * Can the patient safely return to the preadmission environment? Yes * Has this patient been hospitalized within the prior 30 days at any hospital? No Coverage Notice Reviewer: [email or web address] Carin Enriquez Notice Issued Date-Time: 04/23/2018 9:00 Notice Type: IM Discharge Notice Notice Delivered To: Patient Relationship to Patient: Stereoptician Name: Delivery Method: HAND - Hand Delivered Ebony Days: Prior Verbal Notification: Recipient Understood Notice: Yes Recipient Signature: Yes Med Rec Note Co-signed by Attending: Coverage Notice Comment: Patient Name: SHEFALI MALDONADO Page 24400 at 0914 All edits/amendments must be made on the electronic document DICTATION DATE: 04/23/18912 MANAGER DIABETES: BIENVENIDO 04/23/18912 RPT#: [id number] DC DATE: STATUS: ADM IN [facility] [address] [place] [address] END OF REPORT
== END 2018-04-23 11:35 | disposition home or self-care (01) | DRG 389 ==
LOC: D.ER 11:14 → D.EDHOLD 15:06 → D.MS 15:49
PROVIDERS: Family Medicine; ADMIT Family Medicine
PROC: 0D9670Z Drainage of Stomach with Drainage Device, Via Natural or Artificial Opening (ICD-10-PCS; principal; 2018-04-18)
DX: K56.609 Unspecified intestinal obstruction, unspecified as to partial versus complete obstruction (principal); N17.9 Acute kidney failure, unspecified; N39.0 Urinary tract infection, site not specified; E87.1 Hypo-osmolality and hyponatremia; E87.6 Hypokalemia; F32.9 Major depressive disorder, single episode, unspecified

== ENCOUNTER 2018-04-25 14:51 | Emergency (ER) | payer MEDICARE ==
[~2018-04-25] VITALS: Ht 160 cm; Wt 75.9 kg
[2018-04-25 14:54] VITALS: Ht 160 cm; Wt 75.9 kg
[2018-04-25 15:40] LABS: HEMATOCRIT 40.6 % (36.0-48.0); LYMPHOCYTES 42.1 % (15-50); MCH 32.6 pg (26.0-34.0); MCHC 34.5 g/dL (31.0-37.0); MCV 94.6 fL (80.0-100.0); MEAN PLATELET VOLUME 10.5 fL (7.4-10.4); NEUTROPHILS 50.9 % (40-80); PLATELET COUNT 230 10x3/uL (130-400); RBC 4.29 10x6/uL (4.00-5.40); RDW 13.1 % (11.5-14.5); WBC 6.3 10x3/uL (4.8-10.8)
[2018-04-25 16:04] LABS: ALBUMIN 2.7 g/dL (3.4-5.0); ALKALINE PHOSPHATASE 205 U/L (46-116); ALT (SGPT) 38 U/L (10-68); BILIRUBIN - TOTAL 0.35 mg/dL (0.2-1.3); CALC OSMOLALITY 276 mosm/kg (275-300); CALCIUM 8.3 mg/dL (8.5-10.1); CARBON DIOXIDE 30.2 mmol/L (21.0-32.0); CHLORIDE - SERUM 99 mmol/L (98-107); CREATININE - SERUM 0.7 mg/dL (0.6-1.3); GLUCOSE 112 mg/dL (74-106); POTASSIUM - SERUM 3.5 mmol/L (3.5-5.1); PROTEIN - SERUM 6.7 g/dL (6.4-8.2); SODIUM 137 mmol/L (136-145); UREA NITROGEN 17 mg/dL (7-18); eGFR NON AFRICAN AMERICAN 88 mL/min (90-120)
[2018-04-25 17:15] LABS: AMYLASE - SERUM 70 U/L (25-115); LIPASE 327 U/L (73-393)
[2018-04-25] MEDS ORDERED: CHRONULAC30 ML PO (18:53)
[2018-04-25 19:58] VITALS: BP 136/58
== END 2018-04-25 19:59 | disposition home or self-care (01) ==
LOC: D.ER 14:51
PROVIDERS: Family Medicine
DX: R10.84 Generalized abdominal pain (principal); K59.00 Constipation, unspecified; R11.2 Nausea with vomiting, unspecified

== ENCOUNTER 2018-04-28 13:33 | Inpatient (IN) | payer MEDICARE ==
[~2018-04-28] VITALS: Ht 160 cm; Wt 72.6 kg
[~2018-04-28 13:33] MED LIST changes: +CHRONULAC30 ML PO
[2018-04-28 14:48] LABS: APPEARANCE CLEAR (CLEAR); BILIRUBIN NEGATIVE (NEGATIVE); COLOR DK YELLOW (YELLOW); GLUCOSE NEGATIVE (NEGATIVE); KETONE NEGATIVE (NEGATIVE); NITRITE POSITIVE (NEGATIVE); PROTEIN 1+ mg/dL (NEGATIVE); UROBILINOGEN NORMAL (NORMAL)
[2018-04-28 14:50] LABS: BACTERIA MANY /hpf (NONE SEEN); EPITHELIAL CELLS 0-5 /hpf (0-5); MUCUS <1+ /lpf (NONE SEEN); RED CELLS - URINE 0-5 /hpf (0-5)
[2018-04-28 15:00] VITALS: BP 115/65
--- NOTE | 2018-04-28 15:30 | NUR ---
PATIENT AWAKE AND ALERT. NO NEEDS NOTED. WILL CONTINUE TO MONITOR. UPDATED ON PLAN OF CARE AND DELAYS IN CARE.
[2018-04-28 15:52] LABS: BASOPHILS 0.6 % (0-2); EOSINOPHILS 0.4 % (0-7); HEMATOCRIT 44.8 % (36.0-48.0); HEMOGLOBIN 15.3 g/dL (12-16); IMMATURE GRANULOCYTES 0.2 % (0-5); LYMPHOCYTES 31.4 % (15-50); MCH 32.1 pg (26.0-34.0); MCHC 34.2 g/dL (31.0-37.0); MCV 93.9 fL (80.0-100.0); MEAN PLATELET VOLUME 10.5 fL (7.4-10.4); MONOCYTES 6.5 % (2-11); NEUTROPHILS 60.9 % (40-80); PLATELET COUNT 274 10x3/uL (130-400); RBC 4.77 10x6/uL (4.00-5.40); RDW 12.8 % (11.5-14.5); WBC 4.8 10x3/uL (4.8-10.8)
[2018-04-28 15:53] LABS: ALBUMIN 2.8 g/dL (3.4-5.0); ALKALINE PHOSPHATASE 286 U/L (46-116); ALT (SGPT) 49 U/L (10-68); BILIRUBIN - TOTAL 0.32 mg/dL (0.2-1.3); CALC OSMOLALITY 277 mosm/kg (275-300); CALCIUM 8.8 mg/dL (8.5-10.1); CARBON DIOXIDE 18.3 mmol/L (21.0-32.0); CHLORIDE - SERUM 106 mmol/L (98-107); CREATININE - SERUM 0.7 mg/dL (0.6-1.3); GLUCOSE 129 mg/dL (74-106); POTASSIUM - SERUM 4.5 mmol/L (3.5-5.1); PROTEIN - SERUM 6.6 g/dL (6.4-8.2); SODIUM 137 mmol/L (136-145); UREA NITROGEN 18 mg/dL (7-18); eGFR NON AFRICAN AMERICAN 88 mL/min (90-120)
[2018-04-28 15:58] LABS: CREATINE KINASE 52 UL (21-215); TROPONIN-I 0.019 ng/mL (0.000-0.060)
--- NOTE | 2018-04-28 16:30 | NUR ---
PATIENT AWAKE AND ALERT, COLOR WNL FOR RACE, RESPIRATIONS EVEN AND UNLABORED. NO NEEDS NOTED. UPDATED ON PLAN OF CARE AND DELAYS IN CARE. WILL CONTINUE TO MONITOR.
[2018-04-28 16:49] VITALS: BP 117/57
[2018-04-28 17:01] VITALS: BP 127/53
--- NOTE | 2018-04-28 17:30 | NUR ---
NO NEEDS NOTED. WILL CONTINUE TO MONITOR.
[2018-04-28 18:07] VITALS: BP 140/56
[2018-04-28 21:02] VITALS: BP 128/59
[2018-04-28 23:19] VITALS: BP 128/59; BMI 28.4
[2018-04-29 00:43] VITALS: BP 132/49
[2018-04-29 05:00] VITALS: BP 130/80
[2018-04-29 05:48] LABS: BASOPHILS 0.5 % (0-2); EOSINOPHILS 1.4 % (0-7); IMMATURE GRANULOCYTES 0.4 % (0-5); LYMPHOCYTES 46.9 % (15-50); MCH 31.5 pg (26.0-34.0); MCHC 33.3 g/dL (31.0-37.0); MCV 94.5 fL (80.0-100.0); MEAN PLATELET VOLUME 10.3 fL (7.4-10.4); MONOCYTES 10.8 % (2-11); PLATELET COUNT 273 10x3/uL (130-400); RDW 12.9 % (11.5-14.5); WBC 5.6 10x3/uL (4.8-10.8)
[2018-04-29 06:01] LABS: CALC OSMOLALITY 279 mosm/kg (275-300); CALCIUM 7.7 mg/dL (8.5-10.1); CARBON DIOXIDE 20.7 mmol/L (21.0-32.0); CHLORIDE - SERUM 110 mmol/L (98-107); CREATININE - SERUM 0.6 mg/dL (0.6-1.3); GLUCOSE 92 mg/dL (74-106); SODIUM 140 mmol/L (136-145); UREA NITROGEN 16 mg/dL (7-18); eGFR NON AFRICAN AMERICAN > 90 mL/min (90-120)
[2018-04-29 06:16] LABS: POTASSIUM - SERUM 3.6 mmol/L (3.5-5.1)
[2018-04-29 06:55] LABS: RBC 3.81 10x6/uL (4.00-5.40)
--- NOTE | 2018-04-29 07:20 | NUR ---
REFUSED SCD STATED I CAN'T STAND THEM.
[2018-04-29 08:09] VITALS: BP 132/54
--- NOTE | 2018-04-29 11:34 | NUR ---
CHANGED PT REGULATORY PRODUCT MANAGER THIS MORNING, COST REPORT CLERK CAME BY AND ADVISED PT REGULATORY PRODUCT MANAGER TURNED OFF, TURNED PT REGULATORY PRODUCT MANAGER BACK ON, CONTINUE WITH PLAN OF CARE
[2018-04-29 12:09] VITALS: BP 139/54
--- NOTE | 2018-04-29 12:18 | NUR ---
SITTING UP ON SIDE OF BED. NO C/O AT THIS TIME. DENIES NEEDS.
[2018-04-29 12:43] VITALS: Ht 160 cm; Wt 72.6 kg
--- NOTE | 2018-04-29 12:51 | NUR ---
NUTRITION F/U STARTED PROCALAMINE @ 75 CC/HR. ([facility] OPT[facility] NEAREST 80 CC/HR.) RD FOLLOWING
--- NOTE | 2018-04-29 16:25 | NUR ---
CLAIR 22 NO SKIN ISSUES
[2018-04-29 20:00] VITALS: BP 151/58
[2018-04-30 05:59] VITALS: BP 143/68
[2018-04-30 08:24] VITALS: BP 146/80
[2018-04-30 10:45] LABS: BASOPHILS 0.6 % (0-2); EOSINOPHILS 1.2 % (0-7); HEMATOCRIT 35.3 % (36.0-48.0); IMMATURE GRANULOCYTES 0.2 % (0-5); LYMPHOCYTES 33.5 % (15-50); MCH 31.7 pg (26.0-34.0); MCV 93.1 fL (80.0-100.0); MEAN PLATELET VOLUME 10.1 fL (7.4-10.4); MONOCYTES 9.1 % (2-11); NEUTROPHILS 55.4 % (40-80); PLATELET COUNT 278 10x3/uL (130-400); RBC 3.79 10x6/uL (4.00-5.40); RDW 12.8 % (11.5-14.5); WBC 4.9 10x3/uL (4.8-10.8)
[2018-04-30 11:00] LABS: CALC OSMOLALITY 277 mosm/kg (275-300); CALCIUM 7.7 mg/dL (8.5-10.1); CARBON DIOXIDE 24.1 mmol/L (21.0-32.0); CHLORIDE - SERUM 109 mmol/L (98-107); CREATININE - SERUM 0.6 mg/dL (0.6-1.3); GLUCOSE 101 mg/dL (74-106); POTASSIUM - SERUM 3.2 mmol/L (3.5-5.1); SODIUM 140 mmol/L (136-145); eGFR NON AFRICAN AMERICAN > 90 mL/min (90-120)
[2018-04-30 11:01] LABS: UREA NITROGEN 9 mg/dL (7-18)
[2018-04-30 12:49] VITALS: BP 144/67
[2018-04-30 16:08] VITALS: BP 135/57
--- NOTE | 2018-04-30 18:11 | MORECARE ---
CASE MANAGEMENT DISCHARGE SUMMARY PATIENT: SHEFALI MALDONADO UNIT: [id number] ADM DATE: 04/28/18 AGE: 68 : 49 SEX: F ROOM/BED: D.2211 AUTHOR: IVONE,DOC PHYSICIAN: REFERRING PHYSICIAN: ERICKSON ESCALANTE MD DATE OF SERVICE: 04/30/18 Discharge Plan Patient Name: SHEFALI MALDONADO Facility: [facility]:[place] : 1950 Planned Disposition: Home Anticipated Discharge Date: 05/02/18 Discharge Date: Expected LOS: 4 Initial Reviewer: [email or web address] Initial Review Date: 04/30/2018 Generated: 04/30/18 7:11 pm Comments DCP- Discharge Planning Updated by [email or web address]: Digna Isabel on 04/30/18 5:[address] Patient Name: SHEFALI MALDONADO Admission Status: ER Accout number: [id number] Admission Date: 04-28-2018 : 1950 Admission Diagnosis: Attending: ERICKSON ESCALANTE Current LOS: 2 Anticipated DC Date: 05-02-2018 Planned Disposition: Home Primary Insurance: MEDICARE A & B Discharge Planning Comments: CM MET WITH PATIENT REGARDING D/C NEEDS AND PLANS. PATIENT STATED SHE LIVES ALONE AND HER DAUGHTER (GEOVANI) WILL STAY WITH HER FOR A FEW DAYS. PATIENTS DAUGHTER WILL DRIVE HER HOME WHEN DISCHARGED PER PATIENT. PATIENT HAS 3 STEPS TO ENTER HOME AND NO STAIRS INSIDE. PATIENT STATED SHE IS INDEPENDENT WITH HER CARE AND HAS NO DME AT HOME. PATIENTS PCP IS DR. ESCALANTE AND USES [facility] IN [place]. PATIENT REFUSED HOME HEALTH. CM WILL CONTINUE TO FOLLOW PATIENT WITH D/C NEEDS AND PLANS. PCP DR. ESCALANTE [facility] [place] GEOVANI CARRILLO (DAUGHTER) [phone] Valet Service Attendant: Digna Isabel DCPIA - Discharge Planning Initial Assessment Updated by [email or web address]: Digna Isabel on 04/30/18 6:05 pm * Is the patient Alert and Oriented? Yes * How many steps to enter\exit or inside your home? * PCP DR. ESCALANTE * Pharmacy [facility] [place] * Preadmission Environment Home Alone * ADLs Independent * Equipment None * List name and contact numbers for known caregivers / representatives who currently or will assist patient after discharge: GEOVANI CARRILLO (DAUGHTER) [phone] * Verbal permission to speak to the caregivers and representatives has been obtained from the patient. Yes * Community resources currently utilized None * Additional services required to return to the preadmission environment? Yes * Can the patient safely return to the preadmission environment? Yes * Has this patient been hospitalized within the prior 30 days at any hospital? Yes Patient Name: SHEFALI MALDONADO Page 27118 at 1811 All edits/amendments must be made on the electronic document DICTATION DATE: 04/30/181810 TRACTOR TECHNICIAN: BIENVENIDO 04/30/181810 RPT#: [id number] DC DATE: STATUS: ADM IN [facility] [address] [place] [address] END OF REPORT
[2018-04-30 20:00] VITALS: BP 119/77
--- NOTE | 2018-04-30 21:00 | NUR ---
PT SITTING UP IN BED, NO SIGNS OF DISTRESS. ALERT AND ORIENTED. NG TUBE TO LEFT NARE. IV LEFT PORT INFUSING PROCAL @ 75, NS @ 75 W/ DILAUDID HAM TRIMMER. PT ABLE TO USE BEDSIDE COMMODE W/O ASSIST. GAVE PT ATIVAN REQUESTED TO HELP SLEEP. NO OTHER NEEDS OR COMPLAINTS AT THIS TIME. CL IN REACH, WILL CONTINUE TO MONITOR
[2018-05-01 06:14] VITALS: BP 146/66
[2018-05-01 07:01] LABS: BASOPHILS 0.5 % (0-2); EOSINOPHILS 2.6 % (0-7); HEMATOCRIT 37.8 % (36.0-48.0); HEMOGLOBIN 13.1 g/dL (12-16); IMMATURE GRANULOCYTES 0.2 % (0-5); LYMPHOCYTES 39.2 % (15-50); MCHC 34.7 g/dL (31.0-37.0); MCV 92.2 fL (80.0-100.0); MEAN PLATELET VOLUME 10.3 fL (7.4-10.4); MONOCYTES 8.4 % (2-11); NEUTROPHILS 49.1 % (40-80); PLATELET COUNT 283 10x3/uL (130-400); RDW 12.7 % (11.5-14.5); WBC 5.7 10x3/uL (4.8-10.8)
[2018-05-01 07:17] LABS: CALC OSMOLALITY 275 mosm/kg (275-300); CALCIUM 7.6 mg/dL (8.5-10.1); CARBON DIOXIDE 23.5 mmol/L (21.0-32.0); CHLORIDE - SERUM 105 mmol/L (98-107); CREATININE - SERUM 0.5 mg/dL (0.6-1.3); GLUCOSE 94 mg/dL (74-106); POTASSIUM - SERUM 3.5 mmol/L (3.5-5.1); SODIUM 139 mmol/L (136-145); UREA NITROGEN 7 mg/dL (7-18); eGFR NON AFRICAN AMERICAN > 90 mL/min (90-120)
[2018-05-01 08:12] VITALS: BP 159/74
--- NOTE | 2018-05-01 09:00 | NUR ---
SURGICAL ATTENDANT COMPLETE. NO SIGNS OF DISTRESS. DENIES NEEDS AT THIS TIME.
--- NOTE | 2018-05-01 10:53 | NUR ---
NUTRITION F/U CHART REVIEWED. PT REMAINS NPO WITH NG TUBE. PROCALAMINE AT 75 CC/HR. WILL CONTINUE TO MONITOR PT PROGRESS. PROVIDE DIET WHEN APPROPRIATE. RD FOLLOWING
--- NOTE | 2018-05-01 11:20 | NUR ---
PT LYING IN BED CRYING, REQUESTED SOMETHING FOR HER DEPRESSION, ADVISED I WILL CALL DR ESCALANTE'S OFFICE, CALLED AND SPOKE TO DR BORIS EDMONDS'S NURSE AND WAS ADVISED THAT PER DR ESCALANTE PT MAY RESTART PO MEDS ONCE NPO RESTRICTION HAS BEEN LIFTED, WILL EXPLAIN TO PT
[2018-05-01 12:58] VITALS: BP 146/59
[2018-05-01 16:08] VITALS: BP 147/59
[2018-05-01 19:18] VITALS: BP 161/71
--- NOTE | 2018-05-01 23:31 | HP ---
PATIENT: SHEFALI MALDONADO MEDICAL RECORD: [id number] ACCOUNT: [id number] LOCATION:[facility] [place] : [birth year] ADMISSION DATE: 04/28/18 PCP: ERICKSON ESCALANTE MD HISTORY AND PHYSICAL EXAMINATION DATE OF ADMISSION: 04/28/2018 CHIEF COMPLAINT: Abdominal pain, nausea, vomiting, UTI. HISTORY OF PRESENT ILLNESS: This is a 68-year-old female followed by Dr. Escalante with a history of recurrent ileus/obstructions. She was just in the hospital, started about 10 days ago and discharged on 04/23/2018, treated for usual ileus and UTI as well. She comes back in today with acute onset of similar symptoms. PAST MEDICAL HISTORY: Recurrent ileus/obstruction, has degenerative disc disease, irritable bowel syndrome, depression, hypothyroidism, osteoarthritis, and skin cancer. PAST SURGICAL HISTORY: Anterior cervical fusion, lumbar laminectomies, colon resection, G-tube placement, port placement, exploratory lap times 3, and hysterectomy. ALLERGIES: SUMATRIPTAN CALLED PALPITATIONS, ALSO DOES NOT TOLERATE STEROIDS. MEDICATIONS: Reglan 5 mg t.i.d., gabapentin 600 mg twice a day, levothyroxine 88 mcg once a day, morphine ER 30 mg t.i.d., Cymbalta 60 mg once a day, senna once at bedtime, milk of magnesia 30 mg twice a day, Ambien 10 mg at bedtime, Bumex 0.5 once a day, vitamin D3 2000 units daily, Robaxin 500 mg to take 2 pills 4 times a day, Carafate 1 mg with meals, Anusol-HC twice a day. SOCIAL HISTORY: , retired. HABITS: No tobacco, alcohol or drugs. FAMILY HISTORY: There was colon cancer in the family. Heart disease. Father had multiple bowel obstructions. REVIEW OF SYSTEMS: GENERAL: No major weight changes. HEENT: No particular sinus or allergy problems. RESPIRATORY: No history of emphysema or asthma. CARDIAC: No history of heart trouble. GASTROINTESTINAL: See above history. Her last EGD, I believe, was in September of [address] Teague showing some gastritis. MUSCULOSKELETAL: Has some arthritic aches and pains. NEUROLOGIC: Migraine headaches at times. PSYCHIATRIC: She has some anxiety/depression. PHYSICAL EXAMINATION: VITAL SIGNS: Temperature 98.6, pulse 91, respirations 18, blood pressure 140/56, O2 sat 96%. GENERAL: She is complaining of pain. BACK: She has NG tube in place. HEENT: Otherwise unremarkable. NECK: Supple. HISTORY AND PHYSICAL [id number] SHEFALI MALDONADO HEART: Regular rate and rhythm. LUNGS: Clear. ABDOMEN: With generalized tenderness. No guarding, no rebound, no mass. G-tube is in place. EXTREMITIES: No edema. LABORATORY DATA: CBC with a white count of 4800, hemoglobin 15.3. Basic metabolic panel is all okay. Liver functions are all okay except alkaline phosphatase is high at 286. Urinalysis shows dark yellow urine that is clear with trace protein, positive nitrite, trace leukocyte esterase, many bacteria, 0-[address] of the abdomen and pelvis compared to previous film, I believe on 04/25/2018, showed severe SBO. Postoperative changes and fatty liver. ASSESSMENT: 1. Acute small-bowel obstruction. 2. Urinary tract infection. 3. Recurrent abdominal pains. PLAN: We will admit, NG has already been started. Dr. Smith has been consulted. Pain control. Other tests and procedures as warranted. TRANSINT:[id number] Voice Confirmation ID: [id number] DOCUMENT ID: [id number] DINO WHITE MD at 2331 CC: [id number] DICTATION DATE: 04/28/181905 ASP NET SOFTWARE DEVELOPER: 04/28/182036 ADM IN [facility] [facility] [address] [place] [address]
[2018-05-02] VITALS: BP 147/71
[2018-05-02 04:00] VITALS: BP 165/75
--- NOTE | 2018-05-02 05:01 | NUR ---
PT IN BED IN LOW FOWLERS POSITION. ALERT AND ORIENTED X4. RESPIRATIONS EVEN AND UNLABORED. VS STABLE AND AFEBRILE. NO VISUAL CUES OF DISTRESS NOTED. DENIES ANY OTHER NEEDS AT THIS TIME. BED LOW, SIDE RAILS UP X2. CALL LIGHT IN REACH. WILL CONTINUE TO MONITOR.
--- NOTE | 2018-05-02 06:40 | NUR ---
PT IN BED IN LOW FOWLERS POSITION. ALERT AND ORIENTED X4. RESPIRATIONS EVEN AND UNLABORED. VITAL SIGNS STABLE AND AFEBRILE. NO VISUAL CUES OF DISTRESS NOTE. DENIES ANY OTHER NEEDS AT THIS TIME. BED LOW, SIDE RAILS UP X2. CALL LIGHT IN REACH. WILL CONTINUE TO MONITOR.
[2018-05-02 09:00] VITALS: BP 159/75
[2018-05-02 12:42] VITALS: BP 132/48
[2018-05-02 16:00] VITALS: BP 142/67
[2018-05-02 19:52] VITALS: BP 150/72
[2018-05-03] VITALS: BP 151/67
[2018-05-03 04:00] VITALS: BP 147/82
[2018-05-03 07:53] VITALS: BP 149/72
--- NOTE | 2018-05-03 08:25 | NUR ---
PT RESTING QUIETLY IN BED, AWAKE ALERT AND ORIENTED. REPORTS PAIN 5/10 AT THIS TIME. DILAUDID HEEL CEMENTER MACHINE INTACT AND BEING UTILIZED PER PT. LEFT CHEST PORT ACCESSED WITH PROCAL @ 75ML/HR, NS @ 75ML/HR INFUSING VIA PUMP. SITE WITHOUT REDNESS OR EDEMA. VOICES ABDOMINAL TENDERNESS THIS AM. CL DIET, DENIES NAUSEA OR VOMITING. DECLINES USE OF SCD'S AT THIS TIME. CL WITHIN REACH, ENCOURAGED TO CALL WITH NEEDS. CONTINUE TO MONITOR.
--- NOTE | 2018-05-08 07:56 | MORECARE ---
CASE MANAGEMENT DISCHARGE SUMMARY PATIENT: SHEFALI MALDONADO UNIT: [id number] ADM DATE: 04/28/18 AGE: 68 : [birth year] SEX: F ROOM/BED: D.2211 AUTHOR: IVONE,DOC PHYSICIAN: REFERRING PHYSICIAN: ERICKSON ESCALANTE MD DATE OF SERVICE: 05/08/18 Discharge Plan Patient Name: SHEFALI MALDONADO Facility: [facility]:[place] : 1950 Planned Disposition: Home Anticipated Discharge Date: 05/02/18 Discharge Date: 05/03/2018 Expected LOS: 4 Initial Reviewer: [email or web address] Initial Review Date: 04/30/2018 Generated: 05/08/18 8:56 am Comments DCP- Discharge Planning Updated by [email or web address]: Digna Isabel on 04/30/18 5:[address] Patient Name: SHEFALI MALDONADO Admission Status: ER Accout number: [id number] Admission Date: 04-28-2018 : 1950 Admission Diagnosis: Attending: ERICKSON ESCALANTE Current LOS: 2 Anticipated DC Date: 05-02-2018 Planned Disposition: Home Primary Insurance: MEDICARE A & B Discharge Planning Comments: CM MET WITH PATIENT REGARDING D/C NEEDS AND PLANS. PATIENT STATED SHE LIVES ALONE AND HER DAUGHTER (GEOVANI) WILL STAY WITH HER FOR A FEW DAYS. PATIENTS DAUGHTER WILL DRIVE HER HOME WHEN DISCHARGED PER PATIENT. PATIENT HAS 3 STEPS TO ENTER HOME AND NO STAIRS INSIDE. PATIENT STATED SHE IS INDEPENDENT WITH HER CARE AND HAS NO DME AT HOME. PATIENTS PCP IS DR. ESCALANTE AND USES [facility] IN [place]. PATIENT REFUSED HOME HEALTH. CM WILL CONTINUE TO FOLLOW PATIENT WITH D/C NEEDS AND PLANS. PCP DR. ESCALANTE [facility] [place] GEOVANI CARRILLO (DAUGHTER) [phone] Horticultural Specialty Grower Field: Digna Isabel DCPIA - Discharge Planning Initial Assessment Updated by [email or web address]: Digna Isabel on 04/30/18 6:05 pm * Is the patient Alert and Oriented? Yes * How many steps to enter\exit or inside your home? * PCP DR. ESCALANTE * Pharmacy [facility] [place] * Preadmission Environment Home Alone * ADLs Independent * Equipment None * List name and contact numbers for known caregivers / representatives who currently or will assist patient after discharge: GEOVANI CARRILLO (DAUGHTER) [phone] * Verbal permission to speak to the caregivers and representatives has been obtained from the patient. Yes * Community resources currently utilized None * Additional services required to return to the preadmission environment? Yes * Can the patient safely return to the preadmission environment? Yes * Has this patient been hospitalized within the prior 30 days at any hospital? Yes Coverage Notice Reviewer: [email or web address] Carin Hoffman Notice Issued Date-Time: 05/03/2018 8:48 Notice Type: IM Discharge Notice Notice Delivered To: Patient Relationship to Patient: Self Mattress Renovator Name: Delivery Method: HAND - Hand Delivered Ebony Days: Prior Verbal Notification: Recipient Understood Notice: Yes Recipient Signature: Yes Med Rec Note Co-signed by Attending: Coverage Notice Comment: Last DP export: 04/30/18 5:11 p Patient Name: SHEFALI MALDONADO Page 27212 at 0756 All edits/amendments must be made on the electronic document DICTATION DATE: 05/08/18 0756 FUNCTIONAL ANALYST: BIENVENIDO 05/08/18 0756 RPT#: [id number] DC DATE:05/03/18 STATUS: DIS IN [facility] [address] [place] [address] END OF REPORT
== END 2018-05-03 12:20 | disposition home or self-care (01) | DRG 389 ==
LOC: D.ER 13:33 → D.MS 18:07 → D.EDHOLD 18:07 → D.MS 18:28
PROVIDERS: Emergency Medicine; ADMIT Family Medicine
PROC: 0D9670Z Drainage of Stomach with Drainage Device, Via Natural or Artificial Opening (ICD-10-PCS; principal; 2018-04-28)
DX: K56.609 Unspecified intestinal obstruction, unspecified as to partial versus complete obstruction (principal); N39.0 Urinary tract infection, site not specified

== ENCOUNTER 2018-06-20 13:30 | Inpatient (IN) | payer MEDICARE ==
[~2018-06-20] VITALS: Ht 160 cm; Wt 70.8 kg
[2018-06-20 14:44] LABS: BASOPHILS 0.5 % (0-2); EOSINOPHILS 0.3 % (0-7); HEMOGLOBIN 15.4 g/dL (12-16); IMMATURE GRANULOCYTES 0.3 % (0-5); LYMPHOCYTES 35.9 % (15-50); MCH 32.3 pg (26.0-34.0); MCHC 35.8 g/dL (31.0-37.0); MCV 90.1 fL (80.0-100.0); MEAN PLATELET VOLUME 11.3 fL (7.4-10.4); MONOCYTES 5.6 % (2-11); NEUTROPHILS 57.4 % (40-80); PLATELET COUNT 277 10x3/uL (130-400); RBC 4.77 10x6/uL (4.00-5.40); RDW 13.2 % (11.5-14.5); WBC 7.7 10x3/uL (4.8-10.8)
[2018-06-20 14:54] LABS: ALKALINE PHOSPHATASE 223 U/L (46-116); ALT (SGPT) 45 U/L (10-68); BILIRUBIN - TOTAL 0.25 mg/dL (0.2-1.3); CALC OSMOLALITY 271 mosm/kg (275-300); CALCIUM 8.7 mg/dL (8.5-10.1); CARBON DIOXIDE 22.8 mmol/L (21.0-32.0); CHLORIDE - SERUM 103 mmol/L (98-107); CREATININE - SERUM 0.8 mg/dL (0.6-1.3); GLUCOSE 99 mg/dL (74-106); POTASSIUM - SERUM 5.2 mmol/L (3.5-5.1); PROTEIN - SERUM 6.6 g/dL (6.4-8.2); SODIUM 134 mmol/L (136-145); UREA NITROGEN 24 mg/dL (7-18); eGFR NON AFRICAN AMERICAN 75 mL/min (90-120)
[2018-06-20 14:58] LABS: AMYLASE - SERUM 29 U/L (25-115); LIPASE 70 U/L (73-393); TROPONIN-I 0.017 ng/mL (0.000-0.060)
[2018-06-21 03:41] VITALS: BP 144/70; BMI 27.6
[2018-06-21 05:18] VITALS: BP 120/81
[2018-06-21 05:36] LABS: BASOPHILS 0.4 % (0-2); EOSINOPHILS 0.9 % (0-7); HEMATOCRIT 42.6 % (36.0-48.0); IMMATURE GRANULOCYTES 0.1 % (0-5); LYMPHOCYTES 35.1 % (15-50); MCH 32.3 pg (26.0-34.0); MCHC 35.2 g/dL (31.0-37.0); MCV 91.8 fL (80.0-100.0); MEAN PLATELET VOLUME 11.4 fL (7.4-10.4); MONOCYTES 6.9 % (2-11); NEUTROPHILS 56.6 % (40-80); PLATELET COUNT 300 10x3/uL (130-400); RBC 4.64 10x6/uL (4.00-5.40); RDW 13.6 % (11.5-14.5); WBC 6.9 10x3/uL (4.8-10.8)
[2018-06-21 06:12] LABS: ALKALINE PHOSPHATASE 222 U/L (46-116); ALT (SGPT) 39 U/L (10-68); BILIRUBIN - TOTAL 0.46 mg/dL (0.2-1.3); CALC OSMOLALITY 280 mosm/kg (275-300); CALCIUM 8.4 mg/dL (8.5-10.1); CARBON DIOXIDE 24.9 mmol/L (21.0-32.0); CHLORIDE - SERUM 105 mmol/L (98-107); CREATININE - SERUM 0.8 mg/dL (0.6-1.3); GLUCOSE 94 mg/dL (74-106); PROTEIN - SERUM 6.7 g/dL (6.4-8.2); SODIUM 139 mmol/L (136-145); UREA NITROGEN 20 mg/dL (7-18); eGFR NON AFRICAN AMERICAN 75 mL/min (90-120)
[2018-06-21 06:16] LABS: POTASSIUM - SERUM 4.3 mmol/L (3.5-5.1)
[2018-06-21 08:54] VITALS: BP 136/75
[2018-06-21 12:53] VITALS: BP 110/56
--- NOTE | 2018-06-21 14:11 | NUR ---
C/O CHEST PAIN AND SHORTNESS OF BREATH, VS TAKEN. 136/68, RESPIRATIONS 16, HR 86, OZ AT 98%, REPOSITIONED AND STATED RELIEF OF THE PRESSURE IN CHEST, ON ROOM AIR, C/O PAIN IN RECTUM, CALLED DR. ESCALANTE NEW ORDERS RECIEVED WITH READBACK, DENIES ANY OTHER NEEDS OR DISCOMFORTS, BED LOWERED AND LOCKED, CALL LIGHT WITHIN REACH. CPOC
[2018-06-21 14:50] VITALS: Ht 160 cm; Wt 70.8 kg
--- NOTE | 2018-06-21 17:02 | MORECARE ---
CASE MANAGEMENT DISCHARGE SUMMARY PATIENT: SHEFALI MALDONADO UNIT: [id number] ADM DATE: 06/20/18 AGE: 68 : 49 SEX: F ROOM/BED: D.2234 AUTHOR: MARY JO WISEMAN PHYSICIAN: REFERRING PHYSICIAN: ERICKSON ESCALANTE MD DATE OF SERVICE: 06/21/18 Discharge Plan Patient Name: SHEFALI MALDONADO Facility: [facility]:[place] : 1950 Planned Disposition: Anticipated Discharge Date: Discharge Date: Expected LOS: Initial Reviewer: [id number] Initial Review Date: 06/21/2018 Generated: 06/21/18 6:02 pm Comments DCP- Discharge Planning Updated by [email or web address]: Adelaida Hoffman on 06/21/18 3:[address] Patient Name: SHEFALI MALDONADO Admission Status: ER Accout number: [id number] Admission Date: 06-20-2018 : 1950 Admission Diagnosis:UNSP INTESTNL OBST, UNSP TO PARTIAL VERSUS COMPLETE Attending: ERICKSON ESCALANTE Current LOS: 1 Anticipated DC Date: Planned Disposition: Primary Insurance: MEDICARE A & B Discharge Planning Comments: CM MET WITH PATIENT ABOUT DC PLANNING/NEEDS. STATES SHE HAS NO NEEDS AND PLANS TO RETURN HOME. CM WILL FOLLOW AND ASSIST NEEDED WITH DC PLANNING/NEEDS. Management Aide: Adelaida Hoffman DCPIA - Discharge Planning Initial Assessment Updated by [email or web address]: Adelaida Hoffman on 06/21/18 4:52 pm * Is the patient Alert and Oriented? Yes * PCP BORIS * [facility] * Preadmission Environment Home Alone * ADLs Independent * Equipment None * List name and contact numbers for known caregivers / representatives who currently or will assist patient after discharge: GEOVANI CARRILLO, DAUGHTER, * Community resources currently utilized None * Additional services required to return to the preadmission environment? No * Can the patient safely return to the preadmission environment? Yes * Has this patient been hospitalized within the prior 30 days at any hospital? No Patient Name: SHEFALI MALDONADO Page [phone] at 1702 All edits/amendments must be made on the electronic document DICTATION DATE: 06/21/181701 PAPER BAG PRESS OPERATOR: BIENVENIDO 06/21/181701 RPT#: [id number] DC DATE: STATUS: ADM IN [facility] [address] [place] [address] END OF REPORT
[2018-06-21 17:19] VITALS: BP 119/51
--- NOTE | 2018-06-21 18:23 | NUR ---
I have reviewed this patient and I concur with the Shift Assessment completed by the Licensed Practical Nurse today this shift.
[2018-06-21 18:49] LABS: COLOR YELLOW (YELLOW)
[2018-06-21 18:50] LABS: APPEARANCE CLEAR (CLEAR); BILIRUBIN NEGATIVE (NEGATIVE); GLUCOSE NEGATIVE (NEGATIVE); KETONE MODERATE mg/dL (NEGATIVE); NITRITE NEGATIVE (NEGATIVE); PROTEIN TRACE mg/dL (NEGATIVE); SPECIFIC GRAVITY 1.025 (1.005-1.020); UROBILINOGEN NORMAL (NORMAL)
[2018-06-21 19:00] VITALS: BP 120/57
[2018-06-22] VITALS: BP 114/61
[2018-06-22 03:00] VITALS: BP 120/58
--- NOTE | 2018-06-22 07:30 | NUR ---
REC'D IN BED AWAKE AND ALERT. RESP EVEN AND UNLABORED WITH NO DISTRESS NOTED. CAN EXPRESS NEEDS AND WANTS. NO C/O NOTED OR VOICED. NG TUBE TO RIGHT NARE TO ASPHALT ROLLER PERSON. ASSESSMENT COMPLETED. C/L IN REACH AT BEDSIDE.
[2018-06-22 09:50] VITALS: BP 156/63
--- NOTE | 2018-06-22 10:49 | NUR ---
medicated with ativan per pt request for anxiety. c/l in reach at bedside
[2018-06-22 13:29] VITALS: BP 151/66
--- NOTE | 2018-06-22 15:07 | NUR ---
MEDICATED WITH ATIVAN FOR C/O ANXIETY. C/L IN REACH AT BEDSIDE.
[2018-06-22 16:21] VITALS: BP 128/65
--- NOTE | 2018-06-22 19:35 | NUR ---
REQUESTING ATIVAN. STATES SHE IS ANXIOUS. MEDICATED WITH ATIVAN ORDERED. ALERT AND ORIENTED X4. HOB ELEVATED. NGT NOTED TO RT NARE TO LCS WITH BROWN DRAINAGE IN CANISTER. DENIES PAIN. DILAUDID PRESSURE DISPATCHER IN USE. PROCAL INFUSING @ 125 ML/HR IN LT CW MEDIPORT. BRUISES NOTED TO BUE. AMBULATORY. NO EDEMA NOTED. SR RESP EVEN AND NONLABORED. BBS CTA. BS HYPOACTIVE X4 QUADS. SR ELEVATED X2. CL IN REACH.
[2018-06-22 20:00] VITALS: BP 136/64
[2018-06-23] VITALS: BP 131/71
--- NOTE | 2018-06-23 03:04 | NUR ---
LYING IN BED WITH EYES CLOSED. RESP EVEN AND NONLABORED. NO DISTRESS. NGT TO LCS WITH BROWN FLUID IN CANISTER. CL IN REACH.
[2018-06-23 04:00] VITALS: BP 151/70
--- NOTE | 2018-06-23 04:49 | NUR ---
ASSISTED UP TO BR. SMALL FORMED BM NOTED IN TOILET.
--- NOTE | 2018-06-23 05:55 | NUR ---
REQUESTS MED FOR NAUSEA. MEDICATED WITH ZOFRAN ORDERED. CL IN REACH.
[2018-06-23 06:56] LABS: BASOPHILS 0.2 % (0-2); EOSINOPHILS 0.1 % (0-7); HEMATOCRIT 43.1 % (36.0-48.0); HEMOGLOBIN 15.2 g/dL (12-16); IMMATURE GRANULOCYTES 0.2 % (0-5); LYMPHOCYTES 23.6 % (15-50); MCH 32.5 pg (26.0-34.0); MCHC 35.3 g/dL (31.0-37.0); MCV 92.3 fL (80.0-100.0); MEAN PLATELET VOLUME 11.5 fL (7.4-10.4); MONOCYTES 7.3 % (2-11); NEUTROPHILS 68.6 % (40-80); PLATELET COUNT 253 10x3/uL (130-400); RBC 4.67 10x6/uL (4.00-5.40); RDW 13.2 % (11.5-14.5); WBC 10.7 10x3/uL (4.8-10.8)
[2018-06-23 07:32] LABS: CALC OSMOLALITY 273 mosm/kg (275-300); CALCIUM 8.3 mg/dL (8.5-10.1); CARBON DIOXIDE 22.5 mmol/L (21.0-32.0); CHLORIDE - SERUM 99 mmol/L (98-107); CREATININE - SERUM 0.5 mg/dL (0.6-1.3); GLUCOSE 101 mg/dL (74-106); POTASSIUM - SERUM 4.7 mmol/L (3.5-5.1); SODIUM 136 mmol/L (136-145); UREA NITROGEN 18 mg/dL (7-18); eGFR NON AFRICAN AMERICAN > 90 mL/min (90-120)
[2018-06-23 08:30] VITALS: BP 135/75
[2018-06-23 12:43] VITALS: BP 116/60
[2018-06-23 16:36] VITALS: BP 122/60
--- NOTE | 2018-06-23 16:52 | NUR ---
I have reviewed this patient and I concur with the Shift Assessment completed by the Licensed Practical Nurse today this shift.
[2018-06-23 20:38] VITALS: BP 123/59
--- NOTE | 2018-06-23 22:30 | NUR ---
SUPINE IN BED, ALERT AND ORIENTED X 4. REQUESTS ATIVAN. STATES IT HELPS CALM HER DOWN TO COPE WITH PAIN. INFORMED PT ATIVAN CANNOT BE GIVEN FOR 2 MORE HOURS. PT VERBALIZED UNDERSTANDING. WILL CONTINUE TO MONITOR.
[2018-06-24 00:42] VITALS: BP 137/65
--- NOTE | 2018-06-24 01:31 | NUR ---
I have reviewed this patient and I concur with the Shift Assessment completed by the Licensed Practical Nurse today this shift.
[2018-06-24 05:07] VITALS: BP 140/75
[2018-06-24 08:20] VITALS: BP 146/75
--- NOTE | 2018-06-24 08:20 | NUR ---
PT RESTING IN BED AWAITING EGD THIS AM. NO ACUTE DISTRESS NOTED. NG TUBE TO RIGHT NARE TAPED IN PLACE, TO LOW INTERMITTENT SUCTIONING DRAINING LIGHT BROWN DRAINAGE. IV TO LEFT CHEST PORT WITH PROCALAMINE @ 125 ML/HR INFUSING VIA PUMP. DILAUDID SURFACER ALSO INFUSING AND PATIENT CONTROLLED. REPORTS PAIN /10. SITE WITHOUT REDNESS OR EDEMA. PT REPORTS RECENT SELF ADMINISTRATION OF PAIN MEDICATION. DENIES FURTHER NEEDS AT THIS TIME. CL WITHIN REACH. ENCOURAGED TO CALL WITH NEEDS. CONTINUE POC
--- NOTE | 2018-06-24 09:30 | NUR ---
PT TAKEN TO SURGERY VIA BED. NO ACUTE DISTRESS NOTED AT THIS TIME.
--- NOTE | 2018-06-24 12:14 | NUR ---
ASSUMED PATIENT CARE AT 1205; REPORT TAKEN FROM Judie CAMPOS RN.
[2018-06-24 12:35] VITALS: BP 127/64
--- NOTE | 2018-06-24 12:35 | NUR ---
PT RETURNED FROM RECOVERY VIA BED. C/O PAIN TO ABDOMEN AREA. TO CONTACT PCP REGARDING PAIN MEDICATION. PEG INTACT DRESSING C/D/I HOOKED TO DRAINAGE BAG. DENIES NAUSEA AT THIS TIME.
--- NOTE | 2018-06-24 12:47 | OP ---
PATIENT NAME: SHEFALI MALDONADO MEDICAL RECORD: [id number] :[birth year] LOCATION:D[address] [address] ADMISSION DATE:06/20/18 SURGEON: MARGIE REED MD DATE OF OPERATION: 06/24/2018 SURGEON: Margie Reed MD PREOPERATIVE DIAGNOSIS: Recurrent small-bowel obstruction. 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 ANESTHESIA: General. COMPLICATIONS: None. SPECIMENS: None. CASE: Clean contaminated. PROCEDURE PERFORMED: 1. Esophagogastroduodenoscopy with percutaneous endoscopic gastrostomy tube placement. 2. Flexible sigmoidoscopy with balloon dilatation of ileorectal anastomosis. OPERATIVE COURSE: After consent was obtained, the patient was taken to the operating room and placed in supine position on the operating table. Next, general anesthesia was given via endotracheal intubation after a timeout was performed to confirm the correct patient and procedure. The abdomen was prepped and draped in typical sterile fashion. The patient had 2 previous gastrostomy tube placements. Local anesthetic was administered at the previous gastrostomy tube sites. The scope was passed through the oropharynx. It was passed posteriorly to the epiglottis and advanced under direct endoscopic vision to the esophagus and the stomach. The stomach was insufflated. The light was transilluminated and the left upper quadrant stab incision was made to the prior gastrostomy tube site. Under direct endoscopic vision, the needle was passed to the anterior abdominal wall into the stomach under direct endoscopic vision. At this time, the needle was removed. A wire was placed. A wire was grasped with a snare grasper and the gastroscope was removed. The gastrostomy tube was secured to the wire and in a standard pull technique was delivered through the anterior abdominal wall and secured at 2.5 cm. The scope was removed as well as the biteblock. At this time, the EGD portion of the procedure was terminated. At this time, we started the flexible sigmoidoscopy. The rectum and colon appeared grossly normal. The scope was advanced until a very tight anastomotic stricture was discovered at approximately 25 cm. The scope was able to be with some pressure across the anastomosis to the small bowel. A 10-11-12 mm balloon was passed through the working channel of the scope and across the anastomosis. The anastomosis dilated to 12 mm and held for 3 minutes. There was minimal trauma noted. At this time, the 13.5 to 15.5 balloon was inserted and placed across the working channel. It was placed across the anastomosis and the anastomosis was dilated to 15.5 cm and held for 3 minutes. At this time, the scope was easily traversed across the ileocolonic anastomosis. This was done several times. There was no evidence of mucosal trauma. No evidence of injury. There was no active bleeding. At this time, the scope was slowly withdrawn. The rectum and colon were irrigated and suctioned. At the end of the case, all OPERATIVE REPORT [id number] SHEFALI MALDONADO needle and instrument counts were correct. No complications occurred. The patient was extubated and transferred to the PACU in stable condition. TRANSINT:[id number] Voice Confirmation ID: [id number] DOCUMENT ID: [id number] MARGIE REED MD at 1247 CC: [id number] DICTATION DATE: 06/24/18 1128 SOCIALLY RESPONSIBLE INVESTMENT ADVISER: 06/24/18 1217 ADM IN [facility] [address] [place] [address]
[2018-06-24 17:53] VITALS: BP 126/73
[2018-06-24 20:00] VITALS: BP 123/64
[2018-06-25 04:00] VITALS: BP 129/83
--- NOTE | 2018-06-25 04:52 | NUR ---
I have reviewed this patient and I concur with the Shift Assessment completed by the Licensed Practical Nurse today this shift.
--- NOTE | 2018-06-25 08:00 | NUR ---
PT AAOX4 RESP EVEN AND NONLBAORED, NO SIGNS OF DISTRESS NOTED, CL IN REACH
[2018-06-25 09:06] VITALS: BP 113/84
[2018-06-25 15:12] VITALS: BP 115/92
[2018-06-25 17:36] VITALS: BP 116/92
[2018-06-25 20:00] VITALS: BP 141/86
--- NOTE | 2018-06-26 01:45 | NUR ---
HAD ISSUES WITH COMPUTER MEDICATIONS GIVEN AND IT WOULD NOT LET ME SUBMIT AND SAVE THEM, ATIVAN GIVEN AT 2300, NOT ABLE TO GIVE AGAIN UNTIL 0300, FLUIDS AND CALL LIGHT WITHIN REACH
--- NOTE | 2018-06-26 03:20 | NUR ---
PT HAD ATIVAN AT 2300 REQUESTING ANOTHER COMPUTER ERROR CAUSED IT TO LOOK LIKE IT WAS GIVEN AT 0023, GIVING ATIVAN NOW [id number]
--- NOTE | 2018-06-26 04:24 | NUR ---
COMPLETE BED CHANGE D/T DIARRHEA, PT SLURRING WORDS AND GROGGY, FALL RISK D/T RECENTLY GIVEN ATIVAN
[2018-06-26 06:15] LABS: BASOPHILS 0.2 % (0-2); EOSINOPHILS 0.2 % (0-7); HEMATOCRIT 39.3 % (36.0-48.0); HEMOGLOBIN 13.4 g/dL (12-16); IMMATURE GRANULOCYTES 0.2 % (0-5); LYMPHOCYTES 18.6 % (15-50); MCH 31.7 pg (26.0-34.0); MCHC 34.1 g/dL (31.0-37.0); MCV 92.9 fL (80.0-100.0); MEAN PLATELET VOLUME 11.7 fL (7.4-10.4); MONOCYTES 10.2 % (2-11); NEUTROPHILS 70.6 % (40-80); RBC 4.23 10x6/uL (4.00-5.40); RDW 13.3 % (11.5-14.5); WBC 8.4 10x3/uL (4.8-10.8)
[2018-06-26 06:16] LABS: CALC OSMOLALITY 264 mosm/kg (275-300); CALCIUM 8.7 mg/dL (8.5-10.1); CARBON DIOXIDE 32.5 mmol/L (21.0-32.0); CHLORIDE - SERUM 91 mmol/L (98-107); CREATININE - SERUM 0.7 mg/dL (0.6-1.3); GLUCOSE 120 mg/dL (74-106); POTASSIUM - SERUM 4.4 mmol/L (3.5-5.1); SODIUM 128 mmol/L (136-145); UREA NITROGEN 31 mg/dL (7-18); eGFR NON AFRICAN AMERICAN 88 mL/min (90-120)
[2018-06-26 06:28] LABS: PLATELET COUNT 198 10x3/uL (130-400)
--- NOTE | 2018-06-26 06:46 | NUR ---
DURING MED PASS, PT STATED NEEDED TO TOILET THIS IS THE 3RD BOUT OF DIARRHEA FOR THIS SHIFT, CLEANED PT UP AND PLACED HER BACK IN BED AFTER BED CHANGE
--- NOTE | 2018-06-26 08:46 | MORECARE ---
CASE MANAGEMENT DISCHARGE SUMMARY PATIENT: SHEFALI MALDONADO UNIT: [id number] ADM DATE: 06/20/18 AGE: 68 : 49 SEX: F ROOM/BED: D.2234 AUTHOR: IVONE,DOC PHYSICIAN: REFERRING PHYSICIAN: ERICKSON ESCALANTE MD DATE OF SERVICE: 06/26/18 Discharge Plan Patient Name: SHEFALI MALDONADO Facility: [facility]:[place] : 1950 Planned Disposition: Anticipated Discharge Date: Discharge Date: Expected LOS: Initial Reviewer: [email or web address] Initial Review Date: 06/21/2018 Generated: 06/26/18 9:46 am Comments DCP- Discharge Planning Updated by [email or web address]: Monet Lakisha on 06/26/18 7:[address] Received orders for discharge this afternoon. States her daughter will pick her up. Declines need for home health services. CM will continue to follow and assist with discharge planning/needs. DCP- Discharge Planning Updated by [email or web address]: Adelaida Hoffman on 06/21/18 2:[address] Patient Name: SHEFALI MALDONADO Admission Status: ER Accout number: [id number] Admission Date: 06-20-2018 : 1950 Admission Diagnosis:UNSP INTESTNL OBST, UNSP TO PARTIAL VERSUS COMPLETE Attending: ERICKSON ESCALANTE Current LOS: 1 Anticipated DC Date: Planned Disposition: Primary Insurance: MEDICARE A & B Discharge Planning Comments: CM MET WITH PATIENT ABOUT DC PLANNING/NEEDS. STATES SHE HAS NO NEEDS AND PLANS TO RETURN HOME. CM WILL FOLLOW AND ASSIST NEEDED WITH DC PLANNING/NEEDS. Practice Billing Associate: Adelaida Hoffman DCPIA - Discharge Planning Initial Assessment Updated by [email or web address]: Adelaida Hoffman on 06/21/18 4:52 pm * Is the patient Alert and Oriented? Yes * PCP BORIS * [facility] * Preadmission Environment Home Alone * ADLs Independent * Equipment None * List name and contact numbers for known caregivers / representatives who currently or will assist patient after discharge: GEOVANI CARRILLO, DAUGHTER, * Community resources currently utilized None * Additional services required to return to the preadmission environment? No * Can the patient safely return to the preadmission environment? Yes * Has this patient been hospitalized within the prior 30 days at any hospital? No Coverage Notice Reviewer: [email or web address] Carin Banuelos Notice Issued Date-Time: 06/26/2018 8:40 Notice Type: IM Discharge Notice Notice Delivered To: Patient Relationship to Patient: Self Disintegrator Operator Name: Delivery Method: HAND - Hand Delivered Ebony Days: Prior Verbal Notification: Recipient Understood Notice: Yes Recipient Signature: Yes Med Rec Note Co-signed by Attending: Coverage Notice Comment: IMM explained, signed, given, copy placed in MR Last DP export: 06/21/18 3:02 pm Patient Name: SHEFALI MALDONADO Page 28882 at 0846 All edits/amendments must be made on the electronic document DICTATION DATE: 06/26/18845 METAL HANGER: BIENVENIDO 06/26/18845 RPT#: [id number] DC DATE: STATUS: ADM IN [facility] [address] [place] [address] END OF REPORT
[2018-06-26 09:43] VITALS: BP 198/69
[2018-06-26 12:35] VITALS: BP 117/63
--- NOTE | 2018-06-26 13:30 | NUR ---
PT D/C HOME VIA W/C. WENT OVER ALL D/C INSTRUCTIONS. DENIES CONCERNS
--- NOTE | 2018-06-27 14:02 | MORECARE ---
CASE MANAGEMENT DISCHARGE SUMMARY PATIENT: SHEFALI MALDONADO UNIT: [id number] ADM DATE: 06/20/18 AGE: 68 : 49 SEX: F ROOM/BED: D.2234 AUTHOR: IVONE,DOC PHYSICIAN: REFERRING PHYSICIAN: ERICKSON ESCALANTE MD DATE OF SERVICE: 06/27/18 Discharge Plan Patient Name: SHEFALI MALDONADO Facility: [facility]:[place] : 1950 Planned Disposition: Home Anticipated Discharge Date: Discharge Date: 06/26/2018 Expected LOS: 0 Initial Reviewer: [email or web address] Initial Review Date: 06/21/2018 Generated: 06/27/18 3:02 pm Comments DCP- Discharge Planning Updated by [email or web address]: Monet Banuelos on 06/26/18 7:[address] Received orders for discharge this afternoon. States her daughter will pick her up. Declines need for home health services. CM will continue to follow and assist with discharge planning/needs. DCP- Discharge Planning Updated by [email or web address]: Adelaida Hoffman on 06/21/18 2:[address] Patient Name: SHEFALI MALDONADO Admission Status: ER Accout number: [id number] Admission Date: 06-20-2018 : 1950 Admission Diagnosis:UNSP INTESTNL OBST, UNSP TO PARTIAL VERSUS COMPLETE Attending: ERICKSON ESCALANTE Current LOS: 1 Anticipated DC Date: Planned Disposition: Primary Insurance: MEDICARE A & B Discharge Planning Comments: CM MET WITH PATIENT ABOUT DC PLANNING/NEEDS. STATES SHE HAS NO NEEDS AND PLANS TO RETURN HOME. CM WILL FOLLOW AND ASSIST NEEDED WITH DC PLANNING/NEEDS. Manager Financial Systems: Adelaida Hoffman DCPIA - Discharge Planning Initial Assessment Updated by [email or web address]: Adelaida Hoffman on 06/21/18 4:52 pm * Is the patient Alert and Oriented? Yes * PCP BORIS * [facility] * Preadmission Environment Home Alone * ADLs Independent * Equipment None * List name and contact numbers for known caregivers / representatives who currently or will assist patient after discharge: GEOVANI CARRILLO, DAUGHTER, * Community resources currently utilized None * Additional services required to return to the preadmission environment? No * Can the patient safely return to the preadmission environment? Yes * Has this patient been hospitalized within the prior 30 days at any hospital? No Coverage Notice Reviewer: [email or web address] Carin Banuelos Notice Issued Date-Time: 06/26/2018 8:40 Notice Type: IM Discharge Notice Notice Delivered To: Patient Relationship to Patient: Self Deputy County Counsel Name: Delivery Method: HAND - Hand Delivered Ebony Days: Prior Verbal Notification: Recipient Understood Notice: Yes Recipient Signature: Yes Med Rec Note Co-signed by Attending: Coverage Notice Comment: IMM explained, signed, given, copy placed in MR Last DP export: 06/26/18 7:46 a Patient Name: SHEFALI MALDONADO Page [phone] at 1402 All edits/amendments must be made on the electronic document DICTATION DATE: 06/27/181400 EMERGENCY PLANNER: BIENVENIDO 06/27/181400 RPT#: [id number] DC DATE:06/26/18 STATUS: DIS IN [facility] [address] [place] [address] END OF REPORT
== END 2018-06-26 14:54 | disposition home or self-care (01) | DRG 394 ==
LOC: D.ER 13:30 → D.MS 16:17 → D.EDHOLD 16:17 → D.MS 16:37
PROVIDERS: Family Medicine; Surgery; ADMIT Family Medicine; ATTEND Family Medicine
PROC: 0D9670Z Drainage of Stomach with Drainage Device, Via Natural or Artificial Opening (ICD-10-PCS; principal; 2018-06-20)
PROC: 0D7P8ZZ Dilation of Rectum, Via Natural or Artificial Opening Endoscopic (ICD-10-PCS; 2018-06-24)
PROC: 0DJ08ZZ Inspection of Upper Intestinal Tract, Via Natural or Artificial Opening Endoscopic (ICD-10-PCS; 2018-06-24 10:30)
PROC: 0DH63UZ Insertion of Feeding Device into Stomach, Percutaneous Approach (ICD-10-PCS; 2018-06-24 10:30)
DX: K91.89 Other postprocedural complications and disorders of digestive system (principal); K56.0 Paralytic ileus; M48.56XA Collapsed vertebra, not elsewhere classified, lumbar region, initial encounter for fracture; F11.20 Opioid dependence, uncomplicated; K31.84 Gastroparesis; M48.56XS Collapsed vertebra, not elsewhere classified, lumbar region, sequela of fracture; E56.9 Vitamin deficiency, unspecified

== ENCOUNTER 2018-07-19 09:51 | Inpatient (IN) | payer MEDICARE ==
[~2018-07-19] VITALS: Ht 160 cm; Wt 70.8 kg
[2018-07-19 10:42] LABS: ALBUMIN 2.4 g/dL (3.4-5.0); ANION GAP 18.6 mmol/L (8-16); BILIRUBIN - TOTAL 0.42 mg/dL (0.2-1.3); CALCIUM 7.9 mg/dL (8.5-10.1); CARBON DIOXIDE 16.6 mmol/L (21.0-32.0); CREATININE - SERUM 1.2 mg/dL (0.6-1.3); POTASSIUM - SERUM 4.2 mmol/L (3.5-5.1); PROTEIN - SERUM 6.7 g/dL (6.4-8.2)
[2018-07-19 10:45] VITALS: BP 120/61
[2018-07-19 10:58] LABS: HEMATOCRIT 41.1 % (36.0-48.0); HEMOGLOBIN 14.1 g/dL (12-16); MCH 31.8 pg (26.0-34.0); MCHC 34.3 g/dL (31.0-37.0); MCV 92.6 fL (80.0-100.0); MEAN PLATELET VOLUME 10.6 fL (7.4-10.4); PLATELET COUNT 357 10x3/uL (130-400); RBC 4.44 10x6/uL (4.00-5.40); RDW 12.5 % (11.5-14.5); WBC 29.1 10x3/uL (4.8-10.8)
[2018-07-19 11:05] VITALS: BP 122/62
[2018-07-19 11:30] LABS: ANISOCYTOSIS OCC; LYMPHOCYTES 8 % (15-50); MONOCYTES 7 % (2-11); NEUTROPHILS 78 % (40-80); PLATELET ESTIMATE INCREASED; ROULEAUX OCC
--- NOTE | 2018-07-19 11:31 | NUR ---
STRAIGHT CATH URINE SENT TO LAB AT THIS TIME.
[2018-07-19 11:47] LABS: INR 1.18 (0.85-1.17); PROTIME 14.4 SECONDS (11.6-15.0)
--- NOTE | 2018-07-19 12:08 | NUR ---
PT RETURNED FROM CT AT THIS TIME VIA WHEELCHAIR
[2018-07-19 12:18] LABS: APPEARANCE SL CLDY (CLEAR); BACTERIA MODERATE /hpf (NONE SEEN); BILIRUBIN NEGATIVE (NEGATIVE); COLOR YELLOW (YELLOW); EPITHELIAL CELLS 0-5 /hpf (0-5); GLUCOSE NEGATIVE (NEGATIVE); KETONE NEGATIVE (NEGATIVE); MUCUS <1+ /lpf (NONE SEEN); NITRITE NEGATIVE (NEGATIVE); PROTEIN 1+ mg/dL (NEGATIVE); SPECIFIC GRAVITY 1.015 (1.005-1.020); UROBILINOGEN NORMAL (NORMAL); WHITE CELLS - URINE 0-5 /hpf (0-5)
[2018-07-19 12:19] LABS: GRANULAR CAST RARE /lpf (NONE SEEN); HYALINE CAST OCC /lpf (NONE SEEN)
[2018-07-19 12:30] VITALS: BP 110/32
[2018-07-19 15:08] VITALS: BP 100/36; BMI 27.6
[2018-07-19 20:00] VITALS: BP 105/48
--- NOTE | 2018-07-19 20:10 | NUR ---
PT RESTING IN BED. ALERT AND ORIENTED. NO SIGNS OF DISTRESS. BREATHING EVEN AND UNLABORED. PT STATES NO PROBLEMS AT THIS TIME. IV SITE LT CHEST PORT DRESSING CLEAN DRY AND INTACT. NO SIGNS OF INFECTION. SKIN CLEAN DRY AND INTACT. LT LOWER ABD PEG TUBE PRESENT. NO LOWER LEG SWELLING PRESENT. WILL CONTINUE PLAN OF CARE. CALL LIGHT IN REACH. BED LOWERED AND LOCKED. BED RAILS UP X2.
[2018-07-20] VITALS: BP 97/43
--- NOTE | 2018-07-20 02:19 | NUR ---
I have reviewed this patient and I concur with the Shift Assessment completed by the Licensed Practical Nurse today this shift.
[2018-07-20 04:00] VITALS: BP 97/50
[2018-07-20 07:26] LABS: BASOPHILS 0.2 % (0-2); EOSINOPHILS 1.4 % (0-7); HEMATOCRIT 36.7 % (36.0-48.0); HEMOGLOBIN 12.6 g/dL (12-16); IMMATURE GRANULOCYTES 0.5 % (0-5); MCH 31.7 pg (26.0-34.0); MCHC 34.3 g/dL (31.0-37.0); MCV 92.2 fL (80.0-100.0); NEUTROPHILS 74.9 % (40-80); PLATELET COUNT 320 10x3/uL (130-400); RBC 3.98 10x6/uL (4.00-5.40); RDW 12.5 % (11.5-14.5)
[2018-07-20 07:53] LABS: WBC 10.2 10x3/uL (4.8-10.8)
[2018-07-20 07:59] LABS: BILIRUBIN - TOTAL 0.4 mg/dL (0.2-1.3); CALCIUM 7.8 mg/dL (8.5-10.1); CREATININE - SERUM 0.9 mg/dL (0.6-1.3); POTASSIUM - SERUM 4.3 mmol/L (3.5-5.1); PROTEIN - SERUM 5.7 g/dL (6.4-8.2)
[2018-07-20 08:00] LABS: ANION GAP 14.1 mmol/L (8-16); CARBON DIOXIDE 24.2 mmol/L (21.0-32.0)
[2018-07-20 09:50] VITALS: BP 131/65
--- NOTE | 2018-07-20 10:00 | NUR ---
DR. RIZO HERE WITH NEW ORDER NOTED. ALERT AND ORIENTED. DILAUDID GIVEN PER ORDER PRN PAIN AND EFFECTIVE. G- TUBE TO SUCTION PER ORDER. BOWEL SOUNDS HYPOACTIVE TO LLQ ANTERIOR. ENCOURAGED TO USE CALL LIGHT FOR ASSSIT. LUNGS CTA WITHOUT DISTRESS.
[2018-07-20 10:06] VITALS: Ht 160 cm; Wt 70.8 kg
[2018-07-20 14:16] VITALS: BP 110/46
[2018-07-20 17:19] VITALS: BP 116/54
[2018-07-20 20:32] VITALS: BP 114/52
--- NOTE | 2018-07-20 21:55 | NUR ---
PT HAVING FAMILY MEMBERS CALL THE DESK TO COMPLAIN ABOUT NOT RECEIVING HER ATIVAN. EXPLAINED TO THEM THAT IT IS NOT DUE TILL 40 SHE CAN ONLY HAVE EVERY 8 HOURS. SPOKE TO PT AND EXPLAINED WHEN SHE COULD HAVE NEXT PRN PAIN AND ANXIETY MEDS....SHE SAID THAT THE DOCTOR TOLD HER SHE COULD HAVE PRN MEDS "WHENEVER SHE WANTED". I ASSURED PT THAT THEY WERE NOT ORDERED THAT WAY AND SHE COULD TALK TO MD IN THE AM.
--- NOTE | 2018-07-20 22:35 | NUR ---
ADMINISTERED ORDERED. PT ASKED FOR MEDICATION NOT TO BE DILUTED. THIS NURSE STRESSED IMPORTANCE AND SAFETY OF DILUTING MEDICATION. ASKED SEVERAL TIMES FOR HIS NURSE TO GIVE MEDS EARLY. THIS NURSE STATED SHE WOULD NOT. PT AGGRAVATED.
--- NOTE | 2018-07-21 00:46 | NUR ---
PT CELL PHONE ALARMED. THIS NURSE HEARD FROM DOWN MATUTE. PT THEN HIT CALL LIGHT AND ASKED THAT SHE HAVE HER ATIVAN. PER ORDER ATIVAN WAS DUE WITHIN 3 MINUTES OF PATIENT HITTING CALL LIGHT AND REQUESTING MEDICATION.
--- NOTE | 2018-07-21 01:09 | NUR ---
CHECKED FSBS TO BE SAFE 105
--- NOTE | 2018-07-21 04:07 | NUR ---
I have reviewed this patient and I concur with the Shift Assessment completed by the Licensed Practical Nurse today this shift.
[2018-07-21 06:47] LABS: BASOPHILS 0.7 % (0-2); EOSINOPHILS 2.9 % (0-7); HEMATOCRIT 31.1 % (36.0-48.0); HEMOGLOBIN 10.4 g/dL (12-16); IMMATURE GRANULOCYTES 0.2 % (0-5); LYMPHOCYTES 26.3 % (15-50); MCH 31.1 pg (26.0-34.0); MCHC 33.4 g/dL (31.0-37.0); MCV 93.1 fL (80.0-100.0); MEAN PLATELET VOLUME 10.1 fL (7.4-10.4); MONOCYTES 8.2 % (2-11); NEUTROPHILS 61.7 % (40-80); PLATELET COUNT 318 10x3/uL (130-400); RBC 3.34 10x6/uL (4.00-5.40); RDW 12.6 % (11.5-14.5)
[2018-07-21 06:52] LABS: WBC 4.2 10x3/uL (4.8-10.8)
[2018-07-21 07:10] LABS: ALBUMIN 1.7 g/dL (3.4-5.0); ALKALINE PHOSPHATASE 111 U/L (46-116); ALT (SGPT) 18 U/L (10-68); BILIRUBIN - TOTAL 0.27 mg/dL (0.2-1.3); CALCIUM 7.6 mg/dL (8.5-10.1); CARBON DIOXIDE 21.1 mmol/L (21.0-32.0); CHLORIDE - SERUM 107 mmol/L (98-107); PROTEIN - SERUM 5.5 g/dL (6.4-8.2); SODIUM 139 mmol/L (136-145); UREA NITROGEN 17 mg/dL (7-18)
[2018-07-21 07:12] LABS: CALC OSMOLALITY 277 mosm/kg (275-300); CREATININE - SERUM 0.6 mg/dL (0.6-1.3); GLUCOSE 58 mg/dL (74-106); POTASSIUM - SERUM 3.5 mmol/L (3.5-5.1); eGFR NON AFRICAN AMERICAN > 90 mL/min (90-120)
[2018-07-21 10:12] VITALS: BP 112/39
[2018-07-21 14:37] VITALS: BP 133/56
[2018-07-21 18:17] VITALS: BP 138/76
[2018-07-21 20:00] VITALS: BP 147/67
--- NOTE | 2018-07-21 22:00 | NUR ---
STATES SHE WILL NEED PAIN MEDICATION AT ABOUT MIDNIGHT BECAUSE THAT IS WHEN SHE IS, "GOING TO START HURTING.. OR USUALLY STARTS HURTING."
[2018-07-22] VITALS: BP 135/61
--- NOTE | 2018-07-22 03:45 | NUR ---
I have reviewed this patient and I concur with the Shift Assessment completed by the Licensed Practical Nurse today this shift.
[2018-07-22 04:00] VITALS: BP 121/54
[2018-07-22 08:00] VITALS: BP 145/60
--- NOTE | 2018-07-22 10:03 | NUR ---
ADMINISTERED PRN PAIN AND ANXIETY MEDICATION, NO NEEDS VOICED AT THIS TIME, CONTINUE WITH PLAN OF CARE
[2018-07-22 10:31] LABS: BASOPHILS 0.2 % (0-2); EOSINOPHILS 2.4 % (0-7); HEMOGLOBIN 11.1 g/dL (12-16); IMMATURE GRANULOCYTES 0.2 % (0-5); LYMPHOCYTES 22.9 % (15-50); MCH 30.9 pg (26.0-34.0); MCHC 34.7 g/dL (31.0-37.0); MEAN PLATELET VOLUME 9.1 fL (7.4-10.4); MONOCYTES 7.7 % (2-11); NEUTROPHILS 66.6 % (40-80); PLATELET COUNT 337 10x3/uL (130-400); RBC 3.59 10x6/uL (4.00-5.40); WBC 4.9 10x3/uL (4.8-10.8)
[2018-07-22 10:38] LABS: MCV 89.1 fL (80.0-100.0)
[2018-07-22 10:42] LABS: ALBUMIN 1.8 g/dL (3.4-5.0); ALKALINE PHOSPHATASE 113 U/L (46-116); ALT (SGPT) 16 U/L (10-68); BILIRUBIN - TOTAL 0.31 mg/dL (0.2-1.3); CALCIUM 7.9 mg/dL (8.5-10.1); CHLORIDE - SERUM 103 mmol/L (98-107); CREATININE - SERUM 0.6 mg/dL (0.6-1.3); PROTEIN - SERUM 5.8 g/dL (6.4-8.2); SODIUM 134 mmol/L (136-145); eGFR NON AFRICAN AMERICAN > 90 mL/min (90-120)
[2018-07-22 10:44] LABS: CALC OSMOLALITY 268 mosm/kg (275-300); GLUCOSE 150 mg/dL (74-106); UREA NITROGEN 6 mg/dL (7-18)
[2018-07-22 10:46] LABS: POTASSIUM - SERUM 2.8 mmol/L (3.5-5.1)
--- NOTE | 2018-07-22 11:50 | NUR ---
PT HAD VANC TROUGH DUE AT 0700 LAB DID NOT GET PT DRAWN AT THIS TIME, HAD SCANNED VANC WHILE LAB WAS IN ROOM DID NOT HANG UNTIL AFTER VANC TROUGH RECEIVED AT 1015. RECEIVED CALL FROM TABITHA IN PHARMACY TO VERIFY WHEN VANC WAS HUNG, EXPLAINED SITUATION AND CHANGED TIME IN MAR TO REFLECT ACTUAL TIME GIVEN. CONTINUE WITH PLAN OF CARE
--- NOTE | 2018-07-22 12:12 | NUR ---
PT REQUESTED TO HAVE NAUSEA MEDICATION AND PAIN MEDS ADVISED SHE JUST HAD PAIN MEDS AND TOO EARLY SHE THEN ASKED FOR ATIVAN ADVISED SHE JUSTV HAD THAT WELL. CALLED DR ROWLEY OFFICE AND SPOKE TO GREY, WAITING PERSONALIZED LIVING MANAGER BACK IN REGARDS TO NAUSEA MEDICATION
--- NOTE | 2018-07-22 12:24 | NUR ---
RECEIVED CALL BACK FROM GREY WITH DR ESCALANTE, PT MAY HAVE ZOFRAN 4MG/IV WILL PLACE ORDER, PT HAS ALREADY BEEN PICKED UP BY RADIOLOGY WILL ADMINISTER WHEN SHE COMES BACK IF STILL NEEDED
--- NOTE | 2018-07-22 13:36 | NUR ---
NUTRITION F/U DIET ADVANCED TO CLEAR LIQUID. WILL CONTINUE TO MONITOR DIET ADVANCEMENT, PT PROGRESS. RD FOLLOWING
--- NOTE | 2018-07-22 14:33 | NUR ---
RECEIVED PT BACK FROM MEDICAL IMAGING, PT STATES PAIN IS AT A 10 IN ABDOMEN, ADMINISTERED PRN PAIN MEDICATION AND TURNED UP PT HEATER DUE TO PT STATES SHE IS ALSO FREEZING, ADVISED PT TO KEEP DOOR TO ROOM SHUT IN ORDER TO WARM ROOM UP INSTEAD OF THE HALLWAYS. NO OTHER NEEDS CONTINUE WITH PLAN OF CARE
--- NOTE | 2018-07-22 15:39 | NUR ---
PT HAD EXPLOSIVE DIARRHEA UNABLE TO MAKE IT TO RESTROOM IN TIME, TRAIL FROM BED ALL AOUND BED TO RESTROOM. CALLED [facility] TO ASSIST IN CLEANING FLOOR IN PT ROOM, CONTINUE WITH PLAN OF CARE
--- NOTE | 2018-07-22 16:17 | NUR ---
I have reviewed this patient and I concur with the Shift Assessment completed by the Licensed Practical Nurse today this shift.
--- NOTE | 2018-07-22 16:45 | NUR ---
RECONNECTED PT DRAINAGE BAG AFTER MEDICAL IMAGING CALLED AND STATED STUDY IS COMPLETE, CLEAR TO PINK DRAINING IN BAG NOW, PT HAS HAD 2 BM'S SINCE BACK AND COMPLAINS OF BEING COLD AND NOT FEELING WELL. NO FEVER, WILL CONTINUE WITH PLAN OF CARE
[2018-07-22 18:01] VITALS: BP 132/60
[2018-07-22 20:00] VITALS: BP 127/55
[2018-07-23 04:00] VITALS: BP 118/49
[2018-07-23 05:35] LABS: BASOPHILS 0.5 % (0-2); EOSINOPHILS 4.4 % (0-7); HEMATOCRIT 34.7 % (36.0-48.0); HEMOGLOBIN 11.9 g/dL (12-16); IMMATURE GRANULOCYTES 0.3 % (0-5); LYMPHOCYTES 28.1 % (15-50); MCH 31.2 pg (26.0-34.0); MCHC 34.3 g/dL (31.0-37.0); MCV 90.8 fL (80.0-100.0); MEAN PLATELET VOLUME 9.8 fL (7.4-10.4); MONOCYTES 9.9 % (2-11); NEUTROPHILS 56.8 % (40-80); PLATELET COUNT 378 10x3/uL (130-400); RBC 3.82 10x6/uL (4.00-5.40); RDW 12.3 % (11.5-14.5); WBC 5.9 10x3/uL (4.8-10.8)
[2018-07-23 06:33] LABS: ALBUMIN 1.9 g/dL (3.4-5.0); BILIRUBIN - TOTAL 0.37 mg/dL (0.2-1.3); CALCIUM 8.1 mg/dL (8.5-10.1); CARBON DIOXIDE 24.9 mmol/L (21.0-32.0); PROTEIN - SERUM 6.2 g/dL (6.4-8.2)
--- NOTE | 2018-07-23 06:54 | NUR ---
COMMENTED THAT PT SLEPT MORE THAN USUAL OVER THE NIGHT. PT STATED THAT ATIVAN MAKES HER SLEEPY.
[2018-07-23 06:59] LABS: ANION GAP 11.9 mmol/L (8-16); CREATININE - SERUM 0.9 mg/dL (0.6-1.3)
[2018-07-23 07:00] LABS: POTASSIUM - SERUM 2.8 mmol/L (3.5-5.1)
[2018-07-23 08:27] VITALS: BP 127/57
--- NOTE | 2018-07-23 09:41 | NUR ---
PT LYING IN BED STATING SHE IS STILL COLD THIS MORNING AND HURTING IN ABD, PT HAD PAIN MEDICATION AT 0830 AND CANT HAVE AGAIN UNTIL 1030, PT INQUIRED ON ATIVAN, ADVISED I WILL LOOK ANS SEE WHEN SHE CAN HAVE IT NEXT, WENT TO ADVISE PT AND SHE WAS ASLEP, DID NOT ADMINISTER WILL WAIT UNTIL ASKED AGAIN, CL IN REACH CONTINUE WITH PLAN OF CARE. PT K+ 2.8 STARTED ELECTROLYTE PROTOCOL, PT MAG IS 1.8
--- NOTE | 2018-07-23 12:18 | NUR ---
PT HAD DIARRHEA AND WAS NOT ABLE TO MAKE IT TO THE RESTROOM, PT STATES FEEL BETTER, STATED DR DORMAN CLAMPED G-TUBE, WILL CONTINUE WITH PLAN OF CARE
[2018-07-23 12:45] VITALS: BP 152/68
--- NOTE | 2018-07-23 12:50 | MORECARE ---
CASE MANAGEMENT DISCHARGE SUMMARY PATIENT: SHEFALI MALDONADO UNIT: [id number] ADM DATE: 07/19/18 AGE: 68 : 48 SEX: F ROOM/BED: D.2210 AUTHOR: MARY JO WISEMAN PHYSICIAN: REFERRING PHYSICIAN: ERICKSON ESCALANTE MD DATE OF SERVICE: 07/23/18 Discharge Plan Patient Name: SHEFALI MALDONADO Facility: [facility]:[place] : 1950 Planned Disposition: Home or Self Care Anticipated Discharge Date: Discharge Date: Expected LOS: Initial Reviewer: [email or web address] Initial Review Date: 07/19/2018 Generated: 07/23/18 1:50 pm DCPIA - Discharge Planning Initial Assessment Updated by [email or web address]: Makenna Abdul on 07/19/18 3:22 pm * Is the patient Alert and Oriented? Yes * How many steps to enter\exit or inside your home? 2-3 * PCP Dr. Escalante * [facility] * Preadmission Environment Home Alone * ADLs Independent * Equipment None * Other Equipment Gastrostomy tube and supplies * List name and contact numbers for known caregivers / representatives who currently or will assist patient after discharge: Yumiko Foss (dtr) [phone] * Verbal permission to speak to the caregivers and representatives has been obtained from the patient. Yes * Please name any agencies selected above. In Past ([facility]), but not at present. * Additional services required to return to the preadmission environment? No * Can the patient safely return to the preadmission environment? Yes * Has this patient been hospitalized within the prior 30 days at any hospital? Yes Patient Name: SHEFALI MALDONADO Page 14846 at 1250 All edits/amendments must be made on the electronic document DICTATION DATE: 07/23/18 124 EXECUTIVE CHEF: BIENVENIDO 07/23/18 1249 RPT#: [id number] DC DATE: STATUS: ADM IN [facility] [address] [place] [address] END OF REPORT
--- NOTE | 2018-07-23 12:58 | MORECARE ---
CASE MANAGEMENT DISCHARGE SUMMARY PATIENT: SHEFALI MALDONADO UNIT: [id number] ADM DATE: 07/19/18 AGE: 68 : [birth year] SEX: F ROOM/BED: D.2210 AUTHOR: IVONE,DOC PHYSICIAN: REFERRING PHYSICIAN: ERICKSON ESCALANTE MD DATE OF SERVICE: 07/23/18 Discharge Plan Patient Name: SHEFALI MALDONADO Facility: [facility]:[place] : 1950 Planned Disposition: Home or Self Care Anticipated Discharge Date: Discharge Date: Expected LOS: Initial Reviewer: [email or web address] Initial Review Date: 07/19/2018 Generated: 07/23/18 1:58 pm Comments DCP- Discharge Planning Updated by [id number]: Elsy Enriquez on 07/23/18 11:[address] Patient Name: SHEFALI MALDONADO Admission Status: ER Accout number: [id number] Admission Date: 07-19-2018 : 1950 Admission Diagnosis:UNSP INTESTNL OBST, UNSP TO 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 Patient stated that she lives independent with her care at home and plans to return when she is discharged. 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 She stated that her home is safe and denies any DME needs at this time. CM will continue to follow and assist with DC planning as needed Nursing Project Coordinator: Elsy Enriquez DCPIA - Discharge Planning Initial Assessment Updated by [id number]: Makenna Abdul on 07/19/18 3:22 pm * Is the patient Alert and Oriented? Yes * How many steps to enter\exit or inside your home? 2-3 * PCP Dr. Escalante * [facility] * Preadmission Environment Home Alone * ADLs Independent * Equipment None * Other Equipment Gastrostomy tube and supplies * List name and contact numbers for known caregivers / representatives who currently or will assist patient after discharge: Yumiko Foss (dtr) [phone] * Verbal permission to speak to the caregivers and representatives has been obtained from the patient. Yes * Please name any agencies selected above. In Past ([facility]), but not at present. * Additional services required to return to the preadmission environment? No * Can the patient safely return to the preadmission environment? Yes * Has this patient been hospitalized within the prior 30 days at any hospital? Yes Last DP export: 07/23/18 11:50 am Patient Name: SHEFALI MALDONADO Page [id number] at 1258 All edits/amendments must be made on the electronic document DICTATION DATE: 07/23/18 125 STOVE CARRIAGE OPERATOR: BIENVENIDO 07/23/18 1258 RPT#: [id number] DC DATE: STATUS: ADM IN [facility] [address] [place] [address] END OF REPORT
--- NOTE | 2018-07-23 13:14 | NUR ---
PT PAIN LEVEL IS AT A 4, PT LYING IN BED WITH LUNCH TRAY IN FRONT OF HER, STATED SHE IS NOT HUNGRY AND DOES NOT WANT IT, ADVISED IT IS FULL LIQUID LIKE SHE ASKED PT DECLINED, WILL CONTINUE WITH PLANOF CARE
--- NOTE | 2018-07-23 14:26 | NUR ---
I have reviewed this patient and I concur with the Shift Assessment completed by the Licensed Practical Nurse today this shift.
[2018-07-23 16:33] LABS: ANION GAP 10.9 mmol/L (8-16); CALCIUM 8.3 mg/dL (8.5-10.1); CARBON DIOXIDE 25.4 mmol/L (21.0-32.0)
[2018-07-23 16:35] LABS: CREATININE - SERUM 1.3 mg/dL (0.6-1.3); POTASSIUM - SERUM 3.3 mmol/L (3.5-5.1)
[2018-07-23 16:45] VITALS: BP 133/83
--- NOTE | 2018-07-23 17:31 | NUR ---
PT C/O PORT BURNING AND STINGING, PT PORT SITE IS SWOLLEN, HAD RN Trinidad DICKENS COME AND ACCESS PORT. PT PORT NOT ACCESSED, CHANGED PT PORT
--- NOTE | 2018-07-23 18:14 | NUR ---
CALLED DR GALLOWAY IN REGARDS TO PT PORT AND UNABLE TO GAIN ACCESS DUE TO SWELLING. PER DR GALLOWAY TRY PERIPHERAL IV FOR NOW UNTIL SWELLING GOES DOWN. RN. Evette FUNEZ FROM [facility] CAME AND ACCESSED PERIPHERAL, WILL CONTINUE WITH PLAN OF CARE
[2018-07-23 20:00] VITALS: BP 90/52
--- NOTE | 2018-07-23 20:07 | NUR ---
PT STATED SHE CHECKED THE TIME LAST TIME SHE GOT PAIN MEDICINE WAS, "RIGHT AT 5PM. SO I CAN HAVE ANOTHER ONE AT 9." INFORMED PT THAT SHE NEEDS TO ASK FOR PRN PAIN MEDICATION WHEN SHE IS IN PAIN, NOT WHEN SHE THINKS IT IS DUE. PT STATED SHE KNOWS, BUT THAT'S ABOUT THE TIME HER PAIN IS UP AND REQUESTED I BRING HER PAIN SHOT AND ATIVAN AT 9PM SO SHE COULD SLEEP. INSTRUCTED PT TO PRESS CALL LIGHT WHEN SHE IS IN PAIN AND THAT i COULD SEE ABOUT GETTING HER ATIVAN SOON. PT REFUSED, STATING SHE DID NOT WANT HER ATIVAN UNTIL SHE GOT HER PAIN SHOT BECAUSE IT HELPS HER SLEEP.
[2018-07-24] VITALS: BP 119/71
[2018-07-24 04:00] VITALS: BP 127/67
--- NOTE | 2018-07-24 04:23 | NUR ---
I have reviewed this patient and I concur with the Shift Assessment completed by the Licensed Practical Nurse today this shift.
[2018-07-24 05:39] LABS: ANION GAP 10.6 mmol/L (8-16); CALCIUM 7.9 mg/dL (8.5-10.1); CARBON DIOXIDE 24.3 mmol/L (21.0-32.0); POTASSIUM - SERUM 3.9 mmol/L (3.5-5.1)
[2018-07-24 06:49] LABS: BASOPHILS 0.4 % (0-2); EOSINOPHILS 6.2 % (0-7); HEMOGLOBIN 11.3 g/dL (12-16); IMMATURE GRANULOCYTES 0.4 % (0-5); LYMPHOCYTES 20.8 % (15-50); MCH 31.2 pg (26.0-34.0); MCHC 34.2 g/dL (31.0-37.0); MCV 91.2 fL (80.0-100.0); MEAN PLATELET VOLUME 9.9 fL (7.4-10.4); MONOCYTES 10.1 % (2-11); NEUTROPHILS 62.1 % (40-80); PLATELET COUNT 372 10x3/uL (130-400); RBC 3.62 10x6/uL (4.00-5.40); RDW 12.6 % (11.5-14.5)
[2018-07-24 06:54] LABS: WBC 7.6 10x3/uL (4.8-10.8)
[2018-07-24 07:03] LABS: CREATININE - SERUM 2.3 mg/dL (0.6-1.3)
[2018-07-24] MEDS ORDERED: LEVAQUIN750 MG PO (08:12)
--- NOTE | 2018-07-24 08:57 | MORECARE ---
CASE MANAGEMENT DISCHARGE SUMMARY PATIENT: SHEFALI MALDONADO UNIT: [id number] ADM DATE: 07/19/18 AGE: 68 : 49 SEX: F ROOM/BED: D.2210 AUTHOR: IVONE,DOC PHYSICIAN: REFERRING PHYSICIAN: ERICKSON ESCALANTE MD DATE OF SERVICE: 07/24/18 Discharge Plan Patient Name: SHEFALI MALDONADO Facility: [facility]:[place] : 1950 Planned Disposition: Home or Self Care Anticipated Discharge Date: Discharge Date: Expected LOS: Initial Reviewer: [email or web address] Initial Review Date: 07/19/2018 Generated: 07/24/18 9:57 am Comments DCP- Discharge Planning Updated by [id number]: Elys Enriquez on 07/24/18 7:[address] patient discharging home today, denies any needs at this time. imm served and explained DCP- Discharge Planning Updated by [email or web address]: Elsy Enriquez on 07/23/18 11:[address] Patient Name: SHEFALI MALDONADO Admission Status: ER Accout number: [id number] Admission Date: 07-19-2018 : 1950 Admission Diagnosis:UNSP INTESTNL OBST, UNSP TO 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 Patient stated that she lives independent with her care at home and plans to return when she is discharged. 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 She stated that her home is safe and denies any DME needs at this time. CM will continue to follow and assist with DC planning as needed Crawler Dragline Operator: Elsy Enriquez DCPIA - Discharge Planning Initial Assessment Updated by [id number]: Makenna Abdul on 07/19/18 3:22 pm * Is the patient Alert and Oriented? Yes * How many steps to enter\exit or inside your home? 2-3 * PCP Dr. Escalante * Pharmacy [facility] * Preadmission Environment Home Alone * ADLs Independent * Equipment None * Other Equipment Gastrostomy tube and supplies * List name and contact numbers for known caregivers / representatives who currently or will assist patient after discharge: Yumiko Foss (dtr) [phone] * Verbal permission to speak to the caregivers and representatives has been obtained from the patient. Yes * Please name any agencies selected above. In Past ([facility]), but not at present. * Additional services required to return to the preadmission environment? No * Can the patient safely return to the preadmission environment? Yes * Has this patient been hospitalized within the prior 30 days at any hospital? Yes Coverage Notice Reviewer: [id number] Carin Enriquez Notice Issued Date-Time: 07/24/2018 8:45 Notice Type: IM Discharge Notice Notice Delivered To: Patient Relationship to Patient: Sample Tester Grinder Name: Delivery Method: HAND - Hand Delivered Ebony Days: Prior Verbal Notification: Recipient Understood Notice: Yes Recipient Signature: Yes Med Rec Note Co-signed by Attending: Coverage Notice Comment: Last DP export: 07/23/18 11:58 am Patient Name: SHEFALI MALDONADO Page 45911 at 0857 All edits/amendments must be made on the electronic document DICTATION DATE: 07/24/18855 LEAD SIMULATION MODELING ENGINEER: BIENVENIDO 07/24/18855 RPT#: [id number] DC DATE: STATUS: ADM IN [facility] [address] [place] [address] END OF REPORT
[2018-07-24 09:41] VITALS: BP 120/60
== END 2018-07-24 13:12 | disposition home or self-care (01) | DRG 388 ==
LOC: D.ER 09:51 → D.MS 13:19 → D.EDHOLD 13:19 → D.MS 13:26
PROVIDERS: Family Medicine; Internal Medicine Nephrology; ADMIT Family Medicine; ATTEND Family Medicine
DX: K56.609 Unspecified intestinal obstruction, unspecified as to partial versus complete obstruction (principal); J18.9 Pneumonia, unspecified organism; E87.1 Hypo-osmolality and hyponatremia

== ENCOUNTER 2018-07-27 11:44 | Inpatient (IN) | payer MEDICARE ==
[~2018-07-27] VITALS: Ht 160 cm; Wt 75.8 kg
--- NOTE | ~2018-07-27 | PN ---
PATIENT:SHEFALI MALDONADO MEDICAL RECORD: [id number] LOCATION:D.M2 D.211 ADMISSION DATE: 07/27/18 PROGRESS NOTE DATE OF SERVICE: 08/14/2018 I was asked to come and see the Hubert family and talk to them. They have been in touch with their surgeon in [place] and they state that he felt pretty good about possibility of getting the enterocutaneous fistula to heal. They do not want to sign out against medical advice. We told them that they would not be signing out against medical advice and that frankly she could go home and she could follow up in their office. They are planning to be dismissed and then, sometime in the near future, present up at [facility] in [place]. She is eating. She is having bowel movements. She has a normal white count and she is afebrile. So, from my standpoint, she can safely be dismissed home. While she has been here, we have never been able to get her and her family to agree to a laparotomy. They did not want hospice. She had erythema over a hernia, so we felt that there likely was some strangulated bowel present. 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 The correctional counselor/case manager are going to contact Dr. Herbert to dismiss the patient. I have told the patient's family that if their surgeon would like to give me a call, please have him do so and I can explain her hospital course here at [facility]. TRANSINT:[id number] Voice Confirmation ID: [id number] DOCUMENT ID: [id number] JOSE M GALLOWAY MD CC: [id number] DICTATION DATE: 08/14/18 1304 NURSE CHARGE RN: 08/14/18 1410 DIS IN 08/14/18 [facility] [address] [place] [id number]
--- NOTE | ~2018-07-27 | PN ---
PATIENT:SHEFALI GASPAR MEDICAL RECORD: [id number] LOCATION:D. D.211 ADMISSION DATE: 07/27/18 PROGRESS NOTE DATE OF SERVICE: 08/13/2018 SUBJECTIVE: I spoke to Yumiko, Mrs. Gaspar's daughter yesterday by phone. I outlined several options including obtaining a second or third opinion. I would prefer not to operate on this patient as I think this would lead to probably an open abdomen that we cannot close. The possibility of enterocutaneous fistula is the probability, the patient would remain on life support. The decision was for me to meet with the patient's family at 8 this morning. I had a very challenging morning clinically. One of the family members went down to administration to essentially complain that I had not come to the patient's bedside and discussed things with them yet. I went there as soon as I could. I gave them multiple options including hospice, home health care. Last night, the patient developed an enterocutaneous fistula. Her abdomen has decompressed to some degree. She is actually eating and having bowel movements now. 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 The family is fine with taking her home. Again, I have told them they can obtain a second and third opinion regarding this enterocutaneous fistula; however, I think that she will actually do better now that the fistula has formed and essentially decompressed her small bowel. I had a lengthy conversation with them. I answered all their questions. TRANSINT:[id number] Voice Confirmation ID: [id number] DOCUMENT ID: [id number] JOSE M GALLOWAY MD CC: [id number] DICTATION DATE: 08/13/18 1108 SUPERVISOR INSTRUMENT MECHANICS: 08/13/18 1345 ADM IN [facility] [address] [place] [id number]
--- NOTE | ~2018-07-27 | PN ---
PATIENT:SHEFALI MALDONADO MEDICAL RECORD: [id number] LOCATION:D.M2 D.211 ADMISSION DATE: 07/27/18 PROGRESS NOTE DATE OF SERVICE: 08/09/2018 SUBJECTIVE: I think the patient's erythema may be a little bit improved. Still having abdominal pain. I think that the hernia may be partially reducible. She has had no bowel movement. She is not febrile. She is intermittently tachycardic. LABORATORY DATA: Reviewed. REVIEW OF SYSTEMS: Positive for rash. No shortness of breath. No chest pain. OBJECTIVE: GENERAL: The patient appears acutely ill. She also appears chronically ill. VITAL SIGNS: Reviewed. EARS: External ears appear normal. EYES: Extraocular movements are intact. NECK: Trachea is midline. CHEST: No intercostal retractions. PULMONARY: Nonlabored. No stridor. ABDOMEN: As described above. IMPRESSION: Persistent bowel obstruction. PLAN: The patient does not want an operation. The family does want an operation. I think that ultimately she will require an operation. We are going to continue her on IV antibiotics and reassess things on Sunday. TRANSINT:[id number] Voice Confirmation ID: [id number] DOCUMENT ID: [id number] JOSE M GALLOWAY MD CC: [id number] DICTATION DATE: 08/09/188 RECORDING STUDIO SET UP WORKER: 08/10/18 0749 ADM IN [facility] [address] [place] [address]
[~2018-07-27 11:44] MED LIST changes: +LEVAQUIN750 MG PO
[2018-07-27 12:29] LABS: BASOPHILS 0.1 % (0-2); EOSINOPHILS 0 % (0-7); HEMATOCRIT 34.8 % (36.0-48.0); IMMATURE GRANULOCYTES 0.9 % (0-5); LYMPHOCYTES 2.4 % (15-50); MCH 31.9 pg (26.0-34.0); MCHC 34.5 g/dL (31.0-37.0); MCV 92.6 fL (80.0-100.0); MEAN PLATELET VOLUME 10.5 fL (7.4-10.4); MONOCYTES 4.4 % (2-11); NEUTROPHILS 92.2 % (40-80); RBC 3.76 10x6/uL (4.00-5.40); RDW 12.4 % (11.5-14.5); WBC 19.5 10x3/uL (4.8-10.8)
[2018-07-27 12:30] LABS: PLATELET COUNT 124 10x3/uL (130-400)
[2018-07-27 12:49] LABS: ALBUMIN 2.1 g/dL (3.4-5.0); BILIRUBIN - TOTAL 0.32 mg/dL (0.2-1.3); CALCIUM 8.4 mg/dL (8.5-10.1); CARBON DIOXIDE 21.1 mmol/L (21.0-32.0); CREATININE - SERUM 7.9 mg/dL (0.6-1.3); PROTEIN - SERUM 6.6 g/dL (6.4-8.2); THYROID STIMULATING HORMONE 1.75 uIU/mL (0.36-3.74)
[2018-07-27 12:55] LABS: ANION GAP 16.6 mmol/L (8-16); POTASSIUM - SERUM 5.7 mmol/L (3.5-5.1)
[2018-07-27 13:00] LABS: APPEARANCE HAZY (CLEAR); BILIRUBIN NEGATIVE (NEGATIVE); COLOR YELLOW (YELLOW); EPITHELIAL CELLS 0-5 /hpf (0-5); GLUCOSE NEGATIVE (NEGATIVE); KETONE NEGATIVE (NEGATIVE); NITRITE NEGATIVE (NEGATIVE); PROTEIN 2+ mg/dL (NEGATIVE); RED CELLS - URINE 0-5 /hpf (0-5); UROBILINOGEN NORMAL (NORMAL)
[2018-07-27 13:01] LABS: AMORPHOUS SEDIMENT <1+ /lpf (NONE SEEN); BACTERIA MODERATE /hpf (NONE SEEN); MUCUS <1+ /lpf (NONE SEEN)
[2018-07-27 13:28] VITALS: BP 128/51
--- NOTE | 2018-07-27 14:43 | NUR ---
TRANSFER FROM ER BY STRETCHER. OREINTED TO ROOM. CALL LIGHT IN REACH. WILL CONT. PLAN OF CARE.
--- NOTE | 2018-07-27 15:13 | NUR ---
RECIEVED PT FROM ER. PT C/O PAIN AND STATES SHE NEEDS PAIN MEDS IMMEDIATELY. WILL CALL THE DR AND ASK, PT STATES SHE USUALY TAKES MORPHINE 30 MILLIGRAMS TID. PT IS A/O, UP WITH ASSIST.
[2018-07-27 15:31] VITALS: BP 102/46; BMI 31.9
[2018-07-27 15:56] VITALS: BP 102/46
--- NOTE | 2018-07-27 18:35 | NUR ---
PT LYING IN BED SLEEPING. DID NOT WAKE I ENTERED.DID NOT FURTHER DISTURB. CL IN REACH. SRX2.
--- NOTE | 2018-07-27 20:00 | NUR ---
REPORT RECEIVED AND INITIAL ROUNDS COMPLETED. PT RESTING IN BED WITH NO DISTRESS. IVF NS @ 75ML/HR INFUSING TO LFA. PT ALSO HAS UNACCESSED PORT TO LEFT CHEST WALL. MONITOR AND CPOC.
[2018-07-27 20:28] VITALS: BP 106/34
[2018-07-28] VITALS (7 sets, daily range): BP systolic 93–131; BP diastolic 29–67
--- NOTE | 2018-07-28 02:12 | NUR ---
PT RESTING IN BED WITH NO DISTRESS. MONITOR AND CPOC.
[2018-07-28 05:10] LABS: BASOPHILS 0.1 % (0-2); HEMATOCRIT 28.3 % (36.0-48.0); IMMATURE GRANULOCYTES 0.3 % (0-5); MCH 30.5 pg (26.0-34.0); MCHC 33.6 g/dL (31.0-37.0); MEAN PLATELET VOLUME 9.4 fL (7.4-10.4); MONOCYTES 7.5 % (2-11); NEUTROPHILS 79.1 % (40-80); RBC 3.11 10x6/uL (4.00-5.40); RDW 12.6 % (11.5-14.5)
[2018-07-28 05:11] LABS: HEMOGLOBIN 9.5 g/dL (12-16); PLATELET COUNT 315 10x3/uL (130-400); WBC 9.6 10x3/uL (4.8-10.8)
[2018-07-28 05:17] LABS: ANION GAP 14.2 mmol/L (8-16); CARBON DIOXIDE 22.6 mmol/L (21.0-32.0); CREATININE - SERUM 7.7 mg/dL (0.6-1.3)
[2018-07-28 05:18] LABS: POTASSIUM - SERUM 4.8 mmol/L (3.5-5.1)
--- NOTE | 2018-07-28 08:00 | NUR ---
ALERT AND ORIENTED X4. RESTING IN BED REQUESTING PAIN MEDICATION. NO IV ACCESS. ATTEMPT TO ACCESS LT CHEST IP UNSUCCESSFUL. UNABLE TO FLUSH. UNABLE TO DRAW BLOOD. CARLOS THOMASON RESUMES PLAN OF CARE AND SAFETY PRECAUTIONS.
--- NOTE | 2018-07-28 14:07 | NUR ---
IV INFILTRATED THIS MORNING, I HAVE HAD 4 FAILED ATTEMPTS TO START A NEW ONE. I WAS ABLE TO START ONE LONG ENOUGH FOR ONE DOSE OF PAIN MEDICATION BUT THEN THE IV INFILTRATED. SHE DOES HAVE A PORT BUT WHEN CANDACE OROZCO ATTEMPTED TO ACCESS IT, IT FAILED TO ACCESS. I SPOKE WITH DR ESCALANTE AND GOT AN ORDER TO CHANGE HER PAIN MEDICATION TO HER PO HOME DOSE OF MORPHINE. WILL CONSULT VENOUS ACCESS NURSE FOR TOMORROW MORNING. ORDERS NOTED.
--- NOTE | 2018-07-28 18:40 | NUR ---
ALERT AND ORIENTED X4. ASSIST TO RESTROOM AND BACK TO BED. ACCESS LT CHEST IP 20G 1 INCH. NO BLOOD RETURN. FLUSHES WITHOUT RESISTANCE. PATIENT STATES, "THERE'S THAT TASTE I HATE." DRESS, DATE, AND INITIAL DRESSING.
--- NOTE | 2018-07-28 19:12 | NUR ---
ASSISTED PT TO BATHROOM, ONE PERSON ASSIST REQUIRED. BACK TO BED, CALL LIGHT IN REACH. WILL CONTINUE TO MONITOR.
--- NOTE | 2018-07-28 20:09 | NUR ---
REPORT RECIEVED AND INITIAL ROUNDS COMPLETED. ZAVALA PATENT TO BEDSIDE DRAIN BAG. LEFT CHEST WALL IMPLANTED PORT HAS BEEN ACCESSED AND SHE HAS NS @ 75ML/HR INFUSING. CALL LIGHT IN REACH. MONITOR AND CPOC.
--- NOTE | 2018-07-28 22:48 | NUR ---
BEDTIME MEDS AND REQUESTED PAIN PILL GIVEN. PT RESTING WITH NS @ 75ML/HR INFUSING TO LEFT CW PORT.
--- NOTE | 2018-07-29 02:30 | NUR ---
PT GRID MOLDER LIGHT. CRYING/YELLING. SAYING SHE IS SO CONFUSED. THAT SHE DOESN'T KNOW WHAT TIME SHE GOT HER PAIN MEDICATION OR IF SHE HAS EVEN EATEN. PT BEING VERY LOUD AND DISRUPTIVE. PT INSTRUCTED ON LAST TIME SHE RECIEVED HER ORAL MORPHINE AND NO DOSE CAN BE GIVEN AT THIS TIME. PT CRYING EVEN MORE LOUDLY. YELLING OUT. HAD CREELER DIAL HER DAUGHTER ON HER PHONE. YELLING INTO PHONE WITH HER DAUGHTER. THIS NURSE ENTERED ROOM AND ASKED PT IF SHE WANTED NURSE TO SPEAK WITH HER DAUGHTER. ASKED PT TO PLEASE LOWER HER VOICE/STOP SHOUTING. PT HANDED HER CELL PHONE TO THIS NURSE AND DAUGHTER WAS YELLING AT THIS NURSE. TRIED TO EXPLAIN THAT PT HAS HAD AN UNEVENTFUL NIGHT UP UNTIL THIS MOMENT AND IT STARTED WHEN PT WAS TOLD IT WAS TOO EARLY FOR HER TO HAVE MORPHINE. DAUGHTER YELLING AT NURSE THAT PT WAS DEHYDRATED AND HUNGRY AND HAS NOT HAD FLUIDS ALL DAY. EXPLAINED TO DAUGHTER THAT IVF HAVE BEEN INFUSING SINCE PRIOR TO SUPERVISOR PRODUCTION DEPARTMENT AND PT WAS OFFERED A SNACK BY CREELER EARLIER, BUT SHE DECLINED. DAUGHTER STATES DAY NURSE (KIESHA) TOLD HER THE PATIENT WOULD NOT HAVE IVF UNTIL TOMORROW MORNING, SO PT IS VERY UPSET ABOUT BEING WITH NO FLUIDS. PT'S DAUGHTER YELLING AT NURSE, PT SITTING IN BED AND YELLING LOUDLY IN CONTRADICTION TO EVERYTHING SHE HEARS NURSE SAY TO HER DAUGHTER AND CRYING VERY LOUDLY. INFORMED DAUGHTER IF SHE WANTED TO SHE WAS MORE THAN WELCOME TO COME UP AND STAY WITH HER MOTHER. AT THIS POINT, PHONE WAS GIVEN BACK TO PATIENT AND ANOTHER NURSE ENTERED ROOM TO TRY AND INTERVENE WITH PATIENT. MEDIA PROMOTER PRESENT FOR PART OF CONVERSATION. UPON RETURNING TO NURSES STATION, PATIENT'S DAUGHTER CALLED AND BEGAN SAME CONVERSATION AGAIN WITH THIS NURSE. AGAIN, TALKING OVER ALL REPLIES BY THIS NURSE/THREATENING TO COME TO HOSPITAL IN AM AND TURN THIS NURSE IN. INFORMED DAUGHTER SHE CAN SPEAK WITH MEDIA PROMOTER REGARDING HER CONCERNS RIGHT NOW AND SHE AGREED TO SPEAK WITH MARY NOW. CALL TRANSFERRED TO MEDIA PROMOTER. MEANWHILE BACK IN ROOM. PT EATING CHOCOLATE PUDDING/HO CRACKERS AND ICE WATER AND INSTRUCTED THAT NEXT DOSE OF PAIN MED WILL BE IN THE AM.
--- NOTE | 2018-07-29 04:07 | NUR ---
PT SYSTEM SUPPORT DEVELOPER LIGHT. ANSWERED BY ANOTHER NURSE. PT ASKED WAS IT 0730 YET SO SHE COULD HAVE PAIN MEDICATION. NURSE EXPLAINED TO HER THAT IT WAS 0345. CONTINUE TO MONITOR.
[2018-07-29 05:49] VITALS: BP 130/53
--- NOTE | 2018-07-29 06:12 | NUR ---
AM MEDS GIVEN. ALSO PROVIDED PT WITH MORPHINE CR 30MG. WROTE ON WALL BOARD THAT NEXT AVAILABLE TIME FOR PAIN MED WILL BE 2PM. EXPLAINED TO PATIENT THAT BY SPACING HER MORPHINE OUT OVER 24 HOURS, SHE WILL BE ABLE TO HAVE ONE IN THE AM, ONE IN THE MIDDLE OF THE DAY AND ONE AT BEDTIME. PT SEEMS VERY HAPPY WITH THIS ARRANGEMENT. C/O POOR RECALL AND ALWAYS TRYING TO REMEMBER IF SHE HAS/HAS NOT HAD HER PAIN MED. WILL SPEAK WITH DAY NURSE TO SEE IF MD MAY WANT TO SCHEDULE THE MORPHINE SO THAT PT WILL NOT HAVE TO SPEND SO MUCH TIME TRYING TO REMEMBER WHEN TO ASK FOR MEDS.
[2018-07-29 06:33] LABS: ANION GAP 15.5 mmol/L (8-16); CALCIUM 7.4 mg/dL (8.5-10.1); CARBON DIOXIDE 22.8 mmol/L (21.0-32.0); CREATININE - SERUM 7.1 mg/dL (0.6-1.3); POTASSIUM - SERUM 4.3 mmol/L (3.5-5.1); URIC ACID 5.9 mg/dL (2.6-7.2)
[2018-07-29 06:36] LABS: BASOPHILS 0.2 % (0-2); EOSINOPHILS 1.3 % (0-7); HEMATOCRIT 28.3 % (36.0-48.0); HEMOGLOBIN 9.6 g/dL (12-16); IMMATURE GRANULOCYTES 0.4 % (0-5); MCH 30.9 pg (26.0-34.0); MCHC 33.9 g/dL (31.0-37.0); MEAN PLATELET VOLUME 9.4 fL (7.4-10.4); MONOCYTES 12.1 % (2-11); PLATELET COUNT 371 10x3/uL (130-400); RBC 3.11 10x6/uL (4.00-5.40); RDW 12.7 % (11.5-14.5); WBC 8.4 10x3/uL (4.8-10.8)
--- NOTE | 2018-07-29 08:08 | NUR ---
REPORT RECEIVED. WILL CONTINUE WITH POC. PT CURRENTLY LYING SEMI FOWLERS. CALL LIGHT W/I REACH. PT IS RESTING AT THE MOMENT. RR EVEN AND UNLABORED ON 2L 02. NO S/S OF DISTRESS NOTED. NS INFUSING @KVO VIA L.CHEST INFUSAPORT. PT DENIES ANY NEEDS AT THIS TIME. WILL CTM.
[2018-07-29 09:01] VITALS: BP 127/54
[2018-07-29 10:42] LABS: CREATININE - URINE 106.9 mg/dL (30-125); PRO/CRE RATIO URINE 0.8 mg/g; PROTEIN - URINE 83.5 mg/dL (0.0-11.9)
[2018-07-29 11:53] VITALS: BP 143/57
[2018-07-29 13:08] VITALS: BMI 29.5
--- NOTE | 2018-07-29 14:27 | NUR ---
I have reviewed this patient and I concur with the Shift Assessment completed by the Licensed Practical Nurse today this shift.
[2018-07-29 18:09] VITALS: BP 144/59
--- NOTE | 2018-07-29 19:50 | NUR ---
INTRODUCED SELF TO PATIENT, PATIENT WAS RESTING WITH NC OUT OF NOSE. PLACED NC IN NOSE, RESP EVEN AND UNLABORED. NO NEEDS AT THIS TIME.
[2018-07-29 20:32] VITALS: BP 136/65
--- NOTE | 2018-07-29 21:23 | NUR ---
PATIENT SEEMS TO BE VERY CONFUSED, ASKED FOR SOMETHING TO SLEEP BUT HAS BEEN LETHARGIC/SLEEPING ALL DAY PER REPORT. PATIENT HAS EYES CLOSED EACH TIME THIS NURSE HAS PASSED THE ROOM.
--- NOTE | 2018-07-29 22:54 | NUR ---
PATIENT STATES IS SUPPOSED TO HAVE MORPHINE ORDERED Q6, TOLD PATIENT THAT SHE HAD AN ORDER FOR MORPHINE UP TO THREE TIMES A DAY NEEDED. PATIENT STATES "YOU'RE SUPPOSED TO WAKE ME UP TO GIVE ME MORPHINE." I ADVISED THIS PATIENT THAT IF SHE WAS LETHARGIC/SLEEPING ALL DAY THAT EACH NURSE MAY FEEL DIFFERENTLY ABOUT THAT. PATIENT HAS BEEN ASLEEP ALL SHIFT UP UNTIL THIS POINT.
--- NOTE | 2018-07-30 02:39 | NUR ---
PATIENT RESTING WITH EYES CLOSED, RESP EVEN AND UNLABORED, PATIENT APPEARS TO BE MUMBLING IN SLEEP. NO DISTRESS OR S/SX OF PAIN AT THIS TIME.
[2018-07-30 06:08] VITALS: BP 147/65
[2018-07-30 06:24] LABS: ANION GAP 14.8 mmol/L (8-16); CALCIUM 7.7 mg/dL (8.5-10.1); CARBON DIOXIDE 24.2 mmol/L (21.0-32.0)
--- NOTE | 2018-07-30 07:45 | NUR ---
AM ROUNDS COMPLETED. INTRODUCED MYSELF TO PT PRIMARY RN FOR TODAYS SHIFT. PT IS A&O SITTING UP IN BED C/O FEELING WEIRD. PT STATES "LUKE BEEN CONFUSED AND JUST NEVER FELT THIS SICK IN MY LIFE BEFORE" DISCUSSED WITH PT DISEASE PROCESS AND REASONING BEHIND CONFUSION HOWEVER PT IS A&O X4. AND AT BEDSIDE DISCUSSING PLAN OF CARE. PT VERY WORKED UP AND EMOTIONAL. C/O L.ARM HURTING WHICH ITS VERY SWOLLEN TO ORDER TESTING HE STATES AND I WILL PROVIDE PT WITH HER PRN PAIN MEDICATION. GAVE VERBAL ORDER TO SHUT OFF FLUIDS. NO CURRENT NEEDS. WILL CPOC.
[2018-07-30 08:16] LABS: BASOPHILS 0.4 % (0-2); EOSINOPHILS 2.2 % (0-7); HEMATOCRIT 28.4 % (36.0-48.0); HEMOGLOBIN 9.8 g/dL (12-16); IMMATURE GRANULOCYTES 0.3 % (0-5); MCH 30.9 pg (26.0-34.0); MCHC 34.5 g/dL (31.0-37.0); MCV 89.6 fL (80.0-100.0); MEAN PLATELET VOLUME 8.9 fL (7.4-10.4); MONOCYTES 10.5 % (2-11); NEUTROPHILS 62.6 % (40-80); PLATELET COUNT 331 10x3/uL (130-400); RBC 3.17 10x6/uL (4.00-5.40); RDW 12.3 % (11.5-14.5); WBC 7.3 10x3/uL (4.8-10.8)
[2018-07-30 10:25] VITALS: BP 127/51
--- NOTE | 2018-07-30 12:34 | NUR ---
PT REFUSED TO EAT AND STATES SHES NOT HUNGRY RIGHT NOW. LUICA CORK PRESSING MACHINE OPERATOR AT BEDSIDE TO PERFORM BILAT DOPPLER TO ARM R/T ALL THE SWELLING. NO CURRENT NEEDS AT THIS TIME. CL IN REACH. WILL CTM.
[2018-07-30 16:18] VITALS: BP 135/83
[2018-07-30 18:30] VITALS: BP 120/40
--- NOTE | 2018-07-30 19:35 | NUR ---
PATIENT EATING DINNER IN ROOM VIA TRAY, NO NEEDS AT THIS TIME, NO S/SX OF DISTRESS OR DISCOMFORT.
[2018-07-30 20:55] VITALS: BP 160/62
--- NOTE | 2018-07-30 22:37 | NUR ---
PATIENT'S DAUGHTER GEOVANI CALLED, STATES SHE CAN'T UNDERSTAND HER MOTHER AND HER MOTHER HAS INCREASED CONFUSION AND TO LET DR. ESCALANTE KNOW SHE WANTS TO TALK TO HIM ABOUT IT. I EDUCATED DAUGHTER ON HER DISEASE PROCESS AND KIDNEY FUNCTION, ETC. PATIENT IS CURRENTLY HOLDING HER CELL PHONE TO EAR REPEATING 'STACEYZACHNELBRITTON STACEY DASILVA DASILVA DASILVA DASILVA" BUT WHEN ASKED QUESTIONS CAN ANSWER YOU APPROPRIATELY. ADVISED DAUGHTER THAT MAYBE HER PAIN MEDS COULD BE LOOKED INTO BEING ADJUSTED. PATIENT SLEPT ALMOST ALL SHIFT THE NIGHT BEFORE AND HAS BEEN IN AND OUT OF SLEEPING THIS EVENING.
[2018-07-31 00:46] VITALS: BP 169/68
[2018-07-31 05:43] VITALS: BP 147/64
[2018-07-31 07:06] LABS: BASOPHILS 0.4 % (0-2); EOSINOPHILS 1.9 % (0-7); HEMATOCRIT 27.9 % (36.0-48.0); HEMOGLOBIN 9.5 g/dL (12-16); IMMATURE GRANULOCYTES 0.6 % (0-5); LYMPHOCYTES 22.6 % (15-50); MCH 30.6 pg (26.0-34.0); MCHC 34.1 g/dL (31.0-37.0); MEAN PLATELET VOLUME 9.1 fL (7.4-10.4); MONOCYTES 13.5 % (2-11); PLATELET COUNT 295 10x3/uL (130-400); RDW 12.6 % (11.5-14.5); WBC 7.3 10x3/uL (4.8-10.8)
[2018-07-31 07:16] LABS: ANION GAP 10.4 mmol/L (8-16); CALCIUM 7.9 mg/dL (8.5-10.1); CARBON DIOXIDE 26.8 mmol/L (21.0-32.0); CREATININE - SERUM 4.5 mg/dL (0.6-1.3)
[2018-07-31 07:19] LABS: POTASSIUM - SERUM 4.2 mmol/L (3.5-5.1)
--- NOTE | 2018-07-31 07:23 | NUR ---
REPORT RECEIVED. WILL CONTINUE WITH POC. PT CURRENTLY LYING SEMI FOWLERS. CALL LIGHT W/I REACH. PT IS AAO AND BEDFAST. RR EVEN AND UNLABORED ON RA. L.INFUSAPORT IS SALINE LOCKED. PT DENIES ANY NEEDS AT THIS TIME. NO S/S OF DISTRESS NOTED. WILL CTM.
--- NOTE | 2018-07-31 09:25 | NUR ---
MORPHINE NOT ADMINISTERED BECAUSE PT CANNOT STATE NAME AND . PT IS LETHARGIC AND DOES NOT RESPOND APPROPRIATELY TO QUESTIONS. RR EVEN AND UNLABORED. PT HAS TWITCHING MOUTH AND HANDS. ONLY AROUSAL TO VOICE. WILL CTM.
[2018-07-31 11:00] VITALS: BP 155/88
--- NOTE | 2018-07-31 11:23 | NUR ---
NOTIFIED DR. ESCALANTE ABOUT EPS LIKE SYMPTOMS. RECEIVED TELEPHONE ORDERS TO HOLD REGLAN AND GIVE THE MORPHINE. ADMINSTERED MORPHINE PER ORDERS. WILL CTM.
--- NOTE | 2018-07-31 12:19 | NUR ---
DAUGHTER OF PT REMAINS AT BEDSIDE. PT REPORTS NAUSEA AND WILL NOT EAT. ZOFRAN 4MG GIVEN IVP. CVL DRESSING CHANGE COMPLETE USING STERILE TECHNIQUE, NO REDNESS OR SWELLING NOTED AT INFUSA PORT SITE. NS CONTINUES TO INFUSE VIA PUMP AT 125ML/HR ORDERED. DAUGHTER REQUESTS CHOCOLATE ENSURE FOR MEAL SUBSTITUTION. ALL OF THIS PRECEPTED BY RICK OROZCO.
[2018-07-31 18:17] VITALS: BP 125/50
--- NOTE | 2018-07-31 19:30 | NUR ---
RESUMING PATIENT CARE. PATIENT IS ALERT AND ORIENTED. RESTING COMFORTABLY IN BED. RESPIRATIONS ARE EVEN AND UNLABORED. NO S/S OF DISTRESS. NO C/O PAIN. CALL LIGHT WITHIN REACH. WILL CPOC.
[2018-07-31 21:07] VITALS: BP 142/62
[2018-07-31 21:16] VITALS: BP 162/91
[2018-08-01] VITALS: BP 143/80
--- NOTE | 2018-08-01 02:58 | NUR ---
PATIENT AWAKE. RESTING COMFORTABLY IN BED. RESPIRATIONS ARE EVEN AND UNLABORED. NO S/S OF DISTRESS. CALL LIGHT WITHIN REACH. WILL CPOC.
[2018-08-01 05:01] LABS: BASOPHILS 0.5 % (0-2); HEMATOCRIT 27.4 % (36.0-48.0); HEMOGLOBIN 9.5 g/dL (12-16); IMMATURE GRANULOCYTES 0.5 % (0-5); LYMPHOCYTES 19.8 % (15-50); MCH 30.9 pg (26.0-34.0); MCHC 34.7 g/dL (31.0-37.0); MCV 89.3 fL (80.0-100.0); MEAN PLATELET VOLUME 9.5 fL (7.4-10.4); MONOCYTES 14.2 % (2-11); PLATELET COUNT 328 10x3/uL (130-400); RBC 3.07 10x6/uL (4.00-5.40); RDW 12.5 % (11.5-14.5); WBC 6.4 10x3/uL (4.8-10.8)
[2018-08-01 05:02] VITALS: BP 173/87
[2018-08-01 05:37] LABS: ALBUMIN 1.7 g/dL (3.4-5.0); BILIRUBIN - TOTAL 0.2 mg/dL (0.2-1.3); CREATININE - SERUM 3.5 mg/dL (0.6-1.3); MAGNESIUM - SERUM 1.3 mg/dL (1.8-2.4); PHOSPHOROUS 3.5 mg/dL (2.5-4.9); PROTEIN - SERUM 5.5 g/dL (6.4-8.2)
[2018-08-01 08:36] VITALS: BP 151/65
--- NOTE | 2018-08-01 08:49 | NUR ---
ASSISTED PT INTO W/C FOR XR OF ABDOMEN. NO CURRENT NEEDS. WILL CTM.
--- NOTE | 2018-08-01 09:20 | NUR ---
PT BACK IN BED RESTING QUIETLY. DENIES ANY CURRENT NEEDS. REQUESTED HER PRN PAIN MEDICATION FOR 1030 WILL TRY TO BRING AT THAT TIME AND ASSESS HER PAIN. CL IN REACH, BED IN LOWEST, SIDE RAILS X2. WILL CTM.
[2018-08-01 11:45] VITALS: BP 158/69
--- NOTE | 2018-08-01 19:30 | NUR ---
RESUMING PATIENT CARE. PATIENT IS ALERT AND ORIENTED. RESTING COMFORTABLY IN BED. RESPIRATINS ARE EVEN AND UNLABORED. NO S/S OF DISTRESS. NO C/O PAIN. CALL LIGHT WITHIN REACH. WILL CPOC.
[2018-08-01 20:00] VITALS: BP 136/61
[2018-08-02 04:00] VITALS: BP 140/58
[2018-08-02 05:58] LABS: ALBUMIN 1.8 g/dL (3.4-5.0); ANION GAP 13.4 mmol/L (8-16); BILIRUBIN - TOTAL 0.26 mg/dL (0.2-1.3); CALCIUM 8.4 mg/dL (8.5-10.1); CARBON DIOXIDE 25.5 mmol/L (21.0-32.0); POTASSIUM - SERUM 3.9 mmol/L (3.5-5.1); PROTEIN - SERUM 6.7 g/dL (6.4-8.2)
[2018-08-02 05:59] LABS: CREATININE - SERUM 2.5 mg/dL (0.6-1.3)
[2018-08-02 06:50] LABS: BASOPHILS 0.5 % (0-2); EOSINOPHILS 2.9 % (0-7); HEMATOCRIT 29.6 % (36.0-48.0); IMMATURE GRANULOCYTES 0.6 % (0-5); LYMPHOCYTES 25.9 % (15-50); MCH 30.6 pg (26.0-34.0); MCHC 33.8 g/dL (31.0-37.0); MCV 90.5 fL (80.0-100.0); MEAN PLATELET VOLUME 9.7 fL (7.4-10.4); MONOCYTES 9.6 % (2-11); NEUTROPHILS 60.5 % (40-80); PLATELET COUNT 372 10x3/uL (130-400); RBC 3.27 10x6/uL (4.00-5.40); RDW 12.7 % (11.5-14.5)
[2018-08-02 06:51] LABS: WBC 9.7 10x3/uL (4.8-10.8)
--- NOTE | 2018-08-02 08:05 | NUR ---
AM ROUNDS COMPLETED. INTRODUCED MYSELF TO PT PRIMARY RN FOR TODAYS SHIFT. SHIFT ASSESSMENT COMPLETED. PT IS IN A BETTER MOOD TODAY HER PAIN MEDICATION IS NOW SCHEDULED AND SHE STATES "I WONT HAVE TO BEG FOR IT" WILL PROVIDE WHEN SHE IS DUE FOR IT. PT VOICED THANKS. PT GETTING NEAR READY TO DISCHARGE, WILL BEGIN BLADDER TRAINING AND MONITER FOR ANY RETENTION. TEACHING PROVIDED TO PT AND ZAVALA NOW CLAMPED TO SEE IF PT HAS SENSATION. NO CURRENT NEEDS AT THIS TIME. WAITING ON BREAKFAST AND MORNING MEDICATIONS. CL IN REACH, BED IN LOWEST, SIDE RAILS X2. WILL CTM.
[2018-08-02 08:49] VITALS: BP 137/54
--- NOTE | 2018-08-02 09:35 | NUR ---
WENT TO ASSESS PTS ZAVALA BC SHE STATES SHE NEEDS TO VOID. UPON GOING TO [facility] IT REALIZED PTS STAT LOCK WAS OFF AND HER ZAVALA IS COMING OUT, TOO FAR TO SAVE, REMOVED 7CC OF FLUID FROM BULB, PULLED ZAVALA CATHETER WITH TIP FULLY INTACT. PT STILL FEELS LIKE SHE NEEDS TO VOID. ASSISTED PT TO BR AND SHE HAD 250ML OF CLOUDY YELLOW URINE OUT ALONG WITH LARGE SEMI FORMED BOWEL MOVEMENT. PT VOICED THANKS AND STATES SHE IS FEELING MUCH BETTER. WILL CONTINUE TO MONITER FOR ANY RETENTION. NO CURRENT NEEDS. CL IN REACH.
[2018-08-02 12:35] VITALS: BP 134/62
--- NOTE | 2018-08-02 13:08 | NUR ---
Nutrition Follow Up: Chart reviewed Diet: Renal; Ensure TID PO Intake: 28% meal avg BM: 08/02/18 Labs reviewed Meds noted including Reglan Rec consider liberalizing diet to encourage po intake. Rec consider an appetite stimulant. RD following.
[2018-08-02 16:16] VITALS: BP 132/51
--- NOTE | 2018-08-02 19:55 | NUR ---
INITIAL ROUNDS AND ASSESMENT COMPLETED. PT RESTING WITH NO DISTRESS. MONITOR AND CPOC.
[2018-08-02 20:58] VITALS: BP 138/67
--- NOTE | 2018-08-02 21:12 | NUR ---
BEDTIME MEDS GIVEN, WELL SCHEDULED MORPHINE PILL. PT WATCHING TV. CALL LIGHT IN REACH.
--- NOTE | 2018-08-02 21:21 | NUR ---
PT REFUSED CHRONULAC SAYING SHE HAS HAD TOO MANY BM'S TODAY.
--- NOTE | 2018-08-02 22:09 | NUR ---
BEDTIME MEDS GIVEN. PT RESTING. SALINE LOCK TO LEFT CW PORT. MONITOR AND CPOC.
[2018-08-03 00:56] VITALS: BP 136/64
--- NOTE | 2018-08-03 03:01 | NUR ---
RESTING IN BED WITH NO DISTRESS. MONITOR AND CPOC.
--- NOTE | 2018-08-03 03:17 | NUR ---
PT AWAKE AND REQUESTING HER MORPHINE PILL. EXPLAINED TO PT THAT THE ORDER PER DR ESCALANTE WAS FOR SCHEDULED MORPHINE CR AT 0900, 1500, 2100. PT ANGRY, STATES MD TOLD HER SHE COULD HAVE IT AROUND THE CLOCK. PT STATES SHE WILL BE TALKING TO HER DOCTOR IN THE MORNING.
[2018-08-03 04:00] VITALS: BP 115/68
[2018-08-03 05:07] LABS: BASOPHILS 0.5 % (0-2); EOSINOPHILS 5.3 % (0-7); HEMOGLOBIN 9.8 g/dL (12-16); IMMATURE GRANULOCYTES 0.7 % (0-5); LYMPHOCYTES 21.5 % (15-50); MCH 30.6 pg (26.0-34.0); MCHC 33.8 g/dL (31.0-37.0); MCV 90.6 fL (80.0-100.0); MEAN PLATELET VOLUME 9.2 fL (7.4-10.4); PLATELET COUNT 303 10x3/uL (130-400); RDW 12.6 % (11.5-14.5); WBC 8.6 10x3/uL (4.8-10.8)
[2018-08-03 05:35] LABS: ALBUMIN 1.7 g/dL (3.4-5.0); ANION GAP 11.8 mmol/L (8-16); BILIRUBIN - TOTAL 0.21 mg/dL (0.2-1.3); CALCIUM 8.3 mg/dL (8.5-10.1); CARBON DIOXIDE 27.2 mmol/L (21.0-32.0); PHOSPHOROUS 3.9 mg/dL (2.5-4.9); PROTEIN - SERUM 6.5 g/dL (6.4-8.2)
[2018-08-03 09:12] VITALS: BP 122/53
[2018-08-03 12:54] VITALS: BP 142/50
[2018-08-03 17:23] VITALS: BP 131/54
[2018-08-03 20:00] VITALS: BP 117/45
--- NOTE | 2018-08-03 20:00 | NUR ---
INITIAL ROUNDS AND ASSESSMENT COMPLETED. PT ALERT/ORIENTED. NONLABORED RESPIRATIONS ON ROOM AIR. LEFT CHEST WALL PORT ACCESSED AND SALINE LOCKED AT THIS TIME. GTUBE IN PLACE FOR GASTRIC RELEASE, THAT PT DOES HERSELF. CALL LIGHT IN REACH.
[2018-08-04] VITALS: BP 130/47
--- NOTE | 2018-08-04 02:15 | NUR ---
PT AWAKE, REQUESTING WATER. NO OTHER NEEDS. MONITOR AND CPOC.
[2018-08-04 04:00] VITALS: BP 143/61
[2018-08-04 05:39] LABS: BASOPHILS 0.4 % (0-2); EOSINOPHILS 3.7 % (0-7); HEMATOCRIT 27.2 % (36.0-48.0); HEMOGLOBIN 9.3 g/dL (12-16); IMMATURE GRANULOCYTES 1.2 % (0-5); LYMPHOCYTES 24.9 % (15-50); MCH 30.4 pg (26.0-34.0); MCHC 34.2 g/dL (31.0-37.0); MCV 88.9 fL (80.0-100.0); MEAN PLATELET VOLUME 9.1 fL (7.4-10.4); MONOCYTES 10.8 % (2-11); PLATELET COUNT 310 10x3/uL (130-400); RBC 3.06 10x6/uL (4.00-5.40); RDW 12.6 % (11.5-14.5); WBC 9.5 10x3/uL (4.8-10.8)
[2018-08-04 05:58] LABS: ALBUMIN 1.7 g/dL (3.4-5.0); BILIRUBIN - TOTAL 0.31 mg/dL (0.2-1.3); CALCIUM 8.3 mg/dL (8.5-10.1); CARBON DIOXIDE 28.4 mmol/L (21.0-32.0); CREATININE - SERUM 1.7 mg/dL (0.6-1.3); POTASSIUM - SERUM 4.4 mmol/L (3.5-5.1); PROTEIN - SERUM 6.5 g/dL (6.4-8.2)
--- NOTE | 2018-08-04 07:30 | NUR ---
ASSESSMENT COMPLETED. ALERT AND ORIENTED. PT HAS NO TELEMERTY OR O2. HAS A GTUBE FOR GASTRIC RELIEF. UP TO BR. GETS SCHEDULE MORPHINE. WILL MONITOR
[2018-08-04 09:54] VITALS: BP 132/60
--- NOTE | 2018-08-04 10:45 | MORECARE ---
CASE MANAGEMENT DISCHARGE SUMMARY PATIENT: SHEFALI MALDONADO UNIT: [id number] ADM DATE: 07/27/18 AGE: 68 : 49 SEX: F ROOM/BED: D.3004 AUTHOR: MARY JO WISEMAN PHYSICIAN: REFERRING PHYSICIAN: ERICKSON ESCALANTE MD DATE OF SERVICE: 08/04/18 Discharge Plan Patient Name: SHEFALI MALDONADO Facility: [facility]:[place] : 1950 Planned Disposition: Home Anticipated Discharge Date: 08/06/18 Discharge Date: Expected LOS: 10 Initial Reviewer: [email or web address] Initial Review Date: 08/04/2018 Generated: 08/04/18 11:45 am DCP- Discharge Planning Updated by [email or web address]: Lisa Diaz on 07/28/18 5:[address] CM ATTEMPTED TO VISIT FOR INITIAL ASSESSMENT. PATIENT WAS HAVING CARE FROM RN. SHE IS ALERT AND ORIENTED. SHE WAS RECENTLY DISCHARGED FROM [facility]. SHE HAD DECLINED HOME HEALTH SERVICES OR SKILLED CARE. REPORTEDLY HAD [facility] IN THE PAST. PCP- DR ESCALANTE [facility]ACY- [facility] IN [place]. NEPHROLOGY CONSULT THIS AM FOR ACUTE RENAL FAILURE AND ACUTE BILATERAL RENAL UROPATHY. CM TO FOLLOW Patient Name: SHEFALI MALDONADO Page [phone] at 1045 All edits/amendments must be made on the electronic document DICTATION DATE: 08/04/18 1044 SUPPORT DIRECTOR: BIENVENIDO 08/04/18 1044 RPT#: [id number] DC DATE: STATUS: ADM IN [facility] [address] [place] [address] END OF REPORT
--- NOTE | 2018-08-04 10:52 | MORECARE ---
CASE MANAGEMENT DISCHARGE SUMMARY PATIENT: SHEFALI MALDONADO UNIT: [id number] ADM DATE: 07/27/18 AGE: 68 : 49 SEX: F ROOM/BED: D.4042 AUTHOR: IVONE,DOC PHYSICIAN: REFERRING PHYSICIAN: ERICKSON ESCALANTE MD DATE OF SERVICE: 08/04/18 Discharge Plan Patient Name: SHEFALI MALDONADO Facility: [facility]:[place] : 1950 Planned Disposition: Home Anticipated Discharge Date: 08/06/18 Discharge Date: Expected LOS: 10 Initial Reviewer: [email or web address] Initial Review Date: 08/04/2018 Generated: 08/04/18 11:51 am Comments DCP- Discharge Planning Updated by [email or web address]: Digna Isabel on 08/04/18 9:[address] Patient Name: SHEFALI MALDONADO Admission Status: ER Accout number: [id number] Admission Date: 07-27-2018 : 1950 Admission Diagnosis:WEAKNESS Attending: ERICKSON ESCALANTE Current LOS: 8 Anticipated DC Date: 08-06-2018 Planned Disposition: Home Primary Insurance: MEDICARE A & B Discharge Planning Comments: CM MET WITH PATIENT REGARDING D/C NEEDS AND PLANS. PATIENT STATED SOMEONE IN HER FAMILY WILL DRIVE HER HOME AT DISCHARGE. PATIENT STATED SHE HAS 3 STEPS TO ENTER HER HOME AND NO STAIRS INSIDE. PATIENT IS INDEPENDENT WITH HER CARE AND HAS NO DME AT HOME. PATIENTS PCP IS DR. ESCALANTE AND USES [facility] IN [place]. PATIENT REFUSED HOME HEALTH AT THIS TIME. IMM SERVED. CM WILL CONTINUE TO FOLLOW PATIENT WITH D/C NEEDS AND PLANS. PCP DR. ESCALANTE [facility] Icu Tech: Digna Isabel DCP- Discharge Planning Updated by [email or web address]: Lisa Diaz on 07/28/18 5:[address] CM ATTEMPTED TO VISIT FOR INITIAL ASSESSMENT. PATIENT WAS HAVING CARE FROM RN. SHE IS ALERT AND ORIENTED. SHE WAS RECENTLY DISCHARGED FROM [facility]. SHE HAD DECLINED HOME HEALTH SERVICES OR SKILLED CARE. REPORTEDLY HAD [facility] IN THE PAST. PCP- DR ESCALANTE PHARMACY- [facility] IN [place]. NEPHROLOGY CONSULT THIS AM FOR ACUTE RENAL FAILURE AND ACUTE BILATERAL RENAL UROPATHY. CM TO FOLLOW DCPIA - Discharge Planning Initial Assessment Updated by [id number]: Digna Isabel on 08/04/18 10:46 am * Is the patient Alert and Oriented? Yes * How many steps to enter\exit or inside your home? * PCP DR. ESCALANTE * Pharmacy [facility] IN [place] * Preadmission Environment Home with Family * ADLs Independent * Equipment None * List name and contact numbers for known caregivers / representatives who currently or will assist patient after discharge: GEOVANI CARRILLO (DAUGHTER) [phone] * Verbal permission to speak to the caregivers and representatives has been obtained from the patient. Yes * Community resources currently utilized None * Additional services required to return to the preadmission environment? Yes * Can the patient safely return to the preadmission environment? Yes * Has this patient been hospitalized within the prior 30 days at any hospital? Yes Coverage Notice Reviewer: [email or web address] Carin Isabel Notice Issued Date-Time: 08/04/2018 8:55 Notice Type: Patient Choice Letter Notice Delivered To: Patient Relationship to Patient: Windshield Repair Technician Name: Delivery Method: HAND - Hand Delivered Ebony Days: Prior Verbal Notification: Recipient Understood Notice: Yes Recipient Signature: Yes Med Rec Note Co-signed by Attending: Coverage Notice Comment: REFUSED HOME HEALTH FORM SIGNED Last DP export: 08/04/18 9:45 a Patient Name: SHEFALI MALDONADO Page [phone] at 1052 All edits/amendments must be made on the electronic document DICTATION DATE: 08/04/18 1051 HOTEL SERVICE SUPERVISOR: BIENVENIDO 08/04/18 1051 RPT#: [id number] DC DATE: STATUS: ADM IN [facility] [address] [place] [address] END OF REPORT
[2018-08-04 12:46] VITALS: BP 137/64
--- NOTE | 2018-08-04 13:40 | NUR ---
I have reviewed this patient and I concur with the Shift Assessment completed by the Licensed Practical Nurse today this shift.
--- NOTE | 2018-08-04 15:00 | NUR ---
PT GIVEN MS CONTIN PER ORDERS. WILL MONITOR.
[2018-08-04 16:39] LABS: APPEARANCE CLEAR (CLEAR); BILIRUBIN NEGATIVE (NEGATIVE); COLOR YELLOW (YELLOW); GLUCOSE NEGATIVE (NEGATIVE); KETONE NEGATIVE (NEGATIVE); NITRITE NEGATIVE (NEGATIVE); PROTEIN TRACE mg/dL (NEGATIVE); UROBILINOGEN NORMAL (NORMAL)
[2018-08-04 16:40] LABS: RED CELLS - URINE 0-5 /hpf (0-5); WHITE CELLS - URINE 0-5 /hpf (0-5)
[2018-08-04 16:41] LABS: BACTERIA MODERATE /hpf (NONE SEEN); EPITHELIAL CELLS 0-5 /hpf (0-5); YEAST >1+ /hpf (NONE SEEN)
[2018-08-04 18:31] VITALS: BP 139/58
[2018-08-04 20:01] VITALS: BP 148/58
[2018-08-05 00:30] VITALS: BP 118/51
[2018-08-05 03:48] VITALS: BP 106/44
--- NOTE | 2018-08-05 04:42 | NUR ---
PT HAS RESTED SINCE BEDTIME MEDS GIVEN. NO NEEDS VOICED. MONITOR AND CPOC.
[2018-08-05 05:46] LABS: ALBUMIN 1.7 g/dL (3.4-5.0); ANION GAP 10.6 mmol/L (8-16); BILIRUBIN - TOTAL 0.4 mg/dL (0.2-1.3); CALCIUM 8.4 mg/dL (8.5-10.1); CARBON DIOXIDE 30.2 mmol/L (21.0-32.0); CREATININE - SERUM 1.6 mg/dL (0.6-1.3); PHOSPHOROUS 3.8 mg/dL (2.5-4.9); POTASSIUM - SERUM 3.8 mmol/L (3.5-5.1); PROTEIN - SERUM 6.6 g/dL (6.4-8.2)
[2018-08-05 07:48] VITALS: BP 109/43
--- NOTE | 2018-08-05 08:04 | NUR ---
POST VOID BLADDER SCAN 33CC. WILL CONT. TO MONITOR.
--- NOTE | 2018-08-05 10:32 | NUR ---
RESTS IN BED WITH EYES CLOSED. TELEMETRY SR. CALL LIGHT IN REACH. WILL MONITOR NEEDS.
[2018-08-05 11:20] VITALS: BP 121/42
[2018-08-05 14:41] VITALS: BP 123/54
--- NOTE | 2018-08-05 20:00 | NUR ---
INITIAL ROUNDS AND ASSESSMENT COMPLETED. PT ALERT/ORIENTED. NONLABORED RESPIRATIONS. MONITOR AND CPOC.
[2018-08-05 21:48] VITALS: BP 138/63
--- NOTE | 2018-08-05 22:00 | NUR ---
ALL BEDTIME MEDS GIVEN, INCLUDING SCHEDULED MORPHINE CR. MONITOR AND CPOC.
[2018-08-06] VITALS (7 sets, daily range): BP systolic 103–142; BP diastolic 39–59; Ht 160 cm; Wt 75.8 kg
--- NOTE | 2018-08-06 02:08 | NUR ---
PT C/O NAUSEA. MEDICATED WITH ZOFRAN 4MG SIVP. PALPATED ABDOMEN AND SHE STILL HAS THE HARD AREA IN HER MIDLINE ABDOMEN. SHE SAYS MD IS STILL AWARE OF IT. WILL MONITOR AND CPOC.
[2018-08-06 06:07] LABS: ALBUMIN 1.7 g/dL (3.4-5.0); ANION GAP 9.5 mmol/L (8-16); BILIRUBIN - TOTAL 0.46 mg/dL (0.2-1.3); CALCIUM 8.4 mg/dL (8.5-10.1); CREATININE - SERUM 1.5 mg/dL (0.6-1.3); POTASSIUM - SERUM 3.5 mmol/L (3.5-5.1); PROTEIN - SERUM 6.4 g/dL (6.4-8.2)
[2018-08-06 06:40] LABS: HEMOGLOBIN 9.5 g/dL (12-16); MCH 30.4 pg (26.0-34.0); MCHC 33.9 g/dL (31.0-37.0); MCV 89.7 fL (80.0-100.0); MEAN PLATELET VOLUME 9.7 fL (7.4-10.4); PLATELET COUNT 365 10x3/uL (130-400); RBC 3.12 10x6/uL (4.00-5.40); RDW 12.6 % (11.5-14.5); WBC 12.5 10x3/uL (4.8-10.8)
--- NOTE | 2018-08-06 08:00 | NUR ---
G-TUBE CONNECTED TO LIS. BROWN LIQUID OP NOTED. WILL MONITOR.
[2018-08-06 08:29] LABS: LYMPHOCYTES 11 % (15-50); MONOCYTES 12 % (2-11); NEUTROPHILS 72 % (40-80); PLATELET ESTIMATE NORMAL; ROULEAUX OCC
--- NOTE | 2018-08-06 09:21 | NUR ---
G-TUBE CONNECTED TO LIS. BROWN LIQUID OP NOTED.
--- NOTE | 2018-08-06 09:24 | NUR ---
URINE SPECIMEN COLLECTED AND TAKEN TO LAB. WILL MONITOR.
[2018-08-06 09:59] LABS: APPEARANCE CLEAR (CLEAR); BILIRUBIN NEGATIVE (NEGATIVE); COLOR YELLOW (YELLOW); GLUCOSE NEGATIVE (NEGATIVE); KETONE SMALL mg/dL (NEGATIVE); NITRITE NEGATIVE (NEGATIVE); PROTEIN NEGATIVE (NEGATIVE); UROBILINOGEN NORMAL (NORMAL)
[2018-08-06 10:03] LABS: BACTERIA MODERATE /hpf (NONE SEEN); EPITHELIAL CELLS 0-5 /hpf (0-5); MUCUS <1+ /lpf (NONE SEEN); RED CELLS - URINE 0-5 /hpf (0-5); WHITE CELLS - URINE OCC /hpf (0-5)
--- NOTE | 2018-08-06 12:24 | NUR ---
Nutrition Follow Up: Pt is now NPO G-tube to LIWS On IVF with bowel rest REC: Consider procalamine RD following
--- NOTE | 2018-08-06 16:30 | NUR ---
LEAVING FOR CT BY W/C. WILL CONT. PLAN OF CARE.
--- NOTE | 2018-08-06 19:30 | NUR ---
RESUMING PATIENT CARE. PATIENT IS ALERT AND ORIENTED, RESTING COMFORTABLY IN BED. RESPIRATIONS ARE EVEN AND UNLABORED. NO S/S OF DISTRESS. NO C/O PAIN. CALL LIGHT WITHIN REACH. WILL CPOC.
[2018-08-07 06:16] VITALS: BP 111/56
[2018-08-07 06:32] LABS: ALBUMIN 1.5 g/dL (3.4-5.0); ANION GAP 7.3 mmol/L (8-16); BILIRUBIN - TOTAL 0.31 mg/dL (0.2-1.3); CALCIUM 7.8 mg/dL (8.5-10.1); CARBON DIOXIDE 31.9 mmol/L (21.0-32.0); CREATININE - SERUM 1.4 mg/dL (0.6-1.3); PHOSPHOROUS 3.3 mg/dL (2.5-4.9); POTASSIUM - SERUM 3.2 mmol/L (3.5-5.1); PROTEIN - SERUM 6.2 g/dL (6.4-8.2)
[2018-08-07 06:56] LABS: BASOPHILS 0.1 % (0-2); EOSINOPHILS 0.9 % (0-7); HEMATOCRIT 26.4 % (36.0-48.0); HEMOGLOBIN 8.7 g/dL (12-16); IMMATURE GRANULOCYTES 0.4 % (0-5); LYMPHOCYTES 17.2 % (15-50); MCH 29.8 pg (26.0-34.0); MCV 90.4 fL (80.0-100.0); MEAN PLATELET VOLUME 9.5 fL (7.4-10.4); MONOCYTES 8.2 % (2-11); NEUTROPHILS 73.2 % (40-80); PLATELET COUNT 362 10x3/uL (130-400); RBC 2.92 10x6/uL (4.00-5.40); RDW 12.6 % (11.5-14.5); WBC 10.5 10x3/uL (4.8-10.8)
[2018-08-07 08:24] VITALS: BP 122/51
[2018-08-07 11:36] VITALS: BP 134/67
--- NOTE | 2018-08-07 14:01 | NUR ---
IP AND DRSG CHANGE COMPLETED BY NS AND INSTRUCTOR.
[2018-08-07 15:23] VITALS: BP 126/60
--- NOTE | 2018-08-07 19:35 | NUR ---
RESUMING PATIENT CARE. PATIENT RESTING COMFORTABLE IN BED. PATIENT AROUSES BY VOICE. RESPIRATIONS ARE EVEN AND UNLABORED. NO S/S OF DISTRESS. NO C/O PAIN. CALL LIGHT WITHIN REACH. WILL CPOC.
[2018-08-07 20:00] VITALS: BP 122/59
[2018-08-08] VITALS: BP 128/54
[2018-08-08 04:00] VITALS: BP 110/59
[2018-08-08 06:24] LABS: HEMATOCRIT 25.7 % (36.0-48.0); HEMOGLOBIN 8.5 g/dL (12-16); MCH 29.7 pg (26.0-34.0); MCHC 33.1 g/dL (31.0-37.0); MCV 89.9 fL (80.0-100.0); MEAN PLATELET VOLUME 9.7 fL (7.4-10.4); PLATELET COUNT 380 10x3/uL (130-400); RBC 2.86 10x6/uL (4.00-5.40); RDW 12.6 % (11.5-14.5); WBC 8.6 10x3/uL (4.8-10.8)
[2018-08-08 06:45] LABS: ALBUMIN 1.3 g/dL (3.4-5.0); ANION GAP 10.7 mmol/L (8-16); BILIRUBIN - TOTAL 0.29 mg/dL (0.2-1.3); CALCIUM 7.7 mg/dL (8.5-10.1); CARBON DIOXIDE 26.8 mmol/L (21.0-32.0); POTASSIUM - SERUM 3.5 mmol/L (3.5-5.1)
[2018-08-08 06:48] LABS: CREATININE - SERUM 0.9 mg/dL (0.6-1.3)
[2018-08-08 08:00] VITALS: BP 115/61
[2018-08-08 08:30] LABS: HYPOCHROMASIA 1+; LYMPHOCYTES 20 % (15-50); MONOCYTES 9 % (2-11); NEUTROPHILS 70 % (40-80); PLATELET ESTIMATE NORMAL
[2018-08-08 12:11] VITALS: BP 118/92
[2018-08-08 16:00] VITALS: BP 117/42
--- NOTE | 2018-08-08 19:30 | NUR ---
RESUMING PATIENT CARE. PATIENT IS ALERT AND ORIENTED. RESPIRATIONS ARE EVEN AND UNLABORED. NO S/S OF DISTRESS. NO C/O PAIN. ENERGY MANAGEMENT SPECIALIST PUMP ALARMING. OFF GOING AND ONCOMING NURSE. REFILLED ENERGY MANAGEMENT SPECIALIST PUMP AND CHARTED ACTIONS IN INTERVENTIONS. PATIENT DENIES NEEDS AT THIS TIME. CALL LIGHT WITHIN REACH. WILL CPOC.
[2018-08-08 22:57] VITALS: BP 121/44
[2018-08-09] VITALS: BP 129/60
--- NOTE | 2018-08-09 02:09 | NUR ---
PATIENT RESTING COMFORTABLY IN BED. RESPIRATIONS ARE EVEN AND UNLABORED. NO S/S OF DISTRESS. CALL LIGHT WITHIN REACH. WILL CPOC.
[2018-08-09 06:37] VITALS: BP 120/59
--- NOTE | 2018-08-09 07:30 | NUR ---
RECIEVED PT IN BED EYES CLOSED RESP UNLABORED NAD NOTED
[2018-08-09 08:20] LABS: ALBUMIN 1.3 g/dL (3.4-5.0); ALKALINE PHOSPHATASE 72 U/L (46-116); BILIRUBIN - TOTAL 0.29 mg/dL (0.2-1.3); CALC OSMOLALITY 271 mosm/kg (275-300); CALCIUM 7.8 mg/dL (8.5-10.1); CARBON DIOXIDE 26.4 mmol/L (21.0-32.0); CHLORIDE - SERUM 103 mmol/L (98-107); CREATININE - SERUM 0.9 mg/dL (0.6-1.3); GLUCOSE 116 mg/dL (74-106); PHOSPHOROUS 3.2 mg/dL (2.5-4.9); POTASSIUM - SERUM 3.4 mmol/L (3.5-5.1); SODIUM 135 mmol/L (136-145); UREA NITROGEN 16 mg/dL (7-18); eGFR NON AFRICAN AMERICAN 66 mL/min (90-120)
[2018-08-09 08:21] LABS: ALT (SGPT) < 6 U/L (10-68)
[2018-08-09 08:22] VITALS: BP 143/63
--- NOTE | 2018-08-09 12:08 | NUR ---
Nutrition follow Up: W
--- NOTE | 2018-08-09 12:10 | NUR ---
Nutrition follow Up: NPO diet order continues Surgery cancelled for today On Procalamine at 50mL/hour Reviewed chart and spoke with nursing REC: May want to consider TPN and lipids RD following
[2018-08-09 12:12] VITALS: BP 139/61
[2018-08-09 16:36] VITALS: BP 140/68
--- NOTE | 2018-08-09 19:44 | NUR ---
RESUMING PATIENT CARE. PATIENT IS ALERT AND ORIENTED. RESPIRATIONS EVEN AND UNLABORED. PATIENT BECAME UPSET WITH ME WHEN SHE WAS SEEN GETTING OUT OF BED AND WALKING TO RESTROOM WITHOUT ASSISTANCE. PATIENT IS A FALL RISK. I PLACED PATIENT ON BED ALARM LAST NIGHT 08/08/18 FOR THIS REASON. DURING BEDSIDE REPORT I WAS TOLD THAT SOMEONE OTHER THAN NURSING STAFF HAD EREMOVED THE BED ALARM. EXPLAINED TO PATIENT THE HOSPITAL POLICY FOR FALL RISKS AND EXPLAINED THAT SHE CAN SIGN A FALL WAIVER FORM IF SHE WOULD LIKE. PATIENT AGREED. NO S/S OF DISTRESS. NO C/O PAIN. CALL LIGHT WITHIN REACH. WILL CPOC.
[2018-08-09 20:00] VITALS: BP 155/68
[2018-08-10] VITALS: BP 131/61
[2018-08-10 04:00] VITALS: BP 139/62
[2018-08-10 04:55] LABS: BASOPHILS 0.3 % (0-2); EOSINOPHILS 2.9 % (0-7); HEMOGLOBIN 8.9 g/dL (12-16); IMMATURE GRANULOCYTES 0.9 % (0-5); LYMPHOCYTES 22.8 % (15-50); MCH 29.8 pg (26.0-34.0); MCV 90.3 fL (80.0-100.0); MEAN PLATELET VOLUME 9.3 fL (7.4-10.4); MONOCYTES 10.8 % (2-11); NEUTROPHILS 62.3 % (40-80); PLATELET COUNT 382 10x3/uL (130-400); RBC 2.99 10x6/uL (4.00-5.40); RDW 12.7 % (11.5-14.5); WBC 7.5 10x3/uL (4.8-10.8)
[2018-08-10 05:12] LABS: ALBUMIN 1.3 g/dL (3.4-5.0); ALKALINE PHOSPHATASE 68 U/L (46-116); ALT (SGPT) 5 U/L (10-68); BILIRUBIN - TOTAL 0.25 mg/dL (0.2-1.3); CALC OSMOLALITY 276 mosm/kg (275-300); CALCIUM 7.9 mg/dL (8.5-10.1); CARBON DIOXIDE 25.6 mmol/L (21.0-32.0); CHLORIDE - SERUM 105 mmol/L (98-107); CREATININE - SERUM 0.7 mg/dL (0.6-1.3); GLUCOSE 109 mg/dL (74-106); POTASSIUM - SERUM 3.5 mmol/L (3.5-5.1); SODIUM 138 mmol/L (136-145); UREA NITROGEN 12 mg/dL (7-18); eGFR NON AFRICAN AMERICAN 88 mL/min (90-120)
[2018-08-10 09:36] VITALS: BP 101/51
--- NOTE | 2018-08-10 11:52 | NUR ---
NUTRITION F//U REVIEWED CHART, PT ALREADY RECEIVING CLINIMIX PER DR. GALLOWAY ORDER. ADDED ISABELLA ENSURE TO FULL LIQUID DIET ORDER. RD FOLLOWING
--- NOTE | 2018-08-10 12:28 | NUR ---
TELEMETRY CAF. HR 90. CALL LIGHT IN REACH. WILL MONITOR NEED.
[2018-08-10 12:30] VITALS: BP 150/70
--- NOTE | 2018-08-10 13:28 | NUR ---
DRSG CHANGED TO LOWER BACK PER ORDERS.
[2018-08-10 16:48] VITALS: BP 144/59
[2018-08-10 20:00] VITALS: BP 137/57
--- NOTE | 2018-08-10 20:00 | NUR ---
INITIAL ROUNDS AND ASSESSMENT COMPLETED. PT RESTING IN BED. TEARFUL. DILAUDID CLINICAL IMPLEMENTATION SPECIALIST IN USE FOR PAIN CONTROL. ACCESSED LEFT CHEST WALL PORT WITH CLINIMAX AT 50ML/HR INFUSING. O2 @ 2L/NC. ABDOMEN VERY FIRM AND TENDER TO TOUCH. PEG TUBE CONNECTED TO LIS. MONITOR AND CPOC.
[2018-08-11] VITALS: BP 172/84
[2018-08-11 04:00] VITALS: BP 145/68
[2018-08-11 05:24] LABS: BASOPHILS 0.2 % (0-2); EOSINOPHILS 0.7 % (0-7); HEMATOCRIT 27.4 % (36.0-48.0); HEMOGLOBIN 9.2 g/dL (12-16); IMMATURE GRANULOCYTES 0.9 % (0-5); LYMPHOCYTES 16.3 % (15-50); MCH 29.7 pg (26.0-34.0); MCHC 33.6 g/dL (31.0-37.0); MCV 88.4 fL (80.0-100.0); MONOCYTES 11.4 % (2-11); NEUTROPHILS 70.5 % (40-80); PLATELET COUNT 404 10x3/uL (130-400); RDW 12.8 % (11.5-14.5); WBC 9.2 10x3/uL (4.8-10.8)
[2018-08-11 05:41] LABS: CALC OSMOLALITY 270 mosm/kg (275-300); CALCIUM 7.8 mg/dL (8.5-10.1); CARBON DIOXIDE 24.5 mmol/L (21.0-32.0); CHLORIDE - SERUM 104 mmol/L (98-107); CREATININE - SERUM 0.8 mg/dL (0.6-1.3); GLUCOSE 107 mg/dL (74-106); POTASSIUM - SERUM 3.6 mmol/L (3.5-5.1); SODIUM 136 mmol/L (136-145); UREA NITROGEN 11 mg/dL (7-18); eGFR NON AFRICAN AMERICAN 75 mL/min (90-120)
--- NOTE | 2018-08-11 05:48 | NUR ---
AWAKE, C/O NAUSEA. IV ZOFRAN ADMINISTERED. MONITOR AND CPOC.
[2018-08-11 08:11] VITALS: BP 107/48
[2018-08-11 12:17] VITALS: BP 117/66
[2018-08-11 15:25] VITALS: BP 128/52
[2018-08-11 19:55] VITALS: BP 129/65
--- NOTE | 2018-08-11 20:00 | NUR ---
INITIAL ROUNDS AND ASSESSMENT COMPLETED. LEFT CHEST WALL PORT WITH CLINIMIX AT 50ML/HR, DILAUDID EXCELSIOR MACHINE FEEDER FOR PAIN CONTROL, AND NS @ 100ML/HR FOR HYDRATION. GTUBE TO LEFT SIDE OF ABDOMEN CONNECTED TO LIS WITH PALE GREEN DRAINAGE. PT'S ABDOMEN IS HARD/FIRM WITH TENDERNESS TO PALPATION. HYPO BOWEL SOUNDS. MULTIPLE FAMILY IN ROOM AND DECISIONS/PLAN OF CARE IS BEING DISCUSSED AMONGST THE FAMILY AND PATIENT. MONITOR AND CPOC.
--- NOTE | 2018-08-12 02:33 | NUR ---
PT RESTING IN BED WITH NO DISTRESS. EYES OPEN, WATCHING NURSE CHECK HER IVF. CLINIMIX INFUSING AT 50ML/HR, NS AT 100ML/HR AND DILAUDID HAIR SPRING WINDER FOR PAIN CONTROL. CALL LIGHT IN HER HAND, WELL HAIR SPRING WINDER BUTTON FOR MED ADMINISTRATION. MONITOR AND CPOC.
[2018-08-12 03:25] VITALS: BP 119/79
[2018-08-12 05:42] LABS: BASOPHILS 0.3 % (0-2); EOSINOPHILS 0.7 % (0-7); HEMATOCRIT 24.6 % (36.0-48.0); HEMOGLOBIN 8.3 g/dL (12-16); IMMATURE GRANULOCYTES 1.3 % (0-5); LYMPHOCYTES 22.9 % (15-50); MCH 29.3 pg (26.0-34.0); MCHC 33.7 g/dL (31.0-37.0); MCV 86.9 fL (80.0-100.0); MONOCYTES 10.1 % (2-11); NEUTROPHILS 64.7 % (40-80); PLATELET COUNT 404 10x3/uL (130-400); RBC 2.83 10x6/uL (4.00-5.40); RDW 12.7 % (11.5-14.5); WBC 7.7 10x3/uL (4.8-10.8)
[2018-08-12 05:46] LABS: CALC OSMOLALITY 273 mosm/kg (275-300); CALCIUM 7.3 mg/dL (8.5-10.1); CARBON DIOXIDE 23.6 mmol/L (21.0-32.0); CHLORIDE - SERUM 104 mmol/L (98-107); CREATININE - SERUM 0.7 mg/dL (0.6-1.3); GLUCOSE 117 mg/dL (74-106); SODIUM 137 mmol/L (136-145); UREA NITROGEN 11 mg/dL (7-18); eGFR NON AFRICAN AMERICAN 88 mL/min (90-120)
--- NOTE | 2018-08-12 06:30 | NUR ---
RECEIVED PT IN BED EYES CLOSED RESP UNLABORED NAD NOTED WILL CONTINUE TO MONITOR
[2018-08-12 08:05] VITALS: BP 147/68
[2018-08-12 12:00] VITALS: BP 132/66
--- NOTE | 2018-08-12 14:06 | NUR ---
PT RESTING QUIETLY FAMILY AT BEDSIDE
[2018-08-12 14:56] VITALS: BP 127/62
--- NOTE | 2018-08-12 19:30 | NUR ---
RESUMING PATIENT CARE. PATIENT IS ALERT AND ORIENTED, RESTING COMFORTABLY IN BED. RESPIRATIONS ARE EVEN AND UNLABORED. FAMILY AT BEDSIDE. NO S/S OF DISTRESS. NO C/O PAIN. CALL LIGHT WITHIN REACH. WILL CPOC.
[2018-08-12 20:00] VITALS: BP 139/63
--- NOTE | 2018-08-12 23:40 | NUR ---
WAS TOLD IN BEDSIDE REPORT THAT PATIENT HAD A GRAPE FRUIT SIZE BULGE ON HER ABDOMEN. DURING MY ASSESSMENT THE BULGE WAS NOT DRAINING, BUT HAD A WHAT LOOKED LIKE A BLOOD BLISTER. I WAS CALLED INTO PATIENT ROOM. PATIENT HAD BLOOD ON HER GOWN. THE ABD BULGE DECREASED IN SIZE. THERE IS A SMALL HOLE THAT WAS DRAINING A SCANT AMOUNT OF BLOOD FLUID. WAS CALLED INTO PATIENT ROOM AGAIN. PATIENT COMPLAINING THAT THE DRESSING WAS LEAKING. PULLED THE DRESSING BACK FLUID FORCIBLY BUBBLING OUT OF HOLE. SUCTION FROM G TUBE 800 ML CANISTER CHANGED. RAPID RESPONSE CALLED FOR THE CHANGE IN PATIENT CONDITION. DR. WHITE PAGED. DR. WHITE GAVE ORDERS TO CONTINUE PACKING THE WOUND AND HE WOULD LET DR. ESCALANTE KNOW IN AM. DR. REED ALSO PAGED. PAGED RETURNED. NO NEW ORDERS GIVEN.
[2018-08-13] VITALS: BP 139/54
[2018-08-13 04:00] VITALS: BP 130/51
[2018-08-13 07:02] LABS: BASOPHILS 0.4 % (0-2); EOSINOPHILS 2.8 % (0-7); HEMATOCRIT 24.3 % (36.0-48.0); HEMOGLOBIN 8.1 g/dL (12-16); IMMATURE GRANULOCYTES 1.8 % (0-5); LYMPHOCYTES 40.3 % (15-50); MCHC 33.3 g/dL (31.0-37.0); MCV 87.1 fL (80.0-100.0); MEAN PLATELET VOLUME 8.9 fL (7.4-10.4); MONOCYTES 11.4 % (2-11); NEUTROPHILS 43.3 % (40-80); PLATELET COUNT 410 10x3/uL (130-400); RBC 2.79 10x6/uL (4.00-5.40); RDW 12.8 % (11.5-14.5)
[2018-08-13 07:08] LABS: WBC 5.4 10x3/uL (4.8-10.8)
[2018-08-13 07:38] LABS: ALBUMIN 1.4 g/dL (3.4-5.0); ALKALINE PHOSPHATASE 60 U/L (46-116); ALT (SGPT) 10 U/L (10-68); BILIRUBIN - TOTAL 0.22 mg/dL (0.2-1.3); CALC OSMOLALITY 277 mosm/kg (275-300); CALCIUM 7.7 mg/dL (8.5-10.1); CARBON DIOXIDE 25.8 mmol/L (21.0-32.0); CHLORIDE - SERUM 107 mmol/L (98-107); CREATININE - SERUM 0.7 mg/dL (0.6-1.3); GLUCOSE 104 mg/dL (74-106); POTASSIUM - SERUM 3.1 mmol/L (3.5-5.1); PROTEIN - SERUM 5.7 g/dL (6.4-8.2); SODIUM 140 mmol/L (136-145); UREA NITROGEN 10 mg/dL (7-18); eGFR NON AFRICAN AMERICAN 88 mL/min (90-120)
[2018-08-13 07:55] VITALS: BP 130/61
[2018-08-13 11:53] VITALS: BP 126/61
--- NOTE | 2018-08-13 12:35 | NUR ---
Nutrition follow-up: Visited with pt during rounds. Pt with very poor appetite; however, pt is drinking chocolate Ensure. 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 Also recommend adding 250 ml 20% intralipids Q [address]N following.
[2018-08-13 15:41] VITALS: BP 140/56
--- NOTE | 2018-08-13 19:22 | NUR ---
RESUMING PATIENT CARE. PATIENT IS ALERT AND ORIENTED. RESPIRATIONS ARE EVEN AND UNLABORED. NO S/S OF DISTRESS. NO C/O PAIN. CALL LIGHT WITHIN REACH. WILL CPOC.
[2018-08-13 20:00] VITALS: BP 110/49
[2018-08-14] VITALS: BP 124/56
[2018-08-14 01:00] VITALS: BP 148/80
--- NOTE | 2018-08-14 01:47 | NUR ---
PATIENT AWAKE RESTING COMFORTAABLY IN BED. RESPIRATIONS ARE EVEN AND UNLABORED. PATIENT DENIES NEEDS AT THIS TIME. PATIENT C/O ITCHING AROUND THE INFUSAPORT. ASSESSED AREA, SMALL REDDENED AREA. PULLED DRESSING BACK AND PATIENT WANTED AREA CLEANED. CLEANING OF AREA COMPLETED.
[2018-08-14 04:00] VITALS: BP 122/49
[2018-08-14 08:15] VITALS: BP 121/46
[2018-08-14 08:20] LABS: BASOPHILS 0.8 % (0-2); EOSINOPHILS 2.4 % (0-7); HEMATOCRIT 27.7 % (36.0-48.0); HEMOGLOBIN 9.3 g/dL (12-16); IMMATURE GRANULOCYTES 2.2 % (0-5); LYMPHOCYTES 29.3 % (15-50); MCH 29.9 pg (26.0-34.0); MCHC 33.6 g/dL (31.0-37.0); MEAN PLATELET VOLUME 9.1 fL (7.4-10.4); MONOCYTES 11.4 % (2-11); NEUTROPHILS 53.9 % (40-80); PLATELET COUNT 380 10x3/uL (130-400); RBC 3.11 10x6/uL (4.00-5.40); RDW 13.2 % (11.5-14.5); WBC 4.9 10x3/uL (4.8-10.8)
[2018-08-14 08:29] LABS: MCV 89.1 fL (80.0-100.0)
[2018-08-14 08:38] LABS: ALBUMIN 1.6 g/dL (3.4-5.0); ALKALINE PHOSPHATASE 69 U/L (46-116); ALT (SGPT) 11 U/L (10-68); BILIRUBIN - TOTAL 0.22 mg/dL (0.2-1.3); CALC OSMOLALITY 277 mosm/kg (275-300); CALCIUM 7.7 mg/dL (8.5-10.1); CARBON DIOXIDE 25.4 mmol/L (21.0-32.0); CHLORIDE - SERUM 105 mmol/L (98-107); CREATININE - SERUM 0.7 mg/dL (0.6-1.3); GLUCOSE 118 mg/dL (74-106); POTASSIUM - SERUM 3.7 mmol/L (3.5-5.1); PROTEIN - SERUM 5.7 g/dL (6.4-8.2); SODIUM 139 mmol/L (136-145); UREA NITROGEN 9 mg/dL (7-18); eGFR NON AFRICAN AMERICAN 88 mL/min (90-120)
--- NOTE | 2018-08-14 11:38 | MORECARE ---
CASE MANAGEMENT DISCHARGE SUMMARY PATIENT: SHEFALI MALDONADO UNIT: [id number] ADM DATE: 07/27/18 AGE: 68 : 49 SEX: F ROOM/BED: D.0709 AUTHOR: IVONE,DOC PHYSICIAN: REFERRING PHYSICIAN: ERICKSON ESCALANTE MD DATE OF SERVICE: 08/14/18 Discharge Plan Patient Name: SHEFALI MALDONADO Facility: [facility]:[place] : 1950 Planned Disposition: Home Anticipated Discharge Date: 08/06/18 Discharge Date: Expected LOS: 10 Initial Reviewer: [email or web address] Initial Review Date: 08/04/2018 Generated: 08/14/18 12:37 pm Comments DCP- Discharge Planning Updated by [email or web address]: Vi Flores on 08/14/18 10:[address] @0947, BEDSIDE NURSE PAM SANTOS CAME TO TELL ME THAT THE PATIENT WANTED TO TRANSFER TO [facility] TO DR BLACK, AND WE NEEDED TO WORK ON IT. I EXPLAINED THAT SHE WOULD NEED TO TALK TO DR ESCALANTE FIRST AND MAKE SURE HE WAS IN AGREEMENT. SHE STATED THAT SHE HAD ALREADY TALKED TO DR ESCALANTE AND HE WAS IN AGREEMENT WITH THE TRANSFER AND SAID HE WOULD TALK TO WHOEVER HE WANTED TO. @ 0951, CALLED AND SPOKE WITH DR ESCALANTE. HE IS IN AGREEMENT THAT THE PATIENT CAN TRANSFER PER THE FAMILIES WISHES FOR A SECOND OPINION FROM DR BLACK (WHO HAS WORKED ON THE PATIENT IN THE PAST). HE STATED THAT I NEEDED TO TALK TO THE DAUGHTER AND FIND OUT THE INFORMATION FROM HER BEFORE CALLING, AND HE GAVE ME HIS CELL NUMBER FOR DR BLACK TO CALL IF HE IS CONSIDERING TAKING THE PATIENT. @ 0958, I WENT INTO THE ROOM AND SPOKE WITH THE PATIENT AND HER SON. HE STATED THAT HE PERSONALLY SPOKE WITH DR BLACK AND THEY DISCUSSED THE OPTION OF DISCHARGE AND FOLLOW UP VS. TRANSFER. HE STATED THAT THE DOCTOR WOULD BE WILLING TO DO EITHER. I EXPLAINED I WOULD START ON THE POSSIBLE TRANSFER AFTER MY AM MEETING ENDED AROUND 1100 AND THEY WERE THANKFUL. @1054 RECEIVED ADMINISTRATIVE APPROVAL FROM CANDACE MARQUIS RNCCO. @6923 PLACED CALL TO [facility] IN [place] ([phone]). THE REDUCTION FURNACE OPERATOR HELPER LOREN TRANSFERRED ME TO ? BED CONTROL WHO IN TURN TRANSFERRED ME TO JOHN, [facility] NURSE. POTENTIAL TRANSFER FOR ENTEROCUTANEOUS FISTULA DISCUSSED WITH HER AND SHE REQUESTED A FACESHEET AND SET OF VITALS BE FAXED TO [phone]. INFORMATION WAS FAXED. WILL WAIT DETERMINATION CALL BACK BEFORE NOTIFYING FAMILY. DCP- Discharge Planning Updated by [email or web address]: Digna Isabel on 08/04/18 9:[address] Patient Name: SHEFALI MALDONADO Admission Status: ER Accout number: [id number] Admission Date: 07-27-2018 : 1950 Admission Diagnosis:WEAKNESS Attending: ERICKSON ESCALANTE Current LOS: 8 Anticipated DC Date: 08-06-2018 Planned Disposition: Home Primary Insurance: MEDICARE A & B Discharge Planning Comments: CM MET WITH PATIENT REGARDING D/C NEEDS AND PLANS. PATIENT STATED SOMEONE IN HER FAMILY WILL DRIVE HER HOME AT DISCHARGE. PATIENT STATED SHE HAS 3 STEPS TO ENTER HER HOME AND NO STAIRS INSIDE. PATIENT IS INDEPENDENT WITH HER CARE AND HAS NO DME AT HOME. PATIENTS PCP IS DR. ESCALANTE AND USES [facility] IN [place]. PATIENT REFUSED HOME HEALTH AT THIS TIME. IMM SERVED. CM WILL CONTINUE TO FOLLOW PATIENT WITH D/C NEEDS AND PLANS. PCP DR. ESCALANTE [facility] Cementing Machine Operator: Digna Isabel DCP- Discharge Planning Updated by [id number]: Lisa Diaz on 07/28/18 5:[address] CM ATTEMPTED TO VISIT FOR INITIAL ASSESSMENT. PATIENT WAS HAVING CARE FROM RN. SHE IS ALERT AND ORIENTED. SHE WAS RECENTLY DISCHARGED FROM [facility]. SHE HAD DECLINED HOME HEALTH SERVICES OR SKILLED CARE. REPORTEDLY HAD [facility] IN THE PAST. PCP- DR ESCALANTE PHARMACY- [facility] IN [place]. NEPHROLOGY CONSULT THIS AM FOR ACUTE RENAL FAILURE AND ACUTE BILATERAL RENAL UROPATHY. CM TO FOLLOW DCPIA - Discharge Planning Initial Assessment Updated by [email or web address]: Digna Isabel on 08/04/18 10:46 am * Is the patient Alert and Oriented? Yes * How many steps to enter\exit or inside your home? * PCP DR. ESCALANTE * Pharmacy [facility] IN [place] * Preadmission Environment Home with Family * ADLs Independent * Equipment None * List name and contact numbers for known caregivers / representatives who currently or will assist patient after discharge: GEOVANI CARRILLO (DAUGHTER) [phone] * Verbal permission to speak to the caregivers and representatives has been obtained from the patient. Yes * Community resources currently utilized None * Additional services required to return to the preadmission environment? Yes * Can the patient safely return to the preadmission environment? Yes * Has this patient been hospitalized within the prior 30 days at any hospital? Yes Coverage Notice Reviewer: [email or web address] Carin Isabel Notice Issued Date-Time: 08/04/2018 8:55 Notice Type: Patient Choice Letter Notice Delivered To: Patient Relationship to Patient: Mail Room Clerk Name: Delivery Method: HAND - Hand Delivered Ebony Days: Prior Verbal Notification: Recipient Understood Notice: Yes Recipient Signature: Yes Med Rec Note Co-signed by Attending: Coverage Notice Comment: REFUSED HOME HEALTH FORM SIGNED Reviewer: [email or web address] Carin Isabel Notice Issued Date-Time: 08/04/2018 8:55 Notice Type: IM Discharge Notice Notice Delivered To: Patient Relationship to Patient: Mail Room Clerk Name: Delivery Method: HAND - Hand Delivered Ebony Days: Prior Verbal Notification: Recipient Understood Notice: Yes Recipient Signature: Yes Med Rec Note Co-signed by Attending: Coverage Notice Comment: Last DP export: 08/04/18 9:52 a Patient Name: SHEFALI MALDONADO Page [phone] at 1138 All edits/amendments must be made on the electronic document DICTATION DATE: 08/14/181136 POST ANESTHESIA NURSE: BIENVENIDO 08/14/181136 RPT#: [id number] DC DATE: STATUS: ADM IN [facility] [address] [place] [address] END OF REPORT
[2018-08-14 12:18] VITALS: BP 125/56
--- NOTE | 2018-08-14 12:29 | MORECARE ---
CASE MANAGEMENT DISCHARGE SUMMARY PATIENT: SHEFALI MALDONADO UNIT: [id number] ADM DATE: 07/27/18 AGE: 68 : 49 SEX: F ROOM/BED: D.4267 AUTHOR: IVONEDOC PHYSICIAN: REFERRING PHYSICIAN: ERICKSON ESCALANTE MD DATE OF SERVICE: 08/14/18 Discharge Plan Patient Name: SHEFALI MALDONADO Facility: [facility]:[place] : 1950 Planned Disposition: Home Anticipated Discharge Date: 08/06/18 Discharge Date: Expected LOS: 10 Initial Reviewer: [id number] Initial Review Date: 08/04/2018 Generated: 08/14/18 1:29 pm Comments DCP- Discharge Planning Updated by [email or web address]: Vi Flores on 08/14/18 11:[address] @ 9893, RECEIVED A VOICE MAIL FROM [facility] AT [facility]. SHE STATED IN HER MESSAGE THAT SHE SPOKE WITH MARIA DEL CARMEN, DR BLACK'S NURSE WHO STATED THAT DR BLACK HAS NOT TALKED TO DR ESCALANTE OR ANYONE ABOUT THIS PATIENT AND WILL NOT ADMIT THE PATIENT TO [facility]. SHE HAS REQUESTED I CALL HER BACK AT [phone]. @3901, I CALLED HER BACK. I EXPLAINED THAT I NEVER STATED HE HAS SPOKE WITH THE DOCTOR. THAT THE FAMILY HAD SAID THEY TALKED TO DR BLACK YESTERDAY AND THEY WERE TOLD THAT HE WOULD FOLLOW UP VS ADMIT THE PATIENT A TRANSFER THERE TO [facility] AND DR ESCALANTE HAD LEFT HIS NUMBER SO THE DOCTOR COULD CALL IF HE WANTED TO TALK TO HIM .I EXPLAINED AGAIN THAT DR BLACK HAS BEEN THE PATIENTS DOCTOR THROUGH A COLECTOMY AND REENASTOMOSIS AND THEY WANTED HIS OPINION BEFORE SURGERY AND HIM TO POSSIBLY DO THE SURGERY. SHE STATED THAT SHE WILL CALL MARIA DEL CARMEN BACK AND TALK TO HER ABOUT IT, BUT REQUESTED I SPEAK TO THE FAMILY BEFORE SHE DOES AND MAKE SURE THEY REALIZED THAT THIS IS A LATERAL TRANSFER AND MORE THAN LIKELY THE INSURANCE COMPANY WOULD NOT PAY AND THEY WOULD BE [employer] PAYING FOR THE TRANSFER AND SERVICES RENDERED. I EXPLAINED THAT I WOULD DISCUSS THIS THEM. SHE HAS REQUESTED THAT I CALL HER BACK WHEN THE FAMILY HAS MADE A DECISION. @3059, WENT IN THE ROOM TO DISCUSS THE ABOVE WITH THE PATIENT AND HER SON. BOTH HAVE STATED THEIR UNDERSTANDING AND HE HAS REQUESTED TIME TO DISCUSS WITH HIS SISTER BEFORE THEY MAKE A DECISION. I GAVE THEM MY CARD WITH MY CONTACT NUMBER CIRCLED AND WILL WAIT FOR A CALL BACK. I DO BELIEVE THAT THEY ARE LEANING TOWARD BEING DISCHARGED WITH A FOLLOW UP WITH DR BLACK AND ALLOWING HIM TO DECIDE WHAT TO DO AT THAT TIME. I WILL LET BOTH [facility] WITH [facility] AND DR ESCALANTE KNOW THE OUTCOME. DCP- Discharge Planning Updated by [id number]: Vi Flores on 08/14/18 10:[address] @0947, BEDSIDE NURSE PAM SANTOS CAME TO TELL ME THAT THE PATIENT WANTED TO TRANSFER TO [facility] TO DR BLACK, AND WE NEEDED TO WORK ON IT. I EXPLAINED THAT SHE WOULD NEED TO TALK TO DR ESCALANTE FIRST AND MAKE SURE HE WAS IN AGREEMENT. SHE STATED THAT SHE HAD ALREADY TALKED TO DR ESCALANTE AND HE WAS IN AGREEMENT WITH THE TRANSFER AND SAID HE WOULD TALK TO WHOEVER HE WANTED TO. @ 0950, CALLED AND SPOKE WITH DR ESCALANTE. HE IS IN AGREEMENT THAT THE PATIENT CAN TRANSFER PER THE FAMILIES WISHES FOR A SECOND OPINION FROM DR BLACK (WHO HAS WORKED ON THE PATIENT IN THE PAST). HE STATED THAT I NEEDED TO TALK TO THE DAUGHTER AND FIND OUT THE INFORMATION FROM HER BEFORE CALLING, AND HE GAVE ME HIS CELL NUMBER FOR DR BLACK TO CALL IF HE IS CONSIDERING TAKING THE PATIENT. @ 0995, I WENT INTO THE ROOM AND SPOKE WITH THE PATIENT AND HER SON. HE STATED THAT HE PERSONALLY SPOKE WITH DR BLACK AND THEY DISCUSSED THE OPTION OF DISCHARGE AND FOLLOW UP VS. TRANSFER. HE STATED THAT THE DOCTOR WOULD BE WILLING TO DO EITHER. I EXPLAINED I WOULD START ON THE POSSIBLE TRANSFER AFTER MY AM MEETING ENDED AROUND 1100 AND THEY WERE THANKFUL. @1053 RECEIVED ADMINISTRATIVE APPROVAL FROM CANDACE MARQUIS RNENTRY LEVEL BUSINESS ANALYST. @4421 PLACED CALL TO [facility] IN [place] ([phone]). THE HIGHER EDUCATION ADMINISTRATOR LOREN TRANSFERRED ME TO [facility] WHO IN TURN TRANSFERRED ME TO JOHN, [facility] NURSE. POTENTIAL TRANSFER FOR ENTEROCUTANEOUS FISTULA DISCUSSED WITH HER AND SHE REQUESTED A FACESHEET AND SET OF VITALS BE FAXED TO [phone]. INFORMATION WAS FAXED. WILL WAIT DETERMINATION CALL BACK BEFORE NOTIFYING FAMILY. DCP- Discharge Planning Updated by [id number]: Digna Isabel on 08/04/18 9:[address] Patient Name: SHEFALI MALDONADO Admission Status: ER Accout number: [id number] Admission Date: 07-27-2018 : 1950 Admission Diagnosis:WEAKNESS Attending: ERICKSON ESCALANTE Current LOS: 8 Anticipated DC Date: 08-06-2018 Planned Disposition: Home Primary Insurance: MEDICARE A & B Discharge Planning Comments: CM MET WITH PATIENT REGARDING D/C NEEDS AND PLANS. PATIENT STATED SOMEONE IN HER FAMILY WILL DRIVE HER HOME AT DISCHARGE. PATIENT STATED SHE HAS 3 STEPS TO ENTER HER HOME AND NO STAIRS INSIDE. PATIENT IS INDEPENDENT WITH HER CARE AND HAS NO DME AT HOME. PATIENTS PCP IS DR. ESCALANTE AND USES [facility] IN [place]. PATIENT REFUSED HOME HEALTH AT THIS TIME. IMM SERVED. CM WILL CONTINUE TO FOLLOW PATIENT WITH D/C NEEDS AND PLANS. PCP DR[facility] ESCALAN[facility] Pie Bottomer: Digna Isabel DCP- Discharge Planning Updated by [id number]: Lisa Diaz on 07/28/18 5:[address] CM ATTEMPTED TO VISIT FOR INITIAL ASSESSMENT. PATIENT WAS HAVING CARE FROM RN. SHE IS ALERT AND ORIENTED. SHE WAS RECENTLY DISCHARGED FROM [facility]. SHE HAD DECLINED HOME HEALTH SERVICES OR SKILLED CARE. REPORTEDLY HAD [facility] IN THE PAST. PCP- DR ESCALANTE PHARMACY- [facility] IN [place]. NEPHROLOGY CONSULT THIS AM FOR ACUTE RENAL FAILURE AND ACUTE BILATERAL RENAL UROPATHY. CM TO FOLLOW DCPIA - Discharge Planning Initial Assessment Updated by [id number]: Digna Isabel on 08/04/18 10:46 am * Is the patient Alert and Oriented? Yes * How many steps to enter\exit or inside your home? * PCP DR. ESCALANTE * Pharmacy [facility] IN [place] * Preadmission Environment Home with Family * ADLs Independent * Equipment None * List name and contact numbers for known caregivers / representatives who currently or will assist patient after discharge: GEOVANI CARRILLO (DAUGHTER) [phone] * Verbal permission to speak to the caregivers and representatives has been obtained from the patient. Yes * Community resources currently utilized None * Additional services required to return to the preadmission environment? Yes * Can the patient safely return to the preadmission environment? Yes * Has this patient been hospitalized within the prior 30 days at any hospital? Yes Coverage Notice Reviewer: [id number] - Digna Isabel Notice Issued Date-Time: 08/04/2018 8:55 Notice Type: Patient Choice Letter Notice Delivered To: Patient Relationship to Patient: Talent Director Name: Delivery Method: HAND - Hand Delivered Ebony Days: Prior Verbal Notification: Recipient Understood Notice: Yes Recipient Signature: Yes Med Rec Note Co-signed by Attending: Coverage Notice Comment: REFUSED HOME HEALTH FORM SIGNED Reviewer: [id number] Carin Isabel Notice Issued Date-Time: 08/04/2018 8:55 Notice Type: IM Discharge Notice Notice Delivered To: Patient Relationship to Patient: Talent Director Name: Delivery Method: HAND - Hand Delivered Ebony Days: Prior Verbal Notification: Recipient Understood Notice: Yes Recipient Signature: Yes Med Rec Note Co-signed by Attending: Coverage Notice Comment: Last DP export: 08/14/18 10:37 am Patient Name: SHEFALI MALDONADO Page [id number] at 1229 All edits/amendments must be made on the electronic document DICTATION DATE: 08/14/188 DRYING AND WINDING SUPERVISOR: BIENVENIDO 08/14/188 RPT#: [id number] DC DATE: STATUS: ADM IN [facility] [address] [place] [address] END OF REPORT
--- NOTE | 2018-08-14 13:07 | NUR ---
02 SAT 94% ON RA.
--- NOTE | 2018-08-14 13:18 | MORECARE ---
CASE MANAGEMENT DISCHARGE SUMMARY PATIENT: SHEFALI MALDONADO UNIT: [id number] ADM DATE: 07/27/18 AGE: 68 : 49 SEX: F ROOM/BED: D.9237 AUTHOR: IVONE,DOC PHYSICIAN: REFERRING PHYSICIAN: ERICKSON ESCALANTE MD DATE OF SERVICE: 08/14/18 Discharge Plan Patient Name: SHEFALI MALDONADO Facility: [facility]:[place] : 1950 Planned Disposition: Home Anticipated Discharge Date: 08/06/18 Discharge Date: Expected LOS: 10 Initial Reviewer: [id number] Initial Review Date: 08/04/2018 Generated: 08/14/18 2:18 pm Comments DCP- Discharge Planning Updated by [email or web address]: Vi Flores on 08/14/18 12:[address] @1250, WHILE TALKING WITH SON AND DAUGHTER IN THE [place], DR GALLOWAY WALKED UP. CONVERSATION CONTINUED IN THE ROOM. THE DAUGHTER TALKED TO MARIA DEL CARMEN HERSELF, SHE STATED THATJC TOLD THEM TO DISCHARGE AND THEY COULD GO TO THE [facility] ER AND ASK THE ER DOCTOR TO CONSULT THEM, AND THIS IS WHAT THEY WANT TO DO AFTER QUESTIONING DR GALLOWAY. PT IS CURRENTLY ON OXYGEN AND DR GALLOWAY DID ASK IF SHE NEEDED IT. AFTER CONFIRMING THAT THE PATIENT WAS NOT ON HOME OXYGEN, I EXPLAINED THAT I WOULD TEST FOR OXYGEN NEEDS. UPON CLOSER INSPECTION, THE N/C WAS ON UPPER CHEEK BONE AND NOT IN THE NOSE. PER THE PROTABLE PULSEOX, PTS HR 88 AND SATS ON ROOM AIR 95%. I EXPLAINED TO THE FAMILY THAT SHE WOULD NOT NEED OXYGEN FOR DISCHARGE. THEY STATED UNDERSTANDING. @ 1259, I PLACED A CALL TO DR ESCALANTE'S OFFICE AND WAS TOLD THAT DR ESCALANTE WAS ROUNDING HERE IN THE HOSPITAL. I HAVE MADE AN ATTEMPT TO FIND HIM BY CALLING EACH UNIT. I HAVE EXPLAINED TO THE PATIENT AND HER CHILDREN THAT I HAVE NOT BEEN ABLE TO LOCATE DR ESCALANTE FOR DISCHARGE ORDERS AND THAT HIS OFFICE STATED HE WAS DOING ROUNDS IN THE HOSPITAL AND THERE IS A HIGH CHANCE THEY MAY SEE HIM BEFORE ME, AND IF THEY DID SEE HIM TO JUST LET HIM KNOW WHAT TRANSPIRED IN REGARDS TO GETTING THE PATIENT TO [facility]. I STATED THAT I WOULD CONTINUE TO TRY TO FIND HIM. I WALKED THE 2ND FLOOR AND CALLED EACH UNIT AND WAS UNSUCCESSFUL IN LOCATING DR ESCALANTE. I WILL CALL BACK SHORTLY. @ 1314 I PLACED A CALL TO JOHN AT [facility] AND LET HER KNOW WHAT THE DECISION WAS. SHE STATED THAT SHE WOULD GIVE THE ER A HEADS UP THAT THE PATIENT WAS COMING. DCP- Discharge Planning Updated by [id number]: Vi Flores on 08/14/18 11:[address] @ 8371, RECEIVED A VOICE MAIL FROM JOHN AT [facility]. SHE STATED IN HER MESSAGE THAT SHE SPOKE WITH MARIA DEL CARMEN, DR BLACK'S NURSE WHO STATED THAT DR BLACK HAS NOT TALKED TO DR ESCALANTE OR ANYONE ABOUT THIS PATIENT AND WILL NOT ADMIT THE PATIENT TO [facility]. SHE HAS REQUESTED I CALL HER BACK AT [phone]. @2178, I CALLED HER BACK. I EXPLAINED THAT I NEVER STATED HE HAS SPOKE WITH THE DOCTOR. THAT THE FAMILY HAD SAID THEY TALKED TO DR BLACK YESTERDAY AND THEY WERE TOLD THAT HE WOULD FOLLOW UP VS ADMIT THE PATIENT A TRANSFER THERE TO [facility] AND DR ESCALANTE HAD LEFT HIS NUMBER SO THE DOCTOR COULD CALL IF HE WANTED TO TALK TO HIM .I EXPLAINED AGAIN THAT DR BLACK HAS BEEN THE PATIENTS DOCTOR THROUGH A COLECTOMY AND REENASTOMOSIS AND THEY WANTED HIS OPINION BEFORE SURGERY AND HIM TO POSSIBLY DO THE SURGERY. SHE STATED THAT SHE WILL CALL MARIA DEL CARMEN BACK AND TALK TO HER ABOUT IT, BUT REQUESTED I SPEAK TO THE FAMILY BEFORE SHE DOES AND MAKE SURE THEY REALIZED THAT THIS IS A LATERAL TRANSFER AND MORE THAN LIKELY THE INSURANCE COMPANY WOULD NOT PAY AND THEY WOULD BE [employer] PAYING FOR THE TRANSFER AND SERVICES RENDERED. I EXPLAINED THAT I WOULD DISCUSS THIS THEM. SHE HAS REQUESTED THAT I CALL HER BACK WHEN THE FAMILY HAS MADE A DECISION. @0975, WENT IN THE ROOM TO DISCUSS THE ABOVE WITH THE PATIENT AND HER SON. BOTH HAVE STATED THEIR UNDERSTANDING AND HE HAS REQUESTED TIME TO DISCUSS WITH HIS SISTER BEFORE THEY MAKE A DECISION. I GAVE THEM MY CARD WITH MY CONTACT NUMBER CIRCLED AND WILL WAIT FOR A CALL BACK. I DO BELIEVE THAT THEY ARE LEANING TOWARD BEING DISCHARGED WITH A FOLLOW UP WITH DR BLACK AND ALLOWING HIM TO DECIDE WHAT TO DO AT THAT TIME. I WILL LET BOTH JOHN WITH [facility] AND DR ESCALANTE KNOW THE OUTCOME. DCP- Discharge Planning Updated by [id number]: Vi Flores on 08/14/18 10:[address] @0947, BEDSIDE NURSE PAM SANTOS CAME TO TELL ME THAT THE PATIENT WANTED TO TRANSFER TO [facility] TO DR BLACK, AND WE NEEDED TO WORK ON IT. I EXPLAINED THAT SHE WOULD NEED TO TALK TO DR ESCALANTE FIRST AND MAKE SURE HE WAS IN AGREEMENT. SHE STATED THAT SHE HAD ALREADY TALKED TO DR ESCALANTE AND HE WAS IN AGREEMENT WITH THE TRANSFER AND SAID HE WOULD TALK TO WHOEVER HE WANTED TO. @ 0951, CALLED AND SPOKE WITH DR ESCALANTE. HE IS IN AGREEMENT THAT THE PATIENT CAN TRANSFER PER THE FAMILIES WISHES FOR A SECOND OPINION FROM DR BLACK (WHO HAS WORKED ON THE PATIENT IN THE PAST). HE STATED THAT I NEEDED TO TALK TO THE DAUGHTER AND FIND OUT THE INFORMATION FROM HER BEFORE CALLING, AND HE GAVE ME HIS CELL NUMBER FOR DR BLACK TO CALL IF HE IS CONSIDERING TAKING THE PATIENT. @ 0974, I WENT INTO THE ROOM AND SPOKE WITH THE PATIENT AND HER SON. HE STATED THAT HE PERSONALLY SPOKE WITH DR BLACK AND THEY DISCUSSED THE OPTION OF DISCHARGE AND FOLLOW UP VS. TRANSFER. HE STATED THAT THE DOCTOR WOULD BE WILLING TO DO EITHER. I EXPLAINED I WOULD START ON THE POSSIBLE TRANSFER AFTER MY AM MEETING ENDED AROUND 1100 AND THEY WERE THANKFUL. @5844 RECEIVED ADMINISTRATIVE APPROVAL FROM CANDACE MARQUIS RNMAIL HANDLER ASSISTANT. @5100 PLACED CALL TO [facility] IN [place] ([phone]). THE ALLERGY PHYSICIAN LOREN TRANSFERRED ME TO [facility] WHO IN TURN TRANSFERRED ME TO [facility] NURSE. POTENTIAL TRANSFER FOR ENTEROCUTANEOUS FISTULA DISCUSSED WITH HER AND SHE REQUESTED A FACESHEET AND SET OF VITALS BE FAXED TO [phone]. INFORMATION WAS FAXED. WILL WAIT DETERMINATION CALL BACK BEFORE NOTIFYING FAMILY. DCP- Discharge Planning Updated by [id number]: Digna Isabel on 08/04/18 9:[address] Patient Name: SHEFALI MALDONADO Admission Status: ER Accout number: [id number] Admission Date: 07-27-2018 : 1950 Admission Diagnosis:WEAKNESS Attending: ERICKSON ESCALANTE Current LOS: 8 Anticipated DC Date: 08-06-2018 Planned Disposition: Home Primary Insurance: MEDICARE A & B Discharge Planning Comments: CM MET WITH PATIENT REGARDING D/C NEEDS AND PLANS. PATIENT STATED SOMEONE IN HER FAMILY WILL DRIVE HER HOME AT DISCHARGE. PATIENT STATED SHE HAS 3 STEPS TO ENTER HER HOME AND NO STAIRS INSIDE. PATIENT IS INDEPENDENT WITH HER CARE AND HAS NO DME AT HOME. PATIENTS PCP IS DR. ESCALANTE AND USES [facility] IN [place]. PATIENT REFUSED HOME HEALTH AT THIS TIME. IMM SERVED. CM WILL CONTINUE TO FOLLOW PATIENT WITH D/C NEEDS AND PLANS. PCP [facility] Clock Assembler: Digna Isabel DCP- Discharge Planning Updated by [id number]: Lisa Diaz on 07/28/18 5:[address] CM ATTEMPTED TO VISIT FOR INITIAL ASSESSMENT. PATIENT WAS HAVING CARE FROM RN. SHE IS ALERT AND ORIENTED. SHE WAS RECENTLY DISCHARGED FROM [facility]. SHE HAD DECLINED HOME HEALTH SERVICES OR SKILLED CARE. REPORTEDLY HAD [facility] IN THE PAST. PCP- DR ESCALANTE PHARMACY- [facility] IN [place]. NEPHROLOGY CONSULT THIS AM FOR ACUTE RENAL FAILURE AND ACUTE BILATERAL RENAL UROPATHY. CM TO FOLLOW DCPIA - Discharge Planning Initial Assessment Updated by [id number]: Digna Isabel on 08/04/18 10:46 am * Is the patient Alert and Oriented? Yes * How many steps to enter\exit or inside your home? * PCP DR. ESCALANTE * Pharmacy [facility] IN [place] * Preadmission Environment Home with Family * ADLs Independent * Equipment None * List name and contact numbers for known caregivers / representatives who currently or will assist patient after discharge: GEOVANI CARRILLO (DAUGHTER) [phone] * Verbal permission to speak to the caregivers and representatives has been obtained from the patient. Yes * Community resources currently utilized None * Additional services required to return to the preadmission environment? Yes * Can the patient safely return to the preadmission environment? Yes * Has this patient been hospitalized within the prior 30 days at any hospital? Yes Coverage Notice Reviewer: [id number] Carin Isabel Notice Issued Date-Time: 08/04/2018 8:55 Notice Type: Patient Choice Letter Notice Delivered To: Patient Relationship to Patient: Almond Roaster Name: Delivery Method: HAND - Hand Delivered Ebony Days: Prior Verbal Notification: Recipient Understood Notice: Yes Recipient Signature: Yes Med Rec Note Co-signed by Attending: Coverage Notice Comment: REFUSED HOME HEALTH FORM SIGNED Reviewer: [id number] Carin Isabel Notice Issued Date-Time: 08/04/2018 8:55 Notice Type: IM Discharge Notice Notice Delivered To: Patient Relationship to Patient: Almond Roaster Name: Delivery Method: HAND - Hand Delivered Ebony Days: Prior Verbal Notification: Recipient Understood Notice: Yes Recipient Signature: Yes Med Rec Note Co-signed by Attending: Coverage Notice Comment: Last DP export: 08/14/18 11:29 am Patient Name: SHEFALI MALDONADO Page [id number] at 1318 All edits/amendments must be made on the electronic document DICTATION DATE: 08/14/181316 TIMING INSPECTOR: BIENVENIDO 08/14/181316 RPT#: [id number] DC DATE: STATUS: ADM IN [facility] [address] [place] [address] END OF REPORT
--- NOTE | 2018-08-14 15:17 | NUR ---
WOUND CARE NURSE AT DOING OSTOMY EDUCATION. WILL CONT. PLAN OF CARE.
[2018-08-14 15:27] VITALS: BP 132/55
--- NOTE | 2018-08-14 15:41 | NUR ---
As per physician request pt was provided with supplies (2 ostomy kits, ostomy powder and paste and skin protectant), ostomy information booklet (living with your ileostomy) and instruction as to how to change an appliance and skin care. Daughter and son were in room and asked many questions and demostrated ability to change the appliance, empty it and proper skin care. Also provided a list of suppliers and info about the local ostomy support group.
--- NOTE | 2018-08-14 16:11 | MORECARE ---
CASE MANAGEMENT DISCHARGE SUMMARY PATIENT: SHEFALI MALDONADO UNIT: [id number] ADM DATE: 07/27/18 AGE: 68 : 49 SEX: F ROOM/BED: D.9157 AUTHOR: IVONE,DOC PHYSICIAN: REFERRING PHYSICIAN: ERICKSON ESCALANTE MD DATE OF SERVICE: 08/14/18 Discharge Plan Patient Name: SHEFALI MALDONADO Facility: [facility]:[place] : 1950 Planned Disposition: Home Anticipated Discharge Date: 08/06/18 Discharge Date: Expected LOS: 10 Initial Reviewer: [id number] Initial Review Date: 08/04/2018 Generated: 08/14/18 5:11 pm Comments DCP- Discharge Planning Updated by [id number]: Vi Flores on 08/14/18 12:[address] @1250, WHILE TALKING WITH SON AND DAUGHTER IN THE [place], DR GALLOWAY WALKED UP. CONVERSATION CONTINUED IN THE ROOM. THE DAUGHTER TALKED TO MARIA DEL CARMEN HERSELF, SHE STATED THATJC TOLD THEM TO DISCHARGE AND THEY COULD GO TO THE [facility] AND ASK THE ER DOCTOR TO CONSULT THEM, AND THIS IS WHAT THEY WANT TO DO AFTER QUESTIONING DR GALLOWAY. PT IS CURRENTLY ON OXYGEN AND DR GALLOWAY DID ASK IF SHE NEEDED IT. AFTER CONFIRMING THAT THE PATIENT WAS NOT ON HOME OXYGEN, I EXPLAINED THAT I WOULD TEST FOR OXYGEN NEEDS. UPON CLOSER INSPECTION, THE N/C WAS ON UPPER CHEEK BONE AND NOT IN THE NOSE. PER THE PROTABLE PULSEOX, PTS HR 88 AND SATS ON ROOM AIR 95%. I EXPLAINED TO THE FAMILY THAT SHE WOULD NOT NEED OXYGEN FOR DISCHARGE. THEY STATED UNDERSTANDING. @ 1259, I PLACED A CALL TO DR ESCALANTE'S OFFICE AND WAS TOLD THAT DR ESCALANTE WAS ROUNDING HERE IN THE HOSPITAL. I HAVE MADE AN ATTEMPT TO FIND HIM BY CALLING EACH UNIT. I HAVE EXPLAINED TO THE PATIENT AND HER CHILDREN THAT I HAVE NOT BEEN ABLE TO LOCATE DR ESCALANTE FOR DISCHARGE ORDERS AND THAT HIS OFFICE STATED HE WAS DOING ROUNDS IN THE HOSPITAL AND THERE IS A HIGH CHANCE THEY MAY SEE HIM BEFORE ME, AND IF THEY DID SEE HIM TO JUST LET HIM KNOW WHAT TRANSPIRED IN REGARDS TO GETTING THE PATIENT TO [facility]. I STATED THAT I WOULD CONTINUE TO TRY TO FIND HIM. I WALKED THE 2ND FLOOR AND CALLED EACH UNIT AND WAS UNSUCCESSFUL IN LOCATING DR ESCALANTE. I WILL CALL BACK SHORTLY. @ 1314 I PLACED A CALL TO JOHN AT [facility] AND LET HER KNOW WHAT THE DECISION WAS. SHE STATED THAT SHE WOULD GIVE THE ER A HEADS UP THAT THE PATIENT WAS COMING. DCP- Discharge Planning Updated by [id number]: Vi Flores on 08/14/18 11:[address] @ 3659, RECEIVED A VOICE MAIL FROM JOHN AT [facility]. SHE STATED IN HER MESSAGE THAT SHE SPOKE WITH MARIA DEL CARMEN, DR BLACK'S NURSE WHO STATED THAT DR BLACK HAS NOT TALKED TO DR ESCALANTE OR ANYONE ABOUT THIS PATIENT AND WILL NOT ADMIT THE PATIENT TO [facility]. SHE HAS REQUESTED I CALL HER BACK AT [phone]. @4276, I CALLED HER BACK. I EXPLAINED THAT I NEVER STATED HE HAS SPOKE WITH THE DOCTOR. THAT THE FAMILY HAD SAID THEY TALKED TO DR BLACK YESTERDAY AND THEY WERE TOLD THAT HE WOULD FOLLOW UP VS ADMIT THE PATIENT A TRANSFER THERE TO [facility] AND DR ESCALANTE HAD LEFT HIS NUMBER SO THE DOCTOR COULD CALL IF HE WANTED TO TALK TO HIM .I EXPLAINED AGAIN THAT DR BLACK HAS BEEN THE PATIENTS DOCTOR THROUGH A COLECTOMY AND REENASTOMOSIS AND THEY WANTED HIS OPINION BEFORE SURGERY AND HIM TO POSSIBLY DO THE SURGERY. SHE STATED THAT SHE WILL CALL MARIA DEL CARMEN BACK AND TALK TO HER ABOUT IT, BUT REQUESTED I SPEAK TO THE FAMILY BEFORE SHE DOES AND MAKE SURE THEY REALIZED THAT THIS IS A LATERAL TRANSFER AND MORE THAN LIKELY THE INSURANCE COMPANY WOULD NOT PAY AND THEY WOULD BE [employer] PAYING FOR THE TRANSFER AND SERVICES RENDERED. I EXPLAINED THAT I WOULD DISCUSS THIS THEM. SHE HAS REQUESTED THAT I CALL HER BACK WHEN THE FAMILY HAS MADE A DECISION. @7086, WENT IN THE ROOM TO DISCUSS THE ABOVE WITH THE PATIENT AND HER SON. BOTH HAVE STATED THEIR UNDERSTANDING AND HE HAS REQUESTED TIME TO DISCUSS WITH HIS SISTER BEFORE THEY MAKE A DECISION. I GAVE THEM MY CARD WITH MY CONTACT NUMBER CIRCLED AND WILL WAIT FOR A CALL BACK. I DO BELIEVE THAT THEY ARE LEANING TOWARD BEING DISCHARGED WITH A FOLLOW UP WITH DR BLACK AND ALLOWING HIM TO DECIDE WHAT TO DO AT THAT TIME. I WILL LET BOTH JOHN WITH [facility] AND DR ESCALANTE KNOW THE OUTCOME. DCP- Discharge Planning Updated by [id number]: Vi Flores on 08/14/18 10:[address] @0947, BEDSIDE NURSE PAM SANTOS CAME TO TELL ME THAT THE PATIENT WANTED TO TRANSFER TO [facility] TO DR BLACK, AND WE NEEDED TO WORK ON IT. I EXPLAINED THAT SHE WOULD NEED TO TALK TO DR ESCALANTE FIRST AND MAKE SURE HE WAS IN AGREEMENT. SHE STATED THAT SHE HAD ALREADY TALKED TO DR ESCALANTE AND HE WAS IN AGREEMENT WITH THE TRANSFER AND SAID HE WOULD TALK TO WHOEVER HE WANTED TO. @ 0951, CALLED AND SPOKE WITH DR ESCALANTE. HE IS IN AGREEMENT THAT THE PATIENT CAN TRANSFER PER THE FAMILIES WISHES FOR A SECOND OPINION FROM DR BLACK (WHO HAS WORKED ON THE PATIENT IN THE PAST). HE STATED THAT I NEEDED TO TALK TO THE DAUGHTER AND FIND OUT THE INFORMATION FROM HER BEFORE CALLING, AND HE GAVE ME HIS CELL NUMBER FOR DR BLACK TO CALL IF HE IS CONSIDERING TAKING THE PATIENT. @ 0969, I WENT INTO THE ROOM AND SPOKE WITH THE PATIENT AND HER SON. HE STATED THAT HE PERSONALLY SPOKE WITH DR BLACK AND THEY DISCUSSED THE OPTION OF DISCHARGE AND FOLLOW UP VS. TRANSFER. HE STATED THAT THE DOCTOR WOULD BE WILLING TO DO EITHER. I EXPLAINED I WOULD START ON THE POSSIBLE TRANSFER AFTER MY AM MEETING ENDED AROUND 1100 AND THEY WERE THANKFUL. @7520 RECEIVED ADMINISTRATIVE APPROVAL FROM CANDACE MARQUIS RNBATHING SUIT MAKER. @7617 PLACED CALL TO [facility] IN [place] ([phone]). THE SOCIAL SCIENCE RESEARCH ASSISTANT LOREN TRANSFERRED ME TO [facility]ED CONTROL WHO IN TURN TRANSFERRED ME TO [facility], [facility] NURSE. POTENTIAL TRANSFER FOR ENTEROCUTANEOUS FISTULA DISCUSSED WITH HER AND SHE REQUESTED A FACESHEET AND SET OF VITALS BE FAXED TO [phone]. INFORMATION WAS FAXED. WILL WAIT DETERMINATION CALL BACK BEFORE NOTIFYING FAMILY. DCP- Discharge Planning Updated by [id number]: Digna Isabel on 08/04/18 9:[address] Patient Name: SHEFALI MALDONADO Admission Status: ER Accout number: [id number] Admission Date: 07-27-2018 : 1950 Admission Diagnosis:WEAKNESS Attending: ERICKSON ESCALANTE Current LOS: 8 Anticipated DC Date: 08-06-2018 Planned Disposition: Home Primary Insurance: MEDICARE A & B Discharge Planning Comments: CM MET WITH PATIENT REGARDING D/C NEEDS AND PLANS. PATIENT STATED SOMEONE IN HER FAMILY WILL DRIVE HER HOME AT DISCHARGE. PATIENT STATED SHE HAS 3 STEPS TO ENTER HER HOME AND NO STAIRS INSIDE. PATIENT IS INDEPENDENT WITH HER CARE AND HAS NO DME AT HOME. PATIENTS PCP IS DR. ESCALANTE AND USES [email or web address] IN [place]. PATIENT REFUSED HOME HEALTH AT THIS TIME. IMM SERVED. CM WILL CONTINUE TO FOLLOW PATIENT WITH D/C NEEDS AND PLANS. PCP [facility] Hydropress Operator: Digna Isabel DCP- Discharge Planning Updated by [id number]: Lisa Diaz on 07/28/18 5:[address] CM ATTEMPTED TO VISIT FOR INITIAL ASSESSMENT. PATIENT WAS HAVING CARE FROM RN. SHE IS ALERT AND ORIENTED. SHE WAS RECENTLY DISCHARGED FROM [facility]. SHE HAD DECLINED HOME HEALTH SERVICES OR SKILLED CARE. REPORTEDLY HAD [facility] IN THE PAST. PCP- DR ESCALANTE [facility]ARMACY- [facility] IN [place]. NEPHROLOGY CONSULT THIS AM FOR ACUTE RENAL FAILURE AND ACUTE BILATERAL RENAL UROPATHY. CM TO FOLLOW DCPIA - Discharge Planning Initial Assessment Updated by [id number]: Digna Isabel on 08/04/18 10:46 am * Is the patient Alert and Oriented? Yes * How many steps to enter\exit or inside your home? * PCP DR. ESCALANTE * Pharmacy [facility] IN [place] * Preadmission Environment Home with Family * ADLs Independent * Equipment None * List name and contact numbers for known caregivers / representatives who currently or will assist patient after discharge: GEOVANI CARRILLO (DAUGHTER) [phone] * Verbal permission to speak to the caregivers and representatives has been obtained from the patient. Yes * Community resources currently utilized None * Additional services required to return to the preadmission environment? Yes * Can the patient safely return to the preadmission environment? Yes * Has this patient been hospitalized within the prior 30 days at any hospital? Yes External Providers External Provider: [facility] Next Contact Date: 08/14/2018 Service Request Date: Service Type: Resolution: Reviewer: Comments: Coverage Notice Reviewer: [id number] Carin Isabel Notice Issued Date-Time: 08/04/2018 8:55 Notice Type: Patient Choice Letter Notice Delivered To: Patient Relationship to Patient: Scientific Database Curator Name: Delivery Method: HAND - Hand Delivered Ebony Days: Prior Verbal Notification: Recipient Understood Notice: Yes Recipient Signature: Yes Med Rec Note Co-signed by Attending: Coverage Notice Comment: REFUSED HOME HEALTH FORM SIGNED Reviewer: [id number] - Digna Isabel Notice Issued Date-Time: 08/04/2018 8:55 Notice Type: IM Discharge Notice Notice Delivered To: Patient Relationship to Patient: Scientific Database Curator Name: Delivery Method: HAND - Hand Delivered Ebony Days: Prior Verbal Notification: Recipient Understood Notice: Yes Recipient Signature: Yes Med Rec Note Co-signed by Attending: Coverage Notice Comment: Reviewer: [id number] - Kingsley Streeter Notice Issued Date-Time: 08/14/2018 14:20 Notice Type: IM Discharge Notice Notice Delivered To: Patient Relationship to Patient: Scientific Database Curator Name: Delivery Method: HAND - Hand Delivered Ebony Days: Prior Verbal Notification: Recipient Understood Notice: Yes Recipient Signature: Yes Med Rec Note Co-signed by Attending: Coverage Notice Comment: Last DP export: 08/14/18 12:18 pm Patient Name: SHEFALI MALDONADO Page [id number] at 1611 All edits/amendments must be made on the electronic document DICTATION DATE: 08/14/181610 VELVET WEAVER: BIENVENIDO 08/14/18 161 RPT#: [id number] DC DATE: STATUS: ADM IN [facility] [address] [place] [address] END OF REPORT
--- NOTE | 2018-08-14 16:19 | NUR ---
SPOKE TO DR. URENA ABOUT DAUGHTERS REQUEST FOR HOME IV FEEDING. NO NEW ORDERS AT THIS TIME. IV AND TELEMETRY DCD. DC PLANS GIVEN. UNDERSTANDING VOICED. ESCORTED TO CAR BY Kiley
--- NOTE | 2018-08-14 16:34 | MORECARE ---
CASE MANAGEMENT DISCHARGE SUMMARY PATIENT: SHEFALI MALDONADO UNIT: [id number] ADM DATE: 07/27/18 AGE: 68 : 49 SEX: F ROOM/BED: D.6377 AUTHOR: IVONE,DOC PHYSICIAN: REFERRING PHYSICIAN: ERICKSON ESCALANTE MD DATE OF SERVICE: 08/14/18 Discharge Plan Patient Name: SHEFALI MALDONADO Facility: [facility]:[place] : 1950 Planned Disposition: Home with Home Health Anticipated Discharge Date: 08/14/18 Discharge Date: 08/14/2018 Expected LOS: 18 Initial Reviewer: [id number] Initial Review Date: 08/04/2018 Generated: 08/14/18 5:34 pm Comments DCP- Discharge Planning Updated by [id number]: Vi Flores on 08/14/18 12:[address] @1250, WHILE TALKING WITH SON AND DAUGHTER IN THE [place], DR GALLOWAY WALKED UP. CONVERSATION CONTINUED IN THE ROOM. THE DAUGHTER TALKED TO MARIA DEL CARMEN HERSELF, SHE STATED THATJC TOLD THEM TO DISCHARGE AND THEY COULD GO TO THE [facility] ER AND ASK THE ER DOCTOR TO CONSULT THEM, AND THIS IS WHAT THEY WANT TO DO AFTER QUESTIONING DR GALLOWAY. PT IS CURRENTLY ON OXYGEN AND DR GALLOWAY DID ASK IF SHE NEEDED IT. AFTER CONFIRMING THAT THE PATIENT WAS NOT ON HOME OXYGEN, I EXPLAINED THAT I WOULD TEST FOR OXYGEN NEEDS. UPON CLOSER INSPECTION, THE N/C WAS ON UPPER CHEEK BONE AND NOT IN THE NOSE. PER THE PROTABLE PULSEOX, PTS HR 88 AND SATS ON ROOM AIR 95%. I EXPLAINED TO THE FAMILY THAT SHE WOULD NOT NEED OXYGEN FOR DISCHARGE. THEY STATED UNDERSTANDING. @ 1259, I PLACED A CALL TO DR ESCALANTE'S OFFICE AND WAS TOLD THAT DR ESCALANTE WAS ROUNDING HERE IN THE HOSPITAL. I HAVE MADE AN ATTEMPT TO FIND HIM BY CALLING EACH UNIT. I HAVE EXPLAINED TO THE PATIENT AND HER CHILDREN THAT I HAVE NOT BEEN ABLE TO LOCATE DR ESCALANTE FOR DISCHARGE ORDERS AND THAT HIS OFFICE STATED HE WAS DOING ROUNDS IN THE HOSPITAL AND THERE IS A HIGH CHANCE THEY MAY SEE HIM BEFORE ME, AND IF THEY DID SEE HIM TO JUST LET HIM KNOW WHAT TRANSPIRED IN REGARDS TO GETTING THE PATIENT TO [facility]. I STATED THAT I WOULD CONTINUE TO TRY TO FIND HIM. I WALKED THE 2ND FLOOR AND CALLED EACH UNIT AND WAS UNSUCCESSFUL IN LOCATING DR ESCALANTE. I WILL CALL BACK SHORTLY. @ 1314 I PLACED A CALL TO JOHN AT [facility] AND LET HER KNOW WHAT THE DECISION WAS. SHE STATED THAT SHE WOULD GIVE THE ER A HEADS UP THAT THE PATIENT WAS COMING. DCP- Discharge Planning Updated by [id number]: Vi Mark on 08/14/18 11:[address] @ 5567, RECEIVED A VOICE MAIL FROM JOHN AT [facility]. SHE STATED IN HER MESSAGE THAT SHE SPOKE WITH MARIA DEL CARMEN, DR BLACK'S NURSE WHO STATED THAT DR BLACK HAS NOT TALKED TO DR ESCALANTE OR ANYONE ABOUT THIS PATIENT AND WILL NOT ADMIT THE PATIENT TO [facility]. SHE HAS REQUESTED I CALL HER BACK AT [phone]. @7025, I CALLED HER BACK. I EXPLAINED THAT I NEVER STATED HE HAS SPOKE WITH THE DOCTOR. THAT THE FAMILY HAD SAID THEY TALKED TO DR BLACK YESTERDAY AND THEY WERE TOLD THAT HE WOULD FOLLOW UP VS ADMIT THE PATIENT A TRANSFER THERE TO [facility] AND DR ESCALANTE HAD LEFT HIS NUMBER SO THE DOCTOR COULD CALL IF HE WANTED TO TALK TO HIM .I EXPLAINED AGAIN THAT DR BLACK HAS BEEN THE PATIENTS DOCTOR THROUGH A COLECTOMY AND REENASTOMOSIS AND THEY WANTED HIS OPINION BEFORE SURGERY AND HIM TO POSSIBLY DO THE SURGERY. SHE STATED THAT SHE WILL CALL MARIA DEL CARMEN BACK AND TALK TO HER ABOUT IT, BUT REQUESTED I SPEAK TO THE FAMILY BEFORE SHE DOES AND MAKE SURE THEY REALIZED THAT THIS IS A LATERAL TRANSFER AND MORE THAN LIKELY THE INSURANCE COMPANY WOULD NOT PAY AND THEY WOULD BE [employer] PAYING FOR THE TRANSFER AND SERVICES RENDERED. I EXPLAINED THAT I WOULD DISCUSS THIS THEM. SHE HAS REQUESTED THAT I CALL HER BACK WHEN THE FAMILY HAS MADE A DECISION. @9877, WENT IN THE ROOM TO DISCUSS THE ABOVE WITH THE PATIENT AND HER SON. BOTH HAVE STATED THEIR UNDERSTANDING AND HE HAS REQUESTED TIME TO DISCUSS WITH HIS SISTER BEFORE THEY MAKE A DECISION. I GAVE THEM MY CARD WITH MY CONTACT NUMBER CIRCLED AND WILL WAIT FOR A CALL BACK. I DO BELIEVE THAT THEY ARE LEANING TOWARD BEING DISCHARGED WITH A FOLLOW UP WITH DR BLACK AND ALLOWING HIM TO DECIDE WHAT TO DO AT THAT TIME. I WILL LET BOTH JOHN WITH [facility] AND DR ESCALANTE KNOW THE OUTCOME. DCP- Discharge Planning Updated by [id number]: Vi Flores on 08/14/18 10:[address] @0947, BEDSIDE NURSE PAM SANTOS CAME TO TELL ME THAT THE PATIENT WANTED TO TRANSFER TO [facility] TO DR BLACK, AND WE NEEDED TO WORK ON IT. I EXPLAINED THAT SHE WOULD NEED TO TALK TO DR ESCALANTE FIRST AND MAKE SURE HE WAS IN AGREEMENT. SHE STATED THAT SHE HAD ALREADY TALKED TO DR ESCALANTE AND HE WAS IN AGREEMENT WITH THE TRANSFER AND SAID HE WOULD TALK TO WHOEVER HE WANTED TO. @ 0951, CALLED AND SPOKE WITH DR ESCALANTE. HE IS IN AGREEMENT THAT THE PATIENT CAN TRANSFER PER THE FAMILIES WISHES FOR A SECOND OPINION FROM DR BLACK (WHO HAS WORKED ON THE PATIENT IN THE PAST). HE STATED THAT I NEEDED TO TALK TO THE DAUGHTER AND FIND OUT THE INFORMATION FROM HER BEFORE CALLING, AND HE GAVE ME HIS CELL NUMBER FOR DR BLACK TO CALL IF HE IS CONSIDERING TAKING THE PATIENT. @ 0918, I WENT INTO THE ROOM AND SPOKE WITH THE PATIENT AND HER SON. HE STATED THAT HE PERSONALLY SPOKE WITH DR BLACK AND THEY DISCUSSED THE OPTION OF DISCHARGE AND FOLLOW UP VS. TRANSFER. HE STATED THAT THE DOCTOR WOULD BE WILLING TO DO EITHER. I EXPLAINED I WOULD START ON THE POSSIBLE TRANSFER AFTER MY AM MEETING ENDED AROUND 1100 AND THEY WERE THANKFUL. @1055 RECEIVED ADMINISTRATIVE APPROVAL FROM CANDACE MARQUIS RNPARTY PLANNER. @8331 PLACED CALL TO [facility] IN [place] ([phone]). THE PLACEMENT MANAGER LOREN TRANSFERRED ME TO [facility] CONTROL WHO IN TURN TRANSFERRED ME TO [facility], [facility] NURSE. POTENTIAL TRANSFER FOR ENTEROCUTANEOUS FISTULA DISCUSSED WITH HER AND SHE REQUESTED A FACESHEET AND SET OF VITALS BE FAXED TO [phone]. INFORMATION WAS FAXED. WILL WAIT DETERMINATION CALL BACK BEFORE NOTIFYING FAMILY. DCP- Discharge Planning Updated by [id number]: Digna Isabel on 08/04/18 9:[address] Patient Name: SHEFALI MALDONADO Admission Status: ER Accout number: [id number] Admission Date: 07-27-2018 : 1950 Admission Diagnosis:WEAKNESS Attending: ERICKSON ESCALANTE Current LOS: 8 Anticipated DC Date: 08-06-2018 Planned Disposition: Home Primary Insurance: MEDICARE A & B Discharge Planning Comments: CM MET WITH PATIENT REGARDING D/C NEEDS AND PLANS. PATIENT STATED SOMEONE IN HER FAMILY WILL DRIVE HER HOME AT DISCHARGE. PATIENT STATED SHE HAS 3 STEPS TO ENTER HER HOME AND NO STAIRS INSIDE. PATIENT IS INDEPENDENT WITH HER CARE AND HAS NO DME AT HOME. PATIENTS PCP IS DR. ESCALANTE AND USES [facility] IN [place]. PATIENT REFUSED HOME HEALTH AT THIS TIME. IMM SERVED. CM WILL CONTINUE TO FOLLOW PATIENT WITH D/C NEEDS AND PLANS. PCP [facility] Rn Discharge: Digna Isabel DCP- Discharge Planning Updated by [id number]: Lisa Diaz on 07/28/18 5:[address] CM ATTEMPTED TO VISIT FOR INITIAL ASSESSMENT. PATIENT WAS HAVING CARE FROM RN. SHE IS ALERT AND ORIENTED. SHE WAS RECENTLY DISCHARGED FROM [facility]. SHE HAD DECLINED HOME HEALTH SERVICES OR SKILLED CARE. REPORTEDLY HAD [facility] IN THE PAST. PCP- DR ESCALANTE PHARMACY- [facility] IN [place]. NEPHROLOGY CONSULT THIS AM FOR ACUTE RENAL FAILURE AND ACUTE BILATERAL RENAL UROPATHY. CM TO FOLLOW DCPIA - Discharge Planning Initial Assessment Updated by [id number]: Digna Isabel on 08/04/18 10:46 am * Is the patient Alert and Oriented? Yes * How many steps to enter\exit or inside your home? * PCP DR. ESCALANTE * Pharmacy [facility] IN [place] * Preadmission Environment Home with Family * ADLs Independent * Equipment None * List name and contact numbers for known caregivers / representatives who currently or will assist patient after discharge: GEOVANI CARRILLO (DAUGHTER) [phone] * Verbal permission to speak to the caregivers and representatives has been obtained from the patient. Yes * Community resources currently utilized None * Additional services required to return to the preadmission environment? Yes * Can the patient safely return to the preadmission environment? Yes * Has this patient been hospitalized within the prior 30 days at any hospital? Yes Coverage Notice Reviewer: [id number] Carin Isabel Notice Issued Date-Time: 08/04/2018 8:55 Notice Type: Patient Choice Letter Notice Delivered To: Patient Relationship to Patient: Pastry Artist Name: Delivery Method: HAND - Hand Delivered Ebony Days: Prior Verbal Notification: Recipient Understood Notice: Yes Recipient Signature: Yes Med Rec Note Co-signed by Attending: Coverage Notice Comment: REFUSED HOME HEALTH FORM SIGNED Reviewer: [id number] Carin Isabel Notice Issued Date-Time: 08/04/2018 8:55 Notice Type: IM Discharge Notice Notice Delivered To: Patient Relationship to Patient: Pastry Artist Name: Delivery Method: HAND - Hand Delivered Ebony Days: Prior Verbal Notification: Recipient Understood Notice: Yes Recipient Signature: Yes Med Rec Note Co-signed by Attending: Coverage Notice Comment: Reviewer: [email or web address] Carin Streeter Notice Issued Date-Time: 08/14/2018 14:20 Notice Type: IM Discharge Notice Notice Delivered To: Patient Relationship to Patient: Pastry Artist Name: Delivery Method: HAND - Hand Delivered Ebony Days: Prior Verbal Notification: Recipient Understood Notice: Yes Recipient Signature: Yes Med Rec Note Co-signed by Attending: Coverage Notice Comment: Last DP export: 08/14/18 3:11 pm Patient Name: SHEFALI MALDONADO Page [id number] at 1634 All edits/amendments must be made on the electronic document DICTATION DATE: 08/14/18 1634 HOSPITAL MONITOR: BIENVENIDO 08/14/18 1634 RPT#: [id number] DC DATE:08/14/18 STATUS: DIS IN [facility] [address] [place] [address] END OF REPORT
--- NOTE | 2018-08-14 16:43 | MORECARE ---
CASE MANAGEMENT DISCHARGE SUMMARY PATIENT: SHEFALI MALDONADO UNIT: [id number] ADM DATE: 07/27/18 AGE: 68 : [birth year] SEX: F ROOM/BED: D.5552 AUTHOR: IVONE,DOC PHYSICIAN: REFERRING PHYSICIAN: ERICKSON ESCALANTE MD DATE OF SERVICE: 08/14/18 Discharge Plan Patient Name: SHEFALI MALDONADO Facility: [facility]:[place] : 1950 Planned Disposition: Home with Home Health Anticipated Discharge Date: 08/14/18 Discharge Date: 08/14/2018 Expected LOS: 18 Initial Reviewer: [id number] Initial Review Date: 08/04/2018 Generated: 08/14/18 5:42 pm Comments DCP- Discharge Planning Updated by [id number]: Kingsley Streeter on 08/14/18 3:[address] Patient Name: SHEFALI MALDONADO Encounter No: [id number] : 1950 Primary Insurance: MEDICARE A & B Anticipated DC Date: 08-14-2018 Planned Disposition: Home with Home Health External Planned Provider: [facility] DCP follow-up note: CM MET WITH PT, SON AND DAUGHER IN ROOM TO DISCUSS DISCHARGE NEEDS AND PLANNING. CM DISCUSSED AVAILABILITY OF HOME HEALTH, REHAB SERVICES AND MEDICAL EQUIPMENT. PT AND FAMILY REQUESTED HOME HEALTH. PROVIDER LISTING PROVIDED; PT CHOSE [facility] THEY HAVE THE HIGHEST RATING BY MEDICARE. CHOICE SIGNED. FAMILY TRANSPORT HOME AT DISCHARGE. PT DENIES FURTHER NEEDS, PT'S SON DAUGHTER REPORTS PLAN TO TAKE PT TO SEE ANOTHER DOCTOR WHEN THEY LEAVE HERE TODAY AND WILL NOTIFY HOME HEALTH IF PT IS ADMITTED TO ANOTHER HOSPITAL BEFORE GOING HOME. IMPORTANT MESSAGE FROM MEDICARE PROVIDED AND EXPLAINED. CM CALLED [facility], , SPOKE TO TASHA, REFERRAL PROVIDED, PT PLACED ON SCHEDULE FOR SUNDAY. CM FAXED REFERRAL AND DISCHARGE INFORMATION TO [facility] AT [phone]. PT AND FAMILY HAD DISCHARGED HOME PRIOR TO COMPLETION OF HOME HEALTH ARRANGEMENT. CM PROVIDED HOME HEALTH WITH PT'S DAUGHTERS' ALTERNATE CONTACT NUMBER OF [phone], FOR CONTACT. Kingsley Streeter, CASE MANAGEMENT DCP- Discharge Planning Updated by [id number]: Vi Flores on 08/14/18 12:[address] @1250, WHILE TALKING WITH SON AND DAUGHTER IN THE [place], DR GALLOWAY WALKED UP. CONVERSATION CONTINUED IN THE ROOM. THE DAUGHTER TALKED TO MARIA DEL CARMEN HERSELF, SHE STATED THATJC TOLD THEM TO DISCHARGE AND THEY COULD GO TO THE [facility] AND ASK THE ER DOCTOR TO CONSULT THEM, AND THIS IS WHAT THEY WANT TO DO AFTER QUESTIONING DR GALLOWAY. PT IS CURRENTLY ON OXYGEN AND DR GALLOWAY DID ASK IF SHE NEEDED IT. AFTER CONFIRMING THAT THE PATIENT WAS NOT ON HOME OXYGEN, I EXPLAINED THAT I WOULD TEST FOR OXYGEN NEEDS. UPON CLOSER INSPECTION, THE N/C WAS ON UPPER CHEEK BONE AND NOT IN THE NOSE. PER THE PROTABLE PULSEOX, PTS HR 88 AND SATS ON ROOM AIR 95%. I EXPLAINED TO THE FAMILY THAT SHE WOULD NOT NEED OXYGEN FOR DISCHARGE. THEY STATED UNDERSTANDING. @ 4906, I PLACED A CALL TO DR ESCALANTE'S OFFICE AND WAS TOLD THAT DR ESCALANTE WAS ROUNDING HERE IN THE HOSPITAL. I HAVE MADE AN ATTEMPT TO FIND HIM BY CALLING EACH UNIT. I HAVE EXPLAINED TO THE PATIENT AND HER CHILDREN THAT I HAVE NOT BEEN ABLE TO LOCATE DR ESCALANTE FOR DISCHARGE ORDERS AND THAT HIS OFFICE STATED HE WAS DOING ROUNDS IN THE HOSPITAL AND THERE IS A HIGH CHANCE THEY MAY SEE HIM BEFORE ME, AND IF THEY DID SEE HIM TO JUST LET HIM KNOW WHAT TRANSPIRED IN REGARDS TO GETTING THE PATIENT TO [facility]. I STATED THAT I WOULD CONTINUE TO TRY TO FIND HIM. I WALKED THE 2ND FLOOR AND CALLED EACH UNIT AND WAS UNSUCCESSFUL IN LOCATING DR ESCALANTE. I WILL CALL BACK SHORTLY. @ 3386 I PLACED A CALL TO JOHN AT [facility] AND LET HER KNOW WHAT THE DECISION WAS. SHE STATED THAT SHE WOULD GIVE THE ER A HEADS UP THAT THE PATIENT WAS COMING. DCP- Discharge Planning Updated by [id number]: Vi Flores on 08/14/18 11:[address] @ 7983, RECEIVED A VOICE MAIL FROM JOHN AT [facility]. SHE STATED IN HER MESSAGE THAT SHE SPOKE WITH MARIA DEL CARMEN, DR BLACK'S NURSE WHO STATED THAT DR BLACK HAS NOT TALKED TO DR ESCALANTE OR ANYONE ABOUT THIS PATIENT AND WILL NOT ADMIT THE PATIENT TO [facility]. SHE HAS REQUESTED I CALL HER BACK AT [phone]. @4613, I CALLED HER BACK. I EXPLAINED THAT I NEVER STATED HE HAS SPOKE WITH THE DOCTOR. THAT THE FAMILY HAD SAID THEY TALKED TO DR BLACK YESTERDAY AND THEY WERE TOLD THAT HE WOULD FOLLOW UP VS ADMIT THE PATIENT A TRANSFER THERE TO [facility] AND DR ESCALANTE HAD LEFT HIS NUMBER SO THE DOCTOR COULD CALL IF HE WANTED TO TALK TO HIM .I EXPLAINED AGAIN THAT DR BLACK HAS BEEN THE PATIENTS DOCTOR THROUGH [facility] AND THEY WANTED HIS OPINION BEFORE SURGERY AND HIM TO POSSIBLY DO THE SURGERY. SHE STATED THAT SHE WILL CALL MARIA DEL CARMEN BACK AND TALK TO HER ABOUT IT, BUT REQUESTED I SPEAK TO THE FAMILY BEFORE SHE DOES AND MAKE SURE THEY REALIZED THAT THIS IS A LATERAL TRANSFER AND MORE THAN LIKELY THE INSURANCE COMPANY WOULD NOT PAY AND THEY WOULD BE GERBER PAYING FOR THE TRANSFER AND SERVICES RENDERED. I EXPLAINED THAT I WOULD DISCUSS THIS THEM. SHE HAS REQUESTED THAT I CALL HER BACK WHEN THE FAMILY HAS MADE A DECISION. @1213, WENT IN THE ROOM TO DISCUSS THE ABOVE WITH THE PATIENT AND HER SON. BOTH HAVE STATED THEIR UNDERSTANDING AND HE HAS REQUESTED TIME TO DISCUSS WITH HIS SISTER BEFORE THEY MAKE A DECISION. I GAVE THEM MY CARD WITH MY CONTACT NUMBER CIRCLED AND WILL WAIT FOR A CALL BACK. I DO BELIEVE THAT THEY ARE LEANING TOWARD BEING DISCHARGED WITH A FOLLOW UP WITH DR BLACK AND ALLOWING HIM TO DECIDE WHAT TO DO AT THAT TIME. I WILL LET BOTH JOHN WITH [facility] AND DR ESCALANTE KNOW THE OUTCOME. DCP- Discharge Planning Updated by [id number]: Vi Flores on 08/14/18 10:[address] @0947, BEDSIDE NURSE PAM SANTOS CAME TO TELL ME THAT THE PATIENT WANTED TO TRANSFER TO [facility] TO DR BLACK, AND WE NEEDED TO WORK ON IT. I EXPLAINED THAT SHE WOULD NEED TO TALK TO DR ESCALANTE FIRST AND MAKE SURE HE WAS IN AGREEMENT. SHE STATED THAT SHE HAD ALREADY TALKED TO DR ESCALANTE AND HE WAS IN AGREEMENT WITH THE TRANSFER AND SAID HE WOULD TALK TO WHOEVER HE WANTED TO. @ 0951, CALLED AND SPOKE WITH DR ESCALANTE. HE IS IN AGREEMENT THAT THE PATIENT CAN TRANSFER PER THE FAMILIES WISHES FOR A SECOND OPINION FROM DR BLACK (WHO HAS WORKED ON THE PATIENT IN THE PAST). HE STATED THAT I NEEDED TO TALK TO THE DAUGHTER AND FIND OUT THE INFORMATION FROM HER BEFORE CALLING, AND HE GAVE ME HIS CELL NUMBER FOR DR BLACK TO CALL IF HE IS CONSIDERING TAKING THE PATIENT. @ 0958, I WENT INTO THE ROOM AND SPOKE WITH THE PATIENT AND HER SON. HE STATED THAT HE PERSONALLY SPOKE WITH DR BLACK AND THEY DISCUSSED THE OPTION OF DISCHARGE AND FOLLOW UP VS. TRANSFER. HE STATED THAT THE DOCTOR WOULD BE WILLING TO DO EITHER. I EXPLAINED I WOULD START ON THE POSSIBLE TRANSFER AFTER MY AM MEETING ENDED AROUND 1100 AND THEY WERE THANKFUL. @0817 RECEIVED ADMINISTRATIVE APPROVAL FROM CANDACE MARQUIS RN[employer]URANCE HEALTHC[employer] REPRESENTATIVE. @5882 PLACED CALL TO [facility] IN [place] ([phone]). THE RESPIRATORY COORDINATOR LOREN TRANSFERRED ME TO [facility] WHO IN TURN TRANSFERRED ME TO [facility], ACCESS NURSE. POTENTIAL TRANSFER FOR ENTEROCUTANEOUS FIST[place]A DISCUSSED WITH HER AND SHE REQUESTED A FACESHEET AND SET OF VITALS BE FAXED TO [phone]. INFORMATION WAS FAXED. WILL WAIT DETERMINATION CALL BACK BEFORE NOTIFYING FAMILY. DCP- Discharge Planning Updated by [id number]: Digna Isabel on 08/04/18 9:[address] Patient Name: SHEFALI MALDONADO Admission Status: ER Accout number: [id number] Admission Date: 07-27-2018 : 1950 Admission Diagnosis:WEAKNESS Attending: ERICKSON ESCALANTE Current LOS: 8 Anticipated DC Date: 08-06-2018 Planned Disposition: Home Primary Insurance: MEDICARE A & B Discharge Planning Comments: CM MET WITH PATIENT REGARDING D/C NEEDS AND PLANS. PATIENT STATED SOMEONE IN HER FAMILY WILL DRIVE HER HOME AT DISCHARGE. PATIENT STATED SHE HAS 3 STEPS TO ENTER HER HOME AND NO STAIRS INSIDE. PATIENT IS INDEPENDENT WITH HER CARE AND HAS NO DME AT HOME. PATIENTS PCP IS DR. ESCALANTE AND USES [facility] IN [place]. PATIENT REFUSED HOME HEALTH AT THIS TIME. IMM SERVED. CM WILL CONTINUE TO FOLLOW PATIENT WITH D/C NEEDS AND PLANS. PCP DR. ESCALANTE [facility] Cable Installation Manager: Digna Isabel DCP- Discharge Planning Updated by [id number]: Lisa Diaz on 07/28/18 5:[address] CM ATTEMPTED TO VISIT FOR INITIAL ASSESSMENT. PATIENT WAS HAVING CARE FROM RN. SHE IS ALERT AND ORIENTED. SHE WAS RECENTLY DISCHARGED FROM [facility]. SHE HAD DECLINED HOME HEALTH SERVICES OR SKILLED CARE. REPORTEDLY HAD [facility] IN THE PAST. PCP- DR ESCALANTE PHARMACY- [facility] IN [place]. NEPHROLOGY CONSULT THIS AM FOR ACUTE RENAL FAILURE AND ACUTE BILATERAL RENAL UROPATHY. CM TO FOLLOW DCPIA - Discharge Planning Initial Assessment Updated by [id number]: Digna Isabel on 08/04/18 10:46 am * Is the patient Alert and Oriented? Yes * How many steps to enter\exit or inside your home? * PCP DR. ESCALANTE * Pharmacy [facility] IN [place] * Preadmission Environment Home with Family * ADLs Independent * Equipment None * List name and contact numbers for known caregivers / representatives who currently or will assist patient after discharge: GEOVANI CARRILLO (DAUGHTER) [phone] * Verbal permission to speak to the caregivers and representatives has been obtained from the patient. Yes * Community resources currently utilized None * Additional services required to return to the preadmission environment? Yes * Can the patient safely return to the preadmission environment? Yes * Has this patient been hospitalized within the prior 30 days at any hospital? Yes Coverage Notice Reviewer: [email or web address] Carin Isabel Notice Issued Date-Time: 08/04/2018 8:55 Notice Type: Patient Choice Letter Notice Delivered To: Patient Relationship to Patient: Government Affairs Fellow Name: Delivery Method: HAND - Hand Delivered Ebony Days: Prior Verbal Notification: Recipient Understood Notice: Yes Recipient Signature: Yes Med Rec Note Co-signed by Attending: Coverage Notice Comment: REFUSED HOME HEALTH FORM SIGNED Reviewer: [id number] Carin Isabel Notice Issued Date-Time: 08/04/2018 8:55 Notice Type: IM Discharge Notice Notice Delivered To: Patient Relationship to Patient: Government Affairs Fellow Name: Delivery Method: HAND - Hand Delivered Ebony Days: Prior Verbal Notification: Recipient Understood Notice: Yes Recipient Signature: Yes Med Rec Note Co-signed by Attending: Coverage Notice Comment: Reviewer: [id number] - Kingsley Streeter Notice Issued Date-Time: 08/14/2018 14:20 Notice Type: IM Discharge Notice Notice Delivered To: Patient Relationship to Patient: Government Affairs Fellow Name: Delivery Method: HAND - Hand Delivered Ebony Days: Prior Verbal Notification: Recipient Understood Notice: Yes Recipient Signature: Yes Med Rec Note Co-signed by Attending: Coverage Notice Comment: Last DP export: 08/14/18 3:34 pm Patient Name: SHEFALI MALDONADO Page [id number] at 1643 All edits/amendments must be made on the electronic document DICTATION DATE: 08/14/181641 LOFTSMAN: BIENVENIDO 08/14/181641 RPT#: [id number] DC DATE:08/14/18 STATUS: DIS IN [facility] [address] [place] [address] END OF REPORT
== END 2018-08-14 16:21 | disposition home health service (06) | DRG 699 ==
LOC: D.ER 11:44 → D.EDHOLD 13:58 → D.M2 13:58
PROVIDERS: Emergency Medicine; Family Medicine; Internal Medicine Nephrology; ADMIT Family Medicine; ATTEND Family Medicine
DX: N13.9 Obstructive and reflux uropathy, unspecified (principal); N17.9 Acute kidney failure, unspecified; E87.1 Hypo-osmolality and hyponatremia; K63.2 Fistula of intestine; K43.6 Other and unspecified ventral hernia with obstruction, without gangrene; N30.90 Cystitis, unspecified without hematuria; E87.5 Hyperkalemia; G35 Multiple sclerosis; G47.30 Sleep apnea, unspecified; F32.9 Major depressive disorder, single episode, unspecified; F41.9 Anxiety disorder, unspecified; E03.9 Hypothyroidism, unspecified; R53.1 Weakness

== ENCOUNTER → 2018-12-11 20:07 | Outpatient (CLI) | payer MEDICARE ==
[2018-08-06 09:23] VITALS: BMI 29.5
[2018-12-11 20:36] LABS: ALBUMIN 1.6 g/dL (3.4-5.0); ALKALINE PHOSPHATASE 107 U/L (46-116); ALT (SGPT) 7 U/L (10-68); BILIRUBIN - TOTAL 0.34 mg/dL (0.2-1.3); CALC OSMOLALITY 277 mosm/kg (275-300); CALCIUM 8.1 mg/dL (8.5-10.1); CARBON DIOXIDE 29.2 mmol/L (21.0-32.0); CHLORIDE - SERUM 105 mmol/L (98-107); CREATININE - SERUM 0.5 mg/dL (0.6-1.3); GLUCOSE 74 mg/dL (74-106); MAGNESIUM - SERUM 1.3 mg/dL (1.8-2.4); PHOSPHOROUS 3.6 mg/dL (2.5-4.9); POTASSIUM - SERUM 3.7 mmol/L (3.5-5.1); PRE-ALBUMIN 9.7 mg/dL (18.0-35.7); PROTEIN - SERUM 5.7 g/dL (6.4-8.2); SODIUM 141 mmol/L (136-145); TRIGLYCERIDE 42 mg/dL (30-200); UREA NITROGEN 7 mg/dL (7-18); eGFR NON AFRICAN AMERICAN > 90 mL/min (90-120)
[2018-12-11 20:50] LABS: HEMATOCRIT 24.7 % (36.0-48.0); MCH 29.7 pg (26.0-34.0); MCHC 32.4 g/dL (31.0-37.0); MCV 91.8 fL (80.0-100.0); PLATELET COUNT 424 10x3/uL (130-400); RBC 2.69 10x6/uL (4.00-5.40); RDW 18.4 % (11.5-14.5); WBC 3.6 10x3/uL (4.8-10.8)
[2018-12-11 21:30] LABS: LYMPHOCYTES 44 % (15-50); MONOCYTES 6 % (2-11); NEUTROPHILS 50 % (40-80); PLATELET ESTIMATE NORMAL
== END | disposition home or self-care (01) ==
LOC: D.LABREF 20:07
PROVIDERS: ATTEND Surgery
DX: K63.2 Fistula of intestine (principal); Z43.1 Encounter for attention to gastrostomy; N18.9 Chronic kidney disease, unspecified; Z51.81 Encounter for therapeutic drug level monitoring; Z79.899 Other long term (current) drug therapy

== ENCOUNTER → 2018-12-17 13:46 | Outpatient (CLI) | payer MEDICARE ==
[2018-08-06 09:23] VITALS: BMI 29.5
[2018-12-17 14:05] LABS: BASOPHILS 0.5 % (0-2); EOSINOPHILS 1.4 % (0-7); HEMOGLOBIN 8.8 g/dL (12-16); IMMATURE GRANULOCYTES 0.2 % (0-5); LYMPHOCYTES 38.1 % (15-50); MCH 29.7 pg (26.0-34.0); MCHC 31.4 g/dL (31.0-37.0); MCV 94.6 fL (80.0-100.0); MEAN PLATELET VOLUME 10.4 fL (7.4-10.4); NEUTROPHILS 50.8 % (40-80); PLATELET COUNT 399 10x3/uL (130-400); RBC 2.96 10x6/uL (4.00-5.40); RDW 17.9 % (11.5-14.5); WBC 4.2 10x3/uL (4.8-10.8)
[2018-12-17 14:16] LABS: ALKALINE PHOSPHATASE 105 U/L (46-116); ALT (SGPT) 12 U/L (10-68); BILIRUBIN - TOTAL 0.46 mg/dL (0.2-1.3); CALC OSMOLALITY 278 mosm/kg (275-300); CALCIUM 8.1 mg/dL (8.5-10.1); CARBON DIOXIDE 30.2 mmol/L (21.0-32.0); CHLORIDE - SERUM 102 mmol/L (98-107); CREATININE - SERUM 0.6 mg/dL (0.6-1.3); GLUCOSE 83 mg/dL (74-106); MAGNESIUM - SERUM 1.6 mg/dL (1.8-2.4); PHOSPHOROUS 3.5 mg/dL (2.5-4.9); POTASSIUM - SERUM 3.6 mmol/L (3.5-5.1); PRE-ALBUMIN 11.2 mg/dL (18.0-35.7); PROTEIN - SERUM 6.4 g/dL (6.4-8.2); SODIUM 140 mmol/L (136-145); TRIGLYCERIDE 45 mg/dL (30-200); UREA NITROGEN 14 mg/dL (7-18); eGFR NON AFRICAN AMERICAN > 90 mL/min (90-120)
== END | disposition home or self-care (01) ==
LOC: D.LABREF 13:46
PROVIDERS: ATTEND Dermatology MOHS-Micrographic Surgery
DX: N18.9 Chronic kidney disease, unspecified (principal); K63.2 Fistula of intestine; Z51.89 Encounter for other specified aftercare

== ENCOUNTER → 2018-12-18 19:13 | Outpatient (CLI) | payer MEDICARE ==
[2018-08-06 09:23] VITALS: BMI 29.5
== END | disposition home or self-care (01) ==
LOC: D.LABREF 19:13
PROVIDERS: ATTEND Surgery
DX: N18.9 Chronic kidney disease, unspecified (principal); K63.2 Fistula of intestine; Z51.89 Encounter for other specified aftercare

== ENCOUNTER → 2019-01-14 16:00 | Outpatient (CLI) | payer MEDICARE ==
[2018-08-06 09:23] VITALS: BMI 29.5
[2019-01-14 16:13] LABS: BASOPHILS 0.5 % (0-2); EOSINOPHILS 5.3 % (0-7); HEMOGLOBIN 8.9 g/dL (12-16); IMMATURE GRANULOCYTES 0.2 % (0-5); LYMPHOCYTES 36.4 % (15-50); MCH 27.7 pg (26.0-34.0); MCHC 30.7 g/dL (31.0-37.0); MCV 90.3 fL (80.0-100.0); MONOCYTES 7.7 % (2-11); NEUTROPHILS 49.9 % (40-80); PLATELET COUNT 396 10x3/uL (130-400); RBC 3.21 10x6/uL (4.00-5.40); RDW 13.6 % (11.5-14.5); WBC 5.5 10x3/uL (4.8-10.8)
[2019-01-14 16:32] LABS: ALBUMIN 2.1 g/dL (3.4-5.0); ALKALINE PHOSPHATASE 149 U/L (46-116); ALT (SGPT) 12 U/L (10-68); BILIRUBIN - TOTAL 0.21 mg/dL (0.2-1.3); CALC OSMOLALITY 279 mosm/kg (275-300); CALCIUM 8.1 mg/dL (8.5-10.1); CARBON DIOXIDE 31.2 mmol/L (21.0-32.0); CHLORIDE - SERUM 105 mmol/L (98-107); CREATININE - SERUM 0.6 mg/dL (0.6-1.3); GLUCOSE 84 mg/dL (74-106); MAGNESIUM - SERUM 1.8 mg/dL (1.8-2.4); PHOSPHOROUS 4.1 mg/dL (2.5-4.9); POTASSIUM - SERUM 4.4 mmol/L (3.5-5.1); PROTEIN - SERUM 6.3 g/dL (6.4-8.2); SODIUM 140 mmol/L (136-145); TRIGLYCERIDE 51 mg/dL (30-200); UREA NITROGEN 19 mg/dL (7-18); eGFR NON AFRICAN AMERICAN > 90 mL/min (90-120)
[2019-01-14 16:36] LABS: PRE-ALBUMIN 17.1 mg/dL (18.0-35.7)
== END | disposition home or self-care (01) ==
LOC: D.LABREF 16:00
PROVIDERS: ATTEND Surgery
DX: K63.2 Fistula of intestine (principal); Z51.81 Encounter for therapeutic drug level monitoring; Z43.1 Encounter for attention to gastrostomy

== ENCOUNTER → 2019-01-20 19:27 | Outpatient (CLI) | payer MEDICARE ==
[2018-08-06 09:23] VITALS: BMI 29.5
[2019-01-20 19:43] LABS: BASOPHILS 0.6 % (0-2); EOSINOPHILS 2.5 % (0-7); HEMATOCRIT 30.8 % (36.0-48.0); HEMOGLOBIN 9.8 g/dL (12-16); IMMATURE GRANULOCYTES 0.1 % (0-5); LYMPHOCYTES 35.7 % (15-50); MCH 28.4 pg (26.0-34.0); MCHC 31.8 g/dL (31.0-37.0); MCV 89.3 fL (80.0-100.0); MEAN PLATELET VOLUME 10.2 fL (7.4-10.4); MONOCYTES 7.9 % (2-11); NEUTROPHILS 53.2 % (40-80); PLATELET COUNT 457 10x3/uL (130-400); RBC 3.45 10x6/uL (4.00-5.40); RDW 13.8 % (11.5-14.5); WBC 6.7 10x3/uL (4.8-10.8)
[2019-01-20 20:09] LABS: ALBUMIN 2.2 g/dL (3.4-5.0); ALKALINE PHOSPHATASE 131 U/L (46-116); ALT (SGPT) 9 U/L (10-68); BILIRUBIN - TOTAL 0.18 mg/dL (0.2-1.3); CALC OSMOLALITY 281 mosm/kg (275-300); CALCIUM 7.9 mg/dL (8.5-10.1); CARBON DIOXIDE 31.4 mmol/L (21.0-32.0); CHLORIDE - SERUM 105 mmol/L (98-107); CREATININE - SERUM 0.6 mg/dL (0.6-1.3); GLUCOSE 82 mg/dL (74-106); MAGNESIUM - SERUM 1.9 mg/dL (1.8-2.4); PHOSPHOROUS 3.9 mg/dL (2.5-4.9); POTASSIUM - SERUM 4.1 mmol/L (3.5-5.1); PRE-ALBUMIN 15.6 mg/dL (18.0-35.7); PROTEIN - SERUM 6.6 g/dL (6.4-8.2); SODIUM 141 mmol/L (136-145); TRIGLYCERIDE 67 mg/dL (30-200); UREA NITROGEN 17 mg/dL (7-18)
== END | disposition home or self-care (01) ==
LOC: D.LABREF 19:27
PROVIDERS: ATTEND Surgery
DX: K63.2 Fistula of intestine (principal); Z43.1 Encounter for attention to gastrostomy; K56.600 Partial intestinal obstruction, unspecified as to cause

== ENCOUNTER → 2019-02-10 14:51 | Outpatient (CLI) | payer MEDICARE ==
[2018-08-06 09:23] VITALS: BMI 29.5
[2019-02-10 15:56] LABS: BASOPHILS 0.6 % (0-2); EOSINOPHILS 5.3 % (0-7); HEMATOCRIT 28.2 % (36.0-48.0); HEMOGLOBIN 8.7 g/dL (12-16); IMMATURE GRANULOCYTES 0.2 % (0-5); LYMPHOCYTES 42.9 % (15-50); MCH 26.6 pg (26.0-34.0); MCHC 30.9 g/dL (31.0-37.0); MCV 86.2 fL (80.0-100.0); MEAN PLATELET VOLUME 10.9 fL (7.4-10.4); MONOCYTES 8.6 % (2-11); NEUTROPHILS 42.4 % (40-80); RBC 3.27 10x6/uL (4.00-5.40); RDW 14.3 % (11.5-14.5); WBC 5.1 10x3/uL (4.8-10.8)
[2019-02-10 16:12] LABS: PLATELET COUNT 325 10x3/uL (130-400)
[2019-02-10 16:45] LABS: ALBUMIN 2.1 g/dL (3.4-5.0); ALKALINE PHOSPHATASE 134 U/L (46-116); ALT (SGPT) 22 U/L (10-68); BILIRUBIN - TOTAL 0.17 mg/dL (0.2-1.3); CALC OSMOLALITY 283 mosm/kg (275-300); CALCIUM 7.7 mg/dL (8.5-10.1); CARBON DIOXIDE 31.5 mmol/L (21.0-32.0); CHLORIDE - SERUM 107 mmol/L (98-107); CREATININE - SERUM 0.6 mg/dL (0.6-1.3); GLUCOSE 89 mg/dL (74-106); MAGNESIUM - SERUM 1.8 mg/dL (1.8-2.4); PHOSPHOROUS 3.3 mg/dL (2.5-4.9); POTASSIUM - SERUM 4.5 mmol/L (3.5-5.1); PRE-ALBUMIN 16.7 mg/dL (18.0-35.7); PROTEIN - SERUM 5.9 g/dL (6.4-8.2); SODIUM 141 mmol/L (136-145); TRIGLYCERIDE 53 mg/dL (30-200); UREA NITROGEN 23 mg/dL (7-18); eGFR NON AFRICAN AMERICAN > 90 mL/min (90-120)
== END | disposition home or self-care (01) ==
LOC: D.LABREF 14:51
PROVIDERS: ATTEND Surgery
DX: K56.600 Partial intestinal obstruction, unspecified as to cause (principal)

== ENCOUNTER → 2019-02-12 16:35 | Outpatient (CLI) | payer MEDICARE ==
[2018-08-06 09:23] VITALS: BMI 29.5
[2019-02-12 17:16] LABS: APPEARANCE CLEAR (CLEAR); BILIRUBIN NEGATIVE (NEGATIVE); COLOR YELLOW (YELLOW); GLUCOSE NEGATIVE (NEGATIVE); KETONE NEGATIVE (NEGATIVE); NITRITE NEGATIVE (NEGATIVE); PROTEIN NEGATIVE (NEGATIVE); UROBILINOGEN NORMAL (NORMAL)
== END | disposition home or self-care (01) ==
LOC: D.LABREF 16:35
PROVIDERS: ATTEND Family Medicine
DX: M54.9 Dorsalgia, unspecified (principal); R30.0 Dysuria

== ENCOUNTER → 2019-02-17 17:25 | Outpatient (CLI) | payer MEDICARE ==
[2018-08-06 09:23] VITALS: BMI 29.5
[2019-02-17 17:34] LABS: BASOPHILS 0.2 % (0-2); EOSINOPHILS 4.4 % (0-7); HEMATOCRIT 26.8 % (36.0-48.0); HEMOGLOBIN 8.1 g/dL (12-16); IMMATURE GRANULOCYTES 0.2 % (0-5); LYMPHOCYTES 21.8 % (15-50); MCH 26.4 pg (26.0-34.0); MCHC 30.2 g/dL (31.0-37.0); MCV 87.3 fL (80.0-100.0); MONOCYTES 10.6 % (2-11); NEUTROPHILS 62.8 % (40-80); PLATELET COUNT 368 10x3/uL (130-400); RBC 3.07 10x6/uL (4.00-5.40); RDW 16.1 % (11.5-14.5); WBC 9.4 10x3/uL (4.8-10.8)
[2019-02-17 17:54] LABS: ALBUMIN 2.3 g/dL (3.4-5.0); ANION GAP 9.9 mmol/L (8-16); BILIRUBIN - TOTAL 0.24 mg/dL (0.2-1.3); CALCIUM 7.8 mg/dL (8.5-10.1); CREATININE - SERUM 1.2 mg/dL (0.6-1.3); MAGNESIUM - SERUM 3.2 mg/dL (1.8-2.4); PHOSPHOROUS 4.3 mg/dL (2.5-4.9); POTASSIUM - SERUM 3.9 mmol/L (3.5-5.1); PRE-ALBUMIN 13.6 mg/dL (18.0-35.7); PROTEIN - SERUM 6.2 g/dL (6.4-8.2)
== END | disposition home or self-care (01) ==
LOC: D.LABREF 17:25
PROVIDERS: ATTEND Surgery
DX: K66.0 Peritoneal adhesions (postprocedural) (postinfection) (principal); K63.2 Fistula of intestine

== ENCOUNTER → 2019-02-25 15:51 | Outpatient (CLI) | payer MEDICARE ==
[2018-08-06 09:23] VITALS: BMI 29.5
[2019-02-25 17:35] LABS: CALCIUM 8.4 mg/dL (8.5-10.1); PHOSPHOROUS 3.9 mg/dL (2.5-4.9)
[2019-02-25 17:37] LABS: PRE-ALBUMIN 18.9 mg/dL (18.0-35.7)
== END | disposition home or self-care (01) ==
LOC: D.LABREF 15:51
PROVIDERS: ATTEND Surgery
DX: K66.0 Peritoneal adhesions (postprocedural) (postinfection) (principal)

== ENCOUNTER → 2019-03-03 12:54 | Outpatient (CLI) | payer MEDICARE ==
[2018-08-06 09:23] VITALS: BMI 29.5
[2019-03-03 13:23] LABS: BASOPHILS 0.4 % (0-2); EOSINOPHILS 1.7 % (0-7); HEMATOCRIT 32.1 % (36.0-48.0); HEMOGLOBIN 9.6 g/dL (12-16); IMMATURE GRANULOCYTES 0.4 % (0-5); LYMPHOCYTES 29.9 % (15-50); MCH 25.4 pg (26.0-34.0); MCHC 29.9 g/dL (31.0-37.0); MCV 84.9 fL (80.0-100.0); MEAN PLATELET VOLUME 10.2 fL (7.4-10.4); MONOCYTES 8.2 % (2-11); NEUTROPHILS 59.4 % (40-80); RBC 3.78 10x6/uL (4.00-5.40); WBC 7.6 10x3/uL (4.8-10.8)
[2019-03-03 13:24] LABS: PLATELET COUNT 561 10x3/uL (130-400)
[2019-03-03 13:32] LABS: ALBUMIN 2.4 g/dL (3.4-5.0); ANION GAP 4.6 mmol/L (8-16); BILIRUBIN - TOTAL 0.34 mg/dL (0.2-1.3); CALCIUM 8.7 mg/dL (8.5-10.1); CREATININE - SERUM 0.9 mg/dL (0.6-1.3); MAGNESIUM - SERUM 2.1 mg/dL (1.8-2.4); PHOSPHOROUS 3.3 mg/dL (2.5-4.9); POTASSIUM - SERUM 3.5 mmol/L (3.5-5.1); PRE-ALBUMIN 17.8 mg/dL (18.0-35.7); PROTEIN - SERUM 7.2 g/dL (6.4-8.2)
[2019-03-03 13:42] LABS: CARBON DIOXIDE 44.9 mmol/L (21.0-32.0)
== END | disposition home or self-care (01) ==
LOC: D.LABREF 12:54
PROVIDERS: ATTEND Surgery
DX: G62.9 Polyneuropathy, unspecified (principal); K63.2 Fistula of intestine; N18.9 Chronic kidney disease, unspecified

== ENCOUNTER → 2019-03-10 16:18 | Outpatient (CLI) | payer MEDICARE ==
[2018-08-06 09:23] VITALS: BMI 29.5
[2019-03-10 16:33] LABS: BASOPHILS 0.3 % (0-2); EOSINOPHILS 7.1 % (0-7); HEMATOCRIT 31.3 % (36.0-48.0); HEMOGLOBIN 9.5 g/dL (12-16); IMMATURE GRANULOCYTES 0.3 % (0-5); LYMPHOCYTES 38.9 % (15-50); MCH 25.3 pg (26.0-34.0); MCHC 30.4 g/dL (31.0-37.0); MCV 83.2 fL (80.0-100.0); MEAN PLATELET VOLUME 9.8 fL (7.4-10.4); MONOCYTES 7.7 % (2-11); NEUTROPHILS 45.7 % (40-80); PLATELET COUNT 399 10x3/uL (130-400); RBC 3.76 10x6/uL (4.00-5.40); WBC 6.7 10x3/uL (4.8-10.8)
[2019-03-10 16:47] LABS: ALBUMIN 2.4 g/dL (3.4-5.0); ANION GAP 9.3 mmol/L (8-16); BILIRUBIN - TOTAL 0.21 mg/dL (0.2-1.3); CALCIUM 8.2 mg/dL (8.5-10.1); CARBON DIOXIDE 34.8 mmol/L (21.0-32.0); POTASSIUM - SERUM 4.1 mmol/L (3.5-5.1); PRE-ALBUMIN 17.7 mg/dL (18.0-35.7)
== END | disposition home or self-care (01) ==
LOC: D.LABREF 16:18
PROVIDERS: ATTEND Surgery
DX: K63.2 Fistula of intestine (principal); K66.0 Peritoneal adhesions (postprocedural) (postinfection); Z79.899 Other long term (current) drug therapy

== ENCOUNTER → 2019-03-17 18:45 | Outpatient (CLI) | payer MEDICARE ==
[2018-08-06 09:23] VITALS: BMI 29.5
[2019-03-17 19:01] LABS: BASOPHILS 0.4 % (0-2); EOSINOPHILS 2.9 % (0-7); HEMOGLOBIN 11.2 g/dL (12-16); IMMATURE GRANULOCYTES 0.3 % (0-5); LYMPHOCYTES 31.5 % (15-50); MCH 26.3 pg (26.0-34.0); MCHC 31.1 g/dL (31.0-37.0); MCV 84.5 fL (80.0-100.0); MEAN PLATELET VOLUME 10.6 fL (7.4-10.4); MONOCYTES 7.8 % (2-11); NEUTROPHILS 57.1 % (40-80); PLATELET COUNT 375 10x3/uL (130-400); RBC 4.26 10x6/uL (4.00-5.40); RDW 18.6 % (11.5-14.5); WBC 9.4 10x3/uL (4.8-10.8)
[2019-03-17 19:22] LABS: ALBUMIN 3.2 g/dL (3.4-5.0); ANION GAP 9.2 mmol/L (8-16); BILIRUBIN - TOTAL 0.31 mg/dL (0.2-1.3); CALCIUM 9.5 mg/dL (8.5-10.1); CREATININE - SERUM 1.1 mg/dL (0.6-1.3); MAGNESIUM - SERUM 2.4 mg/dL (1.8-2.4); PHOSPHOROUS 2.9 mg/dL (2.5-4.9); POTASSIUM - SERUM 3.8 mmol/L (3.5-5.1); PRE-ALBUMIN 19.3 mg/dL (18.0-35.7); PROTEIN - SERUM 8.8 g/dL (6.4-8.2)
[2019-03-17 19:44] LABS: CARBON DIOXIDE 40.6 mmol/L (21.0-32.0)
== END | disposition home or self-care (01) ==
LOC: D.LABREF 18:45
PROVIDERS: ATTEND Surgery
DX: Z79.899 Other long term (current) drug therapy (principal); K66.0 Peritoneal adhesions (postprocedural) (postinfection); K63.2 Fistula of intestine

== ENCOUNTER → 2019-03-24 18:36 | Outpatient (CLI) | payer MEDICARE ==
[2018-08-06 09:23] VITALS: BMI 29.5
[2019-03-24 18:58] LABS: BASOPHILS 0.3 % (0-2); EOSINOPHILS 0.8 % (0-7); HEMATOCRIT 33.7 % (36.0-48.0); HEMOGLOBIN 10.9 g/dL (12-16); IMMATURE GRANULOCYTES 0.1 % (0-5); LYMPHOCYTES 26.9 % (15-50); MCHC 32.3 g/dL (31.0-37.0); MCV 80.2 fL (80.0-100.0); MEAN PLATELET VOLUME 11.3 fL (7.4-10.4); MONOCYTES 10.4 % (2-11); NEUTROPHILS 61.5 % (40-80); PLATELET COUNT 445 10x3/uL (130-400); RDW 18.6 % (11.5-14.5); WBC 7.9 10x3/uL (4.8-10.8)
[2019-03-24 19:20] LABS: ALBUMIN 2.9 g/dL (3.4-5.0); ANION GAP 8.5 mmol/L (8-16); BILIRUBIN - TOTAL 0.53 mg/dL (0.2-1.3); CALCIUM 8.6 mg/dL (8.5-10.1); CARBON DIOXIDE 37.3 mmol/L (21.0-32.0); CREATININE - SERUM 2.3 mg/dL (0.6-1.3); MAGNESIUM - SERUM 2.5 mg/dL (1.8-2.4); PHOSPHOROUS 3.3 mg/dL (2.5-4.9); POTASSIUM - SERUM 3.8 mmol/L (3.5-5.1); PRE-ALBUMIN 18.9 mg/dL (18.0-35.7); PROTEIN - SERUM 7.9 g/dL (6.4-8.2)
== END | disposition home or self-care (01) ==
LOC: D.LABREF 18:36
PROVIDERS: ATTEND Surgery
DX: Z79.899 Other long term (current) drug therapy (principal); K66.0 Peritoneal adhesions (postprocedural) (postinfection); K63.2 Fistula of intestine

== ENCOUNTER → 2019-04-15 16:27 | Outpatient (CLI) | payer MEDICARE ==
[2018-08-06 09:23] VITALS: BMI 29.5
[2019-04-15 17:32] LABS: BASOPHILS 0.3 % (0-2); EOSINOPHILS 1.6 % (0-7); HEMATOCRIT 31.1 % (36.0-48.0); HEMOGLOBIN 9.7 g/dL (12-16); LYMPHOCYTES 34.8 % (15-50); MCH 25.4 pg (26.0-34.0); MCHC 31.2 g/dL (31.0-37.0); MCV 81.4 fL (80.0-100.0); MEAN PLATELET VOLUME 10.1 fL (7.4-10.4); MONOCYTES 8.4 % (2-11); NEUTROPHILS 54.9 % (40-80); PLATELET COUNT 406 10x3/uL (130-400); RBC 3.82 10x6/uL (4.00-5.40); RDW 20.2 % (11.5-14.5); WBC 6.3 10x3/uL (4.8-10.8)
[2019-04-15 17:48] LABS: ALBUMIN 2.3 g/dL (3.4-5.0); ANION GAP 11.8 mmol/L (8-16); BILIRUBIN - TOTAL 0.25 mg/dL (0.2-1.3); CALCIUM 8.3 mg/dL (8.5-10.1); CARBON DIOXIDE 31.9 mmol/L (21.0-32.0); CREATININE - SERUM 0.9 mg/dL (0.6-1.3); MAGNESIUM - SERUM 2.1 mg/dL (1.8-2.4); PHOSPHOROUS 3.2 mg/dL (2.5-4.9); PRE-ALBUMIN 16.9 mg/dL (18.0-35.7)
[2019-04-15 18:01] LABS: POTASSIUM - SERUM 2.7 mmol/L (3.5-5.1)
== END | disposition home or self-care (01) ==
LOC: D.LABREF 16:27
PROVIDERS: ATTEND Family Medicine
DX: K66.0 Peritoneal adhesions (postprocedural) (postinfection) (principal); L98.8 Other specified disorders of the skin and subcutaneous tissue; J85.3 Abscess of mediastinum

== ENCOUNTER → 2019-04-23 17:14 | Outpatient (CLI) | payer MEDICARE ==
[2018-08-06 09:23] VITALS: BMI 29.5
[2019-04-23 17:58] LABS: BASOPHILS 0.2 % (0-2); EOSINOPHILS 3.9 % (0-7); HEMATOCRIT 29.4 % (36.0-48.0); HEMOGLOBIN 9.3 g/dL (12-16); IMMATURE GRANULOCYTES 0.7 % (0-5); LYMPHOCYTES 34.5 % (15-50); MCH 25.5 pg (26.0-34.0); MCHC 31.6 g/dL (31.0-37.0); MCV 80.8 fL (80.0-100.0); MEAN PLATELET VOLUME 9.5 fL (7.4-10.4); MONOCYTES 9.5 % (2-11); NEUTROPHILS 51.2 % (40-80); PLATELET COUNT 471 10x3/uL (130-400); RBC 3.64 10x6/uL (4.00-5.40); RDW 19.5 % (11.5-14.5); WBC 8.1 10x3/uL (4.8-10.8)
[2019-04-23 18:49] LABS: ALBUMIN 2.4 g/dL (3.4-5.0); CREATININE - SERUM 0.7 mg/dL (0.6-1.3); POTASSIUM - SERUM 4.2 mmol/L (3.5-5.1); eGFR NON AFRICAN AMERICAN 88 mL/min (90-120)
[2019-04-23 18:51] LABS: ALKALINE PHOSPHATASE 180 U/L (46-116); ALT (SGPT) 70 U/L (10-68); BILIRUBIN - TOTAL 0.12 mg/dL (0.2-1.3); CALC OSMOLALITY 282 mosm/kg (275-300); CALCIUM 7.9 mg/dL (8.5-10.1); CARBON DIOXIDE 25.8 mmol/L (21.0-32.0); CHLORIDE - SERUM 105 mmol/L (98-107); MAGNESIUM - SERUM 2.1 mg/dL (1.8-2.4); PHOSPHOROUS 2.7 mg/dL (2.5-4.9); PRE-ALBUMIN 19.6 mg/dL (18.0-35.7); PROTEIN - SERUM 6.4 g/dL (6.4-8.2); SODIUM 140 mmol/L (136-145); TRIGLYCERIDE 83 mg/dL (30-200); UREA NITROGEN 27 mg/dL (7-18)
[2019-04-23 18:52] LABS: GLUCOSE 81 mg/dL (74-106)
== END | disposition home or self-care (01) ==
LOC: D.LABREF 17:14
PROVIDERS: ATTEND Family Medicine
DX: K56.50 Intestinal adhesions [bands], unspecified as to partial versus complete obstruction (principal); N13.9 Obstructive and reflux uropathy, unspecified; K63.2 Fistula of intestine; G35 Multiple sclerosis

== ENCOUNTER → 2019-05-07 16:18 | Outpatient (CLI) | payer MEDICARE ==
[2018-08-06 09:23] VITALS: BMI 29.5
[2019-05-07 17:16] LABS: ALBUMIN 2.3 g/dL (3.4-5.0); ALKALINE PHOSPHATASE 131 U/L (46-116); ALT (SGPT) 40 U/L (10-68); BILIRUBIN - TOTAL 0.21 mg/dL (0.2-1.3); CALC OSMOLALITY 280 mosm/kg (275-300); CALCIUM 8.1 mg/dL (8.5-10.1); CHLORIDE - SERUM 105 mmol/L (98-107); CREATININE - SERUM 0.8 mg/dL (0.6-1.3); GLUCOSE 96 mg/dL (74-106); MAGNESIUM - SERUM 1.9 mg/dL (1.8-2.4); PHOSPHOROUS 3.1 mg/dL (2.5-4.9); POTASSIUM - SERUM 4.5 mmol/L (3.5-5.1); PRE-ALBUMIN 21.2 mg/dL (18.0-35.7); PROTEIN - SERUM 6.4 g/dL (6.4-8.2); SODIUM 137 mmol/L (136-145); TRIGLYCERIDE 84 mg/dL (30-200); UREA NITROGEN 31 mg/dL (7-18); eGFR NON AFRICAN AMERICAN 75 mL/min (90-120)
== END | disposition home or self-care (01) ==
LOC: D.LABREF 16:18
PROVIDERS: ATTEND Family Medicine
DX: K56.50 Intestinal adhesions [bands], unspecified as to partial versus complete obstruction (principal); K63.2 Fistula of intestine

== ENCOUNTER → 2019-05-09 16:56 | Outpatient (CLI) | payer MEDICARE ==
[2018-08-06 09:23] VITALS: BMI 29.5
[2019-05-09 17:16] LABS: BASOPHILS 0.3 % (0-2); EOSINOPHILS 5.5 % (0-7); HEMATOCRIT 30.8 % (36.0-48.0); HEMOGLOBIN 9.8 g/dL (12-16); IMMATURE GRANULOCYTES 0.1 % (0-5); LYMPHOCYTES 26.9 % (15-50); MCHC 31.8 g/dL (31.0-37.0); MCV 81.7 fL (80.0-100.0); MEAN PLATELET VOLUME 10.3 fL (7.4-10.4); MONOCYTES 7.3 % (2-11); NEUTROPHILS 59.9 % (40-80); RBC 3.77 10x6/uL (4.00-5.40); RDW 18.3 % (11.5-14.5); WBC 7.9 10x3/uL (4.8-10.8)
[2019-05-09 17:52] LABS: PLATELET COUNT 314 10x3/uL (130-400)
== END | disposition home or self-care (01) ==
LOC: D.LABREF 16:56
PROVIDERS: ATTEND Family Medicine
DX: K63.2 Fistula of intestine (principal)

== ENCOUNTER → 2019-05-12 13:59 | Outpatient (CLI) | payer MEDICARE ==
[2018-08-06 09:23] VITALS: BMI 29.5
[2019-05-12 14:14] LABS: BASOPHILS 0.2 % (0-2); EOSINOPHILS 2.7 % (0-7); HEMATOCRIT 28.7 % (36.0-48.0); HEMOGLOBIN 9.2 g/dL (12-16); IMMATURE GRANULOCYTES 0.1 % (0-5); MCH 26.1 pg (26.0-34.0); MCHC 32.1 g/dL (31.0-37.0); MCV 81.3 fL (80.0-100.0); MEAN PLATELET VOLUME 10.3 fL (7.4-10.4); MONOCYTES 8.5 % (2-11); NEUTROPHILS 61.5 % (40-80); PLATELET COUNT 361 10x3/uL (130-400); RBC 3.53 10x6/uL (4.00-5.40); RDW 18.4 % (11.5-14.5); WBC 8.2 10x3/uL (4.8-10.8)
[2019-05-12 14:32] LABS: CALC OSMOLALITY 279 mosm/kg (275-300); CALCIUM 8.1 mg/dL (8.5-10.1); CARBON DIOXIDE 28.9 mmol/L (21.0-32.0); CHLORIDE - SERUM 103 mmol/L (98-107); CREATININE - SERUM 0.7 mg/dL (0.6-1.3); GLUCOSE 104 mg/dL (74-106); SODIUM 137 mmol/L (136-145); UREA NITROGEN 30 mg/dL (7-18); eGFR NON AFRICAN AMERICAN 88 mL/min (90-120)
[2019-05-12 14:35] LABS: ALBUMIN 2.3 g/dL (3.4-5.0); ALKALINE PHOSPHATASE 118 U/L (30-120); ALT (SGPT) 19 U/L (10-68); BILIRUBIN - TOTAL 0.19 mg/dL (0.2-1.3); MAGNESIUM - SERUM 1.8 mg/dL (1.8-2.4); PHOSPHOROUS 3.8 mg/dL (2.5-4.9); PROTEIN - SERUM 6.3 g/dL (6.4-8.2); TRIGLYCERIDE 45 mg/dL (30-200)
== END | disposition home or self-care (01) ==
LOC: D.LABREF 13:59
PROVIDERS: ATTEND Family Medicine
DX: K56.50 Intestinal adhesions [bands], unspecified as to partial versus complete obstruction (principal); K63.2 Fistula of intestine; N18.9 Chronic kidney disease, unspecified

== ENCOUNTER → 2019-05-15 18:28 | Outpatient (CLI) | payer MEDICARE ==
[2018-08-06 09:23] VITALS: BMI 29.5
[2019-05-15 18:37] LABS: BASOPHILS 0.3 % (0-2); EOSINOPHILS 1.5 % (0-7); HEMATOCRIT 31.7 % (36.0-48.0); HEMOGLOBIN 10.1 g/dL (12-16); IMMATURE GRANULOCYTES 0.3 % (0-5); LYMPHOCYTES 35.3 % (15-50); MCH 25.8 pg (26.0-34.0); MCHC 31.9 g/dL (31.0-37.0); MCV 81.1 fL (80.0-100.0); MEAN PLATELET VOLUME 10.3 fL (7.4-10.4); MONOCYTES 9.7 % (2-11); NEUTROPHILS 52.9 % (40-80); PLATELET COUNT 397 10x3/uL (130-400); RBC 3.91 10x6/uL (4.00-5.40); RDW 18.2 % (11.5-14.5); WBC 6.7 10x3/uL (4.8-10.8)
[2019-05-15 18:51] LABS: ALBUMIN 2.5 g/dL (3.4-5.0); ALKALINE PHOSPHATASE 130 U/L (30-120); ALT (SGPT) 17 U/L (10-68); BILIRUBIN - TOTAL 0.18 mg/dL (0.2-1.3); CALC OSMOLALITY 253 mosm/kg (275-300); CARBON DIOXIDE 29.6 mmol/L (21.0-32.0); CHLORIDE - SERUM 98 mmol/L (98-107); CREATININE - SERUM 0.7 mg/dL (0.6-1.3); GLUCOSE 98 mg/dL (74-106); MAGNESIUM - SERUM 1.7 mg/dL (1.8-2.4); PHOSPHOROUS 3.6 mg/dL (2.5-4.9); POTASSIUM - SERUM 4.4 mmol/L (3.5-5.1); PRE-ALBUMIN 17.2 mg/dL (18.0-35.7); PROTEIN - SERUM 6.8 g/dL (6.4-8.2); SODIUM 123 mmol/L (136-145); TRIGLYCERIDE 84 mg/dL (30-200); UREA NITROGEN 28 mg/dL (7-18); eGFR NON AFRICAN AMERICAN 88 mL/min (90-120)
== END | disposition home or self-care (01) ==
LOC: D.LABREF 18:28
PROVIDERS: ATTEND Family Medicine
DX: K56.50 Intestinal adhesions [bands], unspecified as to partial versus complete obstruction (principal); K63.2 Fistula of intestine

== ENCOUNTER 2019-05-16 13:31 | Emergency (ER) | payer MEDICARE ==
[~2019-05-16] VITALS: Ht 160 cm; Wt 65.9 kg
[2019-05-16 13:43] VITALS: Ht 160 cm; Wt 65.9 kg
[2019-05-16 14:30] LABS: BASOPHILS 0.2 % (0-2); CALC OSMOLALITY 281 mosm/kg (275-300); CALCIUM 7.9 mg/dL (8.5-10.1); CHLORIDE - SERUM 103 mmol/L (98-107); CREATININE - SERUM 0.7 mg/dL (0.6-1.3); EOSINOPHILS 2.2 % (0-7); GLUCOSE 97 mg/dL (74-106); HEMOGLOBIN 9.8 g/dL (12-16); IMMATURE GRANULOCYTES 0.1 % (0-5); LYMPHOCYTES 33.1 % (15-50); MCH 25.9 pg (26.0-34.0); MCHC 31.6 g/dL (31.0-37.0); MCV 81.8 fL (80.0-100.0); MEAN PLATELET VOLUME 9.4 fL (7.4-10.4); MONOCYTES 9.9 % (2-11); NEUTROPHILS 54.5 % (40-80); PLATELET COUNT 363 10x3/uL (130-400); POTASSIUM - SERUM 4.4 mmol/L (3.5-5.1); RBC 3.79 10x6/uL (4.00-5.40); SODIUM 138 mmol/L (136-145); UREA NITROGEN 29 mg/dL (7-18); eGFR NON AFRICAN AMERICAN 88 mL/min (90-120)
[2019-05-16 14:34] LABS: ALBUMIN 2.3 g/dL (3.4-5.0); ALKALINE PHOSPHATASE 123 U/L (30-120); ALT (SGPT) 19 U/L (10-68); AMYLASE - SERUM 34 U/L (25-115); PROTEIN - SERUM 6.5 g/dL (6.4-8.2); TROPONIN-I 0.033 ng/mL (0.000-0.060)
[2019-05-16 14:35] LABS: LIPASE 42 U/L (73-393)
[2019-05-16 14:37] LABS: WBC 8.5 10x3/uL (4.8-10.8)
[2019-05-16 15:38] LABS: C-REACTIVE PROTEIN 4.3 mg/dL (0.0-0.9); MAGNESIUM - SERUM 1.8 mg/dL (1.8-2.4)
[2019-05-16 16:02] LABS: APPEARANCE CLEAR (CLEAR); BILIRUBIN NEGATIVE (NEGATIVE); COLOR YELLOW (YELLOW); GLUCOSE NEGATIVE (NEGATIVE); KETONE NEGATIVE (NEGATIVE); NITRITE POSITIVE (NEGATIVE); PROTEIN NEGATIVE (NEGATIVE); UROBILINOGEN NORMAL (NORMAL)
[2019-05-16 16:03] LABS: BACTERIA MODERATE /hpf (NEGATIVE); EPITHELIAL CELLS 0-5 /hpf (0-5); RED CELLS - URINE 0-5 /hpf (0-5); WHITE CELLS - URINE 0-5 /hpf (NEGATIVE)
[2019-05-16 21:24] VITALS: BP 112/60
== END 2019-05-16 21:26 | disposition other institution (70) ==
LOC: D.ER 13:31
PROVIDERS: Family Medicine
DX: K56.7 Ileus, unspecified (principal); R10.9 Unspecified abdominal pain; N39.0 Urinary tract infection, site not specified; K94.23 Gastrostomy malfunction; G35 Multiple sclerosis; E07.9 Disorder of thyroid, unspecified

== ENCOUNTER → 2019-06-05 16:35 | Outpatient (CLI) | payer MEDICARE ==
[2019-05-16 13:43] VITALS: BMI 25.7
[2019-06-05 16:44] LABS: BASOPHILS 0.3 % (0-2); EOSINOPHILS 2.3 % (0-7); HEMATOCRIT 29.7 % (36.0-48.0); HEMOGLOBIN 9.4 g/dL (12-16); IMMATURE GRANULOCYTES 0.2 % (0-5); LYMPHOCYTES 44.1 % (15-50); MCH 25.6 pg (26.0-34.0); MCHC 31.6 g/dL (31.0-37.0); MCV 80.9 fL (80.0-100.0); MEAN PLATELET VOLUME 10.1 fL (7.4-10.4); MONOCYTES 11.9 % (2-11); NEUTROPHILS 41.2 % (40-80); PLATELET COUNT 401 10x3/uL (130-400); RBC 3.67 10x6/uL (4.00-5.40); RDW 16.5 % (11.5-14.5); WBC 5.7 10x3/uL (4.8-10.8)
[2019-06-05 17:38] LABS: ALBUMIN 2.2 g/dL (3.4-5.0); ALKALINE PHOSPHATASE 107 U/L (30-120); ALT (SGPT) 14 U/L (10-68); BILIRUBIN - TOTAL 0.13 mg/dL (0.2-1.3); CALC OSMOLALITY 280 mosm/kg (275-300); CALCIUM 8.4 mg/dL (8.5-10.1); CARBON DIOXIDE 37.3 mmol/L (21.0-32.0); CHLORIDE - SERUM 100 mmol/L (98-107); CREATININE - SERUM 0.7 mg/dL (0.6-1.3); GLUCOSE 103 mg/dL (74-106); MAGNESIUM - SERUM 2.2 mg/dL (1.8-2.4); PHOSPHOROUS 3.7 mg/dL (2.5-4.9); PRE-ALBUMIN 12.3 mg/dL (18.0-35.7); PROTEIN - SERUM 6.4 g/dL (6.4-8.2); SODIUM 140 mmol/L (136-145); TRIGLYCERIDE 63 mg/dL (30-200); UREA NITROGEN 18 mg/dL (7-18); eGFR NON AFRICAN AMERICAN 88 mL/min (90-120)
== END | disposition home or self-care (01) ==
LOC: D.LABREF 16:35
PROVIDERS: ATTEND Family Medicine
DX: K56.50 Intestinal adhesions [bands], unspecified as to partial versus complete obstruction (principal); K63.2 Fistula of intestine; R19.7 Diarrhea, unspecified; Z79.899 Other long term (current) drug therapy

== ENCOUNTER → 2019-06-30 13:34 | Outpatient (CLI) | payer MEDICARE ==
[2019-05-16 13:43] VITALS: BMI 25.7
[2019-06-30 13:59] LABS: BASOPHILS 0.2 % (0-2); HEMATOCRIT 26.4 % (36.0-48.0); HEMOGLOBIN 8.3 g/dL (12-16); LYMPHOCYTES 27.9 % (15-50); MCH 25.6 pg (26.0-34.0); MCHC 31.4 g/dL (31.0-37.0); MCV 81.5 fL (80.0-100.0); MEAN PLATELET VOLUME 9.8 fL (7.4-10.4); MONOCYTES 5.7 % (2-11); NEUTROPHILS 61.2 % (40-80); PLATELET COUNT 355 10x3/uL (130-400); RBC 3.24 10x6/uL (4.00-5.40); RDW 18.2 % (11.5-14.5); WBC 5.6 10x3/uL (4.8-10.8)
[2019-06-30 14:01] LABS: CALC OSMOLALITY 276 mosm/kg (275-300); CALCIUM 7.9 mg/dL (8.5-10.1); CARBON DIOXIDE 28.1 mmol/L (21.0-32.0); CHLORIDE - SERUM 104 mmol/L (98-107); CREATININE - SERUM 0.7 mg/dL (0.6-1.3); GLUCOSE 81 mg/dL (74-106); POTASSIUM - SERUM 4.4 mmol/L (3.5-5.1); SODIUM 138 mmol/L (136-145); UREA NITROGEN 17 mg/dL (7-18); eGFR NON AFRICAN AMERICAN 88 mL/min (90-120)
[2019-06-30 14:07] LABS: ALBUMIN 2.1 g/dL (3.4-5.0); ALKALINE PHOSPHATASE 117 U/L (30-120); ALT (SGPT) 18 U/L (10-68); BILIRUBIN - TOTAL 0.26 mg/dL (0.2-1.3); MAGNESIUM - SERUM 1.8 mg/dL (1.8-2.4); PRE-ALBUMIN 16.2 mg/dL (18.0-35.7); PROTEIN - SERUM 5.5 g/dL (6.4-8.2); TRIGLYCERIDE 53 mg/dL (30-200); VANCOMYCIN - TROUGH 14.3 ug/mL (10.0-20.0)
== END | disposition home or self-care (01) ==
LOC: D.LABREF 13:34
PROVIDERS: ATTEND Family Medicine
DX: K56.50 Intestinal adhesions [bands], unspecified as to partial versus complete obstruction (principal); R78.81 Bacteremia

== ENCOUNTER → 2019-07-03 12:29 | Outpatient (CLI) | payer MEDICARE ==
[2019-05-16 13:43] VITALS: BMI 25.7
[2019-07-03 14:14] LABS: BASOPHILS 0.3 % (0-2); EOSINOPHILS 3.5 % (0-7); HEMATOCRIT 28.3 % (36.0-48.0); HEMOGLOBIN 8.6 g/dL (12-16); IMMATURE GRANULOCYTES 0.1 % (0-5); LYMPHOCYTES 29.6 % (15-50); MCH 25.1 pg (26.0-34.0); MCHC 30.4 g/dL (31.0-37.0); MCV 82.5 fL (80.0-100.0); MEAN PLATELET VOLUME 10.1 fL (7.4-10.4); MONOCYTES 6.2 % (2-11); NEUTROPHILS 60.3 % (40-80); PLATELET COUNT 410 10x3/uL (130-400); RBC 3.43 10x6/uL (4.00-5.40); RDW 18.6 % (11.5-14.5); WBC 7.8 10x3/uL (4.8-10.8)
[2019-07-03 14:15] LABS: CALC OSMOLALITY 280 mosm/kg (275-300); CALCIUM 8.2 mg/dL (8.5-10.1); CARBON DIOXIDE 27.5 mmol/L (21.0-32.0); CHLORIDE - SERUM 103 mmol/L (98-107); CREATININE - SERUM 0.7 mg/dL (0.6-1.3); GLUCOSE 102 mg/dL (74-106); POTASSIUM - SERUM 4.3 mmol/L (3.5-5.1); SODIUM 139 mmol/L (136-145); UREA NITROGEN 21 mg/dL (7-18); eGFR NON AFRICAN AMERICAN 88 mL/min (90-120)
[2019-07-03 14:23] LABS: ALBUMIN 2.3 g/dL (3.4-5.0); ALKALINE PHOSPHATASE 101 U/L (30-120); ALT (SGPT) 16 U/L (10-68); BILIRUBIN - TOTAL 0.35 mg/dL (0.2-1.3); MAGNESIUM - SERUM 1.6 mg/dL (1.8-2.4); PHOSPHOROUS 3.6 mg/dL (2.5-4.9); PRE-ALBUMIN 16.1 mg/dL (18.0-35.7); TRIGLYCERIDE 62 mg/dL (30-200)
== END | disposition home or self-care (01) ==
LOC: D.LABREF 12:29
PROVIDERS: ATTEND Family Medicine
DX: K56.50 Intestinal adhesions [bands], unspecified as to partial versus complete obstruction (principal); R78.81 Bacteremia; K63.2 Fistula of intestine

== ENCOUNTER → 2019-07-07 13:04 | Outpatient (CLI) | payer MEDICARE ==
[2019-05-16 13:43] VITALS: BMI 25.7
[2019-07-07 13:31] LABS: CREATININE - SERUM 0.7 mg/dL (0.6-1.3); VANCOMYCIN - TROUGH 7.1 ug/mL (10.0-20.0)
== END | disposition home or self-care (01) ==
LOC: D.LABREF 13:04
PROVIDERS: ATTEND Family Medicine
DX: Z79.2 Long term (current) use of antibiotics (principal)

== ENCOUNTER → 2019-07-10 14:06 | Outpatient (CLI) | payer MEDICARE ==
[2019-05-16 13:43] VITALS: BMI 25.7
[2019-07-10 14:31] LABS: ALBUMIN 2.6 g/dL (3.4-5.0); ALKALINE PHOSPHATASE 142 U/L (30-120); ALT (SGPT) 17 U/L (10-68); BILIRUBIN - TOTAL 0.21 mg/dL (0.2-1.3); CALC OSMOLALITY 275 mosm/kg (275-300); CALCIUM 8.1 mg/dL (8.5-10.1); CARBON DIOXIDE 27.2 mmol/L (21.0-32.0); CHLORIDE - SERUM 100 mmol/L (98-107); CREATININE - SERUM 0.7 mg/dL (0.6-1.3); GLUCOSE 91 mg/dL (74-106); POTASSIUM - SERUM 4.8 mmol/L (3.5-5.1); PROTEIN - SERUM 6.9 g/dL (6.4-8.2); SODIUM 136 mmol/L (136-145); TRIGLYCERIDE 46 mg/dL (30-200); UREA NITROGEN 24 mg/dL (7-18); eGFR NON AFRICAN AMERICAN 88 mL/min (90-120)
[2019-07-10 14:39] LABS: BASOPHILS 0.2 % (0-2); HEMATOCRIT 32.6 % (36.0-48.0); HEMOGLOBIN 9.8 g/dL (12-16); IMMATURE GRANULOCYTES 0.3 % (0-5); LYMPHOCYTES 17.9 % (15-50); MCH 24.6 pg (26.0-34.0); MCHC 30.1 g/dL (31.0-37.0); MCV 81.9 fL (80.0-100.0); MEAN PLATELET VOLUME 10.4 fL (7.4-10.4); MONOCYTES 8.1 % (2-11); NEUTROPHILS 71.5 % (40-80); PLATELET COUNT 481 10x3/uL (130-400); RBC 3.98 10x6/uL (4.00-5.40); RDW 18.1 % (11.5-14.5); WBC 10.5 10x3/uL (4.8-10.8)
== END | disposition home or self-care (01) ==
LOC: D.LABREF 14:06
PROVIDERS: ATTEND Family Medicine
DX: K56.50 Intestinal adhesions [bands], unspecified as to partial versus complete obstruction (principal); R78.81 Bacteremia; K63.2 Fistula of intestine

== ENCOUNTER → 2019-07-17 12:49 | Outpatient (CLI) | payer MEDICARE ==
[2019-05-16 13:43] VITALS: BMI 25.7
[2019-07-17 13:07] LABS: BASOPHILS 0.7 % (0-2); EOSINOPHILS 3.7 % (0-7); HEMATOCRIT 35.2 % (36.0-48.0); HEMOGLOBIN 10.5 g/dL (12-16); IMMATURE GRANULOCYTES 0.3 % (0-5); LYMPHOCYTES 24.5 % (15-50); MCH 24.9 pg (26.0-34.0); MCHC 29.8 g/dL (31.0-37.0); MCV 83.6 fL (80.0-100.0); MEAN PLATELET VOLUME 10.1 fL (7.4-10.4); MONOCYTES 6.5 % (2-11); NEUTROPHILS 64.3 % (40-80); PLATELET COUNT 572 10x3/uL (130-400); RBC 4.21 10x6/uL (4.00-5.40); RDW 17.6 % (11.5-14.5); WBC 8.7 10x3/uL (4.8-10.8)
[2019-07-17 13:19] LABS: ALBUMIN 2.7 g/dL (3.4-5.0); ANION GAP 9.9 mmol/L (8-16); BILIRUBIN - TOTAL 0.16 mg/dL (0.2-1.3); CARBON DIOXIDE 31.3 mmol/L (21.0-32.0); CREATININE - SERUM 1.1 mg/dL (0.6-1.3); MAGNESIUM - SERUM 1.7 mg/dL (1.8-2.4); PHOSPHOROUS 4.6 mg/dL (2.5-4.9); POTASSIUM - SERUM 4.2 mmol/L (3.5-5.1); PRE-ALBUMIN 18.2 mg/dL (18.0-35.7); PROTEIN - SERUM 7.1 g/dL (6.4-8.2)
== END | disposition home or self-care (01) ==
LOC: D.LABREF 12:49
PROVIDERS: ATTEND Family Medicine
DX: Z79.899 Other long term (current) drug therapy (principal); K56.50 Intestinal adhesions [bands], unspecified as to partial versus complete obstruction; R78.81 Bacteremia; K63.2 Fistula of intestine

== ENCOUNTER → 2019-07-24 14:38 | Outpatient (CLI) | payer MEDICARE ==
[2019-05-16 13:43] VITALS: BMI 25.7
[2019-07-24 15:15] LABS: BASOPHILS 0.5 % (0-2); EOSINOPHILS 3.5 % (0-7); IMMATURE GRANULOCYTES 0.3 % (0-5); LYMPHOCYTES 32.6 % (15-50); MCH 25.3 pg (26.0-34.0); MCHC 30.3 g/dL (31.0-37.0); MCV 83.5 fL (80.0-100.0); MEAN PLATELET VOLUME 10.9 fL (7.4-10.4); NEUTROPHILS 56.1 % (40-80); RBC 3.95 10x6/uL (4.00-5.40); RDW 17.9 % (11.5-14.5)
[2019-07-24 15:23] LABS: PLATELET COUNT 344 10x3/uL (130-400)
[2019-07-24 15:33] LABS: ALBUMIN 2.5 g/dL (3.4-5.0); ANION GAP 9.1 mmol/L (8-16); BILIRUBIN - TOTAL 0.21 mg/dL (0.2-1.3); MAGNESIUM - SERUM 1.9 mg/dL (1.8-2.4); POTASSIUM - SERUM 4.1 mmol/L (3.5-5.1); PRE-ALBUMIN 15.3 mg/dL (18.0-35.7); PROTEIN - SERUM 6.7 g/dL (6.4-8.2)
== END | disposition home or self-care (01) ==
LOC: D.LABREF 14:38
PROVIDERS: ATTEND Family Medicine
DX: Z79.899 Other long term (current) drug therapy (principal); K56.50 Intestinal adhesions [bands], unspecified as to partial versus complete obstruction; T82.7XXA Infection and inflammatory reaction due to other cardiac and vascular devices, implants and grafts, initial encounter; K63.2 Fistula of intestine

== ENCOUNTER → 2019-07-31 14:42 | Outpatient (CLI) | payer MEDICARE ==
[2019-05-16 13:43] VITALS: BMI 25.7
[2019-07-31 15:01] LABS: BASOPHILS 1.1 % (0-2); EOSINOPHILS 4.4 % (0-7); HEMATOCRIT 31.7 % (36.0-48.0); HEMOGLOBIN 9.5 g/dL (12-16); IMMATURE GRANULOCYTES 0.2 % (0-5); LYMPHOCYTES 32.6 % (15-50); MCH 24.9 pg (26.0-34.0); MCV 83.2 fL (80.0-100.0); MEAN PLATELET VOLUME 10.4 fL (7.4-10.4); MONOCYTES 9.3 % (2-11); NEUTROPHILS 52.4 % (40-80); PLATELET COUNT 353 10x3/uL (130-400); RBC 3.81 10x6/uL (4.00-5.40); RDW 18.1 % (11.5-14.5); WBC 5.4 10x3/uL (4.8-10.8)
[2019-07-31 15:10] LABS: ALBUMIN 2.4 g/dL (3.4-5.0); ALKALINE PHOSPHATASE 198 U/L (30-120); ALT (SGPT) 21 U/L (10-68); BILIRUBIN - TOTAL 0.15 mg/dL (0.2-1.3); CALC OSMOLALITY 278 mosm/kg (275-300); CALCIUM 7.8 mg/dL (8.5-10.1); CARBON DIOXIDE 28.9 mmol/L (21.0-32.0); CHLORIDE - SERUM 102 mmol/L (98-107); CREATININE - SERUM 0.7 mg/dL (0.6-1.3); GLUCOSE 96 mg/dL (74-106); MAGNESIUM - SERUM 1.8 mg/dL (1.8-2.4); PHOSPHOROUS 3.3 mg/dL (2.5-4.9); POTASSIUM - SERUM 4.1 mmol/L (3.5-5.1); PRE-ALBUMIN 13.8 mg/dL (18.0-35.7); PROTEIN - SERUM 6.4 g/dL (6.4-8.2); SODIUM 138 mmol/L (136-145); TRIGLYCERIDE 60 mg/dL (30-200); UREA NITROGEN 20 mg/dL (7-18); eGFR NON AFRICAN AMERICAN 88 mL/min (90-120)
== END | disposition home or self-care (01) ==
LOC: D.LABREF 14:42
PROVIDERS: ATTEND Family Medicine
DX: Z79.899 Other long term (current) drug therapy (principal); K56.50 Intestinal adhesions [bands], unspecified as to partial versus complete obstruction; T82.7XXA Infection and inflammatory reaction due to other cardiac and vascular devices, implants and grafts, initial encounter; K63.2 Fistula of intestine

== ENCOUNTER → 2019-08-07 11:45 | Outpatient (CLI) | payer MEDICARE ==
[2019-05-16 13:43] VITALS: BMI 25.7
[2019-08-07 17:27] LABS: BASOPHILS 0.1 % (0-2); EOSINOPHILS 6.7 % (0-7); HEMATOCRIT 32.9 % (36.0-48.0); HEMOGLOBIN 9.9 g/dL (12-16); IMMATURE GRANULOCYTES 0.1 % (0-5); LYMPHOCYTES 28.8 % (15-50); MCH 24.8 pg (26.0-34.0); MCHC 30.1 g/dL (31.0-37.0); MCV 82.3 fL (80.0-100.0); MEAN PLATELET VOLUME 10.8 fL (7.4-10.4); MONOCYTES 9.6 % (2-11); NEUTROPHILS 54.7 % (40-80); PLATELET COUNT 407 10x3/uL (130-400); RDW 18.2 % (11.5-14.5); WBC 6.7 10x3/uL (4.8-10.8)
[2019-08-07 17:42] LABS: ALBUMIN 2.4 g/dL (3.4-5.0); BILIRUBIN - TOTAL 0.19 mg/dL (0.2-1.3); CALCIUM 7.8 mg/dL (8.5-10.1); CARBON DIOXIDE 35.2 mmol/L (21.0-32.0); CREATININE - SERUM 0.9 mg/dL (0.6-1.3); MAGNESIUM - SERUM 2.3 mg/dL (1.8-2.4); PHOSPHOROUS 3.1 mg/dL (2.5-4.9); POTASSIUM - SERUM 3.2 mmol/L (3.5-5.1); PROTEIN - SERUM 6.6 g/dL (6.4-8.2)
[2019-08-07 17:53] LABS: PRE-ALBUMIN 10.9 mg/dL (18.0-35.7)
== END | disposition home or self-care (01) ==
LOC: D.LABREF 11:45
PROVIDERS: ATTEND Family Medicine
DX: Z79.899 Other long term (current) drug therapy (principal); K56.50 Intestinal adhesions [bands], unspecified as to partial versus complete obstruction; T82.7XXA Infection and inflammatory reaction due to other cardiac and vascular devices, implants and grafts, initial encounter; K63.2 Fistula of intestine

== ENCOUNTER → 2019-08-14 09:45 | Outpatient (CLI) | payer MEDICARE ==
[2019-05-16 13:43] VITALS: BMI 25.7
[2019-08-14 15:10] LABS: BASOPHILS 0.7 % (0-2); EOSINOPHILS 4.2 % (0-7); HEMATOCRIT 31.3 % (36.0-48.0); HEMOGLOBIN 9.7 g/dL (12-16); LYMPHOCYTES 37.1 % (15-50); MCH 25.3 pg (26.0-34.0); MCV 81.5 fL (80.0-100.0); MEAN PLATELET VOLUME 9.9 fL (7.4-10.4); MONOCYTES 8.5 % (2-11); NEUTROPHILS 49.5 % (40-80); PLATELET COUNT 381 10x3/uL (130-400); RBC 3.84 10x6/uL (4.00-5.40); RDW 17.6 % (11.5-14.5); WBC 5.5 10x3/uL (4.8-10.8)
[2019-08-14 15:41] LABS: ALBUMIN 2.2 g/dL (3.4-5.0); ALKALINE PHOSPHATASE 208 U/L (30-120); ALT (SGPT) 15 U/L (10-68); BILIRUBIN - TOTAL 0.18 mg/dL (0.2-1.3); CALC OSMOLALITY 276 mosm/kg (275-300); CALCIUM 7.9 mg/dL (8.5-10.1); CARBON DIOXIDE 28.6 mmol/L (21.0-32.0); CHLORIDE - SERUM 102 mmol/L (98-107); CREATININE - SERUM 0.7 mg/dL (0.6-1.3); GLUCOSE 93 mg/dL (74-106); MAGNESIUM - SERUM 1.7 mg/dL (1.8-2.4); PHOSPHOROUS 3.4 mg/dL (2.5-4.9); POTASSIUM - SERUM 3.9 mmol/L (3.5-5.1); PRE-ALBUMIN 11.2 mg/dL (18.0-35.7); PROTEIN - SERUM 6.3 g/dL (6.4-8.2); SODIUM 137 mmol/L (136-145); TRIGLYCERIDE 54 mg/dL (30-200); UREA NITROGEN 21 mg/dL (7-18); eGFR NON AFRICAN AMERICAN 88 mL/min (90-120)
== END | disposition home or self-care (01) ==
LOC: D.LABREF 09:45
PROVIDERS: ATTEND Family Medicine
DX: K56.50 Intestinal adhesions [bands], unspecified as to partial versus complete obstruction (principal); Z79.899 Other long term (current) drug therapy; T82.7XXA Infection and inflammatory reaction due to other cardiac and vascular devices, implants and grafts, initial encounter; K63.2 Fistula of intestine

== ENCOUNTER → 2019-08-21 17:07 | Outpatient (CLI) | payer MEDICARE ==
[2019-05-16 13:43] VITALS: BMI 25.7
[2019-08-21 17:48] LABS: BASOPHILS 0.6 % (0-2); EOSINOPHILS 4.2 % (0-7); HEMATOCRIT 30.3 % (36.0-48.0); HEMOGLOBIN 9.2 g/dL (12-16); IMMATURE GRANULOCYTES 0.2 % (0-5); LYMPHOCYTES 40.8 % (15-50); MCH 24.7 pg (26.0-34.0); MCHC 30.4 g/dL (31.0-37.0); MCV 81.5 fL (80.0-100.0); MEAN PLATELET VOLUME 11.2 fL (7.4-10.4); MONOCYTES 9.2 % (2-11); PLATELET COUNT 309 10x3/uL (130-400); RBC 3.72 10x6/uL (4.00-5.40); RDW 17.8 % (11.5-14.5); WBC 4.8 10x3/uL (4.8-10.8)
[2019-08-21 18:06] LABS: ALBUMIN 2.1 g/dL (3.4-5.0); ALKALINE PHOSPHATASE 165 U/L (30-120); ALT (SGPT) 11 U/L (10-68); BILIRUBIN - TOTAL 0.13 mg/dL (0.2-1.3); CALC OSMOLALITY 274 mosm/kg (275-300); CALCIUM 7.7 mg/dL (8.5-10.1); CARBON DIOXIDE 26.6 mmol/L (21.0-32.0); CHLORIDE - SERUM 105 mmol/L (98-107); CREATININE - SERUM 0.8 mg/dL (0.6-1.3); GLUCOSE 83 mg/dL (74-106); MAGNESIUM - SERUM 1.8 mg/dL (1.8-2.4); PHOSPHOROUS 3.2 mg/dL (2.5-4.9); POTASSIUM - SERUM 4.3 mmol/L (3.5-5.1); PRE-ALBUMIN 13.5 mg/dL (18.0-35.7); PROTEIN - SERUM 6.5 g/dL (6.4-8.2); SODIUM 136 mmol/L (136-145); TRIGLYCERIDE 56 mg/dL (30-200); UREA NITROGEN 25 mg/dL (7-18); eGFR NON AFRICAN AMERICAN 75 mL/min (90-120)
== END | disposition home or self-care (01) ==
LOC: D.LABREF 17:07
PROVIDERS: ATTEND Family Medicine
DX: R78.81 Bacteremia (principal); K56.50 Intestinal adhesions [bands], unspecified as to partial versus complete obstruction

== ENCOUNTER → 2019-08-28 15:15 | Outpatient (CLI) | payer MEDICARE ==
[2019-05-16 13:43] VITALS: BMI 25.7
[2019-08-28 20:50] LABS: BASOPHILS 0.5 % (0-2); EOSINOPHILS 1.9 % (0-7); HEMATOCRIT 31.9 % (36.0-48.0); HEMOGLOBIN 9.7 g/dL (12-16); IMMATURE GRANULOCYTES 0.2 % (0-5); LYMPHOCYTES 47.3 % (15-50); MCH 24.7 pg (26.0-34.0); MCHC 30.4 g/dL (31.0-37.0); MCV 81.4 fL (80.0-100.0); MEAN PLATELET VOLUME 10.5 fL (7.4-10.4); MONOCYTES 8.2 % (2-11); NEUTROPHILS 41.9 % (40-80); RBC 3.92 10x6/uL (4.00-5.40); RDW 17.9 % (11.5-14.5); WBC 5.9 10x3/uL (4.8-10.8)
[2019-08-28 20:51] LABS: PLATELET COUNT 385 10x3/uL (130-400)
[2019-08-28 21:10] LABS: ALBUMIN 2.4 g/dL (3.4-5.0); ANION GAP 12.9 mmol/L (8-16); BILIRUBIN - TOTAL 0.25 mg/dL (0.2-1.3); CALCIUM 8.1 mg/dL (8.5-10.1); CARBON DIOXIDE 25.4 mmol/L (21.0-32.0); CREATININE - SERUM 0.9 mg/dL (0.6-1.3); MAGNESIUM - SERUM 1.9 mg/dL (1.8-2.4); PHOSPHOROUS 3.4 mg/dL (2.5-4.9); POTASSIUM - SERUM 4.3 mmol/L (3.5-5.1); PRE-ALBUMIN 12.3 mg/dL (18.0-35.7); PROTEIN - SERUM 6.8 g/dL (6.4-8.2)
== END | disposition home or self-care (01) ==
LOC: D.LABREF 15:15
PROVIDERS: ATTEND Family Medicine
DX: Z79.899 Other long term (current) drug therapy (principal); K56.50 Intestinal adhesions [bands], unspecified as to partial versus complete obstruction; T82.7XXA Infection and inflammatory reaction due to other cardiac and vascular devices, implants and grafts, initial encounter; K63.2 Fistula of intestine

== ENCOUNTER → 2019-09-04 11:24 | Outpatient (CLI) | payer MEDICARE ==
[2019-05-16 13:43] VITALS: BMI 25.7
[2019-09-04 12:45] LABS: BASOPHILS 0.4 % (0-2); EOSINOPHILS 4.6 % (0-7); HEMATOCRIT 32.1 % (36.0-48.0); IMMATURE GRANULOCYTES 0.2 % (0-5); LYMPHOCYTES 38.7 % (15-50); MCH 25.3 pg (26.0-34.0); MCHC 31.2 g/dL (31.0-37.0); MCV 81.3 fL (80.0-100.0); MEAN PLATELET VOLUME 10.6 fL (7.4-10.4); NEUTROPHILS 48.1 % (40-80); PLATELET COUNT 400 10x3/uL (130-400); RBC 3.95 10x6/uL (4.00-5.40); RDW 18.4 % (11.5-14.5); WBC 5.6 10x3/uL (4.8-10.8)
[2019-09-04 12:58] LABS: ALBUMIN 2.1 g/dL (3.4-5.0); ALKALINE PHOSPHATASE 203 U/L (30-120); ALT (SGPT) 17 U/L (10-68); BILIRUBIN - TOTAL 0.18 mg/dL (0.2-1.3); CALC OSMOLALITY 271 mosm/kg (275-300); CALCIUM 8.1 mg/dL (8.5-10.1); CARBON DIOXIDE 29.7 mmol/L (21.0-32.0); CHLORIDE - SERUM 104 mmol/L (98-107); CREATININE - SERUM 0.8 mg/dL (0.6-1.3); GLUCOSE 107 mg/dL (74-106); MAGNESIUM - SERUM 1.9 mg/dL (1.8-2.4); PHOSPHOROUS 3.4 mg/dL (2.5-4.9); POTASSIUM - SERUM 3.8 mmol/L (3.5-5.1); PRE-ALBUMIN 11.6 mg/dL (18.0-35.7); PROTEIN - SERUM 6.3 g/dL (6.4-8.2); SODIUM 135 mmol/L (136-145); TRIGLYCERIDE 46 mg/dL (30-200); UREA NITROGEN 18 mg/dL (7-18); eGFR NON AFRICAN AMERICAN 75 mL/min (90-120)
== END | disposition home or self-care (01) ==
LOC: D.LABREF 11:24
PROVIDERS: ATTEND Family Medicine
DX: Z79.899 Other long term (current) drug therapy (principal); K56.50 Intestinal adhesions [bands], unspecified as to partial versus complete obstruction; T82.7XXA Infection and inflammatory reaction due to other cardiac and vascular devices, implants and grafts, initial encounter; K63.2 Fistula of intestine

== ENCOUNTER → 2019-09-11 14:00 | Outpatient (CLI) | payer MEDICARE ==
[2019-05-16 13:43] VITALS: BMI 25.7
[2019-09-11 17:58] LABS: BASOPHILS 0.5 % (0-2); EOSINOPHILS 5.1 % (0-7); HEMATOCRIT 31.2 % (36.0-48.0); HEMOGLOBIN 9.7 g/dL (12-16); IMMATURE GRANULOCYTES 0.2 % (0-5); LYMPHOCYTES 36.7 % (15-50); MCH 25.8 pg (26.0-34.0); MCHC 31.1 g/dL (31.0-37.0); MEAN PLATELET VOLUME 10.6 fL (7.4-10.4); MONOCYTES 8.7 % (2-11); NEUTROPHILS 48.8 % (40-80); PLATELET COUNT 363 10x3/uL (130-400); RBC 3.76 10x6/uL (4.00-5.40); RDW 19.3 % (11.5-14.5); WBC 6.1 10x3/uL (4.8-10.8)
[2019-09-11 18:11] LABS: ALBUMIN 2.4 g/dL (3.4-5.0); ANION GAP 9.9 mmol/L (8-16); BILIRUBIN - TOTAL 0.16 mg/dL (0.2-1.3); CALCIUM 8.2 mg/dL (8.5-10.1); CARBON DIOXIDE 27.4 mmol/L (21.0-32.0); CREATININE - SERUM 0.9 mg/dL (0.6-1.3); MAGNESIUM - SERUM 1.8 mg/dL (1.8-2.4); POTASSIUM - SERUM 4.3 mmol/L (3.5-5.1); PRE-ALBUMIN 14.3 mg/dL (18.0-35.7); PROTEIN - SERUM 6.5 g/dL (6.4-8.2)
== END | disposition home or self-care (01) ==
LOC: D.LABREF 14:00
PROVIDERS: ATTEND Family Medicine
DX: Z79.899 Other long term (current) drug therapy (principal); K56.50 Intestinal adhesions [bands], unspecified as to partial versus complete obstruction; T82.7XXA Infection and inflammatory reaction due to other cardiac and vascular devices, implants and grafts, initial encounter; K63.2 Fistula of intestine

== ENCOUNTER → 2019-09-18 19:56 | Outpatient (CLI) | payer MEDICARE ==
[2019-05-16 13:43] VITALS: BMI 25.7
== END | disposition home or self-care (01) ==
LOC: D.LABREF 19:56
PROVIDERS: ATTEND Family Medicine
DX: Z79.899 Other long term (current) drug therapy (principal); K56.50 Intestinal adhesions [bands], unspecified as to partial versus complete obstruction; T82.7XXA Infection and inflammatory reaction due to other cardiac and vascular devices, implants and grafts, initial encounter; K63.2 Fistula of intestine

== ENCOUNTER → 2019-10-01 18:25 | Outpatient (CLI) | payer MEDICARE ==
[2019-05-16 13:43] VITALS: BMI 25.7
[2019-10-01 22:51] LABS: BASOPHILS 0.7 % (0-2); EOSINOPHILS 3.8 % (0-7); HEMOGLOBIN 10.5 g/dL (12-16); IMMATURE GRANULOCYTES 0.2 % (0-5); LYMPHOCYTES 43.1 % (15-50); MCH 25.8 pg (26.0-34.0); MCHC 30.9 g/dL (31.0-37.0); MCV 83.5 fL (80.0-100.0); MEAN PLATELET VOLUME 10.7 fL (7.4-10.4); MONOCYTES 8.3 % (2-11); NEUTROPHILS 43.9 % (40-80); PLATELET COUNT 383 10x3/uL (130-400); RBC 4.07 10x6/uL (4.00-5.40); WBC 6.1 10x3/uL (4.8-10.8)
[2019-10-01 23:10] LABS: ALBUMIN 2.5 g/dL (3.4-5.0); ANION GAP 7.3 mmol/L (8-16); BILIRUBIN - TOTAL 0.14 mg/dL (0.2-1.3); CALCIUM 7.9 mg/dL (8.5-10.1); CARBON DIOXIDE 30.8 mmol/L (21.0-32.0); MAGNESIUM - SERUM 1.7 mg/dL (1.8-2.4); PHOSPHOROUS 3.9 mg/dL (2.5-4.9); POTASSIUM - SERUM 4.1 mmol/L (3.5-5.1); PRE-ALBUMIN 10.3 mg/dL (18.0-35.7); PROTEIN - SERUM 6.7 g/dL (6.4-8.2)
== END | disposition home or self-care (01) ==
LOC: D.LABREF 18:25
PROVIDERS: ATTEND Family Medicine
DX: Z79.899 Other long term (current) drug therapy (principal); K56.50 Intestinal adhesions [bands], unspecified as to partial versus complete obstruction; T82.7XXA Infection and inflammatory reaction due to other cardiac and vascular devices, implants and grafts, initial encounter; K63.2 Fistula of intestine

== ENCOUNTER → 2019-10-09 19:38 | Outpatient (CLI) | payer MEDICARE ==
[2019-05-16 13:43] VITALS: BMI 25.7
[2019-10-09 19:47] LABS: BASOPHILS 0.4 % (0-2); EOSINOPHILS 2.5 % (0-7); HEMATOCRIT 32.8 % (36.0-48.0); HEMOGLOBIN 10.2 g/dL (12-16); IMMATURE GRANULOCYTES 0.2 % (0-5); LYMPHOCYTES 42.4 % (15-50); MCH 25.7 pg (26.0-34.0); MCHC 31.1 g/dL (31.0-37.0); MCV 82.6 fL (80.0-100.0); MEAN PLATELET VOLUME 10.6 fL (7.4-10.4); MONOCYTES 7.6 % (2-11); NEUTROPHILS 46.9 % (40-80); PLATELET COUNT 339 10x3/uL (130-400); RBC 3.97 10x6/uL (4.00-5.40); RDW 16.9 % (11.5-14.5); WBC 5.7 10x3/uL (4.8-10.8)
[2019-10-09 20:03] LABS: ALBUMIN 2.4 g/dL (3.4-5.0); ALKALINE PHOSPHATASE 240 U/L (30-120); ALT (SGPT) 24 U/L (10-68); BILIRUBIN - TOTAL 0.23 mg/dL (0.2-1.3); CALC OSMOLALITY 269 mosm/kg (275-300); CALCIUM 8.1 mg/dL (8.5-10.1); CARBON DIOXIDE 35.2 mmol/L (21.0-32.0); CHLORIDE - SERUM 98 mmol/L (98-107); CREATININE - SERUM 0.7 mg/dL (0.6-1.3); GLUCOSE 86 mg/dL (74-106); MAGNESIUM - SERUM 1.9 mg/dL (1.8-2.4); PHOSPHOROUS 3.2 mg/dL (2.5-4.9); POTASSIUM - SERUM 3.3 mmol/L (3.5-5.1); PRE-ALBUMIN 11.7 mg/dL (18.0-35.7); PROTEIN - SERUM 6.3 g/dL (6.4-8.2); SODIUM 134 mmol/L (136-145); TRIGLYCERIDE 54 mg/dL (30-200); UREA NITROGEN 20 mg/dL (7-18); eGFR NON AFRICAN AMERICAN 88 mL/min (90-120)
== END | disposition home or self-care (01) ==
LOC: D.LABREF 19:38
PROVIDERS: ATTEND Family Medicine
DX: K56.50 Intestinal adhesions [bands], unspecified as to partial versus complete obstruction (principal); K59.8 Other specified functional intestinal disorders; K63.2 Fistula of intestine

== ENCOUNTER → 2019-10-16 15:24 | Outpatient (CLI) | payer MEDICARE ==
[2019-05-16 13:43] VITALS: BMI 25.7
[2019-10-16 17:44] LABS: BASOPHILS 0.6 % (0-2); EOSINOPHILS 3.3 % (0-7); HEMATOCRIT 32.5 % (36.0-48.0); LYMPHOCYTES 36.8 % (15-50); MCH 26.2 pg (26.0-34.0); MCHC 30.8 g/dL (31.0-37.0); MCV 85.3 fL (80.0-100.0); MEAN PLATELET VOLUME 10.8 fL (7.4-10.4); MONOCYTES 8.1 % (2-11); NEUTROPHILS 51.2 % (40-80); PLATELET COUNT 306 10x3/uL (130-400); RBC 3.81 10x6/uL (4.00-5.40); RDW 17.8 % (11.5-14.5); WBC 4.8 10x3/uL (4.8-10.8)
[2019-10-16 18:39] LABS: ALBUMIN 2.1 g/dL (3.4-5.0); ALKALINE PHOSPHATASE 226 U/L (30-120); ALT (SGPT) 25 U/L (10-68); BILIRUBIN - TOTAL 0.22 mg/dL (0.2-1.3); CALC OSMOLALITY 281 mosm/kg (275-300); CALCIUM 7.7 mg/dL (8.5-10.1); CARBON DIOXIDE 29.9 mmol/L (21.0-32.0); CHLORIDE - SERUM 103 mmol/L (98-107); CREATININE - SERUM 0.6 mg/dL (0.6-1.3); GLUCOSE 93 mg/dL (74-106); MAGNESIUM - SERUM 1.9 mg/dL (1.8-2.4); PHOSPHOROUS 2.5 mg/dL (2.5-4.9); POTASSIUM - SERUM 3.3 mmol/L (3.5-5.1); PRE-ALBUMIN 9.6 mg/dL (18.0-35.7); PROTEIN - SERUM 5.6 g/dL (6.4-8.2); SODIUM 140 mmol/L (136-145); TRIGLYCERIDE 38 mg/dL (30-200); UREA NITROGEN 22 mg/dL (7-18); eGFR NON AFRICAN AMERICAN > 90 mL/min (90-120)
== END | disposition home or self-care (01) ==
LOC: D.LABREF 15:24
PROVIDERS: ATTEND Family Medicine
DX: K56.50 Intestinal adhesions [bands], unspecified as to partial versus complete obstruction (principal); K59.8 Other specified functional intestinal disorders; Z51.81 Encounter for therapeutic drug level monitoring

== ENCOUNTER → 2019-10-23 12:15 | Outpatient (CLI) | payer MEDICARE ==
[2019-05-16 13:43] VITALS: BMI 25.7
[2019-10-23 17:43] LABS: BASOPHILS 0.4 % (0-2); HEMATOCRIT 31.3 % (36.0-48.0); HEMOGLOBIN 9.8 g/dL (12-16); LYMPHOCYTES 36.1 % (15-50); MCH 26.3 pg (26.0-34.0); MCHC 31.3 g/dL (31.0-37.0); MCV 84.1 fL (80.0-100.0); MONOCYTES 11.4 % (2-11); NEUTROPHILS 50.1 % (40-80); RBC 3.72 10x6/uL (4.00-5.40); RDW 17.6 % (11.5-14.5); WBC 5.1 10x3/uL (4.8-10.8)
[2019-10-23 17:46] LABS: PLATELET COUNT 389 10x3/uL (130-400)
[2019-10-23 17:58] LABS: ALBUMIN 2.2 g/dL (3.4-5.0); ALKALINE PHOSPHATASE 200 U/L (30-120); ALT (SGPT) 19 U/L (10-68); BILIRUBIN - TOTAL 0.19 mg/dL (0.2-1.3); CALC OSMOLALITY 276 mosm/kg (275-300); CARBON DIOXIDE 32.5 mmol/L (21.0-32.0); CHLORIDE - SERUM 97 mmol/L (98-107); CREATININE - SERUM 0.8 mg/dL (0.6-1.3); GLUCOSE 90 mg/dL (74-106); MAGNESIUM - SERUM 1.9 mg/dL (1.8-2.4); PHOSPHOROUS 2.5 mg/dL (2.5-4.9); POTASSIUM - SERUM 3.6 mmol/L (3.5-5.1); PRE-ALBUMIN 10.8 mg/dL (18.0-35.7); PROTEIN - SERUM 6.1 g/dL (6.4-8.2); SODIUM 136 mmol/L (136-145); TRIGLYCERIDE 65 mg/dL (30-200); UREA NITROGEN 26 mg/dL (7-18); eGFR NON AFRICAN AMERICAN 75 mL/min (90-120)
== END | disposition home or self-care (01) ==
LOC: D.LABREF 12:15
PROVIDERS: ATTEND Family Medicine
DX: K56.50 Intestinal adhesions [bands], unspecified as to partial versus complete obstruction (principal); K59.8 Other specified functional intestinal disorders; K63.2 Fistula of intestine; N18.9 Chronic kidney disease, unspecified

== ENCOUNTER → 2019-10-31 03:36 | Outpatient (CLI) | payer MEDICARE ==
[2019-05-16 13:43] VITALS: BMI 25.7
[2019-10-31 03:42] LABS: HEMATOCRIT 35.9 % (36.0-48.0); HEMOGLOBIN 10.7 g/dL (12-16); LYMPHOCYTES 24.6 % (15-50); MCHC 29.8 g/dL (31.0-37.0); MCV 87.3 fL (80.0-100.0); MEAN PLATELET VOLUME 10.6 fL (7.4-10.4); NEUTROPHILS 60.5 % (40-80); PLATELET COUNT 355 10x3/uL (130-400); RBC 4.11 10x6/uL (4.00-5.40); RDW 18.2 % (11.5-14.5); WBC 5.5 10x3/uL (4.8-10.8)
[2019-10-31 03:58] LABS: ALBUMIN 2.4 g/dL (3.4-5.0); ANION GAP 12.8 mmol/L (8-16); BILIRUBIN - TOTAL 0.21 mg/dL (0.2-1.3); CALCIUM 7.8 mg/dL (8.5-10.1); CARBON DIOXIDE 28.5 mmol/L (21.0-32.0); CREATININE - SERUM 0.9 mg/dL (0.6-1.3); MAGNESIUM - SERUM 1.9 mg/dL (1.8-2.4); PHOSPHOROUS 3.5 mg/dL (2.5-4.9); POTASSIUM - SERUM 3.3 mmol/L (3.5-5.1); PRE-ALBUMIN 12.1 mg/dL (18.0-35.7); PROTEIN - SERUM 6.4 g/dL (6.4-8.2)
== END | disposition home or self-care (01) ==
LOC: D.LABREF 03:36
PROVIDERS: ATTEND Family Medicine
DX: K56.50 Intestinal adhesions [bands], unspecified as to partial versus complete obstruction (principal); T82.7XXA Infection and inflammatory reaction due to other cardiac and vascular devices, implants and grafts, initial encounter; K63.2 Fistula of intestine; Z79.899 Other long term (current) drug therapy

== ENCOUNTER → 2019-11-06 14:07 | Outpatient (CLI) | payer MEDICARE ==
[2019-05-16 13:43] VITALS: BMI 25.7
[2019-11-06 14:21] LABS: BASOPHILS 0.3 % (0-2); EOSINOPHILS 2.3 % (0-7); HEMATOCRIT 33.7 % (36.0-48.0); HEMOGLOBIN 10.6 g/dL (12-16); IMMATURE GRANULOCYTES 0.2 % (0-5); LYMPHOCYTES 29.8 % (15-50); MCH 26.8 pg (26.0-34.0); MCHC 31.5 g/dL (31.0-37.0); MCV 85.3 fL (80.0-100.0); MEAN PLATELET VOLUME 10.2 fL (7.4-10.4); MONOCYTES 5.8 % (2-11); NEUTROPHILS 61.6 % (40-80); PLATELET COUNT 400 10x3/uL (130-400); RBC 3.95 10x6/uL (4.00-5.40); RDW 17.3 % (11.5-14.5); WBC 6.6 10x3/uL (4.8-10.8)
[2019-11-06 14:38] LABS: ALBUMIN 2.5 g/dL (3.4-5.0); ALKALINE PHOSPHATASE 224 U/L (30-120); ALT (SGPT) 24 U/L (10-68); CALC OSMOLALITY 275 mosm/kg (275-300); CALCIUM 8.1 mg/dL (8.5-10.1); CARBON DIOXIDE 29.8 mmol/L (21.0-32.0); CHLORIDE - SERUM 104 mmol/L (98-107); CREATININE - SERUM 0.8 mg/dL (0.6-1.3); GLUCOSE 90 mg/dL (74-106); PHOSPHOROUS 3.5 mg/dL (2.5-4.9); POTASSIUM - SERUM 4.5 mmol/L (3.5-5.1); PRE-ALBUMIN 13.7 mg/dL (18.0-35.7); PROTEIN - SERUM 6.5 g/dL (6.4-8.2); SODIUM 136 mmol/L (136-145); TRIGLYCERIDE 60 mg/dL (30-200); UREA NITROGEN 25 mg/dL (7-18); eGFR NON AFRICAN AMERICAN 75 mL/min (90-120)
[2019-11-06 14:46] LABS: BILIRUBIN - TOTAL 0.09 mg/dL (0.2-1.3)
== END | disposition home or self-care (01) ==
LOC: D.LABREF 14:07
PROVIDERS: ATTEND Family Medicine
DX: K56.50 Intestinal adhesions [bands], unspecified as to partial versus complete obstruction (principal); K63.2 Fistula of intestine; Z79.899 Other long term (current) drug therapy; T82.7XXA Infection and inflammatory reaction due to other cardiac and vascular devices, implants and grafts, initial encounter

== ENCOUNTER → 2019-11-13 23:29 | Outpatient (CLI) | payer MEDICARE ==
[2019-05-16 13:43] VITALS: BMI 25.7
[2019-11-14 00:09] LABS: BASOPHILS 0.7 % (0-2); EOSINOPHILS 4.3 % (0-7); IMMATURE GRANULOCYTES 0.2 % (0-5); LYMPHOCYTES 41.3 % (15-50); MCH 26.6 pg (26.0-34.0); MCHC 31.3 g/dL (31.0-37.0); MCV 85.1 fL (80.0-100.0); MEAN PLATELET VOLUME 10.8 fL (7.4-10.4); NEUTROPHILS 45.5 % (40-80); PLATELET COUNT 346 10x3/uL (130-400); RBC 3.76 10x6/uL (4.00-5.40); RDW 17.1 % (11.5-14.5); WBC 5.5 10x3/uL (4.8-10.8)
[2019-11-14 00:20] LABS: ALBUMIN 2.3 g/dL (3.4-5.0); ALKALINE PHOSPHATASE 188 U/L (30-120); ALT (SGPT) 15 U/L (10-68); BILIRUBIN - TOTAL 0.11 mg/dL (0.2-1.3); CALC OSMOLALITY 276 mosm/kg (275-300); CALCIUM 7.7 mg/dL (8.5-10.1); CARBON DIOXIDE 26.7 mmol/L (21.0-32.0); CHLORIDE - SERUM 105 mmol/L (98-107); CREATININE - SERUM 0.7 mg/dL (0.6-1.3); MAGNESIUM - SERUM 1.8 mg/dL (1.8-2.4); PHOSPHOROUS 3.2 mg/dL (2.5-4.9); POTASSIUM - SERUM 4.5 mmol/L (3.5-5.1); PRE-ALBUMIN 13.2 mg/dL (18.0-35.7); PROTEIN - SERUM 5.9 g/dL (6.4-8.2); SODIUM 138 mmol/L (136-145); TRIGLYCERIDE 60 mg/dL (30-200); UREA NITROGEN 20 mg/dL (7-18); eGFR NON AFRICAN AMERICAN 88 mL/min (90-120)
[2019-11-14 00:23] LABS: GLUCOSE 66 mg/dL (74-106)
== END | disposition home or self-care (01) ==
LOC: D.LABREF 23:29
PROVIDERS: ATTEND Family Medicine
DX: N18.9 Chronic kidney disease, unspecified (principal); K63.2 Fistula of intestine; Z51.81 Encounter for therapeutic drug level monitoring; Z93.1 Gastrostomy status

== ENCOUNTER → 2019-11-21 00:46 | Outpatient (CLI) | payer MEDICARE ==
[2019-05-16 13:43] VITALS: BMI 25.7
[2019-11-21 02:09] LABS: BASOPHILS 0.4 % (0-2); EOSINOPHILS 1.8 % (0-7); HEMATOCRIT 34.5 % (36.0-48.0); HEMOGLOBIN 10.6 g/dL (12-16); IMMATURE GRANULOCYTES 0.2 % (0-5); LYMPHOCYTES 34.1 % (15-50); MCH 26.6 pg (26.0-34.0); MCHC 30.7 g/dL (31.0-37.0); MCV 86.7 fL (80.0-100.0); MONOCYTES 6.4 % (2-11); NEUTROPHILS 57.1 % (40-80); PLATELET COUNT 374 10x3/uL (130-400); RBC 3.98 10x6/uL (4.00-5.40); RDW 17.1 % (11.5-14.5)
[2019-11-21 02:20] LABS: ALBUMIN 2.4 g/dL (3.4-5.0); ALKALINE PHOSPHATASE 179 U/L (30-120); ALT (SGPT) 19 U/L (10-68); BILIRUBIN - TOTAL 0.16 mg/dL (0.2-1.3); CALC OSMOLALITY 283 mosm/kg (275-300); CALCIUM 7.7 mg/dL (8.5-10.1); CARBON DIOXIDE 27.4 mmol/L (21.0-32.0); CHLORIDE - SERUM 108 mmol/L (98-107); CREATININE - SERUM 0.7 mg/dL (0.6-1.3); MAGNESIUM - SERUM 1.6 mg/dL (1.8-2.4); PHOSPHOROUS 2.8 mg/dL (2.5-4.9); POTASSIUM - SERUM 4.1 mmol/L (3.5-5.1); PRE-ALBUMIN 11.7 mg/dL (18.0-35.7); PROTEIN - SERUM 6.8 g/dL (6.4-8.2); SODIUM 143 mmol/L (136-145); TRIGLYCERIDE 45 mg/dL (30-200); UREA NITROGEN 14 mg/dL (7-18); eGFR NON AFRICAN AMERICAN 88 mL/min (90-120)
[2019-11-21 02:23] LABS: GLUCOSE 54 mg/dL (74-106)
== END | disposition home or self-care (01) ==
LOC: D.LABREF 00:46
PROVIDERS: ATTEND Family Medicine
DX: K56.50 Intestinal adhesions [bands], unspecified as to partial versus complete obstruction (principal); K63.2 Fistula of intestine; K59.8 Other specified functional intestinal disorders; N18.4 Chronic kidney disease, stage 4 (severe)

== ENCOUNTER → 2019-11-27 20:10 | Outpatient (CLI) | payer MEDICARE ==
[2019-05-16 13:43] VITALS: BMI 25.7
[2019-11-27 20:29] LABS: BASOPHILS 0.3 % (0-2); EOSINOPHILS 3.1 % (0-7); HEMATOCRIT 34.6 % (36.0-48.0); HEMOGLOBIN 10.6 g/dL (12-16); IMMATURE GRANULOCYTES 0.2 % (0-5); LYMPHOCYTES 26.2 % (15-50); MCH 26.5 pg (26.0-34.0); MCHC 30.6 g/dL (31.0-37.0); MCV 86.5 fL (80.0-100.0); MEAN PLATELET VOLUME 11.3 fL (7.4-10.4); MONOCYTES 9.3 % (2-11); NEUTROPHILS 60.9 % (40-80); PLATELET COUNT 401 10x3/uL (130-400); RDW 15.8 % (11.5-14.5); WBC 6.1 10x3/uL (4.8-10.8)
[2019-11-27 20:47] LABS: ALBUMIN 2.6 g/dL (3.4-5.0); ANION GAP 11.9 mmol/L (8-16); BILIRUBIN - TOTAL 0.15 mg/dL (0.2-1.3); CALCIUM 8.4 mg/dL (8.5-10.1); CARBON DIOXIDE 31.7 mmol/L (21.0-32.0); CREATININE - SERUM 0.9 mg/dL (0.6-1.3); PHOSPHOROUS 3.8 mg/dL (2.5-4.9); POTASSIUM - SERUM 4.6 mmol/L (3.5-5.1); PRE-ALBUMIN 14.1 mg/dL (18.0-35.7); PROTEIN - SERUM 6.8 g/dL (6.4-8.2)
== END | disposition home or self-care (01) ==
LOC: D.LABREF 20:10
PROVIDERS: ATTEND Family Medicine
DX: Z51.81 Encounter for therapeutic drug level monitoring (principal); N18.9 Chronic kidney disease, unspecified; Z93.1 Gastrostomy status; K59.8 Other specified functional intestinal disorders

== ENCOUNTER 2019-12-02 13:52 | Emergency (ER) | payer MEDICARE ==
[2019-05-16 13:43] VITALS: Ht 160 cm; Wt 63.6 kg
[~2019-12-02] VITALS: Ht 160 cm; Wt 63.6 kg
[2019-12-02 14:31] LABS: BASOPHILS 0.6 % (0-2); EOSINOPHILS 0.9 % (0-7); HEMATOCRIT 42.2 % (36.0-48.0); HEMOGLOBIN 13.9 g/dL (12-16); IMMATURE GRANULOCYTES 0.3 % (0-5); MCH 26.8 pg (26.0-34.0); MCHC 32.9 g/dL (31.0-37.0); MCV 81.5 fL (80.0-100.0); MONOCYTES 9.3 % (2-11); NEUTROPHILS 52.9 % (40-80); PLATELET COUNT 426 10x3/uL (130-400); RBC 5.18 10x6/uL (4.00-5.40); RDW 15.1 % (11.5-14.5); WBC 6.8 10x3/uL (4.8-10.8)
[2019-12-02 15:44] LABS: ANION GAP 10.2 mmol/L (8-16); CALCIUM 8.8 mg/dL (8.5-10.1); CARBON DIOXIDE 31.3 mmol/L (21.0-32.0); CREATININE - SERUM 1.1 mg/dL (0.6-1.3); POTASSIUM - SERUM 3.5 mmol/L (3.5-5.1)
[2019-12-02 15:54] LABS: BILIRUBIN - TOTAL 0.33 mg/dL (0.2-1.3); PROTEIN - SERUM 8.1 g/dL (6.4-8.2); TROPONIN-I 0.016 ng/mL (0.000-0.060)
[2019-12-02 21:55] VITALS: BP 129/63
== END 2019-12-02 22:19 | disposition other institution (70) ==
LOC: D.ER 13:52
PROVIDERS: Family Medicine
DX: K56.609 Unspecified intestinal obstruction, unspecified as to partial versus complete obstruction (principal); R10.9 Unspecified abdominal pain; G89.29 Other chronic pain; K63.2 Fistula of intestine; K31.84 Gastroparesis; R11.2 Nausea with vomiting, unspecified; E07.9 Disorder of thyroid, unspecified

== ENCOUNTER → 2020-01-05 18:47 | Outpatient (CLI) | payer MEDICARE ==
[2019-12-02 13:58] VITALS: BMI 24.8
[2020-01-05 20:46] LABS: BASOPHILS 0.3 % (0-2); EOSINOPHILS 1.8 % (0-7); HEMATOCRIT 34.9 % (36.0-48.0); HEMOGLOBIN 10.7 g/dL (12-16); IMMATURE GRANULOCYTES 0.2 % (0-5); LYMPHOCYTES 31.1 % (15-50); MCH 26.5 pg (26.0-34.0); MCHC 30.7 g/dL (31.0-37.0); MCV 86.4 fL (80.0-100.0); MEAN PLATELET VOLUME 10.2 fL (7.4-10.4); MONOCYTES 8.2 % (2-11); NEUTROPHILS 58.4 % (40-80); RBC 4.04 10x6/uL (4.00-5.40); RDW 16.2 % (11.5-14.5); WBC 8.9 10x3/uL (4.8-10.8)
[2020-01-05 20:47] LABS: PLATELET COUNT 550 10x3/uL (130-400)
[2020-01-05 21:12] LABS: ALBUMIN 2.7 g/dL (3.4-5.0); ANION GAP 8.9 mmol/L (8-16); CALCIUM 8.1 mg/dL (8.5-10.1); CARBON DIOXIDE 32.9 mmol/L (21.0-32.0); PHOSPHOROUS 3.8 mg/dL (2.5-4.9); POTASSIUM - SERUM 3.8 mmol/L (3.5-5.1); PRE-ALBUMIN 12.6 mg/dL (18.0-35.7); PROTEIN - SERUM 6.9 g/dL (6.4-8.2)
[2020-01-05 21:13] LABS: BILIRUBIN - TOTAL 0.08 mg/dL (0.2-1.3)
== END | disposition home or self-care (01) ==
LOC: D.LAB 18:47
PROVIDERS: ATTEND Family Medicine
DX: K56.50 Intestinal adhesions [bands], unspecified as to partial versus complete obstruction (principal); K63.2 Fistula of intestine; Z51.81 Encounter for therapeutic drug level monitoring; Z79.899 Other long term (current) drug therapy

== ENCOUNTER → 2020-01-08 15:31 | Outpatient (CLI) | payer MEDICARE ==
[2019-12-02 13:58] VITALS: BMI 24.8
[2020-01-08 15:42] LABS: BASOPHILS 0.4 % (0-2); EOSINOPHILS 2.1 % (0-7); HEMOGLOBIN 10.1 g/dL (12-16); IMMATURE GRANULOCYTES 0.1 % (0-5); LYMPHOCYTES 27.8 % (15-50); MCH 26.1 pg (26.0-34.0); MCHC 30.6 g/dL (31.0-37.0); MCV 85.3 fL (80.0-100.0); MEAN PLATELET VOLUME 10.2 fL (7.4-10.4); MONOCYTES 9.3 % (2-11); NEUTROPHILS 60.3 % (40-80); RBC 3.87 10x6/uL (4.00-5.40); WBC 6.7 10x3/uL (4.8-10.8)
[2020-01-08 15:43] LABS: PLATELET COUNT 423 10x3/uL (130-400)
[2020-01-08 16:14] LABS: ALBUMIN 2.3 g/dL (3.4-5.0); ALKALINE PHOSPHATASE 172 U/L (30-120); ALT (SGPT) 10 U/L (10-68); BILIRUBIN - TOTAL 0.14 mg/dL (0.2-1.3); CALC OSMOLALITY 276 mosm/kg (275-300); CALCIUM 8.5 mg/dL (8.5-10.1); CARBON DIOXIDE 28.5 mmol/L (21.0-32.0); CHLORIDE - SERUM 104 mmol/L (98-107); CREATININE - SERUM 0.8 mg/dL (0.6-1.3); GLUCOSE 102 mg/dL (74-106); POTASSIUM - SERUM 4.8 mmol/L (3.5-5.1); PRE-ALBUMIN 11.8 mg/dL (18.0-35.7); PROTEIN - SERUM 6.7 g/dL (6.4-8.2); SODIUM 136 mmol/L (136-145); TRIGLYCERIDE 58 mg/dL (30-200); UREA NITROGEN 26 mg/dL (7-18); eGFR NON AFRICAN AMERICAN 75 mL/min (90-120)
== END | disposition home or self-care (01) ==
LOC: D.LABREF 15:31
PROVIDERS: ATTEND Family Medicine
DX: K56.50 Intestinal adhesions [bands], unspecified as to partial versus complete obstruction (principal); Z51.81 Encounter for therapeutic drug level monitoring; K63.2 Fistula of intestine; Z79.899 Other long term (current) drug therapy

== ENCOUNTER → 2020-01-15 13:46 | Outpatient (CLI) | payer MEDICARE ==
[2019-12-02 13:58] VITALS: BMI 24.8
[2020-01-15 14:08] LABS: BASOPHILS 0.3 % (0-2); EOSINOPHILS 0.6 % (0-7); HEMOGLOBIN 10.4 g/dL (12-16); IMMATURE GRANULOCYTES 0.3 % (0-5); LYMPHOCYTES 13.9 % (15-50); MCH 26.5 pg (26.0-34.0); MCHC 31.5 g/dL (31.0-37.0); MCV 84.2 fL (80.0-100.0); MEAN PLATELET VOLUME 10.5 fL (7.4-10.4); MONOCYTES 5.3 % (2-11); NEUTROPHILS 79.6 % (40-80); RBC 3.92 10x6/uL (4.00-5.40); RDW 15.7 % (11.5-14.5); WBC 7.2 10x3/uL (4.8-10.8)
[2020-01-15 14:09] LABS: PLATELET COUNT 331 10x3/uL (130-400)
[2020-01-15 14:10] LABS: CALCIUM 7.6 mg/dL (8.5-10.1); PHOSPHOROUS 2.6 mg/dL (2.5-4.9); PRE-ALBUMIN 13.8 mg/dL (18.0-35.7)
[2020-01-16 23:22] LABS: ALBUMIN 2.5 g/dL (3.4-5.0); ALKALINE PHOSPHATASE 196 U/L (30-120); ALT (SGPT) 22 U/L (10-68); CALC OSMOLALITY 283 mosm/kg (275-300); CALCIUM 7.8 mg/dL (8.5-10.1); CHLORIDE - SERUM 106 mmol/L (98-107); CREATININE - SERUM 0.8 mg/dL (0.6-1.3); GLUCOSE 116 mg/dL (74-106); POTASSIUM - SERUM 4.5 mmol/L (3.5-5.1); PROTEIN - SERUM 6.7 g/dL (6.4-8.2); SODIUM 138 mmol/L (136-145); UREA NITROGEN 31 mg/dL (7-18); eGFR NON AFRICAN AMERICAN 75 mL/min (90-120)
== END | disposition home or self-care (01) ==
LOC: D.LABREF 13:46
PROVIDERS: ATTEND Family Medicine
DX: K56.50 Intestinal adhesions [bands], unspecified as to partial versus complete obstruction (principal); K63.2 Fistula of intestine

== ENCOUNTER → 2020-01-22 16:28 | Outpatient (CLI) | payer MEDICARE ==
[2019-12-02 13:58] VITALS: BMI 24.8
[2020-01-22 17:04] LABS: HEMATOCRIT 27.8 % (36.0-48.0); HEMOGLOBIN 9.1 g/dL (12-16); MCH 25.6 pg (26.0-34.0); MCHC 32.7 g/dL (31.0-37.0); MCV 78.3 fL (80.0-100.0); MEAN PLATELET VOLUME 10.3 fL (7.4-10.4); PLATELET COUNT 356 10x3/uL (130-400); RBC 3.55 10x6/uL (4.00-5.40); RDW 16.1 % (11.5-14.5); WBC 6.2 10x3/uL (4.8-10.8)
[2020-01-22 17:14] LABS: CALCIUM 7.4 mg/dL (8.5-10.1); MAGNESIUM - SERUM 1.9 mg/dL (1.8-2.4); PHOSPHOROUS 2.6 mg/dL (2.5-4.9)
[2020-01-22 17:34] LABS: LYMPHOCYTES 38 % (15-50); MONOCYTES 5 % (2-11); NEUTROPHILS 56 % (40-80); PLATELET ESTIMATE NORMAL; PLATELET MORPHOLOGY GIANT PLTS PRESENT
== END | disposition home or self-care (01) ==
LOC: D.LAB 16:28
PROVIDERS: ATTEND Family Medicine
DX: K63.2 Fistula of intestine (principal); K56.50 Intestinal adhesions [bands], unspecified as to partial versus complete obstruction

== ENCOUNTER → 2020-01-26 18:54 | Outpatient (CLI) | payer MEDICARE ==
[2019-12-02 13:58] VITALS: BMI 24.8
[2020-01-26 19:10] LABS: CALC OSMOLALITY 269 mosm/kg (275-300); CALCIUM 7.6 mg/dL (8.5-10.1); CARBON DIOXIDE 24.6 mmol/L (21.0-32.0); CHLORIDE - SERUM 103 mmol/L (98-107); CREATININE - SERUM 0.8 mg/dL (0.6-1.3); GLUCOSE 81 mg/dL (74-106); POTASSIUM - SERUM 4.9 mmol/L (3.5-5.1); SODIUM 134 mmol/L (136-145); UREA NITROGEN 20 mg/dL (7-18); eGFR NON AFRICAN AMERICAN 75 mL/min (90-120)
[2020-01-26 19:12] LABS: ALBUMIN 1.8 g/dL (3.4-5.0); ALKALINE PHOSPHATASE 149 U/L (30-120); ALT (SGPT) 13 U/L (10-68); BILIRUBIN - TOTAL 0.25 mg/dL (0.2-1.3); PROTEIN - SERUM 5.4 g/dL (6.4-8.2)
== END | disposition home or self-care (01) ==
LOC: D.LABREF 18:54
PROVIDERS: ATTEND Family Medicine
DX: K56.50 Intestinal adhesions [bands], unspecified as to partial versus complete obstruction (principal); K63.2 Fistula of intestine

== ENCOUNTER → 2020-01-29 14:14 | Outpatient (CLI) | payer MEDICARE ==
[2019-12-02 13:58] VITALS: BMI 24.8
[2020-01-29 15:56] LABS: BASOPHILS 0.6 % (0-2); EOSINOPHILS 1.1 % (0-7); HEMATOCRIT 27.7 % (36.0-48.0); HEMOGLOBIN 8.7 g/dL (12-16); IMMATURE GRANULOCYTES 0.3 % (0-5); LYMPHOCYTES 38.3 % (15-50); MCH 25.2 pg (26.0-34.0); MCHC 31.4 g/dL (31.0-37.0); MCV 80.3 fL (80.0-100.0); MEAN PLATELET VOLUME 9.3 fL (7.4-10.4); MONOCYTES 8.2 % (2-11); NEUTROPHILS 51.5 % (40-80); RBC 3.45 10x6/uL (4.00-5.40); RDW 16.4 % (11.5-14.5); WBC 6.6 10x3/uL (4.8-10.8)
[2020-01-29 15:59] LABS: PLATELET COUNT 630 10x3/uL (130-400)
[2020-01-29 16:05] LABS: ALBUMIN 2.2 g/dL (3.4-5.0); ALKALINE PHOSPHATASE 172 U/L (30-120); ALT (SGPT) 17 U/L (10-68); BILIRUBIN - TOTAL 0.18 mg/dL (0.2-1.3); CALC OSMOLALITY 267 mosm/kg (275-300); CALCIUM 7.9 mg/dL (8.5-10.1); CARBON DIOXIDE 26.5 mmol/L (21.0-32.0); CHLORIDE - SERUM 100 mmol/L (98-107); CREATININE - SERUM 0.8 mg/dL (0.6-1.3); GLUCOSE 109 mg/dL (74-106); PHOSPHOROUS 3.1 mg/dL (2.5-4.9); POTASSIUM - SERUM 4.6 mmol/L (3.5-5.1); PROTEIN - SERUM 6.5 g/dL (6.4-8.2); SODIUM 133 mmol/L (136-145); TRIGLYCERIDE 67 mg/dL (30-200); UREA NITROGEN 15 mg/dL (7-18); eGFR NON AFRICAN AMERICAN 75 mL/min (90-120)
[2020-01-29 16:09] LABS: PRE-ALBUMIN 13.7 mg/dL (18.0-35.7)
== END | disposition home or self-care (01) ==
LOC: D.LAB 14:14
PROVIDERS: ATTEND Family Medicine
DX: K56.50 Intestinal adhesions [bands], unspecified as to partial versus complete obstruction (principal); K63.2 Fistula of intestine; F32.9 Major depressive disorder, single episode, unspecified

== ENCOUNTER → 2020-06-19 10:53 | Outpatient (CLI) | payer MEDICARE ==
[2019-12-02 13:58] VITALS: BMI 24.8
[2020-06-19 15:15] LABS: HEMATOCRIT 29.6 % (36.0-48.0); HEMOGLOBIN 9.3 g/dL (12-16); MCHC 31.4 g/dL (31.0-37.0); MEAN PLATELET VOLUME 10.1 fL (7.4-10.4); PLATELET COUNT 260 10x3/uL (130-400); RBC 3.44 10x6/uL (4.00-5.40); WBC 5.8 10x3/uL (4.8-10.8)
[2020-06-19 15:29] LABS: ALKALINE PHOSPHATASE 117 U/L (30-120); ALT (SGPT) 14 U/L (10-68); BILIRUBIN - TOTAL 0.22 mg/dL (0.2-1.3); CALC OSMOLALITY 270 mosm/kg (275-300); CALCIUM 8.1 mg/dL (8.5-10.1); CARBON DIOXIDE 26.6 mmol/L (21.0-32.0); CHLORIDE - SERUM 102 mmol/L (98-107); CREATININE - SERUM 0.7 mg/dL (0.6-1.3); GLUCOSE 79 mg/dL (74-106); MAGNESIUM - SERUM 2.1 mg/dL (1.8-2.4); PHOSPHOROUS 2.2 mg/dL (2.5-4.9); POTASSIUM - SERUM 4.5 mmol/L (3.5-5.1); PRE-ALBUMIN 14.4 mg/dL (18.0-35.7); PROTEIN - SERUM 6.2 g/dL (6.4-8.2); SODIUM 133 mmol/L (136-145); TRIGLYCERIDE 28 mg/dL (30-200); UREA NITROGEN 28 mg/dL (7-18); eGFR NON AFRICAN AMERICAN 87 mL/min (90-120)
[2020-06-19 15:36] LABS: EOSINOPHILS 2 % (0-7); LYMPHOCYTES 39 % (15-50); MONOCYTES 5 % (2-11); NEUTROPHILS 54 % (40-80); PLATELET ESTIMATE NORMAL
== END | disposition home or self-care (01) ==
LOC: D.LABREF 10:53
PROVIDERS: ATTEND Family Medicine
DX: K56.690 Other partial intestinal obstruction (principal); K56.50 Intestinal adhesions [bands], unspecified as to partial versus complete obstruction; K63.2 Fistula of intestine

== ENCOUNTER → 2020-06-24 11:27 | Outpatient (CLI) | payer MEDICARE ==
[2019-12-02 13:58] VITALS: BMI 24.8
[2020-06-24 11:44] LABS: BASOPHILS 0.5 % (0-2); EOSINOPHILS 2.2 % (0-7); HEMATOCRIT 28.8 % (36.0-48.0); HEMOGLOBIN 9.2 g/dL (12-16); IMMATURE GRANULOCYTES 0.2 % (0-5); LYMPHOCYTE ABS# 1.61 10x3/uL (1.18-3.74); LYMPHOCYTES 25.1 % (15-50); MCH 27.5 pg (26.0-34.0); MCHC 31.9 g/dL (31.0-37.0); MCV 86.2 fL (80.0-100.0); MEAN PLATELET VOLUME 10.2 fL (7.4-10.4); MONOCYTES 9.4 % (2-11); NEUTROPHIL ABS# 4.02 10x3/uL (1.56-6.13); NEUTROPHILS 62.6 % (40-80); RBC 3.34 10x6/uL (4.00-5.40); RDW 16.5 % (11.5-14.5); WBC 6.4 10x3/uL (4.8-10.8)
[2020-06-24 11:49] LABS: ALBUMIN 2.1 g/dL (3.4-5.0); ALKALINE PHOSPHATASE 115 U/L (30-120); ALT (SGPT) 15 U/L (10-68); BILIRUBIN - TOTAL 0.17 mg/dL (0.2-1.3); CALC OSMOLALITY 272 mosm/kg (275-300); CARBON DIOXIDE 27.4 mmol/L (21.0-32.0); CHLORIDE - SERUM 104 mmol/L (98-107); CREATININE - SERUM 0.8 mg/dL (0.6-1.3); GLUCOSE 99 mg/dL (74-106); MAGNESIUM - SERUM 1.8 mg/dL (1.8-2.4); PHOSPHOROUS 3.5 mg/dL (2.5-4.9); PLATELET COUNT 380 10x3/uL (130-400); POTASSIUM - SERUM 3.6 mmol/L (3.5-5.1); PRE-ALBUMIN 13.2 mg/dL (18.0-35.7); PROTEIN - SERUM 6.5 g/dL (6.4-8.2); SODIUM 135 mmol/L (136-145); TRIGLYCERIDE 35 mg/dL (30-200); UREA NITROGEN 22 mg/dL (7-18); eGFR NON AFRICAN AMERICAN 75 mL/min (90-120)
== END | disposition home or self-care (01) ==
LOC: D.LABREF 11:27
PROVIDERS: ATTEND Family Medicine
DX: K56.690 Other partial intestinal obstruction (principal); Z51.81 Encounter for therapeutic drug level monitoring; K56.50 Intestinal adhesions [bands], unspecified as to partial versus complete obstruction; K63.2 Fistula of intestine

== ENCOUNTER → 2020-07-01 14:07 | Outpatient (CLI) | payer MEDICARE ==
[2019-12-02 13:58] VITALS: BMI 24.8
[2020-07-01 14:24] LABS: BASOPHILS 0.2 % (0-2); HEMATOCRIT 29.7 % (36.0-48.0); HEMOGLOBIN 9.4 g/dL (12-16); IMMATURE GRANULOCYTES 0.1 % (0-5); LYMPHOCYTE ABS# 2.22 10x3/uL (1.18-3.74); LYMPHOCYTES 27.6 % (15-50); MCH 27.2 pg (26.0-34.0); MCHC 31.6 g/dL (31.0-37.0); MCV 86.1 fL (80.0-100.0); MEAN PLATELET VOLUME 10.8 fL (7.4-10.4); MONOCYTES 7.1 % (2-11); NEUTROPHIL ABS# 5.14 10x3/uL (1.56-6.13); PLATELET COUNT 397 10x3/uL (130-400); RBC 3.45 10x6/uL (4.00-5.40); RDW 16.2 % (11.5-14.5)
[2020-07-01 14:58] LABS: ALBUMIN 2.2 g/dL (3.4-5.0); ALKALINE PHOSPHATASE 193 U/L (30-120); ALT (SGPT) 29 U/L (10-68); BILIRUBIN - TOTAL 0.27 mg/dL (0.2-1.3); CALC OSMOLALITY 275 mosm/kg (275-300); CALCIUM 7.9 mg/dL (8.5-10.1); CARBON DIOXIDE 29.8 mmol/L (21.0-32.0); CHLORIDE - SERUM 104 mmol/L (98-107); CREATININE - SERUM 0.8 mg/dL (0.6-1.3); GLUCOSE 97 mg/dL (74-106); MAGNESIUM - SERUM 1.7 mg/dL (1.8-2.4); POTASSIUM - SERUM 4.1 mmol/L (3.5-5.1); PROTEIN - SERUM 6.5 g/dL (6.4-8.2); SODIUM 138 mmol/L (136-145); TRIGLYCERIDE 50 mg/dL (30-200); UREA NITROGEN 13 mg/dL (7-18); eGFR NON AFRICAN AMERICAN 75 mL/min (90-120)
== END | disposition home or self-care (01) ==
LOC: D.LABREF 14:07
PROVIDERS: ATTEND Family Medicine
DX: K56.690 Other partial intestinal obstruction (principal); K56.50 Intestinal adhesions [bands], unspecified as to partial versus complete obstruction; Z00-Z99 Factors influencing health status and contact with health services; K63.2 Fistula of intestine

== ENCOUNTER → 2020-07-11 13:19 | Outpatient (CLI) | payer MEDICARE ==
[2019-12-02 13:58] VITALS: BMI 24.8
[2020-07-11 14:09] LABS: ALBUMIN 2.1 g/dL (3.4-5.0); ALKALINE PHOSPHATASE 108 U/L (30-120); ALT (SGPT) 13 U/L (10-68); CALC OSMOLALITY 278 mosm/kg (275-300); CALCIUM 7.7 mg/dL (8.5-10.1); CHLORIDE - SERUM 106 mmol/L (98-107); CREATININE - SERUM 0.7 mg/dL (0.6-1.3); GLUCOSE 79 mg/dL (74-106); MAGNESIUM - SERUM 1.8 mg/dL (1.8-2.4); POTASSIUM - SERUM 4.1 mmol/L (3.5-5.1); PRE-ALBUMIN 14.1 mg/dL (18.0-35.7); PROTEIN - SERUM 6.1 g/dL (6.4-8.2); SODIUM 139 mmol/L (136-145); TRIGLYCERIDE 46 mg/dL (30-200); UREA NITROGEN 18 mg/dL (7-18); eGFR NON AFRICAN AMERICAN 87 mL/min (90-120)
[2020-07-11 14:18] LABS: BASOPHILS 0.5 % (0-2); EOSINOPHILS 1.6 % (0-7); HEMATOCRIT 27.7 % (36.0-48.0); HEMOGLOBIN 8.6 g/dL (12-16); IMMATURE GRANULOCYTES 0.2 % (0-5); LYMPHOCYTE ABS# 1.66 10x3/uL (1.18-3.74); LYMPHOCYTES 30.1 % (15-50); MCH 26.5 pg (26.0-34.0); MCV 85.5 fL (80.0-100.0); MEAN PLATELET VOLUME 10.1 fL (7.4-10.4); MONOCYTES 10.2 % (2-11); NEUTROPHIL ABS# 3.16 10x3/uL (1.56-6.13); NEUTROPHILS 57.4 % (40-80); PLATELET COUNT 327 10x3/uL (130-400); RBC 3.24 10x6/uL (4.00-5.40); WBC 5.5 10x3/uL (4.8-10.8)
== END | disposition home or self-care (01) ==
LOC: D.LABREF 13:19
PROVIDERS: ATTEND Family Medicine
DX: K56.690 Other partial intestinal obstruction (principal); K56.50 Intestinal adhesions [bands], unspecified as to partial versus complete obstruction; K63.2 Fistula of intestine; Z45.2 Encounter for adjustment and management of vascular access device

== ENCOUNTER → 2020-07-15 13:29 | Outpatient (CLI) | payer MEDICARE ==
[2019-12-02 13:58] VITALS: BMI 24.8
[2020-07-15 14:15] LABS: BASOPHILS 0.2 % (0-2); HEMATOCRIT 28.6 % (36.0-48.0); IMMATURE GRANULOCYTES 0.1 % (0-5); LYMPHOCYTE ABS# 1.14 10x3/uL (1.18-3.74); LYMPHOCYTES 10.8 % (15-50); MCHC 31.5 g/dL (31.0-37.0); MCV 85.9 fL (80.0-100.0); MEAN PLATELET VOLUME 11.3 fL (7.4-10.4); MONOCYTES 4.3 % (2-11); NEUTROPHIL ABS# 8.71 10x3/uL (1.56-6.13); NEUTROPHILS 82.6 % (40-80); PLATELET COUNT 386 10x3/uL (130-400); RBC 3.33 10x6/uL (4.00-5.40); RDW 15.7 % (11.5-14.5); WBC 10.5 10x3/uL (4.8-10.8)
[2020-07-15 14:30] LABS: ALBUMIN 2.2 g/dL (3.4-5.0); BILIRUBIN - TOTAL 0.22 mg/dL (0.2-1.3); CALCIUM 8.1 mg/dL (8.5-10.1); CARBON DIOXIDE 24.4 mmol/L (21.0-32.0); MAGNESIUM - SERUM 1.8 mg/dL (1.8-2.4); PHOSPHOROUS 4.1 mg/dL (2.5-4.9); PRE-ALBUMIN 12.2 mg/dL (18.0-35.7); PROTEIN - SERUM 6.2 g/dL (6.4-8.2)
[2020-07-15 14:37] LABS: ANION GAP 14.6 mmol/L (8-16)
== END | disposition home or self-care (01) ==
LOC: D.LABREF 13:29
PROVIDERS: ATTEND Family Medicine
DX: K59.89 Other specified functional intestinal disorders (principal); Z79.899 Other long term (current) drug therapy

== ENCOUNTER → 2020-07-22 11:17 | Outpatient (CLI) | payer MEDICARE ==
[2019-12-02 13:58] VITALS: BMI 24.8
[2020-07-22 11:36] LABS: BASOPHILS 0.5 % (0-2); EOSINOPHILS 3.2 % (0-7); HEMATOCRIT 28.7 % (36.0-48.0); HEMOGLOBIN 8.8 g/dL (12-16); IMMATURE GRANULOCYTES 0.3 % (0-5); LYMPHOCYTE ABS# 1.93 10x3/uL (1.18-3.74); LYMPHOCYTES 31.1 % (15-50); MCH 26.2 pg (26.0-34.0); MCHC 30.7 g/dL (31.0-37.0); MCV 85.4 fL (80.0-100.0); MEAN PLATELET VOLUME 10.8 fL (7.4-10.4); NEUTROPHIL ABS# 3.46 10x3/uL (1.56-6.13); NEUTROPHILS 55.9 % (40-80); PLATELET COUNT 408 10x3/uL (130-400); RBC 3.36 10x6/uL (4.00-5.40); RDW 15.3 % (11.5-14.5); WBC 6.2 10x3/uL (4.8-10.8)
[2020-07-22 11:55] LABS: ALBUMIN 2.2 g/dL (3.4-5.0); ALKALINE PHOSPHATASE 147 U/L (30-120); ALT (SGPT) 15 U/L (10-68); BILIRUBIN - TOTAL 0.17 mg/dL (0.2-1.3); CALC OSMOLALITY 281 mosm/kg (275-300); CALCIUM 7.8 mg/dL (8.5-10.1); CARBON DIOXIDE 24.2 mmol/L (21.0-32.0); CHLORIDE - SERUM 105 mmol/L (98-107); CREATININE - SERUM 0.7 mg/dL (0.6-1.3); GLUCOSE 86 mg/dL (74-106); MAGNESIUM - SERUM 2.2 mg/dL (1.8-2.4); PHOSPHOROUS 3.2 mg/dL (2.5-4.9); PRE-ALBUMIN 13.6 mg/dL (18.0-35.7); PROTEIN - SERUM 6.2 g/dL (6.4-8.2); SODIUM 138 mmol/L (136-145); TRIGLYCERIDE 37 mg/dL (30-200); UREA NITROGEN 32 mg/dL (7-18); eGFR NON AFRICAN AMERICAN 87 mL/min (90-120)
== END | disposition home or self-care (01) ==
LOC: D.LABREF 11:17
PROVIDERS: ATTEND Family Medicine
DX: K59.89 Other specified functional intestinal disorders (principal); K63.2 Fistula of intestine; Z79.899 Other long term (current) drug therapy; Z45.2 Encounter for adjustment and management of vascular access device

== ENCOUNTER → 2020-07-29 13:34 | Outpatient (CLI) | payer MEDICARE ==
[2019-12-02 13:58] VITALS: BMI 24.8
[2020-07-29 14:23] LABS: ALBUMIN 2.4 g/dL (3.4-5.0); BILIRUBIN - TOTAL 0.23 mg/dL (0.2-1.3); CALCIUM 8.5 mg/dL (8.5-10.1); CARBON DIOXIDE 24.8 mmol/L (21.0-32.0); CREATININE - SERUM 1.2 mg/dL (0.6-1.3); MAGNESIUM - SERUM 2.3 mg/dL (1.8-2.4); PHOSPHOROUS 2.9 mg/dL (2.5-4.9); POTASSIUM - SERUM 3.8 mmol/L (3.5-5.1); PRE-ALBUMIN 13.3 mg/dL (18.0-35.7); PROTEIN - SERUM 7.6 g/dL (6.4-8.2)
[2020-07-29 14:39] LABS: BASOPHILS 0.3 % (0-2); EOSINOPHILS 0.9 % (0-7); HEMATOCRIT 30.6 % (36.0-48.0); HEMOGLOBIN 9.8 g/dL (12-16); IMMATURE GRANULOCYTES 0.5 % (0-5); LYMPHOCYTE ABS# 1.75 10x3/uL (1.18-3.74); LYMPHOCYTES 16.4 % (15-50); MCH 26.3 pg (26.0-34.0); MEAN PLATELET VOLUME 10.8 fL (7.4-10.4); MONOCYTES 6.4 % (2-11); NEUTROPHIL ABS# 8.06 10x3/uL (1.56-6.13); NEUTROPHILS 75.5 % (40-80); RBC 3.73 10x6/uL (4.00-5.40); RDW 15.1 % (11.5-14.5); WBC 10.7 10x3/uL (4.8-10.8)
[2020-07-29 14:41] LABS: PLATELET COUNT 602 10x3/uL (130-400)
== END | disposition home or self-care (01) ==
LOC: D.LABREF 13:34
PROVIDERS: ATTEND Family Medicine
DX: K59.89 Other specified functional intestinal disorders (principal); K63.2 Fistula of intestine; F32.9 Major depressive disorder, single episode, unspecified; Z45.2 Encounter for adjustment and management of vascular access device

== ENCOUNTER → 2020-08-05 10:55 | Outpatient (CLI) | payer MEDICARE ==
[2019-12-02 13:58] VITALS: BMI 24.8
[2020-08-05 11:51] LABS: BASOPHILS 0.5 % (0-2); EOSINOPHILS 2.6 % (0-7); HEMATOCRIT 27.1 % (36.0-48.0); HEMOGLOBIN 8.4 g/dL (12-16); IMMATURE GRANULOCYTES 0.2 % (0-5); LYMPHOCYTES 29.5 % (15-50); MCH 25.5 pg (26.0-34.0); MCV 82.4 fL (80.0-100.0); MEAN PLATELET VOLUME 10.2 fL (7.4-10.4); MONOCYTES 8.7 % (2-11); NEUTROPHIL ABS# 3.58 10x3/uL (1.56-6.13); NEUTROPHILS 58.5 % (40-80); RBC 3.29 10x6/uL (4.00-5.40); WBC 6.1 10x3/uL (4.8-10.8)
[2020-08-05 11:56] LABS: PLATELET COUNT 466 10x3/uL (130-400)
[2020-08-05 11:59] LABS: ALBUMIN 2.2 g/dL (3.4-5.0); ANION GAP 10.8 mmol/L (8-16); BILIRUBIN - TOTAL 0.13 mg/dL (0.2-1.3); CALCIUM 8.8 mg/dL (8.5-10.1); CARBON DIOXIDE 25.7 mmol/L (21.0-32.0); CREATININE - SERUM 0.9 mg/dL (0.6-1.3); MAGNESIUM - SERUM 2.2 mg/dL (1.8-2.4); PHOSPHOROUS 3.2 mg/dL (2.5-4.9); POTASSIUM - SERUM 4.5 mmol/L (3.5-5.1); PRE-ALBUMIN 14.5 mg/dL (18.0-35.7)
== END | disposition home or self-care (01) ==
LOC: D.LABREF 10:55
PROVIDERS: ATTEND Family Medicine
DX: K59.89 Other specified functional intestinal disorders (principal); K63.2 Fistula of intestine; Z45.2 Encounter for adjustment and management of vascular access device; Z93.1 Gastrostomy status

== ENCOUNTER → 2020-08-12 11:26 | Outpatient (CLI) | payer MEDICARE ==
[2019-12-02 13:58] VITALS: BMI 24.8
[2020-08-12 12:47] LABS: BASOPHILS 0.6 % (0-2); EOSINOPHILS 3.9 % (0-7); HEMOGLOBIN 7.7 g/dL (12-16); IMMATURE GRANULOCYTES 0.6 % (0-5); LYMPHOCYTE ABS# 1.68 10x3/uL (1.18-3.74); LYMPHOCYTES 31.5 % (15-50); MCH 25.2 pg (26.0-34.0); MCHC 30.8 g/dL (31.0-37.0); MEAN PLATELET VOLUME 10.2 fL (7.4-10.4); MONOCYTES 7.7 % (2-11); NEUTROPHIL ABS# 2.97 10x3/uL (1.56-6.13); NEUTROPHILS 55.7 % (40-80); PLATELET COUNT 403 10x3/uL (130-400); RBC 3.05 10x6/uL (4.00-5.40); RDW 15.9 % (11.5-14.5); WBC 5.3 10x3/uL (4.8-10.8)
[2020-08-12 13:01] LABS: ALBUMIN 1.9 g/dL (3.4-5.0); ALKALINE PHOSPHATASE 114 U/L (30-120); ALT (SGPT) 14 U/L (10-68); BILIRUBIN - TOTAL 0.15 mg/dL (0.2-1.3); CALC OSMOLALITY 287 mosm/kg (275-300); CALCIUM 8.1 mg/dL (8.5-10.1); CHLORIDE - SERUM 109 mmol/L (98-107); CREATININE - SERUM 0.8 mg/dL (0.6-1.3); GLUCOSE 91 mg/dL (74-106); MAGNESIUM - SERUM 2.1 mg/dL (1.8-2.4); PHOSPHOROUS 3.7 mg/dL (2.5-4.9); POTASSIUM - SERUM 3.8 mmol/L (3.5-5.1); PRE-ALBUMIN 13.2 mg/dL (18.0-35.7); PROTEIN - SERUM 6.2 g/dL (6.4-8.2); SODIUM 142 mmol/L (136-145); TRIGLYCERIDE 21 mg/dL (30-200); UREA NITROGEN 26 mg/dL (7-18); eGFR NON AFRICAN AMERICAN 75 mL/min (90-120)
== END | disposition home or self-care (01) ==
LOC: D.LABREF 11:26
PROVIDERS: ATTEND Family Medicine
DX: K59.89 Other specified functional intestinal disorders (principal); Z45.2 Encounter for adjustment and management of vascular access device; Z93.1 Gastrostomy status; F32.9 Major depressive disorder, single episode, unspecified

== ENCOUNTER → 2020-08-27 11:12 | Outpatient (CLI) | payer MEDICARE ==
[2019-12-02 13:58] VITALS: BMI 24.8
[2020-08-27 11:37] LABS: ALKALINE PHOSPHATASE 112 U/L (30-120); ALT (SGPT) 12 U/L (10-68); BILIRUBIN - TOTAL 0.08 mg/dL (0.2-1.3); CALC OSMOLALITY 284 mosm/kg (275-300); CALCIUM 7.7 mg/dL (8.5-10.1); CARBON DIOXIDE 26.7 mmol/L (21.0-32.0); CHLORIDE - SERUM 109 mmol/L (98-107); CREATININE - SERUM 0.8 mg/dL (0.6-1.3); GLUCOSE 80 mg/dL (74-106); PHOSPHOROUS 3.9 mg/dL (2.5-4.9); POTASSIUM - SERUM 3.8 mmol/L (3.5-5.1); PRE-ALBUMIN 14.8 mg/dL (18.0-35.7); PROTEIN - SERUM 6.4 g/dL (6.4-8.2); SODIUM 142 mmol/L (136-145); TRIGLYCERIDE 52 mg/dL (30-200); UREA NITROGEN 20 mg/dL (7-18); eGFR NON AFRICAN AMERICAN 75 mL/min (90-120)
[2020-08-27 12:48] LABS: BASOPHILS 1.4 % (0-2); EOSINOPHILS 6.4 % (0-7); HEMATOCRIT 25.3 % (36.0-48.0); LYMPHOCYTE ABS# 1.66 10x3/uL (1.18-3.74); MCH 24.8 pg (26.0-34.0); MCHC 29.6 g/dL (31.0-37.0); MCV 83.8 fL (80.0-100.0); MEAN PLATELET VOLUME 10.5 fL (7.4-10.4); MONOCYTES 9.8 % (2-11); NEUTROPHIL ABS# 2.36 10x3/uL (1.56-6.13); NEUTROPHILS 48.4 % (40-80); PLATELET COUNT 368 10x3/uL (130-400); RBC 3.02 10x6/uL (4.00-5.40); WBC 4.9 10x3/uL (4.8-10.8)
[2020-08-27 12:54] LABS: HEMOGLOBIN 7.5 g/dL (12-16)
== END | disposition home or self-care (01) ==
LOC: D.LABREF 11:12
PROVIDERS: ATTEND Family Medicine
DX: K56.690 Other partial intestinal obstruction (principal); K59.89 Other specified functional intestinal disorders; Z79.899 Other long term (current) drug therapy; Z93.1 Gastrostomy status

== ENCOUNTER → 2020-09-02 14:46 | Outpatient (CLI) | payer MEDICARE ==
[2019-12-02 13:58] VITALS: BMI 24.8
[2020-09-02 14:59] LABS: BASOPHILS 0.7 % (0-2); EOSINOPHILS 4.6 % (0-7); HEMATOCRIT 26.9 % (36.0-48.0); HEMOGLOBIN 8.4 g/dL (12-16); LYMPHOCYTES 38.1 % (15-50); MCH 25.2 pg (26.0-34.0); MCHC 31.2 g/dL (31.0-37.0); MCV 80.8 fL (80.0-100.0); MEAN PLATELET VOLUME 8.9 fL (7.4-10.4); MONOCYTES 7.3 % (2-11); NEUTROPHILS 49.3 % (40-80); PLATELET COUNT 313 10x3/uL (130-400); RBC 3.33 10x6/uL (4.00-5.40); RDW 18.8 % (11.5-14.5); WBC 5.4 10x3/uL (4.8-10.8)
[2020-09-02 15:09] LABS: ALBUMIN 2.6 g/dL (3.4-5.0); ALKALINE PHOSPHATASE 126 U/L (30-120); ALT (SGPT) 8 U/L (10-68); BILIRUBIN - TOTAL 0.23 mg/dL (0.2-1.3); CALC OSMOLALITY 284 mosm/kg (275-300); CALCIUM 8.3 mg/dL (8.5-10.1); CARBON DIOXIDE 28.2 mmol/L (21.0-32.0); CHLORIDE - SERUM 106 mmol/L (98-107); CREATININE - SERUM 0.8 mg/dL (0.6-1.3); GLUCOSE 120 mg/dL (74-106); MAGNESIUM - SERUM 2.1 mg/dL (1.8-2.4); PHOSPHOROUS 3.7 mg/dL (2.5-4.9); POTASSIUM - SERUM 4.2 mmol/L (3.5-5.1); PRE-ALBUMIN 16.2 mg/dL (18.0-35.7); PROTEIN - SERUM 6.7 g/dL (6.4-8.2); SODIUM 142 mmol/L (136-145); TRIGLYCERIDE 45 mg/dL (30-200); UREA NITROGEN 16 mg/dL (7-18); eGFR NON AFRICAN AMERICAN 75 mL/min (90-120)
== END | disposition home or self-care (01) ==
LOC: D.LABREF 14:46
PROVIDERS: ATTEND Family Medicine
DX: K56.699 Other intestinal obstruction unspecified as to partial versus complete obstruction (principal); K59.89 Other specified functional intestinal disorders; Z79.899 Other long term (current) drug therapy

== ENCOUNTER → 2020-09-09 13:43 | Outpatient (CLI) | payer MEDICARE ==
[2019-12-02 13:58] VITALS: BMI 24.8
[2020-09-09 15:03] LABS: BASOPHILS 0.1 % (0-2); EOSINOPHILS 3.3 % (0-7); HEMATOCRIT 25.9 % (36.0-48.0); MCV 80.5 fL (80.0-100.0); MEAN PLATELET VOLUME 8.8 fL (7.4-10.4); NEUTROPHILS 75.6 % (40-80); PLATELET COUNT 333 10x3/uL (130-400); RBC 3.22 10x6/uL (4.00-5.40); RDW 19.1 % (11.5-14.5); WBC 10.8 10x3/uL (4.8-10.8)
[2020-09-09 15:28] LABS: ALBUMIN 2.1 g/dL (3.4-5.0); ANION GAP 10.9 mmol/L (8-16); BILIRUBIN - TOTAL 0.3 mg/dL (0.2-1.3); CALCIUM 7.8 mg/dL (8.5-10.1); CARBON DIOXIDE 27.9 mmol/L (21.0-32.0); MAGNESIUM - SERUM 2.4 mg/dL (1.8-2.4); PHOSPHOROUS 3.1 mg/dL (2.5-4.9); POTASSIUM - SERUM 3.8 mmol/L (3.5-5.1); PROTEIN - SERUM 6.5 g/dL (6.4-8.2)
[2020-09-09 15:30] LABS: PRE-ALBUMIN 11.4 mg/dL (18.0-35.7)
== END | disposition home or self-care (01) ==
LOC: D.LABREF 13:43
PROVIDERS: ATTEND Family Medicine
DX: K56.690 Other partial intestinal obstruction (principal); K63.2 Fistula of intestine; R10.0 Acute abdomen; Z45.2 Encounter for adjustment and management of vascular access device

== ENCOUNTER → 2020-10-11 21:26 | Outpatient (CLI) | payer MEDICARE ==
[2019-12-02 13:58] VITALS: BMI 24.8
[2020-10-11 22:00] LABS: BASOPHILS 0.8 % (0-2); EOSINOPHILS 0.8 % (0-7); HEMATOCRIT 29.9 % (36.0-48.0); HEMOGLOBIN 9.2 g/dL (12-16); LYMPHOCYTES 18.9 % (15-50); MCHC 30.8 g/dL (31.0-37.0); MCV 77.9 fL (80.0-100.0); MEAN PLATELET VOLUME 9.2 fL (7.4-10.4); MONOCYTES 7.2 % (2-11); NEUTROPHILS 72.3 % (40-80); PLATELET COUNT 347 10x3/uL (130-400); RBC 3.84 10x6/uL (4.00-5.40); RDW 19.5 % (11.5-14.5)
[2020-10-11 22:08] LABS: ALBUMIN 2.7 g/dL (3.4-5.0); ANION GAP 13.8 mmol/L (8-16); BILIRUBIN - TOTAL 0.31 mg/dL (0.2-1.3); CALCIUM 7.7 mg/dL (8.5-10.1); CARBON DIOXIDE 21.5 mmol/L (21.0-32.0); CREATININE - SERUM 0.9 mg/dL (0.6-1.3); MAGNESIUM - SERUM 2.5 mg/dL (1.8-2.4); PHOSPHOROUS 3.1 mg/dL (2.5-4.9); POTASSIUM - SERUM 5.3 mmol/L (3.5-5.1); PRE-ALBUMIN 14.2 mg/dL (18.0-35.7); PROTEIN - SERUM 7.5 g/dL (6.4-8.2)
== END | disposition home or self-care (01) ==
LOC: D.LABREF 21:26
PROVIDERS: ATTEND Family Medicine
DX: K56.690 Other partial intestinal obstruction (principal); R10.0 Acute abdomen; K59.89 Other specified functional intestinal disorders; K63.2 Fistula of intestine